=== PATIENT | female | born 1990 | race Caucasian/White ===

== ENCOUNTER 2023-12-03 07:40 | Outpatient (OUT) | payer OTHER, SELFPAY ==
[2023-12-03 08:21] LABS: HCG Quantitative 267 mIU/mL
== END 2023-12-03 07:41 | disposition home or self-care (01) ==
LOC: LAB 07:44
PROVIDERS: PCP Family Medicine; Visit Provider Obstetrics & Gynecology
DX: N92.6 Irregular menstruation, unspecified (principal); N91.2 Amenorrhea, unspecified
CPT/HCPCS: 36415; 84702

== ENCOUNTER 2023-12-16 10:20 | Outpatient (OUT) | payer OTHER, SELFPAY ==
--- OUTSIDE RECORDS SUMMARY | 2023-12-16 10:23 | XMS_ITS | CCD ---
Author Name Unknown Address [address] [facility] [address] [place] [address] Organization [facility] Care Team Providers Care Supervisor Transferring And Boxing Name Role Phone PHYSICIAN, DEFAULT Unavailable Unavailable PHYSICIAN, DEFAULT Unavailable Unavailable DR MARIANA CEVALLOS Primary Care Unavailable YO LANDEROS Admitting Unavailable YO LANDEROS Attending Unavailable YO LANDEROS Consulting Unavailable WHITNEY QUIROZ Admitting Unavailable WHITNEY QUIROZ Attending Unavailable DR MARIANA CEVALLOS Primary Care Unavailable WHITNEY QUIROZ Consulting Unavailable MARIANA CEVALLOS Attending Unavailable Problems Active Problems Problem Classification Problem Date Documented Da te Episodic/Chronic Anxiety disorders (1 source) Anxiety disorder, unspecified; Translations: [ANXIETY DISORDER UNSPECIFIED] Onset: 10-26-2022 Chronic Headache; including migraine (4 sources) Headache; including migraine; Translations: [HEADACHE UNSPECIFIED] Onset: 10-23-2022 Mood disorders (1 source) Mood disorders; Translations: [DEPRESSION UNSPECIFIED] Onset: 10-26-2022 Other aftercare (1 source) Other group home (current) drug therapy; Translations: [OTH 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] Onset: 10-26-2022 Episodic Unclassified (2 sources) CONTACT W/AND (SUSP) EXPOS COVID-19; Translations: [CONTACT W/AND (SUSP) EXPOS COVID-19] Onset: 12-17-2021 Viral infection (1 source) COVID-19; Translations: [COVID-19] Onset: 12-17-2021 Past or Other Problems Problem Classification Problem Date Documented Da te Episodic/Chronic Unclassified (1 source) CONTACT W/AND (SUSP) EXPOS COVID-19; Translations: [CONTACT W/AND (SUSP) EXPOS COVID-19] Onset: 12-16-2021 Results Test Name Value Interpretation Reference Range Facility CBC AUTO DIFFon 10-23-2022 BASO # 0.0 103/ul Normal 0.0-0.1 [facility] Comment on above: Performed By: #### C BC #### [facility] [address] [place] [address] Dr. Mir Araiza Basophils/100 WBC (Bld) 0.7 % Normal 0.2-2.0 [facility] Comment on above: Performed By: #### C BC #### [facility] [address] [place] [address] Dr. Mir Araiza EO # 0.2 103/ul Normal 0.0-0.7 [facility] Comment on above: Performed By: #### C BC #### [facility] [address] [place] [address] Dr. Mir Araiza Eosinophils/100 WBC (Bld) 3.0 % Normal 0.9-7.0 [facility] Comment on above: Performed By: #### C BC #### [facility] [address] [place] [address] Dr. Mir Araiza Erythrocyte distribution width (RBC) [Ratio] 15.6 % Critically high 11.0-15.0 [facility] Comment on above: Performed By: #### C BC #### [facility] [address] [place] [address] Dr. Mir Araiza Hematocrit (Bld) [Volume fraction] 38.5 % Normal 36.0-48.0 [facility] Comment on above: Performed By: #### C BC #### [facility] [address] [place] [address] Dr. Mir Araiza Hemoglobin (Bld) [Mass/Vol] 12.3 g/dL Normal 12.0-16.0 [facility] Comment on above: Performed By: #### C BC #### [facility] [address] [place] [address] Dr. Mir Araiza IG # 0.02 10e3/ul Normal 0.00-0.03 [facility] Comment on above: Performed By: #### C BC #### [facility] [address] [place] [address] Dr. Mir Araiza IG % 0.3 % Normal 0.0-0.5 [facility] Comment on above: Performed By: #### C BC #### [facility] [address] [place] [address] Dr. Mir Araiza LYMPH # 1.5 103/ul Normal 1.2-3.8 [facility] Comment on above: Performed By: #### C BC #### [facility] [address] [place] [address] Dr. Mir Araiza Lymphocytes/100 WBC (Bld) 24.1 % Normal 20.5-60.0 [facility] Comment on above: Performed By: #### C BC #### [facility] [address] [place] [address] Dr. Mir Araiza MANUAL DIFF REQ NO Normal [facility] Comment on above: Performed By: #### C BC #### [facility] [address] [place] [address] Dr. Mir Araiza MCH (RBC) [Entitic mass] 24.8 pg Critically low 26.7-34.0 [facility] Comment on above: Performed By: #### C BC #### [facility] [address] [place] [address] Dr. Mir Araiza MCHC (RBC) [Mass/Vol] 31.9 g/dL Normal 29.9-35.2 [facility] Comment on above: Performed By: #### C BC #### [facility] [address] [place] [address] Dr. Mir Araiza MCV (RBC) [Entitic vol] 77.8 fL Critically low 81.0-99.0 [facility] Comment on above: Performed By: #### C BC #### [facility] [address] [place] [address] Dr. Mir Araiza MONO # 0.4 103/ul Normal 0.3-0.8 [facility] Comment on above: Performed By: #### C BC #### [facility] [address] [place] [address] Dr. Mir Araiza Monocytes/100 WBC (Bld) 6.3 % Normal 1.7-12.0 [facility] Comment on above: Performed By: #### C BC #### [facility] [address] [place] [address] Dr. Mir Araiza NEUT # 4.0 103/ul Normal 1.4-6.5 [facility] Comment on above: Performed By: #### C BC #### [facility] [address] [place] [address] Dr. Mir Araiza Neutrophils/100 WBC (Bld) 65.6 % Normal 43.0-75.0 [facility] Comment on above: Performed By: #### C BC #### [facility] [address] [place] [address] Dr. Mir Araiza Platelet mean volume (Bld) [Entitic vol] 12.3 fL Normal 9.5-13.5 [facility] Comment on above: Performed By: #### C BC #### [facility] [address] [place] [address] Dr. Mir Araiza PLT 173 103/ul Normal 150-450 [facility] Comment on above: Performed By: #### C BC #### [facility] [address] [place] [address] Dr. Mir Araiza RBC 4.95 106/ul Normal 4.20-5.40 [facility] Comment on above: Performed By: #### C BC #### [facility] [address] [place] [address] Dr. Mir Araiza WBC 6.0 103/ul Normal 4.0-11.0 [facility] Comment on above: Performed By: #### C BC #### [facility] [address] [place] [address] Dr. Mir Araiza CRPon 10-23-2022 CRP 0.8 mg/dL Normal <=1.0 [facility] Comment on above: Performed By: #### B MP, CRP #### [facility] [address] [place] [address] Dr. Mir Araiza URon 10-23-2022 , QUAL Negative Normal NEGATIVE [facility] Comment on above: Performed By: #### P REGU #### [facility] [address] [address] [address] Mri Araiza PROF CHEM 8 (BAS METB)on Anion gap [Moles/Vol] 12.1 mmol/L Normal [facility] Comment on above: Performed By: #### B MP, CRP #### [facility] [address] [place] [address] Dr. Mir Araiza Calcium [Mass/Vol] 8.8 mg/dL Normal 8.5-10.1 [facility] Comment on above: Performed By: #### B MP, CRP #### [facility] [address] [place] [address] Dr. Mir Araiza Chloride [Moles/Vol] 104 mmol/L Normal 98-107 [facility] Comment on above: Performed By: #### B MP, CRP #### [facility] [address] [address] [address] Mir Araiza CO2 [Moles/Vol] 27.2 mmol/L Normal 21.0-32.0 [facility] Comment on above: Performed By: #### B MP, CRP #### [facility] [address] [place] [address] Dr. Mir Araiza Creatinine [Mass/Vol] 0.83 mg/dL Normal 0.55-1.02 [facility] Comment on above: Performed By: #### B MP, CRP #### [facility] [address] [address] [address] Mir Araiza EGFR-AF BELARUSIAN >60 Normal >=60 [facility] Comment on above: Performed By: #### B MP, CRP #### [facility] [address] [place] [address] Dr. Mir Araiza EGFR-NON AF BELARUSIAN >60 Normal >=60 [facility] Comment on above: Performed By: #### B MP, CRP #### [facility] [address] [place] [address] Dr. Mir Araiza Glucose [Mass/Vol] 96 mg/dL Normal 74-106 [facility] Comment on above: Performed By: #### B MP, CRP #### [facility] [address] [place] [address] Dr. Mir Araiza Potassium [Moles/Vol] 3.3 mmol/L Critically low 3.5-5.1 [facility] Comment on above: Performed By: #### B MP, CRP #### [facility] [address] [place] [address] Dr. Mir Araiza Sodium [Moles/Vol] 140 mmol/L Normal 136-145 [facility] Comment on above: Performed By: #### B MP, CRP #### [facility] [address] [place] [address] Dr. Mir Araiza Urea nitrogen [Mass/Vol] 10.0 mg/dL Normal 7.0-18.0 [facility] Comment on above: Performed By: #### B MP, CRP #### [facility] [address] [place] [address] Dr. Mir Araiza Urea nitrogen/Creatinine [Mass ratio] 12.0 mg/mg Normal [facility] Comment on above: Performed By: #### B MP, CRP #### [facility] [address] [place] [address] Dr. Mir Araiza SED RATE [facility] 2022 SED RATE 9 mm/hr Normal <=20 [facility] Comment on above: Performed By: #### S EDR #### [facility] [address] [place] [address] Dr. Mir Araiza Covid-19 PCR ([facility])on SARS-CoV-2 (COVID-19) RNA IFRAH+probe Ql (Unsp spec) Detected Critically abnormal NOT DETECTED [facility] Comment on above: Result Comment: This test is not yet approved or cleared by the [place] FDA. When there are no FDA-approved or cleared tests available, and other criteria are met, FDA can make tests available under an emergency access mechanism called an Emergency Use Authorization (EUA). The EUA for this test is supported by the Emissions Engineer of Health and Human Service's (HHS's) declaration that circumstances exist to justify the emergency use of in vitro diagnostics for the detection and/or diagnosis of the virus that causes COVID-19. This EUA will remain in effect (meaning this test can be used) for the duration of the COVID-19 declaration justifying emergency of IVDs, unless it is terminated or revoked by FDA (after which the test may no longer be used). Performed By: #### C VDTB #### [facility] [address] [address] [address] Mir Araiza [facility] Albumin [Mass/Vol] 3.9 g/dL Normal 3.2-5.5 [facility] Comment on above: Performed By: #### E BS CMP, EBS LIPID #### [address] Albumin/Globulin [Mass ratio] 1.2 {ratio} Normal [facility] Comment on above: Performed By: #### E BS CMP, EBS LIPID #### [facility] [address] ALP [Catalytic activity/Vol] 81 U/L Normal 32-92 [facility] Comment on above: Performed By: #### E BS CMP, EBS LIPID #### [facility] [address] [place] [address] [place] ALT [Catalytic activity/Vol] 17 U/L Normal 10-60 [facility] Comment on above: Performed By: #### E BS CMP, EBS LIPID #### [facility] [address] [id number] [place] AST [Catalytic activity/Vol] 18 U/L Normal 10-42 [facility] Comment on above: Performed By: #### E BS CMP, EBS LIPID #### [facility] [address] [id number] [place] Bilirubin [Mass/Vol] 0.3 mg/dL Normal 0.3-1.2 [facility] Comment on above: Performed By: #### E BS CMP, EBS LIPID #### [facility] [address] [place] [address] [place] Calcium [Mass/Vol] 9.5 mg/dL Normal 8.2-10.2 [facility] Comment on above: Performed By: #### E BS CMP, EBS LIPID #### [facility] [address] [place] [address] [place] Chloride [Moles/Vol] 99 mmol/L Normal 95-114 [facility] Comment on above: Performed By: #### E BS CMP, EBS LIPID #### [facility] [address] [place] [address] [place] CO2 [Moles/Vol] 30.3 mmol/L High 22.0-30.0 [facility] Comment on above: Performed By: #### E BS CMP, EBS LIPID #### [address] Creatinine [Mass/Vol] 0.61 mg/dL Normal 0.44-1.03 [facility] Comment on above: Performed By: #### E BS CMP, EBS LIPID #### [address] Estimated GFR ( Lili > 60 Normal [facility] Comment on above: Result Comment: GFR estimated reference range: According to KDOQI guidelines, <60 ml/min/1.73m2 is sufficient to diagnose a patient with chronic kidney disease. Performed By: #### E BS CMP, EBS LIPID #### [address] Estimated GFR (Non- Am > 60 Normal [facility] Comment on above: Performed By: #### E BS CMP, EBS LIPID #### [place] [address] [place] Globulin (S) [Mass/Vol] 3.2 g/dL Normal [facility] Comment on above: Performed By: #### E BS CMP, EBS LIPID #### [place] [address] [place] Glucose [Mass/Vol] 83 mg/dL Normal 70-100 [facility] Comment on above: Performed By: #### E BS CMP, EBS LIPID #### [place] [address] [place] Potassium [Moles/Vol] 4.3 mmol/L Normal 3.5-5.1 [facility] Comment on above: Performed By: #### E BS CMP, EBS LIPID #### [facility] [address] Protein [Mass/Vol] 7.1 g/dL Normal 6.1-7.9 [facility] Comment on above: Performed By: #### E BS CMP, EBS LIPID #### [facility] [address] Sodium [Moles/Vol] 138 mmol/L Normal 136-146 [facility] Comment on above: Performed By: #### E BS CMP, EBS LIPID #### [facility] [address] Urea nitrogen [Mass/Vol] 11 mg/dL Normal 9-23 [facility] Comment on above: Performed By: #### E BS CMP, EBS LIPID #### [facility] [address] Lipid Profileon 08-14-2021 Cholesterol [Mass/Vol] 248 mg/dL High 140-200 [facility] Comment on above: Result Comment: Chol less than 200 mg/dl low risk Chol 201-239 mg/dl borderline risk Chol 240 mg/dl and greater high risk Performed By: #### E BS CMP, EBS LIPID #### [facility] [address] Cholesterol in HDL [Mass/Vol] 54 mg/dL Normal 35-85 [facility] Comment on above: Result Comment: HDL CHOL ATP-III CLASSIFICATION Cardiovascular Risk HDL > or equal to 60 mg/dL LOW HDL < 40 mg/dL HIGH Performed By: #### E BS CMP, EBS LIPID #### [facility] [address] Cholesterol.total/C holesterol in HDL [Mass ratio] 4.6 {ratio} Normal <5.0 [facility] Comment on above: Result Comment: PERF ORMED BY: [place] [address] PATHOLOGIST TELEHEALTH COORDINATOR CAMILA KINNEY M.D. Performed By: #### E BS CMP, EBS LIPID #### [facility] [address] LDL Cholesterol,Calcula satya 170 mg/dL High 0-100 [facility] Comment on above: Result Comment: LDL ATP III CLASSIFICATION LDL less than 100 mg/dL Optimal LDL 100-129 mg/dL Near or above optimal LDL 130-159 mg/dL Borderline high LDL 160-189 mg/dL High LDL greater than 189 mg/dL Very high Performed By: #### E BS CMP, EBS LIPID #### [facility] [address] Triglyceride w/Reflex 121 mg/dL Normal 35-149 [facility] Comment on above: Result Comment: TRIG ATP III CLASSIFICATION TRIG less than 150 mg/dL Normal TRIG 150-199 mg/dL Borderline high TRIG 200-500 mg/dL High TRIG greater than 500 mg/dL Very high Standard traceable to the Center for Disease Conrtrol and Prevention (CDC) test method. Performed By: #### E BS CMP, EBS LIPID #### [facility] [address] VLDL CHOLESTEROL 24 mg/dL Normal [facility] Comment on above: Performed By: #### E BS CMP, EBS LIPID #### [facility] [address] Encounters Encounter Date Encounter Type Care Provider Facility Start: 10-21-2023 End: 10-21-2023 ambulatory MARIANA CEVALLOS Not Available Start: 10-23-2022 End: 10-23-[address] MARIANA CEVALLOS Facility:[facility] Start: 12-16-2021 End: 12-16-2021 ambulatory WHITNEY QUIROZ Facility:[facility] Start: 04-03-2018 End: 04-04-2018 Ambulatory DEFAULT PHYSICIAN Facility:[facility] Payers Date Payer Category Payer Unknown [id number] 1990 Unknown [id number] [id number] [id number] 1990 Unknown [id number] [id number] [id number] 1990 Unknown [id number] [id number] [id number] 1959 Unknown [id number] Unknown Summary Purpose Family History No Family History Records FoundNo Family History Records FoundNo Family History Records FoundNo Family History Records Found Advance Directives No Advanced Directives Records FoundNo Advanced Directives Records FoundNo Advanced Directives Records FoundNo Advanced Directives Records Found Additional Source Comments INFORMATION SOURCE (unrecogn ized section and content) DATE CREATED AUTHOR 04/04/2018 [facility] DATE CREATED AUTHOR AUTHOR'S ORGANIZ ATION 11/03/2021 [facility] DATE CREATED AUTHOR AUTHOR'S ORGANIZ ATION 10/26/2022 [facility] DATE CREATED AUTHOR AUTHOR'S ORGANIZ ATION 10/22/2023 [facility] EPIC FOR RECORDS PERTAINING TO PATIENTS WHO ARE OR HAVE BEEN ENROLLED IN A CHEMICAL DEPENDENCY/SUBSTANCEABUSE PROGRAM, SOME INFORMATION MAY BE OMITTED. This clinical summary was aggregated from multiple sources. Caution should be exercised in using it in the provision of clinical care. This summary normalizes information from multiple sources, and as a consequence, information in this document may materially change the coding, format and clinical context of patient data. In addition, data may be omitted in some cases. CLINICAL DECISIONS SHOULD BE BASED ON THE PRIMARY CLINICAL RECORDS. [facility] [employer] [facility]. provides no warranty or guarantee of the accuracy or completeness of information in this document.
[2023-12-16 13:06] LABS: HCG Quantitative 25856 mIU/mL
== END 2023-12-16 10:21 | disposition home or self-care (01) ==
PROVIDERS: PCP Family Medicine; Visit Provider Obstetrics & Gynecology
DX: N92.6 Irregular menstruation, unspecified (principal)
CPT/HCPCS: 36415; 84702

== ENCOUNTER 2024-01-02 18:55 | Outpatient (OUT) | payer OTHER, SELFPAY ==
--- NOTE | 2024-01-02 | US_ITS ---
[address] [address] Patient Name: PATRICIA GIBSON MRN: [id number] date: 1990 Sex: F Assigned Patient Location: [place] Current Patient Location: Accession/Order Number: [id number] Exam Date: 01/02/2024 19:07 Report Date: 01/03/2024 07:09 At the request of: LAKIA ESCOBEDO Procedure: US OB transvaginal EXAMINATION: US OB transvaginal HISTORY: MISSED MENSES N92.6 COMPARISON: No relevant comparison available. FINDINGS: Transvaginal images Shah intrauterine gestation Gestational sac: 2.9 cm, 7 weeks 5 days CRL: 2.2 cm, 9 weeks 0 days Yolk sac: 0.19 cm Heart rate: 1 64 bpm Identified adjacent to the gestational sac is a crescentic area of hypoechogenicity measuring 1.7 x 1.0 cm Cervix: Closed, 3.4 cm The uterus is normal, anteverted The right ovary is normal measuring 2.9 x 2.4 x 1.9 cm Left ovary is not visualized Clinical age: 10 weeks 2 days Clinical DEAN: 07/28/2024 Ultrasound age: 9 weeks 0 days Ultrasound DEAN: 08/06/2024 US/US OB transvaginal IMPRESSION: Viable shah intrauterine gestation measuring 9 weeks 0 days Small subchorionic hematoma Electronically authenticated by: BETH RINALDI Date: 01/03/2024 07:09
--- OUTSIDE RECORDS SUMMARY | 2024-01-02 18:57 | XMS_ITS | CCD ---
Author Organization [facility] Care Team Providers Care Subsorter Name Role Phone PHYSICIAN, DEFAULT Unavailable Unavailable [...] Onset: 10-26-2022 Other aftercare (1 source) Other jail (current) drug therapy; Translations: [OTH [facility] CURRENT DRUG THERAPY] Onset: 10-26-2022 Episodic Unclassified [...] 10-23-2022 BASO # 0.0 103/ul Normal 0.0-0.1 [facility] Comment on above: Performed By: #### C BC #### [facility] [address] [address] [address] Mir Araiza Basophils/100 WBC (Bld) 0.7 % Normal 0.2-2.0 [facility] Comment on above: Performed By: #### C BC #### [facility] [address] [place] [address] Dr. Mir Araiza EO # 0.2 103/ul Normal 0.0-0.7 [facility] Comment on above: Performed By: #### C BC #### [facility] [address] [place] [address] Dr. Mir Araiza Eosinophils/100 WBC (Bld) 3.0 % Normal 0.9-7.0 [facility] Comment on above: Performed By: #### C BC #### [facility] [address] [place] [address] Dr. Mir Araiza Erythrocyte distribution width (RBC) [Ratio] 15.6 % Critically high 11.0-15.0 [facility] Comment on above: Performed By: #### C BC #### [facility] [address] [place] [address] Dr. Mir Araiza Hematocrit (Bld) [Volume fraction] 38.5 % Normal 36.0-48.0 [facility] Comment on above: Performed By: #### C BC #### [facility] [address] [place] [address] Dr. Mir Araiza Hemoglobin (Bld) [Mass/Vol] 12.3 g/dL Normal 12.0-16.0 [facility] Comment on above: Performed By: #### C BC #### [facility] [address] [place] [address] Dr. Mir Araiza IG # 0.02 10e3/ul Normal 0.00-0.03 [facility] Comment on above: Performed By: #### C BC #### [facility] [address] [place] [address] Dr. Mir Araiza IG % 0.3 % Normal 0.0-0.5 [facility] Comment on above: Performed By: #### C BC #### [facility] [address] [address] [address] Mir Araiza LYMPH # 1.5 103/ul Normal 1.2-3.8 [facility] Comment on above: Performed By: #### C BC #### [facility] [address] [place] [address] Dr. Mir Araiza Lymphocytes/100 WBC (Bld) 24.1 % Normal 20.5-60.0 [facility] Comment on above: Performed By: #### C BC #### [facility] [address] [place] [address] Dr. Mir Araiza MANUAL DIFF REQ NO Normal [facility] Comment on above: Performed By: #### C BC #### [facility] [address] [place] [address] Dr. Mir Araiza MCH (RBC) [Entitic mass] 24.8 pg Critically low 26.7-34.0 [facility] Comment on above: Performed By: #### C BC #### [facility] [address] [place] [address] Dr. Mir Araiza MCHC (RBC) [Mass/Vol] 31.9 g/dL Normal 29.9-35.2 [facility] Comment on above: Performed By: #### C BC #### [facility] [address] [place] [address] Dr. Mir Araiza MCV (RBC) [Entitic vol] 77.8 fL Critically low 81.0-99.0 [facility] Comment on above: Performed By: #### C BC #### [facility] [address] [place] [address] Dr. Mir Araiza MONO # 0.4 103/ul Normal 0.3-0.8 [facility] Comment on above: Performed By: #### C BC #### [facility] [address] [place] [address] Dr. Mir Araiza Monocytes/100 WBC (Bld) 6.3 % Normal 1.7-12.0 [facility] Comment on above: Performed By: #### C BC #### [facility] [address] [place] [address] Dr. Mir Araiza NEUT # 4.0 103/ul Normal 1.4-6.5 [facility] Comment on above: Performed By: #### C BC #### [facility] [address] [place] [address] Dr. Mir Araiza Neutrophils/100 WBC (Bld) 65.6 % Normal 43.0-75.0 [facility] Comment on above: Performed By: #### C BC #### [facility] [address] [place] [address] Dr. Mir Araiza Platelet mean volume (Bld) [Entitic vol] 12.3 fL Normal 9.5-13.5 [facility] Comment on above: Performed By: #### C BC #### [facility] [address] [place] [address] Dr. Mir Araiaz PLT 173 103/ul Normal 150-450 [facility] Comment on above: Performed By: #### C BC #### [facility] [address] [place] [address] Dr. Mir Araiza RBC 4.95 106/ul Normal 4.20-5.40 [facility] Comment on above: Performed By: #### C BC #### [facility] [address] [place] [address] Dr. Mir Araiza WBC 6.0 103/ul Normal 4.0-11.0 [facility] Comment on above: Performed By: #### C BC #### [facility] [address] [place] [address] Dr. Mir Aariza CRPon 10-23-2022 CRP 0.8 mg/dL Normal <=1.0 [facility] Comment on above: Performed By: #### B MP, CRP #### [facility] [address] [place] [address] Dr. Mir Araiza URon 10-23-2022 , QUAL Negative Normal NEGATIVE [facility] Comment on above: Performed By: #### P REGU #### [facility] [address] [address] [address] Mir Araiza PROF CHEM 8 (BAS METB)on Anion gap [Moles/Vol] 12.1 mmol/L Normal [facility] Comment on above: Performed By: #### B MP, CRP #### [facility] [address] [address] [address] Mir Araiza Calcium [Mass/Vol] 8.8 mg/dL Normal 8.5-10.[address] [facility] Comment on above: Performed By: #### B MP, CRP #### [facility] [address] [address] [address] Mir Araiza Chloride [Moles/Vol] 104 mmol/L Normal 98-107 [facility] Comment on above: Performed By: #### B MP, CRP #### [facility] [address] [place] [address] Dr. Mir Araiza CO2 [Moles/Vol] 27.2 mmol/L Normal 21.0-32.0 [facility] Comment on above: Performed By: #### B MP, CRP #### [facility] [address] [address] [address] Mir Araiza Creatinine [Mass/Vol] 0.83 mg/dL Normal 0.55-1.02 [facility] Comment on above: Performed By: #### B MP, CRP #### [facility] [address] [address] [address] Mir Araiza EGFR-AF PAKISTANI >60 Normal >=60 [facility] Comment on above: Performed By: #### B MP, CRP #### [facility] [address] [address] [address] Mir Araiza EGFR-NON AF PAKISTANI >60 Normal >=60 [facility] Comment on above: Performed By: #### B MP, CRP #### [facility] [address] [address] [address] Mir Araiza Glucose [Mass/Vol] 96 mg/dL Normal 74-[address] [facility] Comment on above: Performed By: #### B MP, CRP #### [facility] [address] [address] [address] Mir Araiza Potassium [Moles/Vol] 3.3 mmol/L Critically low 3.5-5.1 [facility] Comment on above: Performed By: #### B MP, CRP #### [facility] [address] [address] [address] Mir Araiza Sodium [Moles/Vol] 140 mmol/L Normal 136-145 [facility] Comment on above: Performed By: #### B MP, CRP #### [facility] [address] [address] [address] Mir Araiza Urea nitrogen [Mass/Vol] 10.0 mg/dL Normal 7.0-18.0 [facility] Comment on above: Performed By: #### B MP, CRP #### [facility] [address] [place] [address] Dr. Mir Araiza Urea nitrogen/Creatinine [Mass ratio] 12.0 mg/mg Normal [facility] Comment on above: Performed By: #### B MP, CRP #### [facility] [address] [place] [address] Dr. Mir Araiza SED RATE [facility] 2022 SED RATE 9 mm/hr Normal <=20 [facility] Comment on above: Performed By: #### S EDR #### [facility] [address] [place] [address] Dr. Mir Araiza Covid-19 PCR (CVDTB)on SARS-CoV-2 (COVID-19) RNA IFRAH+probe Ql (Unsp spec) Detected Critically abnormal NOT DETECTED [facility] Comment on above: Result Comment: This test is not yet approved or cleared by the [place] FDA. When there are no FDA-approved or cleared tests available, and other criteria are met, FDA can make tests available under an emergency access mechanism called an Emergency Use Authorization (EUA). The EUA for this test is supported by the Video Specialist of Health and Human Service's (HHS's) declaration [...] used). Performed By: #### C VDTB #### [facility] [address] [address] [address] Mir Araiza [facility] Metabolic Empo n 08-14-2021 Albumin [Mass/Vol] 3.9 g/dL Normal 3.2-5.5 [facility] Comment on above: Performed By: #### E BS CMP, EBS LIPID #### [facility] [address] [place] [address] [place] Albumin/Globulin [Mass ratio] 1.2 {ratio} Normal [facility] Comment on above: Performed By: #### E BS CMP, EBS LIPID #### [facility] [address] [place] [address] [place] ALP [Catalytic activity/Vol] 81 U/L Normal 32-92 [facility] Comment on above: Performed By: #### E BS CMP, EBS LIPID #### [facility] [address] [place] [address] [place] ALT [Catalytic activity/Vol] 17 U/L Normal 10-60 [facility] Comment on above: Performed By: #### E BS CMP, EBS LIPID #### [facility] [address] [place] [address] [place] AST [Catalytic activity/Vol] 18 U/L Normal 10-42 [facility] Comment on above: Performed By: #### E BS CMP, EBS LIPID #### [facility] [address] [place] [address] [place] Bilirubin [Mass/Vol] 0.3 mg/dL Normal 0.3-1.2 [facility] Comment on above: Performed By: #### E BS CMP, EBS LIPID #### [facility] [address] [place] [address] [place] Calcium [Mass/Vol] 9.5 mg/dL Normal 8.2-10.2 [facility] Comment on above: Performed By: #### E BS CMP, EBS LIPID #### [facility] [address] [id number] [place] Chloride [Moles/Vol] 99 mmol/L Normal 95-114 [facility] Comment on above: Performed By: #### E BS CMP, EBS LIPID #### [facility] [address] CO2 [Moles/Vol] 30.3 mmol/L High 22.0-30.0 [facility] Comment on above: Performed By: #### E BS CMP, EBS LIPID #### [facility] [address] Creatinine [Mass/Vol] 0.61 mg/dL Normal 0.44-1.03 [facility] Comment on above: Performed By: #### E BS CMP, EBS LIPID #### [address] Estimated GFR ( Lili > 60 Normal [facility] Comment on above: Result Comment: GFR estimated reference range: According to KDOQI guidelines, <60 ml/min/1.73m2 is sufficient to diagnose a patient with chronic kidney disease. Performed By: #### E BS CMP, EBS LIPID #### [facility] [address] [place] [address] Estimated GFR (Non- Am > 60 Normal [facility] Comment on above: Performed By: #### E BS CMP, EBS LIPID #### [facility] [address] [place] [address] [place] Globulin (S) [Mass/Vol] 3.2 g/dL Normal [facility] Comment on above: Performed By: #### E BS CMP, EBS LIPID #### [facility] [address] [place] [address] [place] Glucose [Mass/Vol] 83 mg/dL Normal 70-100 [facility] Comment on above: Performed By: #### E BS CMP, EBS LIPID #### [facility] [address] [place] [address] Potassium [Moles/Vol] 4.3 mmol/L Normal 3.5-5.1 [facility] Comment on above: Performed By: #### E BS CMP, EBS LIPID #### [facility] [address] [id number] [place] Protein [Mass/Vol] 7.1 g/dL Normal 6.1-7.9 [facility] Comment on above: Performed By: #### E BS CMP, EBS LIPID #### [facility] [address] [phone] [place] Sodium [Moles/Vol] 138 mmol/L Normal 136-146 [facility] Comment on above: Performed By: #### E BS CMP, EBS LIPID #### [facility] [address] Urea nitrogen [Mass/Vol] 11 mg/dL Normal 9-23 [facility] Comment on above: Performed By: #### E BS CMP, EBS LIPID #### [facility] [address] Lipid Profileon 08-14-2021 Cholesterol [Mass/Vol] 248 mg/dL High 140-200 [facility] Comment on above: Result Comment: Chol less than 200 mg/dl low risk Chol 201-239 mg/dl borderline risk Chol 240 mg/dl and greater high risk Performed By: #### E BS CMP, EBS LIPID #### [facility] [address] Cholesterol in HDL [Mass/Vol] 54 mg/dL Normal 35-85 [facility] Comment on above: Result Comment: HDL CHOL ATP-III CLASSIFICATION Cardiovascular Risk HDL > or equal to 60 mg/dL LOW HDL < 40 mg/dL HIGH Performed By: #### E BS CMP, EBS LIPID #### [facility] [address] [id number] [place] Cholesterol.total/C holesterol in HDL [Mass ratio] 4.6 {ratio} Normal <5.0 [facility] Comment on above: Result Comment: PERF ORMED BY: [place] [address] PATHOLOGIST COMMUNICATION EQUIPMENT REPAIRER CAMILA KINNEY M.D. Performed By: #### E BS CMP, EBS LIPID #### [facility] [address] [id number] [facility] LDL Cholesterol,Calcula satya 170 mg/dL High 0-100 [facility] Comment on above: Result Comment: LDL ATP III CLASSIFICATION LDL less than 100 mg/dL Optimal LDL 100-129 mg/dL Near or above optimal LDL 130-159 mg/dL Borderline high LDL 160-189 mg/dL High LDL greater than 189 mg/dL Very high Performed By: #### E BS CMP, EBS LIPID #### [facility] [address] [id number] [facility] Triglyceride w/Reflex 121 mg/dL Normal 35-149 [facility] Comment on above: Result Comment: TRIG ATP III CLASSIFICATION TRIG less than 150 mg/dL Normal TRIG 150-199 mg/dL Borderline high TRIG 200-500 mg/dL High TRIG greater than 500 mg/dL Very high Standard traceable to the Center for Disease Conrtrol and Prevention (CDC) test method. Performed By: #### E BS CMP, EBS LIPID #### [facility] [address] [id number] [facility] VLDL CHOLESTEROL 24 mg/dL Normal [facility] Comment on above: Performed By: #### E BS CMP, EBS LIPID #### [facility] [address] [id number] [facility] Encounters Encounter Date Encounter Type Care Provider Facility Start: 10-21-2023 End: 10-21-2023 ambulatory MARIANA CEVALLOS Not Available Start: 10-23-2022 End: 10-23-[address] MARIANA CEVALLOS Facility:[facility] Start: 12-16-2021 End: 12-16-2021 ambulatory WHITNEY QUIROZ Facility:[facility] Start: 04-03-2018 End: 04-04-2018 Ambulatory DEFAULT PHYSICIAN Facility:[facility] Payers Date Payer Category Payer Unknown [id number] 1990 Unknown [id number] 1990 Unknown [id number] [id number] 1990 Unknown [id number] 1959 Unknown [id number] Unknown Summary Purpose Family History No Family History Records FoundNo Family History Records FoundNo Family History Records FoundNo Family History Records Found Advance Directives No Advanced Directives Records FoundNo Advanced Directives Records FoundNo Advanced Directives Records FoundNo Advanced Directives Records Found Additional Source Comments INFORMATION SOURCE (unrecogn ized section and content) DATE CREATED AUTHOR 04/04/2018 [facility] DATE CREATED AUTHOR AUTHOR'S ORGANIZ ATION 11/03/2021 [facility] DATE CREATED AUTHOR AUTHOR'S ORGANIZ ATION 10/26/2022 [facility] DATE CREATED AUTHOR AUTHOR'S ORGANIZ ATION 10/22/2023 [facility] [employer] EPIC FOR RECORDS PERTAINING TO PATIENTS [...] BE BASED ON THE PRIMARY CLINICAL RECORDS. [facility] [employer] provides no warranty or guarantee of the accuracy or completeness of information in this document.
== END 2024-01-02 18:56 | disposition home or self-care (01) ==
PROVIDERS: PCP Family Medicine; Visit Provider Obstetrics & Gynecology
DX: N92.6 Irregular menstruation, unspecified (principal); O20.9 Hemorrhage in early pregnancy, unspecified; Z3A.09 9 weeks gestation of pregnancy
CPT/HCPCS: 76817

== ENCOUNTER 2024-01-20 08:56 | Outpatient (OUT) | payer OTHER, SELFPAY ==
--- NOTE | 2024-01-20 08:58 | US_ITS ---
[address] [address] Patient Name: PATRICIA GIBSON MRN: [id number] date: 1990 Sex: F Assigned Patient Location: [facility] Current Patient Location: [facility] Accession/Order Number: [id number] Exam Date: 01/20/2024 08:58 Report Date: 01/20/2024 09:33 At the request of: LAKIA ESCOBEDO Procedure: US OB transvaginal EXAMINATION: US OB transvaginal HISTORY: MISSED MENSES COMPARISON: Ultrasound OB transvaginal 01/02/2024 FINDINGS: GESTATIONAL SAC: Present and normal appearing. YOLK SAC: Present and normal appearing. POLE: Present and normal appearing. CARDIAC: Present. UTERUS: Normal size and appearance. OVARIES: Right: Not seen. Left: Normal. CERVIX: 4.3 cm in length and closed. CUL-DE-SAC: Normal. OTHER: None. AGE BY LMP: 12 weeks 6 days DEAN BY LMP: 07/28/2024 AGE BY US CRL: 11 weeks 4 days DEAN BY US CRL: 08/06/2024 US/US OB transvaginal IMPRESSION: 1. Single live intrauterine . 2. Resolution of previously seen small subchorionic hematomas. Electronically authenticated by: KATHIE RUIZ Date: 01/20/2024 09:33
== END 2024-01-20 08:57 | disposition home or self-care (01) ==
LOC: NOMS 08:56
PROVIDERS: PCP Family Medicine; Visit Provider Obstetrics & Gynecology
DX: Z34.91 Encounter for supervision of normal pregnancy, unspecified, first trimester (principal); Z3A.12 12 weeks gestation of pregnancy
CPT/HCPCS: 76817

== ENCOUNTER 2024-01-20 10:00 | Outpatient (OUT) | payer OTHER, SELFPAY ==
[2024-01-20 10:49] LABS: BOX Test Sent Out DONE
[2024-01-20 11:37] LABS: Basophils Percent Auto 0.1 % (0.2-2.0); Eosinophils Percent Auto 0.1 % (0.9-7.0); Hematocrit 39.4 % (36.0-48.0); Hemoglobin 12.2 g/dL (12.0-16.0); Lymphocytes Percent Auto 9.9 % (20.5-60.0); Mean Corpuscular Volume 77.6 fL (81.0-99.0); Mean Platelet Volume 12.3 fL (9.5-13.5); Monocytes Absolute Auto 0.2 10^3/uL (0.3-0.8); Monocytes Percent Auto 2.2 % (1.7-12.0); Neutrophils Absolute Auto 9.1 10^3/uL (1.4-6.5); Neutrophils Percent Auto 86.7 % (43.0-75.0); Platelet Count 173 10^3/uL (150-450); Red Blood Count 5.08 10^6/uL (4.20-5.40); Red Cell Distribution Width 14.9 % (11.0-15.0); White Blood Count 10.5 10^3/uL (4.0-11.0)
[2024-01-20 11:48] LABS: Estimated Average Glucose 111 mg/dL; Glycohemoglobin A1C 5.5 % (4.5-6.2)
[2024-01-21 06:08] LABS: HBsAg Screen Negative (Negative); HCV Ab Non Reactive (Non Reactive); HIV Ab/p24 Ag Screen Non Reactive (Non Reactive)
[2024-01-21 07:08] LABS: Rapid Plasma Reagin, Quant Non Reactive titer (NonRea<1:1); Rubella Antibodies, IgG 2.29 index (Immune >0.99)
== END 2024-01-20 10:01 | disposition home or self-care (01) ==
LOC: LAB 10:01
PROVIDERS: PCP Family Medicine; Visit Provider Obstetrics & Gynecology
DX: Z34.91 Encounter for supervision of normal pregnancy, unspecified, first trimester (principal); Z36.0 Encounter for antenatal screening for chromosomal anomalies; Z3A.12 12 weeks gestation of pregnancy
CPT/HCPCS: 36415; 76817; 83036; 85025; 86592; 86762; 86803; 86850; 86900; 86901; 87086; 87340; 87389

== ENCOUNTER 2024-04-05 09:18 | Outpatient (OUT) | payer OTHER, SELFPAY ==
--- OUTSIDE RECORDS SUMMARY | 2024-04-05 09:28 | XMS_ITS | CCD ---
Author Organization [facility] Inform ion Partnership [facility] Care Team Providers Care Director Power Name Role Phone PHYSICIAN, DEFAULT Unavailable Unavailable PHYSICIAN, DEFAULT Unavailable Unavailable DR MARIANA CEVALLOS Primary Care Unavailable YO LANDEROS Admitting Unavailable YO LANDEROS Attending Unavailable YO LANDEROS Consulting Unavailable WHITNEY QUIROZ Admitting Unavailable WHITNEY QUIROZ Attending Unavailable DR MARIANA CEVALLOS Primary Care Unavailable WHITNEY QUIROZ Consulting Unavailable MARIANA CEVALLOS Attending Unavailable LAKIA ESCOBEDO Attending Unavailable Problems Active Problems Problem Classification Problem Date Documented Da te Episodic/Chronic Anxiety disorders (1 source) Anxiety disorder, unspecified; Translations: [ANXIETY DISORDER UNSPECIFIED] Onset: 10-26-2022 Chronic Headache; including migraine (4 sources) Headache; including migraine; Translations: [HEADACHE UNSPECIFIED] Onset: 10-23-2022 Mood disorders (1 source) Mood disorders; Translations: [DEPRESSION UNSPECIFIED] Onset: 10-26-2022 Other aftercare (1 source) 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 Mir Araiza Basophils/100 WBC (Bld) 0.7 % Normal 0.2-2.0 [facility] Comment on above: Performed By: #### C BC #### [facility] [address] [place] [address] Dr. Mir Araiza EO # 0.2 103/ul Normal 0.0-0.7 [facility] Comment on above: Performed By: #### C BC #### [facility] [address] [place] [address] Dr. Mir Araiza Eosinophils/100 WBC (Bld) 3.0 % Normal 0.9-7.0 [facility] Comment on above: Performed By: #### C BC #### [facility] [address] [place] [address] Dr. Mir Araiza Erythrocyte distribution width (RBC) [Ratio] 15.6 % Critically high 11.0-15.0 [facility] Comment on above: Performed By: #### C BC #### [facility] [address] [place] [address] Dr. Mir Araiza Hematocrit (Bld) [Volume fraction] 38.5 % Normal 36.0-48.0 [facility] Comment on above: Performed By: #### C BC #### [facility] [address] [place] [address] Dr. Mir Araiza Hemoglobin (Bld) [Mass/Vol] 12.3 g/dL Normal 12.0-16.0 [facility] Comment on above: Performed By: #### C BC #### [facility] [address] [place] [address] Dr. Mir Araiza IG # 0.02 10e3/ul Normal 0.00-0.03 [facility] Comment on above: Performed By: #### C BC #### [facility] [address] [place] [address] Dr. Mir Araiza IG % 0.3 % Normal 0.0-0.5 [facility] Comment on above: Performed By: #### C BC #### [facility] [address] [place] [address] Dr. Mir Araiza LYMPH # 1.5 103/ul Normal 1.2-3.8 [facility] Comment on above: Performed By: #### C BC #### [facility] [address] [place] [address] Dr. Mir Araiza Lymphocytes/100 WBC (Bld) 24.1 % Normal 20.5-60.0 [facility] Comment on above: Performed By: #### C BC #### [facility] [address] [place] [address] Dr. Mir Araiza MANUAL DIFF REQ NO Normal [facility] Comment on above: Performed By: #### C BC #### [facility] [address] [place] [address] Dr. Mir Araiza MCH (RBC) [Entitic mass] 24.8 pg Critically low 26.7-34.0 [facility] Comment on above: Performed By: #### C BC #### [facility] [address] [place] [address] Dr. Mir Araiza MCHC (RBC) [Mass/Vol] 31.9 g/dL Normal 29.9-35.2 [facility] Comment on above: Performed By: #### C BC #### [facility] [address] [place] [address] Dr. Mir Araiza MCV (RBC) [Entitic vol] 77.8 fL Critically low 81.0-99.0 [facility] Comment on above: Performed By: #### C BC #### [facility] [address] [place] [address] Dr. Mir Araiza MONO # 0.4 103/ul Normal 0.3-0.8 [facility] Comment on above: Performed By: #### C BC #### [facility] [address] [place] [address] Dr. Mir Araiza Monocytes/100 WBC (Bld) 6.3 % Normal 1.7-12.0 [facility] Comment on above: Performed By: #### C BC #### [facility] [address] [place] [address] Dr. Mir Araiza NEUT # 4.0 103/ul Normal 1.4-6.5 [facility] Comment on above: Performed By: #### C BC #### [facility] [address] [place] [address] Dr. Mir Araiza Neutrophils/100 WBC (Bld) 65.6 % Normal 43.0-75.0 [facility] Comment on above: Performed By: #### C BC #### [facility] [address] [place] [address] Dr. Mir Araiza Platelet mean volume (Bld) [Entitic vol] 12.3 fL Normal 9.5-13.5 [facility] Comment on above: Performed By: #### C BC #### [facility] [address] [place] [address] Dr. Mir Araiza PLT 173 103/ul Normal 150-450 [facility] Comment on above: Performed By: #### C BC #### [facility] [address] [place] [address] Dr. Mir Araiza RBC 4.95 106/ul Normal 4.20-5.40 [facility] Comment on above: Performed By: #### C BC #### [facility] [address] [place] [address] Dr. Mir Araiza WBC 6.0 103/ul Normal 4.0-11.0 [facility] Comment on above: Performed By: #### C BC #### [facility] [address] [place] [address] Dr. Mir Araiza CRPon 10-23-2022 CRP 0.8 mg/dL Normal <=1.0 [facility] Comment on above: Performed By: #### B MP, CRP #### [facility] [address] [place] [address] Dr. Mir Araiza URon 10-23-2022 , QUAL Negative Normal NEGATIVE [facility] Comment on above: Performed By: #### P REGU #### [facility] [address] [address] [address] Mir Araiza PROF CHEM 8 (BAS METB)on Anion gap [Moles/Vol] 12.1 mmol/L Normal [facility] Comment on above: Performed By: #### B MP, CRP #### [facility] [address] [place] [address] Dr. Mir Araiza Calcium [Mass/Vol] 8.8 mg/dL Normal 8.5-10.1 [facility] Comment on above: Performed By: #### B MP, CRP #### [facility] [address] [place] [address] Dr. Mir Araiza Chloride [Moles/Vol] 104 mmol/L Normal 98-107 [facility] Comment on above: Performed By: #### B MP, CRP #### [facility] [address] [place] [address] Dr. Mir Araiza CO2 [Moles/Vol] 27.2 mmol/L Normal 21.0-32.0 [facility] Comment on above: Performed By: #### B MP, CRP #### [facility] [address] [place] [address] Dr. Mir Araiza Creatinine [Mass/Vol] 0.83 mg/dL Normal 0.55-1.02 [facility] Comment on above: Performed By: #### B MP, CRP #### [facility] [address] [address] [address] Mir Araiza EGFR-AF BELIZEAN >60 Normal >=60 [facility] Comment on above: Performed By: #### B MP, CRP #### [facility] [address] [place] [address] Dr. Mir Araiza EGFR-NON AF BELIZEAN >60 Normal >=60 [facility] Comment on above: Performed By: #### B MP, CRP #### [facility] [address] [place] [address] Dr. Mir Araiza Glucose [Mass/Vol] 96 mg/dL Normal 74-106 [facility] Comment on above: Performed By: #### B MP, CRP #### [facility] [address] [address] [address] Mir Araiza Potassium [Moles/Vol] 3.3 mmol/L Critically low 3.5-5.1 [facility] Comment on above: Performed By: #### B MP, CRP #### [facility] [address] [place] [address] Dr. Mir Araiza Sodium [Moles/Vol] 140 mmol/L Normal 136-145 [facility] Comment on above: Performed By: #### B MP, CRP #### [facility] [address] [place] [address] Dr. Mir Araiza Urea nitrogen [Mass/Vol] 10.0 mg/dL Normal 7.0-18.0 [facility] Comment on above: Performed By: #### B MP, CRP #### [facility] [address] [place] [address] Dr. Mir Araiza Urea nitrogen/Creatinine [Mass ratio] 12.0 mg/mg Normal [facility] Comment on above: Performed By: #### B MP, CRP #### [facility] [address] [place] [address] Dr. Mir Araiza SED RATE [facility] 2022 SED RATE 9 mm/hr Normal <=20 [facility] Comment on above: Performed By: #### S EDR #### [facility] [address] [place] [address] Dr. Mir Araiza Covid-19 PCR (CVDTB)on SARS-CoV-2 (COVID-19) RNA IFRAH+probe Ql (Unsp spec) Detected Critically abnormal NOT DETECTED [facility] Comment on above: Result Comment: This test is not yet approved or cleared by the [place] FDA. When there are no FDA-approved or cleared tests available, and other criteria are met, FDA can make tests available under an emergency access mechanism called an Emergency Use Authorization (EUA). The EUA for this test is supported by the [place] T[place] of Health and Human Service's (HHS's) declaration [...] used). Performed By: #### C VDTB #### [facility] [address] [address] [address] Mir Araiza [facility] Albumin [Mass/Vol] 3.9 g/dL Normal 3.2-5.5 [facility] Comment on above: Performed By: #### E BS CMP, EBS LIPID #### [address] Albumin/Globulin [Mass ratio] 1.2 {ratio} Normal [facility] Comment on above: Performed By: #### E BS CMP, EBS LIPID #### [facility] [address] ALP [Catalytic activity/Vol] 81 U/L Normal 32-92 [facility] Comment on above: Performed By: #### E BS CMP, EBS LIPID #### [facility] [address] [place] [address] [place] ALT [Catalytic activity/Vol] 17 U/L Normal 10-60 [facility] Comment on above: Performed By: #### E BS CMP, EBS LIPID #### [facility] [address] [id number] [place] AST [Catalytic activity/Vol] 18 U/L Normal 10-42 [facility] Comment on above: Performed By: #### E BS CMP, EBS LIPID #### [facility] [address] [id number] [place] Bilirubin [Mass/Vol] 0.3 mg/dL Normal 0.3-1.2 [facility] Comment on above: Performed By: #### E BS CMP, EBS LIPID #### [facility] [address] [place] [address] [place] Calcium [Mass/Vol] 9.5 mg/dL Normal 8.2-10.2 [facility] Comment on above: Performed By: #### E BS CMP, EBS LIPID #### [facility] [address] [place] [address] [place] Chloride [Moles/Vol] 99 mmol/L Normal 95-114 [facility] Comment on above: Performed By: #### E BS CMP, EBS LIPID #### [facility] [address] [place] [address] [place] CO2 [Moles/Vol] 30.3 mmol/L High 22.0-30.0 [facility] Comment on above: Performed By: #### E BS CMP, EBS LIPID #### [address] Creatinine [Mass/Vol] 0.61 mg/dL Normal 0.44-1.03 [facility] Comment on above: Performed By: #### E BS CMP, EBS LIPID #### [address] Estimated GFR ( Lili > 60 Normal [facility] Comment on above: Result Comment: GFR estimated reference range: According to KDOQI guidelines, <60 ml/min/1.73m2 is sufficient to diagnose a patient with chronic kidney disease. Performed By: #### E BS CMP, EBS LIPID #### [address] Estimated GFR (Non- Am > 60 Normal [facility] Comment on above: Performed By: #### E BS CMP, EBS LIPID #### [place] [address] [place] Globulin (S) [Mass/Vol] 3.2 g/dL Normal [facility] Comment on above: Performed By: #### E BS CMP, EBS LIPID #### [place] [address] [place] Glucose [Mass/Vol] 83 mg/dL Normal 70-100 [facility] Comment on above: Performed By: #### E BS CMP, EBS LIPID #### [place] [address] [place] Potassium [Moles/Vol] 4.3 mmol/L Normal 3.5-5.1 [facility] Comment on above: Performed By: #### E BS CMP, EBS LIPID #### [facility] [address] Protein [Mass/Vol] 7.1 g/dL Normal 6.1-7.9 [facility] Comment on above: Performed By: #### E BS CMP, EBS LIPID #### [facility] [address] Sodium [Moles/Vol] 138 mmol/L Normal 136-146 [facility] Comment on above: Performed By: #### E BS CMP, EBS LIPID #### [facility] [address] Urea nitrogen [Mass/Vol] 11 mg/dL Normal 9-23 [facility] Comment on above: Performed By: #### E BS CMP, EBS LIPID #### [facility] [address] Lipid Profileon 08-14-2021 Cholesterol [Mass/Vol] 248 mg/dL High 140-200 [facility] Comment on above: Result Comment: Chol less than 200 mg/dl low risk Chol 201-239 mg/dl borderline risk Chol 240 mg/dl and greater high risk Performed By: #### E BS CMP, EBS LIPID #### [facility] [address] Cholesterol in HDL [Mass/Vol] 54 mg/dL Normal 35-85 [facility] Comment on above: Result Comment: HDL CHOL ATP-III CLASSIFICATION Cardiovascular Risk HDL > or equal to 60 mg/dL LOW HDL < 40 mg/dL HIGH Performed By: #### E BS CMP, EBS LIPID #### [facility] [address] Cholesterol.total/C holesterol in HDL [Mass ratio] 4.6 {ratio} Normal <5.0 [facility] Comment on above: Result Comment: PERF ORMED BY: [place] [address] PATHOLOGIST [facility] LIAISON CAMILA KINNEY M.D. Performed By: #### E BS CMP, EBS LIPID #### [facility] [address] LDL Cholesterol,Calcula satya 170 mg/dL High 0-100 [facility] Comment on above: Result Comment: LDL ATP III CLASSIFICATION LDL less than 100 mg/dL Optimal LDL 100-129 mg/dL Near or above optimal LDL 130-159 mg/dL Borderline high LDL 160-189 mg/dL High LDL greater than 189 mg/dL Very high Performed By: #### E BS CMP, EBS LIPID #### [facility] [address] Triglyceride w/Reflex 121 mg/dL Normal 35-149 [facility] Comment on above: Result Comment: TRIG ATP III CLASSIFICATION TRIG less than 150 mg/dL Normal TRIG 150-199 mg/dL Borderline high TRIG 200-500 mg/dL High TRIG greater than 500 mg/dL Very high Standard traceable to the Center for Disease Conrtrol and Prevention (CDC) test method. Performed By: #### E BS CMP, EBS LIPID #### [facility] [address] VLDL CHOLESTEROL 24 mg/dL Normal [facility] Comment on above: Performed By: #### E BS CMP, EBS LIPID #### [facility] [address] Encounters Encounter Date Encounter Type Care Provider Facility Start: 02-09-2024 End: 02-09-2024 ambulatory LAKIA ESCOBEDO Not Available Start: 01-20-2024 End: 01-20-2024 ambulatory MARIANA CEVALLOS Not Available Start: 10-21-2023 End: 10-21-2023 ambulatory MARIANA CEVALLOS Not Available Start: 10-23-2022 End: 10-23-[address] MARIANA CEVALLOS Facility:[facility] Start: 12-16-2021 End: 12-16-2021 ambulatory WHITNEY QUIROZ Facility:[facility] Start: 04-03-2018 End: 04-04-2018 Ambulatory DEFAULT PHYSICIAN Facility:[facility] Payers Date Payer Category Payer Unknown [id number] 1990 Unknown [id number] 2.16.84 [id number] 1990 Unknown [id number] 2.16.84 [id number] 1990 Unknown [id number] 2.16.84 [id number] 1990 Unknown [id number] 2.16.84 [id number] 1990 Unknown [id number] 2.16.84 [id number] 1959 Unknown [id number] Unknown Summary Purpose Family History No Family History Records FoundNo Family History Records FoundNo Family History Records FoundNo Family History Records Found Advance Directives No Advanced Directives Records FoundNo Advanced Directives Records FoundNo Advanced Directives Records FoundNo Advanced Directives Records Found Additional Source Comments INFORMATION SOURCE (unrecogn ized section and content) DATE CREATED AUTHOR 04/04/2018 [facility] DATE CREATED AUTHOR AUTHOR'S ORGANIZ ATION 11/03/2021 [facility] DATE CREATED AUTHOR AUTHOR'S ORGANIZ ATION 10/26/2022 [facility] DATE CREATED AUTHOR AUTHOR'S ORGANIZ ATION 02/10/2024 [facility] FOR RECORDS PERTAINING TO PATIENTS WHO ARE [...] BE BASED ON THE PRIMARY CLINICAL RECORDS. [employer] provides no warranty or guarantee of the accuracy or completeness of information in this document.
[2024-04-05 11:19] LABS: Glucose 1 Hour 156 mg/dL (<130)
[2024-04-05 15:55] LABS: Basophils Absolute Auto 0.1 10^3/uL (0.0-0.1); Basophils Percent Auto 0.4 % (0.2-2.0); Eosinophils Absolute Auto 0.2 10^3/uL (0.0-0.7); Eosinophils Percent Auto 1.9 % (0.9-7.0); Hematocrit 34.6 % (36.0-48.0); Hemoglobin 10.5 g/dL (12.0-16.0); Immature Granulocytes Abs Auto 0.07 10^3/uL (0.00-0.03); Immature Granulocytes Pct Auto 0.6 % (0.0-0.5); Lymphocytes Absolute Auto 1.9 10^3/uL (1.2-3.8); Lymphocytes Percent Auto 16.5 % (20.5-60.0); Mean Corpuscular HGB Conc 30.3 g/dL (29.9-35.2); Mean Corpuscular Hemoglobin 23.5 pg (26.7-34.0); Mean Corpuscular Volume 77.4 fL (81.0-99.0); Mean Platelet Volume 12.3 fL (9.5-13.5); Monocytes Absolute Auto 0.4 10^3/uL (0.3-0.8); Monocytes Percent Auto 3.2 % (1.7-12.0); Neutrophils Absolute Auto 9.1 10^3/uL (1.4-6.5); Neutrophils Percent Auto 77.4 % (43.0-75.0); Platelet Count 156 10^3/uL (150-450); Red Blood Count 4.47 10^6/uL (4.20-5.40); Red Cell Distribution Width 15.7 % (11.0-15.0); White Blood Count 11.7 10^3/uL (4.0-11.0)
== END 2024-04-05 09:19 | disposition home or self-care (01) ==
LOC: LAB 09:19
PROVIDERS: PCP Family Medicine; Visit Provider Obstetrics & Gynecology
DX: Z34.92 Encounter for supervision of normal pregnancy, unspecified, second trimester (principal); Z86.32 Personal history of gestational diabetes; Z01.419 Encounter for gynecological examination (general) (routine) without abnormal findings
CPT/HCPCS: 36415; 82950; 85025; 87624; 88175

== ENCOUNTER 2024-04-05 19:43 | Outpatient (REF) | payer OTHER, SELFPAY ==
--- OUTSIDE RECORDS SUMMARY | 2024-04-05 19:53 | XMS_ITS | CCD ---
Author Organization [facility] Inform ion Partnership [facility] Care Team Providers Care Carpenter Supervisor Wooden Ship Name Role Phone PHYSICIAN, DEFAULT Unavailable Unavailable [...] Onset: 10-26-2022 Other aftercare (1 source) Other intermediate card tender (current) drug therapy; Translations: [OTH DETENTION CURRENT DRUG THERAPY] Onset: 10-26-2022 Episodic Unclassified [...] 10-23-2022 BASO # 0.0 103/ul Normal 0.0-0.1 [facility] Comment on above: Performed By: #### C BC #### [facility] [address] [place] [address] Dr. Mir Araiza Basophils/100 WBC (Bld) 0.7 % Normal 0.2-2.0 [facility] Comment on above: Performed By: #### C BC #### [facility] [address] [place] [address] Dr. Mir Araiza EO # 0.2 103/ul Normal 0.0-0.7 [facility] Comment on above: Performed By: #### C BC #### [facility] [address] [place] [address] Dr. Mir Araiza Eosinophils/100 WBC (Bld) 3.0 % Normal 0.9-7.0 [facility] Comment on above: Performed By: #### C BC #### [facility] [address] [place] [address] Dr. Mir Araiza Erythrocyte distribution width (RBC) [Ratio] 15.6 % Critically high 11.0-15.0 [facility] Comment on above: Performed By: #### C BC #### [facility] [address] [place] [address] Dr. Mir Araiza Hematocrit (Bld) [Volume fraction] 38.5 % Normal 36.0-48.0 [facility] Comment on above: Performed By: #### C BC #### [facility] [address] [place] [address] Dr. Mir Araiza Hemoglobin (Bld) [Mass/Vol] 12.3 g/dL Normal 12.0-16.0 [facility] Comment on above: Performed By: #### C BC #### [facility] [address] [place] [address] Dr. Mir Araiza IG # 0.02 10e3/ul Normal 0.00-0.03 [facility] Comment on above: Performed By: #### C BC #### [facility] [address] [place] [address] Dr. Mir Araiza IG % 0.3 % Normal 0.0-0.5 [facility] Comment on above: Performed By: #### C BC #### [facility] [address] [place] [address] Dr. Mir Araiza LYMPH # 1.5 103/ul Normal 1.2-3.8 [facility] Comment on above: Performed By: #### C BC #### [facility] [address] [place] [address] Dr. Mir Araiza Lymphocytes/100 WBC (Bld) 24.1 % Normal 20.5-60.0 [facility] Comment on above: Performed By: #### C BC #### [facility] [address] [place] [address] Dr. Mir Araiza MANUAL DIFF REQ NO Normal [facility] Comment on above: Performed By: #### C BC #### [facility] [address] [place] [address] Dr. Mir Araiza MCH (RBC) [Entitic mass] 24.8 pg Critically low 26.7-34.0 [facility] Comment on above: Performed By: #### C BC #### [facility] [address] [place] [address] Dr. Mir Araiza MCHC (RBC) [Mass/Vol] 31.9 g/dL Normal 29.9-35.2 [facility] Comment on above: Performed By: #### C BC #### [facility] [address] [place] [address] Dr. Mir Araiza MCV (RBC) [Entitic vol] 77.8 fL Critically low 81.0-99.0 [facility] Comment on above: Performed By: #### C BC #### [facility] [address] [place] [address] Dr. Mir Araiza MONO # 0.4 103/ul Normal 0.3-0.8 [facility] Comment on above: Performed By: #### C BC #### [facility] [address] [place] [address] Dr. Mir Araiza Monocytes/100 WBC (Bld) 6.3 % Normal 1.7-12.0 [facility] Comment on above: Performed By: #### C BC #### [facility] [address] [place] [address] Dr. Mir Araiza NEUT # 4.0 103/ul Normal 1.4-6.5 [facility] Comment on above: Performed By: #### C BC #### [facility] [address] [place] [address] Dr. Mir Araiza Neutrophils/100 WBC (Bld) 65.6 % Normal 43.0-75.0 [facility] Comment on above: Performed By: #### C BC #### [facility] [address] [place] [address] Dr. Mir Araiza Platelet mean volume (Bld) [Entitic vol] 12.3 fL Normal 9.5-13.5 [facility] Comment on above: Performed By: #### C BC #### [facility] [address] [place] [address] Dr. Mir Araiza PLT 173 103/ul Normal 150-450 [facility] Comment on above: Performed By: #### C BC #### [facility] [address] [place] [address] Dr. Mir Araiza RBC 4.95 106/ul Normal 4.20-5.40 [facility] Comment on above: Performed By: #### C BC #### [facility] [address] [place] [address] Dr. Mir Araiza WBC 6.0 103/ul Normal 4.0-11.0 [facility] Comment on above: Performed By: #### C BC #### [facility] [address] [place] [address] Dr. Mir Araiza CRPon 10-23-2022 CRP 0.8 mg/dL Normal <=1.0 [facility] Comment on above: Performed By: #### B MP, CRP #### [facility] [address] [place] [address] Dr. Mir Araiza URon 10-23-2022 , QUAL Negative Normal NEGATIVE [facility] Comment on above: Performed By: #### P REGU #### [facility] [address] [address] [address] Mir Araiza PROF CHEM 8 (BAS METB)on Anion gap [Moles/Vol] 12.1 mmol/L Normal [facility] Comment on above: Performed By: #### B MP, CRP #### [facility] [address] [place] [address] Dr. Mir Araiza Calcium [Mass/Vol] 8.8 mg/dL Normal 8.5-10.1 [facility] Comment on above: Performed By: #### B MP, CRP #### [facility] [address] [place] [address] Dr. Mir Araiza Chloride [Moles/Vol] 104 mmol/L Normal 98-107 [facility] Comment on above: Performed By: #### B MP, CRP #### [facility] [address] [place] [address] Dr. Mir Araiza CO2 [Moles/Vol] 27.2 mmol/L Normal 21.0-32.0 [facility] Comment on above: Performed By: #### B MP, CRP #### [facility] [address] [place] [address] Dr. Mir Araiza Creatinine [Mass/Vol] 0.83 mg/dL Normal 0.55-1.02 [facility] Comment on above: Performed By: #### B MP, CRP #### [facility] [address] [address] [address] Mir Araiza EGFR-AF TANZANIAN >60 Normal >=60 [facility] Comment on above: Performed By: #### B MP, CRP #### [facility] [address] [place] [address] Dr. Mir Araiza EGFR-NON AF TANZANIAN >60 Normal >=60 [facility] Comment on above: Performed By: #### B MP, CRP #### [facility] [address] [place] [address] Dr. Mir Araiza Glucose [Mass/Vol] 96 mg/dL Normal 74-106 [facility] Comment on above: Performed By: #### B MP, CRP #### [facility] [address] [address] [address] Mir Araiza Potassium [Moles/Vol] 3.3 mmol/L Critically low 3.5-5.1 [facility] Comment on above: Performed By: #### B MP, CRP #### [facility] [address] [place] [address] Dr. Mir Araiza Sodium [Moles/Vol] 140 mmol/L Normal 136-145 [facility] Comment on above: Performed By: #### B MP, CRP #### [facility] [address] [place] [address] Dr. Mir Araiza Urea nitrogen [Mass/Vol] 10.0 mg/dL Normal 7.0-18.0 [facility] Comment on above: Performed By: #### B MP, CRP #### [facility] [address] [place] [address] Dr. Mir Araiza Urea nitrogen/Creatinine [Mass ratio] 12.0 mg/mg Normal [facility] Comment on above: Performed By: #### B MP, CRP #### [facility] [address] [place] [address] Dr. Mir Araiza SED RATE [facility] 2022 SED RATE 9 mm/hr Normal <=20 [facility] Comment on above: Performed By: #### S EDR #### [facility] [address] [place] [address] Dr. Mir Araiza Covid-19 PCR (CVDTB)on SARS-CoV-2 (COVID-19) RNA IFRAH+probe Ql (Unsp spec) Detected Critically abnormal NOT DETECTED [facility] Comment on above: Result Comment: This test is not yet approved or cleared by the [place] FDA. When there are no FDA-approved or cleared tests available, and other criteria are met, FDA can make tests available under an emergency access mechanism called an Emergency Use Authorization (EUA). The EUA for this test is supported by the [place] of Health and Human Service's (HHS's) declaration [...] used). Performed By: #### C VDTB #### [facility] [address] [address] [address] Mir Araiza [facility] Albumin [Mass/Vol] 3.9 g/dL Normal 3.2-5.5 [facility] Comment on above: Performed By: #### E BS CMP, EBS LIPID #### [address] Albumin/Globulin [Mass ratio] 1.2 {ratio} Normal [facility] Comment on above: Performed By: #### E BS CMP, EBS LIPID #### [facility] [address] ALP [Catalytic activity/Vol] 81 U/L Normal 32-92 [facility] Comment on above: Performed By: #### E BS CMP, EBS LIPID #### [facility] [address] [place] [address] [place] ALT [Catalytic activity/Vol] 17 U/L Normal 10-60 [facility] Comment on above: Performed By: #### E BS CMP, EBS LIPID #### [facility] [address] [id number] [place] AST [Catalytic activity/Vol] 18 U/L Normal 10-42 [facility] Comment on above: Performed By: #### E BS CMP, EBS LIPID #### [facility] [address] [id number] [place] Bilirubin [Mass/Vol] 0.3 mg/dL Normal 0.3-1.2 [facility] Comment on above: Performed By: #### E BS CMP, EBS LIPID #### [facility] [address] [place] [address] [place] Calcium [Mass/Vol] 9.5 mg/dL Normal 8.2-10.2 [facility] Comment on above: Performed By: #### E BS CMP, EBS LIPID #### [facility] [address] [place] [address] [place] Chloride [Moles/Vol] 99 mmol/L Normal 95-114 [facility] Comment on above: Performed By: #### E BS CMP, EBS LIPID #### [facility] [address] [place] [address] [place] CO2 [Moles/Vol] 30.3 mmol/L High 22.0-30.0 [facility] Comment on above: Performed By: #### E BS CMP, EBS LIPID #### [address] Creatinine [Mass/Vol] 0.61 mg/dL Normal 0.44-1.03 [facility] Comment on above: Performed By: #### E BS CMP, EBS LIPID #### [address] Estimated GFR ( Lili > 60 Normal [facility] Comment on above: Result Comment: GFR estimated reference range: According to KDOQI guidelines, <60 ml/min/1.73m2 is sufficient to diagnose a patient with chronic kidney disease. Performed By: #### E BS CMP, EBS LIPID #### [address] Estimated GFR (Non- Am > 60 Normal [facility] Comment on above: Performed By: #### E BS CMP, EBS LIPID #### [place] [address] [place] Globulin (S) [Mass/Vol] 3.2 g/dL Normal [facility] Comment on above: Performed By: #### E BS CMP, EBS LIPID #### [place] [address] [place] Glucose [Mass/Vol] 83 mg/dL Normal 70-100 [facility] Comment on above: Performed By: #### E BS CMP, EBS LIPID #### [place] [address] [place] Potassium [Moles/Vol] 4.3 mmol/L Normal 3.5-5.1 [facility] Comment on above: Performed By: #### E BS CMP, EBS LIPID #### [facility] [address] Protein [Mass/Vol] 7.1 g/dL Normal 6.1-7.9 [facility] Comment on above: Performed By: #### E BS CMP, EBS LIPID #### [facility] [address] Sodium [Moles/Vol] 138 mmol/L Normal 136-146 [facility] Comment on above: Performed By: #### E BS CMP, EBS LIPID #### [facility] [address] Urea nitrogen [Mass/Vol] 11 mg/dL Normal 9-23 [facility] Comment on above: Performed By: #### E BS CMP, EBS LIPID #### [facility] [address] Lipid Profileon 08-14-2021 Cholesterol [Mass/Vol] 248 mg/dL High 140-200 [facility] Comment on above: Result Comment: Chol less than 200 mg/dl low risk Chol 201-239 mg/dl borderline risk Chol 240 mg/dl and greater high risk Performed By: #### E BS CMP, EBS LIPID #### [facility] [address] Cholesterol in HDL [Mass/Vol] 54 mg/dL Normal 35-85 [facility] Comment on above: Result Comment: HDL CHOL ATP-III CLASSIFICATION Cardiovascular Risk HDL > or equal to 60 mg/dL LOW HDL < 40 mg/dL HIGH Performed By: #### E BS CMP, EBS LIPID #### [facility] [address] Cholesterol.total/C holesterol in HDL [Mass ratio] 4.6 {ratio} Normal <5.0 [facility] Comment on above: Result Comment: PERF ORMED BY: [place] [address] PATHOLOGIST TRANSCRIPTION CAMILA KINNEY M.D. Performed By: #### E BS CMP, EBS LIPID #### [facility] [address] LDL Cholesterol,Calcula satya 170 mg/dL High 0-100 [facility] Comment on above: Result Comment: LDL ATP III CLASSIFICATION LDL less than 100 mg/dL Optimal LDL 100-129 mg/dL Near or above optimal LDL 130-159 mg/dL Borderline high LDL 160-189 mg/dL High LDL greater than 189 mg/dL Very high Performed By: #### E BS CMP, EBS LIPID #### [facility] [address] Triglyceride w/Reflex 121 mg/dL Normal 35-149 [facility] Comment on above: Result Comment: TRIG ATP III CLASSIFICATION TRIG less than 150 mg/dL Normal TRIG 150-199 mg/dL Borderline high TRIG 200-500 mg/dL High TRIG greater than 500 mg/dL Very high Standard traceable to the Center for Disease Conrtrol and Prevention (CDC) test method. Performed By: #### E BS CMP, EBS LIPID #### [facility] [address] VLDL CHOLESTEROL 24 mg/dL Normal [facility] Comment on above: Performed By: #### E BS CMP, EBS LIPID #### [facility] [address] Encounters Encounter Date Encounter Type Care Provider Facility Start: 02-09-2024 End: 02-09-2024 ambulatory LAKIA ESCOBEDO Not Available Start: 01-20-2024 End: 01-20-2024 ambulatory MARIANA CEVALLOS Not Available Start: 10-21-2023 End: 10-21-2023 ambulatory MARIANA CEVALLOS Not Available Start: 10-23-2022 End: 10-23-[address] MARIANA CEVALLOS Facility:[facility] Start: 12-16-2021 End: 12-16-2021 ambulatory WHITNEY QUIROZ Facility:[facility] Start: 04-03-2018 End: 04-04-2018 Ambulatory DEFAULT PHYSICIAN Facility:[facility] Payers Date Payer Category Payer Unknown [id number] 1990 Unknown [id number] 2.16.84 [id number] 1990 Unknown [id number] 2.16.84 [id number] 1990 Unknown [id number] 2.16.84 [id number] 1990 Unknown [id number] 2.16.84 [id number] 1990 Unknown [id number] 2.16.84 [id number] 1959 Unknown [id number] Unknown Summary Purpose Family History No Family History Records FoundNo Family History Records FoundNo Family History Records FoundNo Family History Records Found Advance Directives No Advanced Directives Records FoundNo Advanced Directives Records FoundNo Advanced Directives Records FoundNo Advanced Directives Records Found Additional Source Comments INFORMATION SOURCE (unrecogn ized section and content) DATE CREATED AUTHOR 04/04/2018 [facility] DATE CREATED AUTHOR AUTHOR'S ORGANIZ ATION 11/03/2021 [facility] DATE CREATED AUTHOR AUTHOR'S ORGANIZ ATION 10/26/2022 [facility] DATE CREATED AUTHOR AUTHOR'S ORGANIZ ATION 02/10/2024 [facility] FOR RECORDS PERTAINING TO PATIENTS WHO [...] BE BASED ON THE PRIMARY CLINICAL RECORDS. [employer] provides no warranty or guarantee of the accuracy or completeness of information in this document.
== END 2024-04-05 19:44 | disposition home or self-care (01) ==
LOC: LAB 19:43
PROVIDERS: PCP Family Medicine; Visit Provider Obstetrics & Gynecology
DX: Z01.419 Encounter for gynecological examination (general) (routine) without abnormal findings (principal)
CPT/HCPCS: 87624; 88175

== ENCOUNTER 2024-04-09 13:05 | Outpatient (OUT) | payer OTHER, SELFPAY ==
--- NOTE | 2024-04-09 | US_ITS ---
[address] [address] Patient Name: PATRICIA GIBSON MRN: [id number] date: 1990 Sex: F Assigned Patient Location: [facility] Current Patient Location: [facility] Accession/Order Number: [id number] Exam Date: 04/09/2024 13:08 Report Date: 04/09/2024 14:40 At the request of: LAKIA ESCOBEDO Procedure: US OB anatomy EXAMINATION: US OB anatomy, US OB transvaginal HISTORY: ANATOMY COMPARISON: No relevant comparison available. TECHNIQUE: Transabdominal sonographic examination was performed for obstetrical and evaluation. FINDINGS: Number: 1 Heart Rate: 152 H.B. /min Amniotic Fluid Volume: Subjectively normal Placental Location: Anterior with lower margin 4.7 cm from os. Cervix Length: 5.8 cm; closed. ANATOMY: Normal Structures -cerebellum, choroid plexus, cisterna magna, lateral cerebral ventricles, orbits, midline falx, hard palate, four-chamber heart, RVOT, LVOT, stomach, kidneys, bladder, umbilical cord insertion into abdomen, three-vessel cord, cervical spine, thoracic spine, lumbar spine, sacral spine, right upper extremity, left upper extremity, right lower extremity, left lower extremity. SUBOPTIMALLY SEEN: None ABNORMALITIES: None BIOMETRY: BPD: 5.3 cm; 22 weeks 0 days; 12% HC: 21.2 cm; 23 weeks 2 days; 46% AC: 18.4 cm; 23 weeks 2 days; 49% FL: 4.03 cm; 23 weeks 0 days; 39% EFW:563 g; 47%; FL/AC: 21.87 FL/BPD: 76.62 HC/AC: 1.15 GESTATIONAL AGE: Age by EDC: 23 weeks 0 days DEAN by EDC: 08/06/2024 Age by current US: 22 weeks 6 days DEAN by current US: 08/07/2024 US/US OB anatomy IMPRESSION: 1. Single live intrauterine with growth detailed above. Electronically authenticated by: KATHIE RUIZ Date: 04/09/2024 14:40
--- NOTE | 2024-04-09 | US_ITS ---
[address] [address] Patient Name: PATRICIA GIBSON MRN: [id number] date: 1990 Sex: F Assigned Patient Location: [facility] Current Patient Location: [facility] Accession/Order Number: [id number] Exam Date: 04/09/2024 13:08 Report Date: 04/09/2024 14:40 At the request of: LAKIA ESCOBEDO Procedure: US OB transvaginal EXAMINATION: US OB anatomy, US OB transvaginal HISTORY: ANATOMY COMPARISON: No relevant comparison available. TECHNIQUE: Transabdominal sonographic examination was performed for obstetrical and evaluation. FINDINGS: Number: 1 Heart Rate: 152 H.B. /min Amniotic Fluid Volume: Subjectively normal Placental Location: Anterior with lower margin 4.7 cm from os. Cervix Length: 5.8 cm; closed. ANATOMY: Normal Structures -cerebellum, choroid plexus, cisterna magna, lateral cerebral ventricles, orbits, midline falx, hard palate, four-chamber heart, RVOT, LVOT, stomach, kidneys, bladder, umbilical cord insertion into abdomen, three-vessel cord, cervical spine, thoracic spine, lumbar spine, sacral spine, right upper extremity, left upper extremity, right lower extremity, left lower extremity. SUBOPTIMALLY SEEN: None ABNORMALITIES: None BIOMETRY: BPD: 5.3 cm; 22 weeks 0 days; 12% HC: 21.2 cm; 23 weeks 2 days; 46% AC: 18.4 cm; 23 weeks 2 days; 49% FL: 4.03 cm; 23 weeks 0 days; 39% EFW:563 g; 47%; FL/AC: 21.87 FL/BPD: 76.62 HC/AC: 1.15 GESTATIONAL AGE: Age by EDC: 23 weeks 0 days DEAN by EDC: 08/06/2024 Age by current US: 22 weeks 6 days DEAN by current US: 08/07/2024 US/US OB transvaginal IMPRESSION: 1. Single live intrauterine with growth detailed above. Electronically authenticated by: KATHIE RUIZ Date: 04/09/2024 14:40
== END 2024-04-09 13:06 | disposition home or self-care (01) ==
LOC: NOMS 13:06
PROVIDERS: PCP Family Medicine; Visit Provider Obstetrics & Gynecology
DX: Z34.92 Encounter for supervision of normal pregnancy, unspecified, second trimester (principal); Z3A.22 22 weeks gestation of pregnancy; Z36.89 Encounter for other specified antenatal screening
CPT/HCPCS: 76805; 76817

== ENCOUNTER 2024-05-07 20:03 | Emergency (ER) | payer OTHER, SELFPAY ==
[2024-05-07] VITALS (8 sets, daily range): BP systolic 111–141; BP diastolic 70–72; PULSE 70–84; TEMP 36.7; O2SAT 100; BMI 42.5
--- OUTSIDE RECORDS SUMMARY | 2024-05-07 20:11 | XMS_ITS | CCD ---
Author Organization [facility] Care Team Providers Care Casing Material Weigher Name Role Phone PHYSICIAN, DEFAULT Unavailable Unavailable PHYSICIAN, DEFAULT Unavailable Unavailable DR MARIANA CEVALLOS Primary Care Unavailable YO LANDEROS Admitting Unavailable YO LANDEROS Attending Unavailable YO LANDEROS Consulting Unavailable WHITNEY QUIROZ Admitting Unavailable WHITNEY QUIROZ Attending Unavailable DR MARIANA CEVALLOS Primary Care Unavailable WHITNEY QUIROZ Consulting Unavailable MARIANA CEVALLOS Attending Unavailable LAKIA ESCOBEDO Attending Unavailable LAKIA ESCOBEDO Attending Unavailable Problems Active Problems Problem Classification Problem Date Documented Da te Episodic/Chronic Anxiety disorders (1 source) Anxiety disorder, unspecified; Translations: [ANXIETY DISORDER UNSPECIFIED] Onset: 10-26-2022 Chronic Headache; including migraine (4 sources) Headache; including migraine; Translations: [HEADACHE UNSPECIFIED] Onset: 10-23-2022 Mood disorders (1 source) Mood disorders; Translations: [DEPRESSION UNSPECIFIED] Onset: 10-26-2022 Other aftercare (1 source) 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 [address] [place] [address] Dr. Mir Araiza Basophils/100 WBC (Bld) 0.7 % Normal 0.2-2.0 [facility] Comment on above: Performed By: #### C BC #### [facility] [address] [place] [address] Dr. Mir Araiza EO # 0.2 103/ul Normal 0.0-0.7 [facility] Comment on above: Performed By: #### C BC #### [facility] [address] [place] [address] Dr. Mir Araiza Eosinophils/100 WBC (Bld) 3.0 % Normal 0.9-7.0 [facility] Comment on above: Performed By: #### C BC #### [facility] [address] [place] [address] Dr. Mir Araiza Erythrocyte distribution width (RBC) [Ratio] 15.6 % Critically high 11.0-15.0 [facility] Comment on above: Performed By: #### C BC #### [facility] [address] [place] [address] Dr. Mir Araiza Hematocrit (Bld) [Volume fraction] 38.5 % Normal 36.0-48.0 [facility] Comment on above: Performed By: #### C BC #### [facility] [address] [place] [address] Dr. Mir Araiza Hemoglobin (Bld) [Mass/Vol] 12.3 g/dL Normal 12.0-16.0 [facility] Comment on above: Performed By: #### C BC #### [facility] [address] [place] [address] Dr. Mir Araiza IG # 0.02 10e3/ul Normal 0.00-0.03 [facility] Comment on above: Performed By: #### C BC #### [facility] [address] [place] [address] Dr. Mir Araiza IG % 0.3 % Normal 0.0-0.5 [facility] Comment on above: Performed By: #### C BC #### [facility] [address] [place] [address] Dr. Mir Araiza LYMPH # 1.5 103/ul Normal 1.2-3.8 [facility] Comment on above: Performed By: #### C BC #### [facility] [address] [place] [address] Dr. Mir Araiza Lymphocytes/100 WBC (Bld) 24.1 % Normal 20.5-60.0 [facility] Comment on above: Performed By: #### C BC #### [facility] [address] [place] [address] Dr. Mir Araiza MANUAL DIFF REQ NO Normal [facility] Comment on above: Performed By: #### C BC #### [facility] [address] [place] [address] Dr. Mir Araiza MCH (RBC) [Entitic mass] 24.8 pg Critically low 26.7-34.0 [facility] Comment on above: Performed By: #### C BC #### [facility] [address] [place] [address] Dr. Mir Araiza MCHC (RBC) [Mass/Vol] 31.9 g/dL Normal 29.9-35.2 [facility] Comment on above: Performed By: #### C BC #### [facility] [address] [place] [address] Dr. Mir Araiza MCV (RBC) [Entitic vol] 77.8 fL Critically low 81.0-99.0 [facility] Comment on above: Performed By: #### C BC #### [facility] [address] [place] [address] Dr. Mir Araiza MONO # 0.4 103/ul Normal 0.3-0.8 [facility] Comment on above: Performed By: #### C BC #### [facility] [address] [place] [address] Dr. Mir Araiza Monocytes/100 WBC (Bld) 6.3 % Normal 1.7-12.0 [facility] Comment on above: Performed By: #### C BC #### [facility] [address] [place] [address] Dr. Mir Araiza NEUT # 4.0 103/ul Normal 1.4-6.5 [facility] Comment on above: Performed By: #### C BC #### [facility] [address] [place] [address] Dr. Mir Araiza Neutrophils/100 WBC (Bld) 65.6 % Normal 43.0-75.0 [facility] Comment on above: Performed By: #### C BC #### [facility] [address] [place] [address] Dr. Mir Araiza Platelet mean volume (Bld) [Entitic vol] 12.3 fL Normal 9.5-13.5 [facility] Comment on above: Performed By: #### C BC #### [facility] [address] [place] [address] Dr. Mir Araiza PLT 173 103/ul Normal 150-450 [facility] Comment on above: Performed By: #### C BC #### [facility] [address] [place] [address] Dr. Mir Araiza RBC 4.95 106/ul Normal 4.20-5.40 [facility] Comment on above: Performed By: #### C BC #### [facility] [address] [place] [address] Dr. Mir Araiza WBC 6.0 103/ul Normal 4.0-11.0 [facility] Comment on above: Performed By: #### C BC #### [facility] [address] [place] [address] Dr. Mir Araiza CRPon 10-23-2022 CRP 0.8 mg/dL Normal <=1.0 [facility] Comment on above: Performed By: #### B MP, CRP #### [facility] [address] [place] [address] Dr. Mir Araiza URon 10-23-2022 , QUAL Negative Normal NEGATIVE [facility] Comment on above: Performed By: #### P REGU #### [facility] [address] [address] [address] Mir Araiza PROF CHEM 8 (BAS METB)on Anion gap [Moles/Vol] 12.1 mmol/L Normal [facility] Comment on above: Performed By: #### B MP, CRP #### [facility] [address] [place] [address] Dr. Mir Araiza Calcium [Mass/Vol] 8.8 mg/dL Normal 8.5-10.1 [facility] Comment on above: Performed By: #### B MP, CRP #### [facility] [address] [place] [address] Dr. Mir Araiza Chloride [Moles/Vol] 104 mmol/L Normal 98-107 [facility] Comment on above: Performed By: #### B MP, CRP #### [facility] [address] [place] [address] Dr. Mir Araiza CO2 [Moles/Vol] 27.2 mmol/L Normal 21.0-32.0 [facility] Comment on above: Performed By: #### B MP, CRP #### [facility] [address] [place] [address] Dr. Mir Araiza Creatinine [Mass/Vol] 0.83 mg/dL Normal 0.55-1.02 [facility] Comment on above: Performed By: #### B MP, CRP #### [facility] [address] [place] [address] Dr. Mir Araiza EGFR-AF TAJIK >60 Normal >=60 [facility] Comment on above: Performed By: #### B MP, CRP #### [facility] [address] [place] [address] Dr. Mir Araiza EGFR-NON AF TAJIK >60 Normal >=60 [facility] Comment on above: Performed By: #### B MP, CRP #### [facility] [address] [place] [address] Dr. Mir Araiza Glucose [Mass/Vol] 96 mg/dL Normal 74-106 [facility] Comment on above: Performed By: #### B MP, CRP #### [facility] [address] [place] [address] Dr. Mir Araiza Potassium [Moles/Vol] 3.3 mmol/L Critically low 3.5-5.1 [facility] Comment on above: Performed By: #### B MP, CRP #### [facility] [address] [place] [address] Dr. Mir Araiza Sodium [Moles/Vol] 140 mmol/L Normal 136-145 [facility] Comment on above: Performed By: #### B MP, CRP #### [facility] [address] [place] [address] Dr. Mir Araiza Urea nitrogen [Mass/Vol] 10.0 mg/dL Normal 7.0-18.0 [facility] Comment on above: Performed By: #### B MP, CRP #### [facility] [address] [place] [address] Dr. Mir Araiza Urea nitrogen/Creatinine [Mass ratio] 12.0 mg/mg Normal [facility] Comment on above: Performed By: #### B MP, CRP #### [facility] [address] [place] [address] Dr. Mir Araiza SED RATE [facility] 2022 SED RATE 9 mm/hr Normal <=20 [facility] Comment on above: Performed By: #### S EDR #### [facility] [address] [place] [address] Dr. Mir Araiza Covid-19 PCR (CVDTB)on SARS-CoV-2 (COVID-19) RNA IFRAH+probe Ql (Unsp spec) Detected Critically abnormal NOT DETECTED [facility] Comment on above: Result Comment: This test is not yet approved or cleared by the [place] FDA. When there are no FDA-approved or cleared tests available, and other criteria are met, FDA can make tests available under an emergency access mechanism called an Emergency Use Authorization (EUA). The EUA for this test is supported by the [employer] of Health and Human Service's (HHS's) declaration [...] used). Performed By: #### C VDTB #### [facility] [address] [address] [address] Mir Araiza [facility] Metabolic Empo n 08-14-2021 Albumin [Mass/Vol] 3.9 g/dL Normal 3.2-5.5 [facility] Comment on above: Performed By: #### E BS CMP, EBS LIPID #### [address] Albumin/Globulin [Mass ratio] 1.2 {ratio} Normal [facility] Comment on above: Performed By: #### E BS CMP, EBS LIPID #### [facility] [address] [id number] [place] ALP [Catalytic activity/Vol] 81 U/L Normal 32-92 [facility] Comment on above: Performed By: #### E BS CMP, EBS LIPID #### [address] [id number] [place] ALT [Catalytic activity/Vol] 17 U/L Normal 10-60 [facility] Comment on above: Performed By: #### E BS CMP, EBS LIPID #### [facility] [address] [id number] [place] AST [Catalytic activity/Vol] 18 U/L Normal 10-42 [facility] Comment on above: Performed By: #### E BS CMP, EBS LIPID #### [address] [place] [id number] [place] Bilirubin [Mass/Vol] 0.3 mg/dL Normal 0.3-1.2 [facility] Comment on above: Performed By: #### E BS CMP, EBS LIPID #### [facility] [address] [id number] [place] Calcium [Mass/Vol] 9.5 mg/dL Normal 8.2-10.2 [facility] Comment on above: Performed By: #### E BS CMP, EBS LIPID #### [facility] [address] [place] [address] Chloride [Moles/Vol] 99 mmol/L Normal 95-114 [facility] Comment on above: Performed By: #### E BS CMP, EBS LIPID #### [facility] [address] [place] [address] CO2 [Moles/Vol] 30.3 mmol/L High 22.0-30.0 [facility] Comment on above: Performed By: #### E BS CMP, EBS LIPID #### [address] Creatinine [Mass/Vol] 0.61 mg/dL Normal 0.44-1.03 [facility] Comment on above: Performed By: #### E BS CMP, EBS LIPID #### [address] Estimated GFR ( Lili > 60 Normal [facility] Comment on above: Result Comment: GFR estimated reference range: According to KDOQI guidelines, <60 ml/min/1.73m2 is sufficient to diagnose a patient with chronic kidney disease. Performed By: #### E BS CMP, EBS LIPID #### [address] Estimated GFR (Non- Am > 60 Normal [facility] Comment on above: Performed By: #### E BS CMP, EBS LIPID #### [place] [address] [place] Globulin (S) [Mass/Vol] 3.2 g/dL Normal [facility] Comment on above: Performed By: #### E BS CMP, EBS LIPID #### [address] Glucose [Mass/Vol] 83 mg/dL Normal 70-100 [facility] Comment on above: Performed By: #### E BS CMP, EBS LIPID #### [place] [address] [place] Potassium [Moles/Vol] 4.3 mmol/L Normal 3.5-5.1 [facility] Comment on above: Performed By: #### E BS CMP, EBS LIPID #### [facility] [address] Protein [Mass/Vol] 7.1 g/dL Normal 6.1-7.9 [facility] Comment on above: Performed By: #### E BS CMP, EBS LIPID #### [facility] [address] Sodium [Moles/Vol] 138 mmol/L Normal 136-146 [facility] Comment on above: Performed By: #### E BS CMP, EBS LIPID #### [facility] [address] Urea nitrogen [Mass/Vol] 11 mg/dL Normal 9-23 [facility] Comment on above: Performed By: #### E BS CMP, EBS LIPID #### [facility] [address] Lipid Profileon 08-14-2021 Cholesterol [Mass/Vol] 248 mg/dL High 140-200 [facility] Comment on above: Result Comment: Chol less than 200 mg/dl low risk Chol 201-239 mg/dl borderline risk Chol 240 mg/dl and greater high risk Performed By: #### E BS CMP, EBS LIPID #### [facility] [address] Cholesterol in HDL [Mass/Vol] 54 mg/dL Normal 35-85 [facility] Comment on above: Result Comment: HDL CHOL ATP-III CLASSIFICATION Cardiovascular Risk HDL > or equal to 60 mg/dL LOW HDL < 40 mg/dL HIGH Performed By: #### E BS CMP, EBS LIPID #### [facility] [address] Cholesterol.total/C holesterol in HDL [Mass ratio] 4.6 {ratio} Normal <5.0 [facility] Comment on above: Result Comment: PERF ORMED BY: [place] [address] PATHOLOGIST [employer] CAMILA KINNEY M.D. Performed By: #### E BS CMP, EBS LIPID #### [facility] [address] LDL Cholesterol,Calcula satya 170 mg/dL High 0-100 [facility] Comment on above: Result Comment: LDL ATP III CLASSIFICATION LDL less than 100 mg/dL Optimal LDL 100-129 mg/dL Near or above optimal LDL 130-159 mg/dL Borderline high LDL 160-189 mg/dL High LDL greater than 189 mg/dL Very high Performed By: #### E BS CMP, EBS LIPID #### [facility] [address] Triglyceride w/Reflex 121 mg/dL Normal 35-149 [facility] Comment on above: Result Comment: TRIG ATP III CLASSIFICATION TRIG less than 150 mg/dL Normal TRIG 150-199 mg/dL Borderline high TRIG 200-500 mg/dL High TRIG greater than 500 mg/dL Very high Standard traceable to the Center for Disease Conrtrol and Prevention (CDC) test method. Performed By: #### E BS CMP, EBS LIPID #### [facility] [address] VLDL CHOLESTEROL 24 mg/dL Normal [facility] Comment on above: Performed By: #### E BS CMP, EBS LIPID #### [facility] [address] Encounters Encounter Date Encounter Type Care Provider Facility Start: 04-05-2024 End: 04-05-2024 ambulatory LAKIA ESCOBEDO Not Available Start: 02-09-2024 End: 02-09-2024 ambulatory LAKIA CALIXTOO Not Available Start: 01-20-2024 End: 01-20-2024 ambulatory MARIANA CEVALLOS Not Available Start: 10-21-2023 End: 10-21-2023 ambulatory MARIANA CEVALLOS Not Available Start: 10-23-2022 End: 10-23-[address] MARIANA CEVALLOS Facility:[facility] Start: 12-16-2021 End: 12-16-2021 ambulatory WHITNEY QUIROZ Facility:[facility] Start: 04-03-2018 End: 04-04-2018 Ambulatory DEFAULT PHYSICIAN Facility:[facility] Payers Date Payer Category Payer Unknown [id number] 1990 Unknown [id number] 2.16.84 [id number] 1990 Unknown [id number] 2.16.84 [id number] 1990 Unknown [id number] 2.16.84 [id number] 1990 Unknown [id number] 2.16.84 [id number] 1990 Unknown [id number] 2.16.84 [id number] 1990 Unknown [id number] 2.16.84 [id number] 1959 Unknown [id number] Unknown Summary Purpose Family History No Family History Records FoundNo Family History Records FoundNo Family History Records FoundNo Family History Records Found Advance Directives No Advanced Directives Records FoundNo Advanced Directives Records FoundNo Advanced Directives Records FoundNo Advanced Directives Records Found Additional Source Comments INFORMATION SOURCE (unrecogn ized section and content) DATE CREATED AUTHOR 04/04/2018 [facility] DATE CREATED AUTHOR AUTHOR'S ORGANIZ ATION 11/03/[address] [facility] DATE CREATED AUTHOR AUTHOR'S ORGANIZ ATION 10/26/2022 [facility] DATE CREATED AUTHOR AUTHOR'S ORGANIZ ATION 04/06/2024 [facility] FOR RECORDS PERTAINING TO PATIENTS WHO [...] BE BASED ON THE PRIMARY CLINICAL RECORDS. [facility] [employer] [facility]. provides no warranty or guarantee of the accuracy or completeness of information in this document.
--- NOTE | 2024-05-07 20:13 | ECG_ITS ---
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
--- NOTE | 2024-05-07 20:49 | ED_ITS ---
HPI HPI - General Adult General Chief complaint: Syncope Stated complaint: Syncope, Pt is 27-wks [facility] called Time Seen by Provider: 05/07/24 20:06 Source: patient Mode of arrival: walk-in History of Present Illness HPI narrative: Patient is a 34-year-old female who presents to the emergency department for near syncope that occurred twice in the last day. Patient is 27 weeks , this is her fifth . Patient states for the last several days she has been feeling weak and lightheaded. She states she had 2 instances where she had to lower herself to a chair because she felt like she might pass out. She did not have a full syncopal episode, fall to the ground or injuries. She states she has been having what she believes are Alvin Navarro contractions for several days. Patient denies urinary symptoms although she believes she very well may be dehydrated. She states she had a similar episode with her last and her blood sugar was low. She states she checked her blood sugar this evening and it was normal. She was referred to the emergency department by her OB office. She does not feel nauseous. She has not had any fevers, upper respiratory symptoms, diarrhea. No chest pain or shortness of breath. No vaginal bleeding or fluid leakage Related Data Allergies Allergy/AdvReac Type Severity Reaction Status Date / Time No Known Drug Allergies Allergy Verified 05/07/24 20:40 Opioid HPI Opioid Management Most Recent Opioid Data: No Data to Display Review of Systems ROS Constitutional Denies: fever or chills Ears, nose, mouth, and throat Denies: throat pain Cardiovascular Denies: chest pain Respiratory Denies: shortness of breath or cough Gastrointestinal Reports: abdominal pain; Denies: nausea or vomiting Musculoskeletal Denies: back pain or neck pain Integumentary/Breast Denies: rash Hematologic/Lymphatic Denies: easy bruising or easy bleeding Exam Narrative Exam Narrative: Gen.: Awake, alert, in no distress Head: Normocephalic, atraumatic ENT: Moist mucous membranes Respiratory: No respiratory distress, lungs clear bilaterally Cardio: Regular rate and rhythm Gastrointestinal: Abdomen is soft, gravid, nontender to palpation. Extremities: Moves extremities equally, pedal edema Psych: Normal mood and affect Neuro: No focal neuro deficit Skin: Warm, dry, intact Constitutional Vital Signs, click to edit/add: Last Vital Signs Temp 98.1 F 05/07/24 20:32 Pulse 84 05/07/24 21:10 Resp 17 05/07/24 21:10 BP 120/72 05/07/24 21:08 Pulse Ox 100 05/07/24 20:32 O2 Del Method Room Air 05/07/24 21:10 Course Vital Signs Vital signs: Vital Signs Temperature 98.1 F 05/07/24 20:32 Pulse Rate 83 05/07/24 20:32 Respiratory Rate 16 05/07/24 20:32 Blood Pressure 141/71 05/07/24 20:32 Pulse Oximetry 100 05/07/24 20:32 Oxygen Delivery Method Room Air 05/07/24 20:32 Temperature 98.1 F 05/07/24 20:32 Pulse Rate 84 05/07/24 21:10 Respiratory Rate 17 05/07/24 21:10 Blood Pressure 120/72 05/07/24 21:08 Pulse Oximetry 100 05/07/24 20:32 Oxygen Delivery Method Room Air 05/07/24 21:10 Medical Decision Making MDM Narrative Medical decision making narrative: heart tones 166 in the ED Laboratory studies reviewed and noted, EKG is unremarkable, patient with mild hyponatremia and greater than 80 ketones in her urine. Suspect her symptoms are caused by dehydration. She was given IV fluids in the ER, she did not have any severe pain in the abdomen while in the emergency department but she has been having intermittent cramps. It was recommended by attending physician on reevaluation that she go to [facility] for evaluation as she is 27 weeks with cramping. She has no vaginal bleeding or fluid leakage in the ER. She has no nausea. Urine specimen with no evidence of UTI. Vital signs are within normal limits on reevaluation by attending physician. SHARED APC VISIT, PHYSICIAN ATTESTATION: [id number] I performed a substantive part of the MDM during the patient?s E/M visit. I personally evaluated and examined the patient. I personally made or approved the documented management plan and acknowledge its risk of complications. Medical Records Medical records reviewed: Yes I reviewed the patient's medical records Lab Data Lab results reviewed: Yes I reviewed the patient's lab results Labs: Lab Results 05/07/24 05/07/24 Range/Units 20:52 20:53 WBC 11.0 (4.0-11.0) 10^3/uL RBC 4.60 (4.20-5.40) 10^6/uL Hgb 11.1 L (12.0-16.0) g/dL Hct 35.5 L (36.0-48.0) % MCV 77.2 L (81.0-99.0) fL MCH 24.1 L (26.7-34.0) pg MCHC 31.3 (29.9-35.2) g/dL RDW 15.2 H (11.0-15.0) % Plt Count 195 (150-450) 10^3/uL MPV 11.8 (9.5-13.5) fL Neut % (Auto) 81.6 H (43.0-75.0) % Lymph % (Auto) 12.7 L (20.5-60.0) % Waller % (Auto) 3.6 (1.7-12.0) % Eos % (Auto) 1.4 (0.9-7.0) % Baso % (Auto) 0.2 (0.2-2.0) % Neut # (Auto) 9.0 H (1.4-6.5) 10^3/uL Lymph # (Auto) 1.4 (1.2-3.8) 10^3/uL Waller # (Auto) 0.4 (0.3-0.8) 10^3/uL Eos # (Auto) 0.2 (0.0-0.7) 10^3/uL Baso # (Auto) 0.0 (0.0-0.1) 10^3/uL Abs Immat Gran (auto) 0.06 H (0.00-0.03) 10^3/uL Imm/Tot Granulo (auto) 0.5 (0.0-0.5) % PT 10.3 (9.0-11.6) sec INR 0.97 Sodium 132 L (136-145) mmol/L Potassium 3.5 (3.5-5.1) mmol/L Chloride 100 (98-107) mmol/L Carbon Dioxide 24.0 (21.0-32.0) mmol/L Anion Gap 11.5 BUN 6.0 L (7.0-18.0) mg/dL Creatinine 0.64 (0.55-1.02) mg/dL Est GFR ( Amer) >60 (>=60) Est GFR (Non-Af Amer) >60 (>=60) BUN/Creatinine Ratio 9.4 Glucose 96 (74-106) mg/dL Lactate 0.6 (0.4-2.0) mmol/L Calcium 8.9 (8.5-10.1) mg/dL Total Bilirubin 0.7 (0.2-1.0) mg/dL AST 15 (15-37) U/L ALT 14 (14-59) U/L Alkaline Phosphatase 95 (46-116) U/L Troponin I High Sens 6.7 (4.0-51.3) pg/mL Total Protein 7.1 (6.4-8.2) g/dL Albumin 2.8 L (3.4-5.0) g/dL Globulin 4.3 g/dL Albumin/Globulin Ratio 0.7 TSH 0.738 (0.358-3.740) uIU/mL Urine Color Yellow (YELLOW) Urine Clarity Clear (CLEAR) Urine pH 6.5 (5.0-9.0) Ur Specific South English 1.020 (1.005-1.025) Urine Protein Negative (NEG/TRACE) mg/dL Urine Glucose (UA) Negative (NEGATIVE) mg/dL Urine Ketones >=80 A (NEGATIVE) mg/dL Urine Occult Blood Negative (NEGATIVE) Urine Nitrite Negative (NEGATIVE) Urine Bilirubin Negative (NEGATIVE) Urine Urobilinogen 0.2 (0.2-1.0) EU/dL Ur Leukocyte Esterase Negative (NEGATIVE) ECG Data Attestation: I personally reviewed and interpreted this ECG as follows: (Normal sinus rhythm at a rate of 84, no acute ST elevation or ectopy. EKG reviewed by attending physician) Discharge Plan Discharge Stand Alone Forms: Portal Instructions Chief Complaint: Syncope Clinical Impression: Dehydration, Near syncope Patient Disposition: Home, Self-Care Time of Disposition Decision: 21:45 Condition: Good Print Language: Argentine Instructions: Dehydration (ED), Near Syncope (ED) Referrals: Behzad Ramos DO [Physician] - 1 week Shailesh Flowers MD [Primary Care Provider] - 1 week
[2024-05-07] MEDS: 0.9 % SODIUM CHLORIDE 1,000 ML 1000 ML IV (21:03)
[2024-05-07 21:11] LABS: Basophils Percent Auto 0.2 % (0.2-2.0); Eosinophils Absolute Auto 0.2 10^3/uL (0.0-0.7); Eosinophils Percent Auto 1.4 % (0.9-7.0); Hematocrit 35.5 % (36.0-48.0); Hemoglobin 11.1 g/dL (12.0-16.0); Immature Granulocytes Abs Auto 0.06 10^3/uL (0.00-0.03); Immature Granulocytes Pct Auto 0.5 % (0.0-0.5); Lymphocytes Absolute Auto 1.4 10^3/uL (1.2-3.8); Lymphocytes Percent Auto 12.7 % (20.5-60.0); Mean Corpuscular HGB Conc 31.3 g/dL (29.9-35.2); Mean Corpuscular Hemoglobin 24.1 pg (26.7-34.0); Mean Corpuscular Volume 77.2 fL (81.0-99.0); Mean Platelet Volume 11.8 fL (9.5-13.5); Monocytes Absolute Auto 0.4 10^3/uL (0.3-0.8); Monocytes Percent Auto 3.6 % (1.7-12.0); Neutrophils Percent Auto 81.6 % (43.0-75.0); Platelet Count 195 10^3/uL (150-450); Red Cell Distribution Width 15.2 % (11.0-15.0)
[2024-05-07 21:12] LABS: Bilirubin Urine NEGATIVE (NEGATIVE); Blood Urine NEGATIVE (NEGATIVE); Clarity Urine CLEAR (CLEAR); Color Urine YELLOW (YELLOW); Glucose Urine UA NEGATIVE (NEGATIVE); Ketones Urine >=80 mg/dL (NEGATIVE); Leukocyte Esterase Urine NEGATIVE (NEGATIVE); Nitrite Urine NEGATIVE (NEGATIVE); Protein Urine NEGATIVE (NEG/TRACE); Urobilinogen Urine 0.2 EU/dL (0.2-1.0); pH Urine 6.5 (5.0-9.0)
[2024-05-07 21:13] LABS: Urine Microscopic Indicated NO
[2024-05-07 21:27] LABS: Alanine Aminotransferase 14 U/L (14-59); Albumin Globulin Ratio 0.7; Albumin Level 2.8 g/dL (3.4-5.0); Alkaline Phosphatase 95 U/L (46-116); Anion Gap 11.5; Aspartate Amino Transferase 15 U/L (15-37); BUN Creatinine Ratio 9.4; Bilirubin Total 0.7 mg/dL (0.2-1.0); Calcium 8.9 mg/dL (8.5-10.1); Chloride 100 mmol/L (98-107); Estimated GFR (African America >60 (>=60); Estimated GFR (Non-African Ame >60 (>=60); Globulin 4.3 g/dL; Glucose 96 mg/dL (74-106); Potassium 3.5 mmol/L (3.5-5.1); Sodium 132 mmol/L (136-145); Total Protein 7.1 g/dL (6.4-8.2)
[2024-05-07 21:30] LABS: Lactate/Lactic Acid 0.6 mmol/L (0.4-2.0)
[2024-05-07 21:33] LABS: INR 0.97; Prothrombin Time 10.3 sec (9.0-11.6)
[2024-05-07 21:36] LABS: Thyroid Stimulating Hormone 0.738 uIU/mL (0.358-3.740); Troponin I High Sensitivity 6.7 pg/mL (4.0-51.3)
== END 2024-05-07 22:05 | disposition home or self-care (01) ==
PROVIDERS: Physician Assistant; Emergency Provider Emergency Medicine; PCP Family Medicine
DX: O99.282 Endocrine, nutritional and metabolic diseases complicating pregnancy, second trimester (principal); E86.0 Dehydration; O26.892 Other specified pregnancy related conditions, second trimester; R55 Syncope and collapse; Z3A.27 27 weeks gestation of pregnancy
CPT/HCPCS: 36415; 80053; 81003; 83605; 84443; 84484; 85025; 85610; 93005; 96360; 99285

== ENCOUNTER 2024-05-07 22:04 | Observation (INO) | payer OTHER, SELFPAY ==
--- OUTSIDE RECORDS SUMMARY | 2024-05-07 22:07 | XMS_ITS | CCD ---
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 Mir Araiza Basophils/100 WBC (Bld) 0.7 % Normal 0.2-2.0 [facility] Comment on above: Performed By: #### C BC #### [facility] [address] [place] [address] Dr. Mir Araiza EO # 0.2 103/ul Normal 0.0-0.7 [facility] Comment on above: Performed By: #### C BC #### [facility] [address] [place] [address] Dr. Mir Araiza Eosinophils/100 WBC (Bld) 3.0 % Normal 0.9-7.0 [facility] Comment on above: Performed By: #### C BC #### [facility] [address] [place] [address] Dr. Mir Araiza Erythrocyte distribution width (RBC) [Ratio] 15.6 % Critically high 11.0-15.0 [facility] Comment on above: Performed By: #### C BC #### [facility] [address] [place] [address] Dr. Mir Araiza Hematocrit (Bld) [Volume fraction] 38.5 % Normal 36.0-48.0 [facility] Comment on above: Performed By: #### C BC #### [facility] [address] [place] [address] Dr. Mir Araiza Hemoglobin (Bld) [Mass/Vol] 12.3 g/dL Normal 12.0-16.0 [facility] Comment on above: Performed By: #### C BC #### [facility] [address] [place] [address] Dr. Mir Araiza IG # 0.02 10e3/ul Normal 0.00-0.03 [facility] Comment on above: Performed By: #### C BC #### [facility] [address] [place] [address] Dr. Mir Araiza IG % 0.3 % Normal 0.0-0.5 [facility] Comment on above: Performed By: #### C BC #### [facility] [address] [place] [address] Dr. Mir Araiza LYMPH # 1.5 103/ul Normal 1.2-3.8 [facility] Comment on above: Performed By: #### C BC #### [facility] [address] [place] [address] Dr. Mir Araiza Lymphocytes/100 WBC (Bld) 24.1 % Normal 20.5-60.0 [facility] Comment on above: Performed By: #### C BC #### [facility] [address] [place] [address] Dr. iMr Araiza MANUAL DIFF REQ NO Normal [facility] Comment on above: Performed By: #### C BC #### [facility] [address] [place] [address] Dr. Mir Araiza MCH (RBC) [Entitic mass] 24.8 pg Critically low 26.7-34.0 [facility] Comment on above: Performed By: #### C BC #### [facility] [address] [place] [address] Dr. Mir Araiza MCHC (RBC) [Mass/Vol] 31.9 g/dL Normal 29.9-35.2 [facility] Comment on above: Performed By: #### C BC #### [facility] [address] [place] [address] Dr. Mir Araiza MCV (RBC) [Entitic vol] 77.8 fL Critically low 81.0-99.0 [facility] Comment on above: Performed By: #### C BC #### [facility] [address] [place] [address] Dr. Mir Araiza MONO # 0.4 103/ul Normal 0.3-0.8 [facility] Comment on above: Performed By: #### C BC #### [facility] [address] [place] [address] Dr. Mir Araiza Monocytes/100 WBC (Bld) 6.3 % Normal 1.7-12.0 [facility] Comment on above: Performed By: #### C BC #### [facility] [address] [place] [address] Dr. Mir Araiza NEUT # 4.0 103/ul Normal 1.4-6.5 [facility] Comment on above: Performed By: #### C BC #### [facility] [address] [place] [address] Dr. Mir Araiza Neutrophils/100 WBC (Bld) 65.6 % Normal 43.0-75.0 [facility] Comment on above: Performed By: #### C BC #### [facility] [address] [place] [address] Dr. Mir Araiza Platelet mean volume (Bld) [Entitic vol] 12.3 fL Normal 9.5-13.5 [facility] Comment on above: Performed By: #### C BC #### [facility] [address] [place] [address] Dr. Mir Araiza PLT 173 103/ul Normal 150-450 [facility] Comment on above: Performed By: #### C BC #### [facility] [address] [place] [address] Dr. Mir Araiza RBC 4.95 106/ul Normal 4.20-5.40 [facility] Comment on above: Performed By: #### C BC #### [facility] [address] [place] [address] Dr. Mir Araiza WBC 6.0 103/ul Normal 4.0-11.0 [facility] Comment on above: Performed By: #### C BC #### [facility] [address] [place] [address] Dr. Mir Araiza CRPon 10-23-2022 CRP 0.8 mg/dL Normal <=1.0 [facility] Comment on above: Performed By: #### B MP, CRP #### [facility] [address] [place] [address] Dr. Mir Araiza URon 10-23-2022 , QUAL Negative Normal NEGATIVE [facility] Comment on above: Performed By: #### P REGU #### [facility] [address] [address] [address] Mir Araiza PROF CHEM 8 (BAS METB)on Anion gap [Moles/Vol] 12.1 mmol/L Normal [facility] Comment on above: Performed By: #### B MP, CRP #### [facility] [address] [place] [address] Dr. Mir Araiza Calcium [Mass/Vol] 8.8 mg/dL Normal 8.5-10.1 [facility] Comment on above: Performed By: #### B MP, CRP #### [facility] [address] [place] [address] Dr. Mir Araiza Chloride [Moles/Vol] 104 mmol/L Normal 98-107 [facility] Comment on above: Performed By: #### B MP, CRP #### [facility] [address] [place] [address] Dr. Mir Araiza CO2 [Moles/Vol] 27.2 mmol/L Normal 21.0-32.0 [facility] Comment on above: Performed By: #### B MP, CRP #### [facility] [address] [place] [address] Dr. Mir Araiza Creatinine [Mass/Vol] 0.83 mg/dL Normal 0.55-1.02 [facility] Comment on above: Performed By: #### B MP, CRP #### [facility] [address] [place] [address] Dr. Mir Araiza EGFR-AF BAHAMIAN >60 Normal >=60 [facility] Comment on above: Performed By: #### B MP, CRP #### [facility] [address] [place] [address] Dr. Mir Araiza EGFR-NON AF BAHAMIAN >60 Normal >=60 [facility] Comment on above: Performed By: #### B MP, CRP #### [facility] [address] [place] [address] Dr. Mir Araiza Glucose [Mass/Vol] 96 mg/dL Normal 74-106 [facility] Comment on above: Performed By: #### B MP, CRP #### [facility] [address] [place] [address] Dr. Mir Araiza Potassium [Moles/Vol] 3.3 mmol/L Critically low 3.5-5.1 [facility] Comment on above: Performed By: #### B MP, CRP #### [facility] [address] [place] [address] Dr. Mir Araiza Sodium [Moles/Vol] 140 mmol/L Normal 136-145 [facility] Comment on above: Performed By: #### B MP, CRP #### [facility] [address] [place] [address] Dr. Mir Araiza Urea nitrogen [Mass/Vol] 10.0 mg/dL Normal 7.0-18.0 [facility] Comment on above: Performed By: #### B MP, CRP #### [facility] [address] [place] [address] Dr. Mir Araiza Urea nitrogen/Creatinine [Mass ratio] 12.0 mg/mg Normal [facility] Comment on above: Performed By: #### B MP, CRP #### [facility] [address] [place] [address] Dr. Mir Araiza SED RATE [facility] 2022 SED RATE 9 mm/hr Normal <=20 [facility] Comment on above: Performed By: #### S EDR #### [facility] [address] [place] [address] Dr. Mir Araiza Covid-19 PCR (CVDTB)on SARS-CoV-2 (COVID-19) RNA IFRAH+probe Ql (Unsp spec) Detected Critically abnormal NOT DETECTED [facility] Comment on above: Result Comment: This test is not yet approved or cleared by the [place] FDA. When there are no FDA-approved or cleared tests available, and other criteria are met, FDA can make tests available under an emergency access mechanism called an Emergency Use Authorization (EUA). The EUA for this test is supported by the Reservations Specialist of Health and Human Service's (HHS's) [...] used). Performed By: #### C VDTB #### [facility] [address] [address] [address] Mir Araiza [facility] Metabolic Empo n 08-14-2021 Albumin [Mass/Vol] 3.9 g/dL Normal 3.2-5.5 [facility] Comment on above: Performed By: #### E BS CMP, EBS LIPID #### [address] Albumin/Globulin [Mass ratio] 1.2 {ratio} Normal [facility] Comment on above: Performed By: #### E BS CMP, EBS LIPID #### [facility] [address] [id number] [place] ALP [Catalytic activity/Vol] 81 U/L Normal 32-92 [facility] Comment on above: Performed By: #### E BS CMP, EBS LIPID #### [address] [id number] [place] ALT [Catalytic activity/Vol] 17 U/L Normal 10-60 [facility] Comment on above: Performed By: #### E BS CMP, EBS LIPID #### [facility] [address] [id number] [place] AST [Catalytic activity/Vol] 18 U/L Normal 10-42 [facility] Comment on above: Performed By: #### E BS CMP, EBS LIPID #### [address] [id number] [place] Bilirubin [Mass/Vol] 0.3 mg/dL Normal 0.3-1.2 [facility] Comment on above: Performed By: #### E BS CMP, EBS LIPID #### [facility] [address] [id number] [place] Calcium [Mass/Vol] 9.5 mg/dL Normal 8.2-10.2 [facility] Comment on above: Performed By: #### E BS CMP, EBS LIPID #### [facility] [address] [place] [address] Chloride [Moles/Vol] 99 mmol/L Normal 95-114 [facility] Comment on above: Performed By: #### E BS CMP, EBS LIPID #### [facility] [address] [place] [address] CO2 [Moles/Vol] 30.3 mmol/L High 22.0-30.0 [facility] Comment on above: Performed By: #### E BS CMP, EBS LIPID #### [address] Creatinine [Mass/Vol] 0.61 mg/dL Normal 0.44-1.03 [facility] Comment on above: Performed By: #### E BS CMP, EBS LIPID #### [address] Estimated GFR ( Lili > 60 Normal [facility] Comment on above: Result Comment: GFR estimated reference range: According to KDOQI guidelines, <60 ml/min/1.73m2 is sufficient to diagnose a patient with chronic kidney disease. Performed By: #### E BS CMP, EBS LIPID #### [address] Estimated GFR (Non- Am > 60 Normal [facility] Comment on above: Performed By: #### E BS CMP, EBS LIPID #### [place] [address] [place] Globulin (S) [Mass/Vol] 3.2 g/dL Normal [facility] Comment on above: Performed By: #### E BS CMP, EBS LIPID #### [address] Glucose [Mass/Vol] 83 mg/dL Normal 70-100 [facility] Comment on above: Performed By: #### E BS CMP, EBS LIPID #### [place] [address] [place] Potassium [Moles/Vol] 4.3 mmol/L Normal 3.5-5.1 [facility] Comment on above: Performed By: #### E BS CMP, EBS LIPID #### [facility] [address] Protein [Mass/Vol] 7.1 g/dL Normal 6.1-7.9 [facility] Comment on above: Performed By: #### E BS CMP, EBS LIPID #### [facility] [address] Sodium [Moles/Vol] 138 mmol/L Normal 136-146 [facility] Comment on above: Performed By: #### E BS CMP, EBS LIPID #### [facility] [address] Urea nitrogen [Mass/Vol] 11 mg/dL Normal 9-23 [facility] Comment on above: Performed By: #### E BS CMP, EBS LIPID #### [facility] [address] Lipid Profileon 08-14-2021 Cholesterol [Mass/Vol] 248 mg/dL High 140-200 [facility] Comment on above: Result Comment: Chol less than 200 mg/dl low risk Chol 201-239 mg/dl borderline risk Chol 240 mg/dl and greater high risk Performed By: #### E BS CMP, EBS LIPID #### [facility] [address] Cholesterol in HDL [Mass/Vol] 54 mg/dL Normal 35-85 [facility] Comment on above: Result Comment: HDL CHOL ATP-III CLASSIFICATION Cardiovascular Risk HDL > or equal to 60 mg/dL LOW HDL < 40 mg/dL HIGH Performed By: #### E BS CMP, EBS LIPID #### [facility] [address] Cholesterol.total/C holesterol in HDL [Mass ratio] 4.6 {ratio} Normal <5.0 [facility] Comment on above: Result Comment: PERF ORMED BY: [place] [address] PATHOLOGIST HOME ECONOMICS EXTENSION WORKER CAMILA KINNEY M.D. Performed By: #### E BS CMP, EBS LIPID #### [facility] [address] LDL Cholesterol,Calcula satya 170 mg/dL High 0-100 [facility] Comment on above: Result Comment: LDL ATP III CLASSIFICATION LDL less than 100 mg/dL Optimal LDL 100-129 mg/dL Near or above optimal LDL 130-159 mg/dL Borderline high LDL 160-189 mg/dL High LDL greater than 189 mg/dL Very high Performed By: #### E BS CMP, EBS LIPID #### [facility] [address] Triglyceride w/Reflex 121 mg/dL Normal 35-149 [facility] Comment on above: Result Comment: TRIG ATP III CLASSIFICATION TRIG less than 150 mg/dL Normal TRIG 150-199 mg/dL Borderline high TRIG 200-500 mg/dL High TRIG greater than 500 mg/dL Very high Standard traceable to the Center for Disease Conrtrol and Prevention (CDC) test method. Performed By: #### E BS CMP, EBS LIPID #### [facility] [address] VLDL CHOLESTEROL 24 mg/dL Normal [facility] Comment on above: Performed By: #### E BS CMP, EBS LIPID #### [facility] [address] Encounters Encounter Date Encounter Type Care [...] Start: 04-03-2018 End: 04-04-2018 Ambulatory DEFAULT PHYSICIAN Facility:[facility] Payers Date Payer Category Payer Unknown [id number] 1990 Unknown [id number] 2.16.84 [id number] 1990 Unknown [id number] 2.16.84 [id number] 1990 Unknown [id number] 2.16.84 [id number] 1990 Unknown [id number] 2.16.84 [id number] 1990 Unknown [id number] 2.16.84 [id number] 1990 Unknown [id number] 2.16.84 [id number] 1959 Unknown [id number] Unknown Summary Purpose Family History No Family History Records FoundNo Family History Records FoundNo Family History Records FoundNo Family History Records Found Advance Directives No Advanced Directives Records FoundNo Advanced Directives Records FoundNo Advanced Directives Records FoundNo Advanced Directives Records Found Additional Source Comments INFORMATION SOURCE (unrecogn ized section and content) DATE CREATED AUTHOR 04/04/2018 [facility] DATE CREATED AUTHOR AUTHOR'S ORGANIZ ATION 11/03/2021 [facility] DATE CREATED AUTHOR AUTHOR'S ORGANIZ ATION 10/26/2022 [facility] DATE CREATED AUTHOR AUTHOR'S ORGANIZ ATION 04/06/2024 [facility] FOR RECORDS PERTAINING TO PATIENTS WHO [...] BE BASED ON THE PRIMARY CLINICAL RECORDS. [facility] [address] [facility]. provides no warranty or guarantee of the accuracy or completeness of information in this document.
[2024-05-07 22:16] VITALS: BP 114/71; PULSE 72; TEMP 36.1
== END 2024-05-08 | disposition home or self-care (01) ==
PROVIDERS: Admitting Provider Obstetrics & Gynecology; PCP Family Medicine; Visit Provider Obstetrics & Gynecology
DX: O99.282 Endocrine, nutritional and metabolic diseases complicating pregnancy, second trimester (principal); E86.0 Dehydration; O26.892 Other specified pregnancy related conditions, second trimester; R55 Syncope and collapse; O47.02 False labor before 37 completed weeks of gestation, second trimester; Z3A.27 27 weeks gestation of pregnancy
CPT/HCPCS: 36415; 59025; 80053; 81003; 83605; 84443; 84484; 85025; 85610; 93005; 96360; 99285; G0378; G0379

== ENCOUNTER 2024-06-28 09:46 | Outpatient (OUT) | payer OTHER, SELFPAY ==
--- NOTE | 2024-06-28 09:49 | US_ITS ---
[address] [address] Patient Name: PATRICIA GIBSON MRN: [id number] date: 1990 Sex: F Assigned Patient Location: [facility] Current Patient Location: [facility] Accession/Order Number: [id number] Exam Date: 06/28/2024 09:49 Report Date: 06/28/2024 10:36 At the request of: LAKIA ESCOBEDO Procedure: US OB growth EXAMINATION: US OB growth HISTORY: GESTATIONAL DIABETES COMPARISON: No relevant comparison available. FINDINGS: Heart Rate: 150 bpm Amniotic Fluid Volume: 19.3 cm, largest fluid pocket 6.7 cm Number: 1 Position: Cephalic presentation, longitudinal lie BIOMETRY: BPD: 8.67 cm; 35 weeks 0 days; 66 % HC: 32.73 cm; 37 weeks 1 day; 81.60 % AC: 33.06 cm; 37 weeks 0 days; >97 % FL: 6.65 cm; 34 weeks 2 days; 35.60 % EFW: 2833.72 g; 88.40 %, 6 lbs. 4 oz. FL/AC: 20.11 FL/BPD: 76.70 HC/AC: 0.99 GESTATIONAL AGE: Age by EDC: 34 weeks 3 days DEAN by EDC: 2024-08-06 Age by US: 35 weeks 6 days DEAN by US: 2024-07-27 US/US OB growth IMPRESSION: Abdominal circumference greater than the 97th percentile, otherwise normal interval growth Electronically authenticated by: BETH RINALDI Date: 06/28/2024 10:36
--- OUTSIDE RECORDS SUMMARY | 2024-06-28 10:00 | XMS_ITS | CCD ---
Author Organization [facility] Team Providers Care Sugar Laboratory Assistant Name Role Phone PHYSICIAN, DEFAULT Unavailable Unavailable PHYSICIAN, DEFAULT Unavailable Unavailable DR MARIANA CEVALLOS Primary Care Unavailable YO LANDEROS Admitting Unavailable YO LANDEROS Attending Unavailable YO LANDEROS Consulting Unavailable WHITNEY QUIROZ Admitting Unavailable WHITNEY QUIROZ Attending Unavailable DR MARIANA CEVALLOS Primary Care Unavailable WHITNEY QUIROZ Consulting Unavailable MARIANA CEVALLOS Attending Unavailable LAKIA ESCOBEDO Attending Unavailable LAKIA ESCOBEDO Attending Unavailable KARAN RIVAS Attending Unavailable LAKIA ESCOBEDO Attending Unavailable Problems Active Problems Problem Classification Problem Date Documented Da te Episodic/Chronic Anxiety disorders (1 source) Anxiety disorder, unspecified; Translations: [ANXIETY DISORDER UNSPECIFIED] Onset: 10-26-2022 Chronic Headache; including migraine (4 sources) Headache; including migraine; Translations: [HEADACHE UNSPECIFIED] Onset: 10-23-2022 Mood disorders (1 source) Mood disorders; Translations: [DEPRESSION UNSPECIFIED] Onset: 10-26-2022 Other aftercare (1 source) 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 [address] [address] [address] Mir Araiza Basophils/100 WBC (Bld) 0.7 % Normal 0.2-2.0 [facility] Comment on above: Performed By: #### C BC #### [facility] [address] [address] [address] Mir Araiza EO # 0.2 103/ul Normal 0.0-0.[address] [facility] Comment on above: Performed By: #### C BC #### [facility] [address] [address] [address] Mir Araiza Eosinophils/100 WBC (Bld) 3.0 % Normal 0.9-7.0 [facility] Comment on above: Performed By: #### C BC #### [facility] [address] [address] [address] Mir Araiza Erythrocyte distribution width (RBC) [Ratio] 15.6 % Critically high 11.0-15.0 [facility] Comment on above: Performed By: #### C BC #### [facility] [address] [place] [address] Dr. Mir Araiza Hematocrit (Bld) [Volume fraction] 38.5 % Normal 36.0-48.0 [facility] Comment on above: Performed By: #### C BC #### [facility] [address] [address] [address] Mir Araiza Hemoglobin (Bld) [Mass/Vol] 12.3 g/dL Normal 12.0-16.[address] [facility] Comment on above: Performed By: #### C BC #### [facility] [address] [place] [address] Dr. Mir Araiza IG # 0.02 10e3/ul Normal 0.00-0.03 [facility] Comment on above: Performed By: #### C BC #### [facility] [address] [place] [address] Dr. Mir Araiza IG % 0.3 % Normal 0.0-0.5 [facility] Comment on above: Performed By: #### C BC #### [facility] [address] [place] [address] Dr. Mir Araiza LYMPH # 1.5 103/ul Normal 1.2-3.[address] [facility] Comment on above: Performed By: #### C BC #### [facility] [address] [place] [address] Dr. Mir Araiza Lymphocytes/100 WBC (Bld) 24.1 % Normal 20.5-60.[address] [facility] Comment on above: Performed By: #### C BC #### [facility] [address] [place] [address] Dr. Mir Araiza MANUAL DIFF REQ NO Normal [facility] Comment on above: Performed By: #### C BC #### [facility] [address] [place] [address] Dr. Mir Araiza MCH (RBC) [Entitic mass] 24.8 pg Critically low 26.7-34.0 [facility] Comment on above: Performed By: #### C BC #### [facility] [address] [place] [address] Dr. Mir Araiza MCHC (RBC) [Mass/Vol] 31.9 g/dL Normal 29.9-35.[address] [facility] Comment on above: Performed By: #### C BC #### [facility] [address] [place] [address] Dr. Mir Araiza MCV (RBC) [Entitic vol] 77.8 fL Critically low 81.0-99.[address] [facility] Comment on above: Performed By: #### C BC #### [facility] [address] [place] [address] Dr. Mir Araiza MONO # 0.4 103/ul Normal 0.3-0.[address] [facility] Comment on above: Performed By: #### C BC #### [facility] [address] [place] [address] Dr. Mir Araiza Monocytes/100 WBC (Bld) 6.3 % Normal 1.7-12.0 [facility] Comment on above: Performed By: #### C BC #### [facility] [address] [place] [address] Dr. Mir Araiza NEUT # 4.0 103/ul Normal 1.4-6.5 [facility] Comment on above: Performed By: #### C BC #### [facility] [address] [place] [address] Dr. Mir Araiza Neutrophils/100 WBC (Bld) 65.6 % Normal 43.0-75.0 [facility] Comment on above: Performed By: #### C BC #### [facility] [address] [place] [address] Dr. Mir Araiza Platelet mean volume (Bld) [Entitic vol] 12.3 fL Normal 9.5-13.5 [facility] Comment on above: Performed By: #### C BC #### [facility] [address] [place] [address] Dr. Mir Araiza PLT 173 103/ul Normal 150-[address] [facility] Comment on above: Performed By: #### C BC #### [facility] [address] [place] [address] Dr. Mir Araiza RBC 4.95 106/ul Normal 4.20-5.[address] [facility] Comment on above: Performed By: #### C BC #### [facility] [address] [place] [address] Dr. Mir Araiza WBC 6.0 103/ul Normal 4.0-11.[address] [facility] Comment on above: Performed By: #### C BC #### [facility] [address] [place] [address] Dr. Mir Araiza CRPon 10-23-2022 CRP 0.8 mg/dL Normal <=1.[address] [facility] Comment on above: Performed By: #### B MP, CRP #### [facility] [address] [place] [address] Dr. Mir Araiza URon 10-23-2022 , QUAL Negative Normal NEGATIVE [facility] Comment on above: Performed By: #### P REGU #### [facility] [address] [place] [address] Dr. Mir Araiza PROF CHEM 8 (BAS METB)on Anion gap [Moles/Vol] 12.1 mmol/L Normal [facility] Comment on above: Performed By: #### B MP, CRP #### [facility] [address] [place] [address] Dr. Mir Araiza Calcium [Mass/Vol] 8.8 mg/dL Normal 8.5-10.1 [facility] Comment on above: Performed By: #### B MP, CRP #### [facility] [address] [place] [address] Dr. Mir Araiza Chloride [Moles/Vol] 104 mmol/L Normal 98-[address] [facility] Comment on above: Performed By: #### B MP, CRP #### [facility] [address] [place] [address] Dr. Mir Araiza CO2 [Moles/Vol] 27.2 mmol/L Normal 21.0-32.0 [facility] Comment on above: Performed By: #### B MP, CRP #### [facility] [address] [place] [address] Dr. Mir Araiza Creatinine [Mass/Vol] 0.83 mg/dL Normal 0.55-1.02 [facility] Comment on above: Performed By: #### B MP, CRP #### [facility] [address] [place] [address] Dr. Mir Araiza EGFR-AF KYRGYZ >60 Normal >=60 [facility] Comment on above: Performed By: #### B MP, CRP #### [facility] [address] [place] [address] Dr. Mir Araiza EGFR-NON AF KYRGYZ >60 Normal >=60 [facility] Comment on above: Performed By: #### B MP, CRP #### [facility] [address] [place] [address] Dr. Mir Araiza Glucose [Mass/Vol] 96 mg/dL Normal 74-106 [facility] Comment on above: Performed By: #### B MP, CRP #### [facility] [address] [place] [address] Dr. Mir Araiza Potassium [Moles/Vol] 3.3 mmol/L Critically low 3.5-5.1 [facility] Comment on above: Performed By: #### B MP, CRP #### [facility] [address] [place] [address] Dr. Mir Araiza Sodium [Moles/Vol] 140 mmol/L Normal 136-145 [facility] Comment on above: Performed By: #### B MP, CRP #### [facility] [address] [place] [address] Dr. Mir Araiza Urea nitrogen [Mass/Vol] 10.0 mg/dL Normal 7.0-18.0 [facility] Comment on above: Performed By: #### B MP, CRP #### [facility] [address] [place] [address] Dr. Mir Araiza Urea nitrogen/Creatinine [Mass ratio] 12.0 mg/mg Normal [facility] Comment on above: Performed By: #### B MP, CRP #### [facility] [address] [place] [address] Dr. Mir Araiza SED RATE [facility] 2022 SED RATE 9 mm/hr Normal <=20 [facility] Comment on above: Performed By: #### S EDR #### [facility] [address] [place] [address] Dr. Mir Arazia Covid-19 PCR (CVDTB)on SARS-CoV-2 (COVID-19) RNA IFRAH+probe Ql (Unsp spec) Detected Critically abnormal NOT DETECTED [facility] Comment on above: Result Comment: This test is not yet approved or cleared by the [place] FDA. When there are no FDA-approved or cleared tests available, and other criteria are met, FDA can make tests available under an emergency access mechanism called an Emergency Use Authorization (EUA). The EUA for this test is supported by the [place] of Health and Human Service's (HHS's) declaration [...] used). Performed By: #### C VDTB #### [facility] [address] [address] [address] Mir Araiza [facility] Metabolic Empo n 08-14-2021 Albumin [Mass/Vol] 3.9 g/dL Normal 3.2-5.5 [facility] Comment on above: Performed By: #### E BS CMP, EBS LIPID #### [address] Albumin/Globulin [Mass ratio] 1.2 {ratio} Normal [facility] Comment on above: Performed By: #### E BS CMP, EBS LIPID #### [address] [id number] [place] ALP [Catalytic activity/Vol] 81 U/L Normal 32-92 [facility] Comment on above: Performed By: #### E BS CMP, EBS LIPID #### [address] [id number] [place] ALT [Catalytic activity/Vol] 17 U/L Normal 10-60 [facility] Comment on above: Performed By: #### E BS CMP, EBS LIPID #### [facility] [address] [id number] [place] AST [Catalytic activity/Vol] 18 U/L Normal 10-42 [facility] Comment on above: Performed By: #### E BS CMP, EBS LIPID #### [facility] [address] [phone] [place] Bilirubin [Mass/Vol] 0.3 mg/dL Normal 0.3-1.2 [facility] Comment on above: Performed By: #### E BS CMP, EBS LIPID #### [facility] [address] [phone] [place] Calcium [Mass/Vol] 9.5 mg/dL Normal 8.2-10.2 [facility] Comment on above: Performed By: #### E BS CMP, EBS LIPID #### [facility] [address] Chloride [Moles/Vol] 99 mmol/L Normal 95-114 [facility] Comment on above: Performed By: #### E BS CMP, EBS LIPID #### [facility] [address] [place] [address] CO2 [Moles/Vol] 30.3 mmol/L High 22.0-30.0 [facility] Comment on above: Performed By: #### E BS CMP, EBS LIPID #### [address] Creatinine [Mass/Vol] 0.61 mg/dL Normal 0.44-1.03 [facility] Comment on above: Performed By: #### E BS CMP, EBS LIPID #### [address] Estimated GFR ( Lili > 60 Normal [facility] Comment on above: Result Comment: GFR estimated reference range: According to KDOQI guidelines, <60 ml/min/1.73m2 is sufficient to diagnose a patient with chronic kidney disease. Performed By: #### E BS CMP, EBS LIPID #### [address] Estimated GFR (Non- Am > 60 Normal [facility] Comment on above: Performed By: #### E BS CMP, EBS LIPID #### [facility] [address] [place] [address] [place] Globulin (S) [Mass/Vol] 3.2 g/dL Normal [facility] Comment on above: Performed By: #### E BS CMP, EBS LIPID #### [place] [address] [place] Glucose [Mass/Vol] 83 mg/dL Normal 70-100 [facility] Comment on above: Performed By: #### E BS CMP, EBS LIPID #### [facility] [address] [place], [place] [id number] [facility] Potassium [Moles/Vol] 4.3 mmol/L Normal 3.5-5.1 [facility] Comment on above: Performed By: #### E BS CMP, EBS LIPID #### [facility] [address] [phone] [facility] Protein [Mass/Vol] 7.1 g/dL Normal 6.1-7.9 [facility] Comment on above: Performed By: #### E BS CMP, EBS LIPID #### [facility] [address] [phone] [facility] Sodium [Moles/Vol] 138 mmol/L Normal 136-146 [facility] Comment on above: Performed By: #### E BS CMP, EBS LIPID #### [facility] [address] Urea nitrogen [Mass/Vol] 11 mg/dL Normal 9-23 [facility] Comment on above: Performed By: #### E BS CMP, EBS LIPID #### [facility] [address] Lipid Profileon 08-14-2021 Cholesterol [Mass/Vol] 248 mg/dL High 140-200 [facility] Comment on above: Result Comment: Chol less than 200 mg/dl low risk Chol 201-239 mg/dl borderline risk Chol 240 mg/dl and greater high risk Performed By: #### E BS CMP, EBS LIPID #### [facility] [address] [id number] [facility] Cholesterol in HDL [Mass/Vol] 54 mg/dL Normal 35-85 [facility] Comment on above: Result Comment: HDL CHOL ATP-III CLASSIFICATION Cardiovascular Risk HDL > or equal to 60 mg/dL LOW HDL < 40 mg/dL HIGH Performed By: #### E BS CMP, EBS LIPID #### [facility] [address] [phone] [facility] Cholesterol.total/C holesterol in HDL [Mass ratio] 4.6 {ratio} Normal <5.0 [facility] Comment on above: Result Comment: PERF ORMED BY: [place] [address] PATHOLOGIST [employer] CAMILA KINNEY M.D. Performed By: #### E BS CMP, EBS LIPID #### [facility] [address] LDL Cholesterol,Calcula satya 170 mg/dL High 0-100 [facility] Comment on above: Result Comment: LDL ATP III CLASSIFICATION LDL less than 100 mg/dL Optimal LDL 100-129 mg/dL Near or above optimal LDL 130-159 mg/dL Borderline high LDL 160-189 mg/dL High LDL greater than 189 mg/dL Very high Performed By: #### E BS CMP, EBS LIPID #### [facility] [address] Triglyceride w/Reflex 121 mg/dL Normal 35-149 [facility] Comment on above: Result Comment: TRIG ATP III CLASSIFICATION TRIG less than 150 mg/dL Normal TRIG 150-199 mg/dL Borderline high TRIG 200-500 mg/dL High TRIG greater than 500 mg/dL Very high Standard traceable to the Center for Disease Conrtrol and Prevention (CDC) test method. Performed By: #### E BS CMP, EBS LIPID #### [facility] [address] VLDL CHOLESTEROL 24 mg/dL Normal [facility] Comment on above: Performed By: #### E BS CMP, EBS LIPID #### [facility] [address] [phone] [facility] Encounters Encounter Date Encounter Type Care Provider Facility Start: 05-17-2024 End: 05-17-2024 ambulatory LAKIA FANNY Not Available Start: 05-03-2024 End: 05-03-2024 ambulatory KARAN RIVAS Not Available Start: 04-05-2024 End: 04-05-2024 ambulatory LAKIA FANNY Not Available Start: 02-09-2024 End: 02-09-2024 ambulatory LAKIA FANNY Not Available Start: 01-20-2024 End: 01-20-2024 ambulatory MARIANA CEVALLOS Not Available Start: 10-21-2023 End: 10-21-2023 ambulatory MARIANA CEVALLOS Not Available Start: 10-23-2022 End: 10-23-[address] MARIANA CEVALLOS Facility:[facility] Start: 12-16-2021 End: 12-16-2021 ambulatory WHITNEY QUIROZ Facility:[facility] Start: 04-03-2018 End: 04-04-2018 Ambulatory DEFAULT PHYSICIAN Facility:[facility] Payers Date Payer Category Payer Unknown [id number] 1990 Unknown [id number] 2.16.84 [id number] 1990 Unknown [id number] 2.16.84 [id number] 1990 Unknown [id number] 2.16.84 [id number] 1990 Unknown [id number] 2.16.84 [id number] 1990 Unknown [id number] 2.16.84 [id number] 1990 Unknown [id number] 2.16.84 [id number] 1990 Unknown [id number] 2.16.84 [id number] 1990 Unknown [id number] 2.16.84 [id number] 1959 Unknown [id number] Unknown Summary Purpose Family History No Family History Records FoundNo Family History Records FoundNo Family History Records FoundNo Family History Records Found Advance Directives No Advanced Directives Records FoundNo Advanced Directives Records FoundNo Advanced Directives Records FoundNo Advanced Directives Records Found Additional Source Comments INFORMATION SOURCE (unrecogn ized section and content) DATE CREATED AUTHOR 04/04/2018 [facility] DATE CREATED AUTHOR AUTHOR'S ORGANIZ ATION 11/03/2021 [facility] DATE CREATED AUTHOR AUTHOR'S ORGANIZ ATION 10/26/2022 [facility] DATE CREATED AUTHOR AUTHOR'S ORGANIZ ATION 05/19/2024 [facility] EPIC FOR RECORDS PERTAINING [...] BE BASED ON THE PRIMARY CLINICAL RECORDS. [facility] [employer] [facility]. provides no warranty or guarantee of the accuracy or completeness of information in this document.
== END 2024-06-28 09:47 | disposition home or self-care (01) ==
LOC: NOMS 09:47
PROVIDERS: PCP Family Medicine; Visit Provider Obstetrics & Gynecology
DX: O24.419 Gestational diabetes mellitus in pregnancy, unspecified control (principal); Z3A.35 35 weeks gestation of pregnancy
CPT/HCPCS: 76816

== ENCOUNTER 2024-07-04 07:08 | Outpatient (OUT) | payer OTHER, SELFPAY ==
--- NOTE | 2024-07-04 | US_ITS ---
[address] [address] Patient Name: PATRICIA GIBSON MRN: [id number] date: 1990 Sex: F Assigned Patient Location: [facility] Current Patient Location: [facility] Accession/Order Number: [id number] Exam Date: 07/04/2024 11:15 Report Date: 07/04/2024 12:24 At the request of: KARAN RIVAS Procedure: US OB BPP w non-stress EXAMINATION: US OB BPP w non-stress HISTORY:Excessive growth O36.63x0 COMPARISON: No relevant comparison available. TECHNIQUE: Ultrasound biophysical profile was performed in the radiology department. BREATHING MOVEMENTS: 0 GROSS BODY MOVEMENTS: 2 TONE: 2 QUALITATIVE AMNIOTIC FLUID VOLUME: 2 PRESENTATION: CEPHALIC HEART RATE: 150.84 bpm AMNIOTIC FLUID VOLUME: 25.74 cm GESTATIONAL AGE: 35 weeks 2 days US/US OB BPP w non-stress IMPRESSION: 1. Total biophysical profile score: 6 2. Polyhydramnios. Electronically authenticated by: KATHIE RUIZ Date: 07/04/2024 12:24
--- OUTSIDE RECORDS SUMMARY | 2024-07-04 07:10 | XMS_ITS | CCD ---
Author Organization [facility] Care Team Providers Care Detention Officer Name Role Phone PHYSICIAN, DEFAULT Unavailable Unavailable PHYSICIAN, DEFAULT Unavailable Unavailable DR MARIANA CEVALLOS Primary Care Unavailable YO LANDEROS Admitting Unavailable YO LANDEROS Attending Unavailable YO LANDEROS Consulting Unavailable WHITNEY QUIROZ Admitting Unavailable WHITNEY QUIROZ Attending Unavailable DR MARIANA CEVALLOS Primary Care Unavailable WHITNEY QUIROZ Consulting Unavailable MARIANA CEVALLOS Attending Unavailable LAKIA ESCOBEDO Attending Unavailable FANNY, LAKIA Attending Unavailable KARAN RIVAS Attending Unavailable FANNY, LAKIA Attending Unavailable ROBKARAN COLE Attending Unavailable Problems Active Problems Problem Classification Problem Date Documented Da te Episodic/Chronic Anxiety disorders (1 source) Anxiety disorder, unspecified; Translations: [ANXIETY DISORDER UNSPECIFIED] Onset: 10-26-2022 Chronic Headache; including migraine (4 sources) Headache; including migraine; Translations: [HEADACHE UNSPECIFIED] Onset: 10-23-2022 Mood disorders (1 source) Mood disorders; Translations: [DEPRESSION UNSPECIFIED] Onset: 10-26-2022 Other aftercare (1 source) 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 Mir Araiza Basophils/100 WBC (Bld) 0.7 % Normal 0.2-2.0 [facility] Comment on above: Performed By: #### C BC #### [facility] [address] [place] [address] Dr. Mir Araiza EO # 0.2 103/ul Normal 0.0-0.7 [facility] Comment on above: Performed By: #### C BC #### [facility] [address] [place] [address] Dr. Mir Araiza Eosinophils/100 WBC (Bld) 3.0 % Normal 0.9-7.0 [facility] Comment on above: Performed By: #### C BC #### [facility] [address] [place] [address] Dr. Mir Araiza Erythrocyte distribution width (RBC) [Ratio] 15.6 % Critically high 11.0-15.0 [facility] Comment on above: Performed By: #### C BC #### [facility] [address] [place] [address] Dr. Mir Araiza Hematocrit (Bld) [Volume fraction] 38.5 % Normal 36.0-48.0 [facility] Comment on above: Performed By: #### C BC #### [facility] [address] [place] [address] Dr. Mir Araiza Hemoglobin (Bld) [Mass/Vol] 12.3 g/dL Normal 12.0-16.0 [facility] Comment on above: Performed By: #### C BC #### [facility] [address] [place] [address] Dr. Mir Araiza IG # 0.02 10e3/ul Normal 0.00-0.03 [facility] Comment on above: Performed By: #### C BC #### [facility] [address] [place] [address] Dr. Mir Araiza IG % 0.3 % Normal 0.0-0.5 [facility] Comment on above: Performed By: #### C BC #### [facility] [address] [place] [address] Dr. Mir Araiza LYMPH # 1.5 103/ul Normal 1.2-3.8 [facility] Comment on above: Performed By: #### C BC #### [facility] [address] [place] [address] Dr. Mir Araiza Lymphocytes/100 WBC (Bld) 24.1 % Normal 20.5-60.0 [facility] Comment on above: Performed By: #### C BC #### [facility] [address] [place] [address] Dr. Mir Araiza MANUAL DIFF REQ NO Normal [facility] Comment on above: Performed By: #### C BC #### [facility] [address] [place] [address] Dr. Mir Araiza MCH (RBC) [Entitic mass] 24.8 pg Critically low 26.7-34.0 [facility] Comment on above: Performed By: #### C BC #### [facility] [address] [place] [address] Dr. Mir Araiza MCHC (RBC) [Mass/Vol] 31.9 g/dL Normal 29.9-35.2 [facility] Comment on above: Performed By: #### C BC #### [facility] [address] [place] [address] Dr. Mir Araiza MCV (RBC) [Entitic vol] 77.8 fL Critically low 81.0-99.0 [facility] Comment on above: Performed By: #### C BC #### [facility] [address] [place] [address] Dr. Mir Araiza MONO # 0.4 103/ul Normal 0.3-0.8 [facility] Comment on above: Performed By: #### C BC #### [facility] [address] [place] [address] Dr. Mir Araiza Monocytes/100 WBC (Bld) 6.3 % Normal 1.7-12.0 [facility] Comment on above: Performed By: #### C BC #### [facility] [address] [place] [address] Dr. Mir Araiza NEUT # 4.0 103/ul Normal 1.4-6.5 [facility] Comment on above: Performed By: #### C BC #### [facility] [address] [place] [address] Dr. Mir Araiza Neutrophils/100 WBC (Bld) 65.6 % Normal 43.0-75.0 [facility] Comment on above: Performed By: #### C BC #### [facility] [address] [place] [address] Dr. Mir Araiza Platelet mean volume (Bld) [Entitic vol] 12.3 fL Normal 9.5-13.5 [facility] Comment on above: Performed By: #### C BC #### [facility] [address] [place] [address] Dr. Mir Araiza PLT 173 103/ul Normal 150-450 [facility] Comment on above: Performed By: #### C BC #### [facility] [address] [place] [address] Dr. Mir Araiza RBC 4.95 106/ul Normal 4.20-5.40 [facility] Comment on above: Performed By: #### C BC #### [facility] [address] [place] [address] Dr. Mir Araiza WBC 6.0 103/ul Normal 4.0-11.0 [facility] Comment on above: Performed By: #### C BC #### [facility] [address] [place] [address] Dr. Mir Araiza CRPon 10-23-2022 CRP 0.8 mg/dL Normal <=1.0 [facility] Comment on above: Performed By: #### B MP, CRP #### [facility] [address] [place] [address] Dr. Mir Araiza URon 10-23-2022 , QUAL Negative Normal NEGATIVE [facility] Comment on above: Performed By: #### P REGU #### [facility] [address] [place] [address] Dr. Mir Araiza PROF CHEM 8 (BAS METB)on Anion gap [Moles/Vol] 12.1 mmol/L Normal [facility] Comment on above: Performed By: #### B MP, CRP #### [facility] [address] [place] [address] Dr. Mir Araiza Calcium [Mass/Vol] 8.8 mg/dL Normal 8.5-10.1 [facility] Comment on above: Performed By: #### B MP, CRP #### [facility] [address] [place] [address] Dr. Mir Araiza Chloride [Moles/Vol] 104 mmol/L Normal 98-107 [facility] Comment on above: Performed By: #### B MP, CRP #### [facility] [address] [place] [address] Dr. Mir Araiza CO2 [Moles/Vol] 27.2 mmol/L Normal 21.0-32.0 [facility] Comment on above: Performed By: #### B MP, CRP #### [facility] [address] [place] [address] Dr. Mir Araiza Creatinine [Mass/Vol] 0.83 mg/dL Normal 0.55-1.02 [facility] Comment on above: Performed By: #### B MP, CRP #### [facility] [address] [place] [address] Dr. Mir Araiza EGFR-AF ITALIAN >60 Normal >=60 [facility] Comment on above: Performed By: #### B MP, CRP #### [facility] [address] [place] [address] Dr. Mir Araiza EGFR-NON AF ITALIAN >60 Normal >=60 [facility] Comment on above: Performed By: #### B MP, CRP #### [facility] [address] [place] [address] Dr. Mir Araiza Glucose [Mass/Vol] 96 mg/dL Normal 74-[address] [facility] Comment on above: Performed By: #### B MP, CRP #### [facility] [address] [place] [address] Dr. Mir Araiza Potassium [Moles/Vol] 3.3 mmol/L Critically low 3.5-5.1 [facility] Comment on above: Performed By: #### B MP, CRP #### [facility] [address] [place] [address] Dr. Mir Araiza Sodium [Moles/Vol] 140 mmol/L Normal 136-145 [facility] Comment on above: Performed By: #### B MP, CRP #### [facility] [address] [place] [address] Dr. Mir Araiza Urea nitrogen [Mass/Vol] 10.0 mg/dL Normal 7.0-18.0 [facility] Comment on above: Performed By: #### B MP, CRP #### [facility] [address] [place] [address] Dr. Mir Araiza Urea nitrogen/Creatinine [Mass ratio] 12.0 mg/mg Normal [facility] Comment on above: Performed By: #### B MP, CRP #### [facility] [address] [place] [address] Dr. Mir Araiza SED RATE [facility] 2022 SED RATE 9 mm/hr Normal <=20 [facility] Comment on above: Performed By: #### S EDR #### [facility] [address] [place] [address] Dr. Mir Araiza Covid-19 PCR (CVDTBH)on SARS-CoV-2 (COVID-19) RNA IFRAH+probe Ql (Unsp spec) Detected Critically abnormal NOT DETECTED [facility] Comment on above: Result Comment: This test is not yet approved or cleared by the [place] FDA. When there are no FDA-approved or cleared tests available, and other criteria are met, FDA can make tests available under an emergency access mechanism called an Emergency Use Authorization (EUA). The EUA for this test is supported by the [place] of Health and Human Service's (HHS's) declaration [...] used). Performed By: #### C VDTB #### [facility] [address] [address] [address] Mir Araiza [facility] Metabolic Empo n 08-14-2021 Albumin [Mass/Vol] 3.9 g/dL Normal 3.2-5.5 [facility] Comment on above: Performed By: #### E BS CMP, EBS LIPID #### [facility] [address] [place] [address] [place] Albumin/Globulin [Mass ratio] 1.2 {ratio} Normal [facility] Comment on above: Performed By: #### E BS CMP, EBS LIPID #### [facility] [address] [place] [address] [place] ALP [Catalytic activity/Vol] 81 U/L Normal 32-92 [facility] Comment on above: Performed By: #### E BS CMP, EBS LIPID #### [facility] [address] [place] [id number] [place] ALT [Catalytic activity/Vol] 17 U/L Normal 10-60 [facility] Comment on above: Performed By: #### E BS CMP, EBS LIPID #### [facility] [address] [place] [address] [place] AST [Catalytic activity/Vol] 18 U/L Normal 10-42 [facility] Comment on above: Performed By: #### E BS CMP, EBS LIPID #### [facility] [address] [id number] [place] Bilirubin [Mass/Vol] 0.3 mg/dL Normal 0.3-1.2 [facility] Comment on above: Performed By: #### E BS CMP, EBS LIPID #### [facility] [address] [address] Calcium [Mass/Vol] 9.5 mg/dL Normal 8.2-10.2 [facility] Comment on above: Performed By: #### E BS CMP, EBS LIPID #### [address] Chloride [Moles/Vol] 99 mmol/L Normal 95-114 [facility] Comment on above: Performed By: #### E BS CMP, EBS LIPID #### [address] CO2 [Moles/Vol] 30.3 mmol/L High 22.0-30.0 [facility] Comment on above: Performed By: #### E BS CMP, EBS LIPID #### [address] Creatinine [Mass/Vol] 0.61 mg/dL Normal 0.44-1.03 [facility] Comment on above: Performed By: #### E BS CMP, EBS LIPID #### [address] Estimated GFR ( Lili > 60 Normal [facility] Comment on above: Result Comment: GFR estimated reference range: According to KDOQI guidelines, <60 ml/min/1.73m2 is sufficient to diagnose a patient with chronic kidney disease. Performed By: #### E BS CMP, EBS LIPID #### [address] Estimated GFR (Non- Am > 60 Normal [facility] Comment on above: Performed By: #### E BS CMP, EBS LIPID #### [place] [address] [place] Globulin (S) [Mass/Vol] 3.2 g/dL Normal [facility] Comment on above: Performed By: #### E BS CMP, EBS LIPID #### [address] Glucose [Mass/Vol] 83 mg/dL Normal 70-100 [facility] Comment on above: Performed By: #### E BS CMP, EBS LIPID #### [address] [place] [address] [facility] Potassium [Moles/Vol] 4.3 mmol/L Normal 3.5-5.1 [facility] Comment on above: Performed By: #### E BS CMP, EBS LIPID #### [facility] [address] [place] [id number] [facility] Protein [Mass/Vol] 7.1 g/dL Normal 6.1-7.9 [facility] Comment on above: Performed By: #### E BS CMP, EBS LIPID #### [facility] [address] [id number] [facility] Sodium [Moles/Vol] 138 mmol/L Normal 136-146 [facility] Comment on above: Performed By: #### E BS CMP, EBS LIPID #### [facility] [address] Urea nitrogen [Mass/Vol] 11 mg/dL Normal 9-23 [facility] Comment on above: Performed By: #### E BS CMP, EBS LIPID #### [facility] [address] [id number] [facility] Lipid Profileon 08-14-2021 Cholesterol [Mass/Vol] 248 mg/dL High 140-200 [facility] Comment on above: Result Comment: Chol less than 200 mg/dl low risk Chol 201-239 mg/dl borderline risk Chol 240 mg/dl and greater high risk Performed By: #### E BS CMP, EBS LIPID #### [facility] [address] [id number] [facility] Cholesterol in HDL [Mass/Vol] 54 mg/dL Normal 35-85 [facility] Comment on above: Result Comment: HDL CHOL ATP-III CLASSIFICATION Cardiovascular Risk HDL > or equal to 60 mg/dL LOW HDL < 40 mg/dL HIGH Performed By: #### E BS CMP, EBS LIPID #### [facility] [address] [id number] [facility] Cholesterol.total/C holesterol in HDL [Mass ratio] 4.6 {ratio} Normal <5.0 [facility] Comment on above: Result Comment: PERF ORMED BY: [facility] [address] [place] [address] PATHOLOGIST [employer] CAMILA KINNEY M.D. Performed By: #### E BS CMP, EBS LIPID #### [facility] [address] LDL Cholesterol,Calcula satya 170 mg/dL High 0-100 [facility] Comment on above: Result Comment: LDL ATP III CLASSIFICATION LDL less than 100 mg/dL Optimal LDL 100-129 mg/dL Near or above optimal LDL 130-159 mg/dL Borderline high LDL 160-189 mg/dL High LDL greater than 189 mg/dL Very high Performed By: #### E BS CMP, EBS LIPID #### [facility] [address] Triglyceride w/Reflex 121 mg/dL Normal 35-149 [facility] Comment on above: Result Comment: TRIG ATP III CLASSIFICATION TRIG less than 150 mg/dL Normal TRIG 150-199 mg/dL Borderline high TRIG 200-500 mg/dL High TRIG greater than 500 mg/dL Very high Standard traceable to the Center for Disease Conrtrol and Prevention (CDC) test method. Performed By: #### E BS CMP, EBS LIPID #### [facility] [address] VLDL CHOLESTEROL 24 mg/dL Normal [facility] Comment on above: Performed By: #### E BS CMP, EBS LIPID #### [facility] [address] Encounters Encounter Date Encounter Type Care Provider Facility Start: 06-28-2024 End: 06-28-2024 ambulatory KARAN ROB Not Available Start: 05-17-2024 End: 05-17-2024 ambulatory LAKIA FANNY Not Available Start: 05-03-2024 End: 05-03-2024 ambulatory KARAN ROB Not Available Start: 04-05-2024 End: 04-05-2024 ambulatory LAKIA FANNY Not Available Start: 02-09-2024 End: 02-09-2024 ambulatory LAKIA FANNY Not Available Start: 01-20-2024 End: 01-20-2024 ambulatory MARIANA HARRISR Not Available Start: 10-21-2023 End: 10-21-2023 ambulatory MARIANA CEVALLOS Not Available Start: 10-23-2022 End: 10-23-[address] MARIANA CEVALLOS Facility:[facility] Start: 12-16-2021 End: 12-16-2021 ambulatory WHITNEY QUIROZ Facility:[facility] Start: 04-03-2018 End: 04-04-2018 Ambulatory DEFAULT PHYSICIAN Facility:[facility] Payers Date Payer Category Payer Unknown [id number] 1990 Unknown [id number] 2.16.84 [id number] 1990 Unknown [id number] 2.16.84 [id number] 1990 Unknown [id number] 2.16.84 [id number] 1990 Unknown [id number] 2.16.84 [id number] 1990 Unknown [id number] 2.16.84 [id number] 1990 Unknown [id number] 2.16.84 [id number] 1990 Unknown [id number] 2.16.84 [id number] 1990 Unknown [id number] 2.16.84 [id number] 1990 Unknown [id number] 2.16.84 [id number] 1959 Unknown [id number] Unknown Summary Purpose Family History No Family History Records FoundNo Family History Records FoundNo Family History Records FoundNo Family History Records Found Advance Directives No Advanced Directives Records FoundNo Advanced Directives Records FoundNo Advanced Directives Records FoundNo Advanced Directives Records Found Additional Source Comments INFORMATION SOURCE (unrecogn ized section and content) DATE CREATED AUTHOR 04/04/2018 [facility] DATE CREATED AUTHOR AUTHOR'S ORGANIZ ATION 11/03/2021 [facility] DATE CREATED AUTHOR AUTHOR'S ORGANIZ ATION 10/26/2022 [facility] DATE CREATED AUTHOR AUTHOR'S ORGANRAFA ATION 06/30/2024 [facility] RECORDS PERTAINING TO PATIENTS WHO ARE [...] BE BASED ON THE PRIMARY CLINICAL RECORDS. [facility] [employer] [facility]. provides no warranty or guarantee of the accuracy or completeness of information in this document.
== END 2024-07-04 12:45 | disposition home or self-care (01) ==
LOC: US 07:08 → FBC 11:01 → US 11:02 → FBC 11:04
PROVIDERS: PCP Family Medicine; Visit Provider Physician Assistant
DX: O24.419 Gestational diabetes mellitus in pregnancy, unspecified control (principal); O36.63X0 Maternal care for excessive fetal growth, third trimester, not applicable or unspecified; Z3A.35 35 weeks gestation of pregnancy; O40.3XX0 Polyhydramnios, third trimester, not applicable or unspecified
CPT/HCPCS: 76818

== ENCOUNTER 2024-07-05 09:25 | Outpatient (OUT) | payer OTHER, SELFPAY ==
--- NOTE | 2024-07-05 09:29 | US_ITS ---
[address] [address] Patient Name: PATRICIA GIBSON MRN: [id number] date: 1990 Sex: F Assigned Patient Location: [facility] Current Patient Location: [facility] Accession/Order Number: [id number] Exam Date: 07/05/2024 09:35 Report Date: 07/05/2024 11:14 At the request of: KARAN RIVAS Procedure: US OB BPP w non-stress EXAMINATION: US OB BPP w non-stress HISTORY:repeat for 03/17 yesterday COMPARISON: Ultrasound OB biophysical 07/04/2024 TECHNIQUE: Ultrasound biophysical profile was performed in the radiology department. BREATHING MOVEMENTS: 0 GROSS BODY MOVEMENTS: 2 TONE: 2 QUALITATIVE AMNIOTIC FLUID VOLUME: 2 PRESENTATION: CEPHALIC HEART RATE: 149.17 bpm AMNIOTIC FLUID VOLUME: 26.26 cm GESTATIONAL AGE: 35 weeks 3 days US/US OB BPP w non-stress IMPRESSION: Total biophysical profile score: 6 Electronically authenticated by: KATHIE RUIZ Date: 07/05/2024 11:14
--- OUTSIDE RECORDS SUMMARY | 2024-07-05 09:46 | XMS_ITS | CCD ---
Author Organization 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 Mir Araiza Basophils/100 WBC (Bld) 0.7 % Normal 0.2-2.0 [facility] Comment on above: Performed By: #### C BC #### [facility] [address] [place] [address] Dr. Mir Araiza EO # 0.2 103/ul Normal 0.0-0.7 [facility] Comment on above: Performed By: #### C BC #### [facility] [address] [place] [address] Dr. Mir Araiza Eosinophils/100 WBC (Bld) 3.0 % Normal 0.9-7.0 [facility] Comment on above: Performed By: #### C BC #### [facility] [address] [place] [address] Dr. Mir Araiza Erythrocyte distribution width (RBC) [Ratio] 15.6 % Critically high 11.0-15.0 [facility] Comment on above: Performed By: #### C BC #### [facility] [address] [place] [address] Dr. Mir Araiza Hematocrit (Bld) [Volume fraction] 38.5 % Normal 36.0-48.0 [facility] Comment on above: Performed By: #### C BC #### [facility] [address] [place] [address] Dr. Mir Araiza Hemoglobin (Bld) [Mass/Vol] 12.3 g/dL Normal 12.0-16.0 [facility] Comment on above: Performed By: #### C BC #### [facility] [address] [place] [address] Dr. Mir Araiza IG # 0.02 10e3/ul Normal 0.00-0.03 [facility] Comment on above: Performed By: #### C BC #### [facility] [address] [place] [address] Dr. Mir Araiza IG % 0.3 % Normal 0.0-0.5 [facility] Comment on above: Performed By: #### C BC #### [facility] [address] [place] [address] Dr. Mir Araiza LYMPH # 1.5 103/ul Normal 1.2-3.8 [facility] Comment on above: Performed By: #### C BC #### [facility] [address] [place] [address] Dr. Mir Araiza Lymphocytes/100 WBC (Bld) 24.1 % Normal 20.5-60.0 [facility] Comment on above: Performed By: #### C BC #### [facility] [address] [place] [address] Dr. Mir Araiza MANUAL DIFF REQ NO Normal [facility] Comment on above: Performed By: #### C BC #### [facility] [address] [place] [address] Dr. Mir Araiza MCH (RBC) [Entitic mass] 24.8 pg Critically low 26.7-34.0 [facility] Comment on above: Performed By: #### C BC #### [facility] [address] [place] [address] Dr. Mir Araiza MCHC (RBC) [Mass/Vol] 31.9 g/dL Normal 29.9-35.2 [facility] Comment on above: Performed By: #### C BC #### [facility] [address] [place] [address] Dr. Mir Araiza MCV (RBC) [Entitic vol] 77.8 fL Critically low 81.0-99.0 [facility] Comment on above: Performed By: #### C BC #### [facility] [address] [place] [address] Dr. Mir Araiza MONO # 0.4 103/ul Normal 0.3-0.8 [facility] Comment on above: Performed By: #### C BC #### [facility] [address] [place] [address] Dr. Mir Araiza Monocytes/100 WBC (Bld) 6.3 % Normal 1.7-12.0 [facility] Comment on above: Performed By: #### C BC #### [facility] [address] [place] [address] Dr. Mir Araiza NEUT # 4.0 103/ul Normal 1.4-6.5 [facility] Comment on above: Performed By: #### C BC #### [facility] [address] [place] [address] Dr. Mir Araiza Neutrophils/100 WBC (Bld) 65.6 % Normal 43.0-75.0 [facility] Comment on above: Performed By: #### C BC #### [facility] [address] [place] [address] Dr. Mir Araiza Platelet mean volume (Bld) [Entitic vol] 12.3 fL Normal 9.5-13.5 [facility] Comment on above: Performed By: #### C BC #### [facility] [address] [place] [address] Dr. Mir Araiza PLT 173 103/ul Normal 150-450 [facility] Comment on above: Performed By: #### C BC #### [facility] [address] [place] [address] Dr. Mir Araiza RBC 4.95 106/ul Normal 4.20-5.40 [facility] Comment on above: Performed By: #### C BC #### [facility] [address] [place] [address] Dr. Mir Araiza WBC 6.0 103/ul Normal 4.0-11.0 [facility] Comment on above: Performed By: #### C BC #### [facility] [address] [place] [address] Dr. Mir Araiza CRPon 10-23-2022 CRP 0.8 mg/dL Normal <=1.0 [facility] Comment on above: Performed By: #### B MP, CRP #### [facility] [address] [place] [address] Dr. Mir Araiza URon 10-23-2022 , QUAL Negative Normal NEGATIVE [facility] Comment on above: Performed By: #### P REGU #### [facility] [address] [place] [address] Dr. Mir Araiza PROF CHEM 8 (BAS METB)on Anion gap [Moles/Vol] 12.1 mmol/L Normal [facility] Comment on above: Performed By: #### B MP, CRP #### [facility] [address] [place] [address] Dr. Mir Araiza Calcium [Mass/Vol] 8.8 mg/dL Normal 8.5-10.1 [facility] Comment on above: Performed By: #### B MP, CRP #### [facility] [address] [place] [address] Dr. Mir Araiza Chloride [Moles/Vol] 104 mmol/L Normal 98-107 [facility] Comment on above: Performed By: #### B MP, CRP #### [facility] [address] [place] [address] Dr. Mir Araiza CO2 [Moles/Vol] 27.2 mmol/L Normal 21.0-32.0 [facility] Comment on above: Performed By: #### B MP, CRP #### [facility] [address] [place] [address] Dr. Mir Araiza Creatinine [Mass/Vol] 0.83 mg/dL Normal 0.55-1.02 [facility] Comment on above: Performed By: #### B MP, CRP #### [facility] [address] [place] [address] Dr. Mir Araiza EGFR-AF GAMBIAN >60 Normal >=60 [facility] Comment on above: Performed By: #### B MP, CRP #### [facility] [address] [place] [address] Dr. Mir Araiza EGFR-NON AF GAMBIAN >60 Normal >=60 [facility] Comment on above: Performed By: #### B MP, CRP #### [facility] [address] [place] [address] Dr. Mir Araiza Glucose [Mass/Vol] 96 mg/dL Normal 74-[address] [facility] Comment on above: Performed By: #### B MP, CRP #### [facility] [address] [place] [address] Dr. Mir Araiza Potassium [Moles/Vol] 3.3 mmol/L Critically low 3.5-5.1 [facility] Comment on above: Performed By: #### B MP, CRP #### [facility] [address] [place] [address] Dr. Mir Araiza Sodium [Moles/Vol] 140 mmol/L Normal 136-145 [facility] Comment on above: Performed By: #### B MP, CRP #### [facility] [address] [place] [address] Dr. Mir Araiza Urea nitrogen [Mass/Vol] 10.0 mg/dL Normal 7.0-18.0 [facility] Comment on above: Performed By: #### B MP, CRP #### [facility] [address] [place] [address] Dr. Mir Araiza Urea nitrogen/Creatinine [Mass ratio] 12.0 mg/mg Normal [facility] Comment on above: Performed By: #### B MP, CRP #### [facility] [address] [place] [address] Dr. Mir Araiza SED RATE [facility] 2022 SED RATE 9 mm/hr Normal <=20 [facility] Comment on above: Performed By: #### S EDR #### [facility] [address] [place] [address] Dr. Mir Araiza Covid-19 PCR (CVDTBH)on SARS-CoV-2 (COVID-19) RNA IFRAH+probe Ql (Unsp spec) Detected Critically abnormal NOT DETECTED [facility] Comment on above: Result Comment: This test is not yet approved or cleared by the [place] FDA. When there are no FDA-approved or cleared tests available, and other criteria are met, FDA can make tests available under an emergency access mechanism called an Emergency Use Authorization (EUA). The EUA for this test is supported by the Estate Planning Director of Health and Human Service's (HHS's) declaration [...] used). Performed By: #### C VDTB #### [facility] [address] [address] [address] Mir Araiza [facility] Metabolic Empo n 08-14-2021 Albumin [Mass/Vol] 3.9 g/dL Normal 3.2-5.5 [facility] Comment on above: Performed By: #### E BS CMP, EBS LIPID #### [facility] [address] [place] [address] [place] Albumin/Globulin [Mass ratio] 1.2 {ratio} Normal [facility] Comment on above: Performed By: #### E BS CMP, EBS LIPID #### [facility] [address] [place] [address] [place] ALP [Catalytic activity/Vol] 81 U/L Normal 32-92 [facility] Comment on above: Performed By: #### E BS CMP, EBS LIPID #### [facility] [address] [place] [id number] [place] ALT [Catalytic activity/Vol] 17 U/L Normal 10-60 [facility] Comment on above: Performed By: #### E BS CMP, EBS LIPID #### [facility] [address] [place] [address] [place] AST [Catalytic activity/Vol] 18 U/L Normal 10-42 [facility] Comment on above: Performed By: #### E BS CMP, EBS LIPID #### [facility] [address] [place] [id number] [place] Bilirubin [Mass/Vol] 0.3 mg/dL Normal 0.3-1.2 [facility] Comment on above: Performed By: #### E BS CMP, EBS LIPID #### [facility] [address] [place] [address] Calcium [Mass/Vol] 9.5 mg/dL Normal 8.2-10.2 [facility] Comment on above: Performed By: #### E BS CMP, EBS LIPID #### [address] Chloride [Moles/Vol] 99 mmol/L Normal 95-114 [facility] Comment on above: Performed By: #### E BS CMP, EBS LIPID #### [address] CO2 [Moles/Vol] 30.3 mmol/L High 22.0-30.0 [facility] Comment on above: Performed By: #### E BS CMP, EBS LIPID #### [address] Creatinine [Mass/Vol] 0.61 mg/dL Normal 0.44-1.03 [facility] Comment on above: Performed By: #### E BS CMP, EBS LIPID #### [address] Estimated GFR ( Lili > 60 Normal [facility] Comment on above: Result Comment: GFR estimated reference range: According to KDOQI guidelines, <60 ml/min/1.73m2 is sufficient to diagnose a patient with chronic kidney disease. Performed By: #### E BS CMP, EBS LIPID #### [address] Estimated GFR (Non- Am > 60 Normal [facility] Comment on above: Performed By: #### E BS CMP, EBS LIPID #### [place] [address] [place] Globulin (S) [Mass/Vol] 3.2 g/dL Normal [facility] Comment on above: Performed By: #### E BS CMP, EBS LIPID #### [address] Glucose [Mass/Vol] 83 mg/dL Normal 70-100 [facility] Comment on above: Performed By: #### E BS CMP, EBS LIPID #### [address] [place] [address] [facility] Potassium [Moles/Vol] 4.3 mmol/L Normal 3.5-5.1 [facility] Comment on above: Performed By: #### E BS CMP, EBS LIPID #### [facility] [address] [place] [id number] [facility] Protein [Mass/Vol] 7.1 g/dL Normal 6.1-7.9 [facility] Comment on above: Performed By: #### E BS CMP, EBS LIPID #### [facility] [address] [place] [id number] [facility] Sodium [Moles/Vol] 138 mmol/L Normal 136-146 [facility] Comment on above: Performed By: #### E BS CMP, EBS LIPID #### [facility] [address] Urea nitrogen [Mass/Vol] 11 mg/dL Normal 9-23 [facility] Comment on above: Performed By: #### E BS CMP, EBS LIPID #### [facility] [address] [place] [id number] [facility] Lipid Profileon 08-14-2021 Cholesterol [Mass/Vol] 248 mg/dL High 140-200 [facility] Comment on above: Result Comment: Chol less than 200 mg/dl low risk Chol 201-239 mg/dl borderline risk Chol 240 mg/dl and greater high risk Performed By: #### E BS CMP, EBS LIPID #### [facility] [address] [place] [id number] [facility] Cholesterol in HDL [Mass/Vol] 54 mg/dL Normal 35-85 [facility] Comment on above: Result Comment: HDL CHOL ATP-III CLASSIFICATION Cardiovascular Risk HDL > or equal to 60 mg/dL LOW HDL < 40 mg/dL HIGH Performed By: #### E BS CMP, EBS LIPID #### [facility] [address] [place] [id number] [facility] Cholesterol.total/C holesterol in HDL [Mass ratio] 4.6 {ratio} Normal <5.0 [facility] Comment on above: Result Comment: PERF ORMED BY: [facility] [address] [place] [address] PATHOLOGIST AUTOMATIC NAILING MACHINE OPERATOR CAMILA KINNEY M.D. Performed By: #### E BS CMP, EBS LIPID #### [facility] [address] LDL Cholesterol,Calcula satya 170 mg/dL High 0-100 [facility] Comment on above: Result Comment: LDL ATP III CLASSIFICATION LDL less than 100 mg/dL Optimal LDL 100-129 mg/dL Near or above optimal LDL 130-159 mg/dL Borderline high LDL 160-189 mg/dL High LDL greater than 189 mg/dL Very high Performed By: #### E BS CMP, EBS LIPID #### [facility] [address] Triglyceride w/Reflex 121 mg/dL Normal [...] #### E BS CMP, EBS LIPID #### [facility] [address] VLDL CHOLESTEROL 24 mg/dL Normal [facility] Comment on above: Performed By: #### E BS CMP, EBS LIPID #### [facility] [address] Encounters Encounter Date Encounter Type [...] Start: 04-03-2018 End: 04-04-2018 Ambulatory DEFAULT PHYSICIAN Facility:[facility] Payers Date Payer Category Payer Unknown [id number] 1990 Unknown [id number] 2.16.84 [id number] 1990 Unknown [id number] 2.16.84 [id number] 1990 Unknown [id number] 2.16.84 [id number] 1990 Unknown [id number] 2.16.84 [id number] 1990 Unknown [id number] 2.16.84 [id number] 1990 Unknown [id number] 2.16.84 [id number] 1990 Unknown [id number] 2.16.84 [id number] 1990 Unknown [id number] 2.16.84 [id number] 1990 Unknown [id number] 2.16.84 [id number] 1959 Unknown [id number] Unknown Summary Purpose Family History No Family History Records FoundNo Family History Records FoundNo Family History Records FoundNo Family History Records Found Advance Directives No Advanced Directives Records FoundNo Advanced Directives Records FoundNo Advanced Directives Records FoundNo Advanced Directives Records Found Additional Source Comments INFORMATION SOURCE (unrecogn ized section and content) DATE CREATED AUTHOR 04/04/2018 [facility] DATE CREATED AUTHOR AUTHOR'S ORGANIZ ATION 11/03/2021 [facility] DATE CREATED AUTHOR AUTHOR'S ORGANIZ ATION 10/26/[address] [facility] DATE CREATED AUTHOR AUTHOR'S ORGANRAFA ATION 06/30/2024 [facility] FOR RECORDS PERTAINING TO PATIENTS WHO ARE [...] BE BASED ON THE PRIMARY CLINICAL RECORDS. [facility] [employer] [facility]. provides no warranty or guarantee of the accuracy or completeness of information in this document.
[2024-07-05 10:15] VITALS: BP 120/79; PULSE 85
--- NOTE | 2024-07-05 10:35 | US_ITS ---
[address] [address] Patient Name: PATRICIA GIBSON MRN: [id number] date: 1990 Sex: F Assigned Patient Location: [facility] Current Patient Location: [facility] Accession/Order Number: [id number] Exam Date: 07/05/2024 10:36 Report Date: 07/05/2024 11:13 At the request of: LAKIA ESCOBEDO Procedure: US OB umbilical artery EXAMINATION: US OB umbilical artery HISTORY: 03/17 bpp ; failed biophysical profile COMPARISON: No relevant comparison available. TECHNIQUE: Duplex Doppler evaluation of the umbilical arteries. FINDINGS: HEART RATE: 136 UMBILICAL ARTERIES: 2 GESTATIONAL AGE: 35 weeks 3 days WAVEFORM: Normal upstroke. No notching. Forward flow in diastole. PEAK SYSTOLIC VELOCITY: 92 END DIASTOLIC VELOCITY: 35 SYST/DIAST RATIO (S:D): 2.6 RESISTIVE INDEX: 0.62 US/US OB umbilical artery IMPRESSION: 1. Class 0 = Normal umbilical artery blood velocity. 2. 30 seconds of breathing was observed during this umbilical artery scan. Electronically authenticated by: KATHIE RUIZ Date: 07/05/2024 11:13
== END 2024-07-05 11:28 | disposition home or self-care (01) ==
LOC: FBCO 09:26 → FBC 09:29
PROVIDERS: PCP Family Medicine; Visit Provider Physician Assistant
DX: O36.63X0 Maternal care for excessive fetal growth, third trimester, not applicable or unspecified (principal); Z3A.35 35 weeks gestation of pregnancy
CPT/HCPCS: 76818; 76820

== ENCOUNTER 2024-07-07 07:03 | Outpatient (OUT) | payer OTHER, SELFPAY ==
--- OUTSIDE RECORDS SUMMARY | 2024-07-07 07:05 | XMS_ITS | CCD ---
Author Organization [facility] Care Team Providers Care Turner In Name Role Phone PHYSICIAN, DEFAULT Unavailable Unavailable PHYSICIAN, DEFAULT Unavailable Unavailable DR MARIANA CEVALLOS Primary Care Unavailable YO LANDEROS Admitting Unavailable YO LANDEROS Attending Unavailable YO LANDEROS Consulting Unavailable WHITNEY QUIROZ Admitting Unavailable WHITNEY QUIROZ Attending Unavailable DR MARIANA CEVALLOS Primary Care Unavailable WHITNEY QUIROZ Consulting Unavailable NADMARIANA NELSON Attending Unavailable LAKIA ESCOBEDO Attending Unavailable FANNY, [...] Onset: 10-26-2022 Other aftercare (1 source) 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 [address] [place] [address] Dr. Mir Araiza Basophils/100 WBC (Bld) 0.7 % Normal 0.2-2.0 [facility] Comment on above: Performed By: #### C BC #### [facility] [address] [place] [address] Dr. Mir Araiza EO # 0.2 103/ul Normal 0.0-0.7 [facility] Comment on above: Performed By: #### C BC #### [facility] [address] [place] [address] Dr. Mir Araiza Eosinophils/100 WBC (Bld) 3.0 % Normal 0.9-7.0 [facility] Comment on above: Performed By: #### C BC #### [facility] [address] [place] [address] Dr. Mir Araiza Erythrocyte distribution width (RBC) [Ratio] 15.6 % Critically high 11.0-15.0 [facility] Comment on above: Performed By: #### C BC #### [facility] [address] [place] [address] Dr. Mir Araiza Hematocrit (Bld) [Volume fraction] 38.5 % Normal 36.0-48.0 [facility] Comment on above: Performed By: #### C BC #### [facility] [address] [place] [address] Dr. Mir Araiza Hemoglobin (Bld) [Mass/Vol] 12.3 g/dL Normal 12.0-16.0 [facility] Comment on above: Performed By: #### C BC #### [facility] [address] [place] [address] Dr. Mir Araiza IG # 0.02 10e3/ul Normal 0.00-0.03 [facility] Comment on above: Performed By: #### C BC #### [facility] [address] [place] [address] Dr. Mir Araiza IG % 0.3 % Normal 0.0-0.5 [facility] Comment on above: Performed By: #### C BC #### [facility] [address] [place] [address] Dr. Mir Araiza LYMPH # 1.5 103/ul Normal 1.2-3.[address] [facility] Comment on above: Performed By: #### C BC #### [facility] [address] [place] [address] Dr. Mir Araiza Lymphocytes/100 WBC (Bld) 24.1 % Normal 20.5-60.0 [facility] Comment on above: Performed By: #### C BC #### [facility] [address] [place] [address] Dr. Mir Araiza MANUAL DIFF REQ NO Normal [facility] Comment on above: Performed By: #### C BC #### [facility] [address] [place] [address] Dr. Mir Araiza MCH (RBC) [Entitic mass] 24.8 pg Critically low 26.7-34.0 [facility] Comment on above: Performed By: #### C BC #### [facility] [address] [place] [address] Dr. Mir Araiza MCHC (RBC) [Mass/Vol] 31.9 g/dL Normal 29.9-35.[address] [facility] Comment on above: Performed By: #### C BC #### [facility] [address] [place] [address] Dr. Mir Araiza MCV (RBC) [Entitic vol] 77.8 fL Critically low 81.0-99.0 [facility] Comment on above: Performed By: #### C BC #### [facility] [address] [place] [address] Dr. Mir Araiza MONO # 0.4 103/ul Normal 0.3-0.8 [facility] Comment on above: Performed By: #### C BC #### [facility] [address] [place] [address] Dr. Mir Araiza Monocytes/100 WBC (Bld) 6.3 % Normal 1.7-12.[address] [facility] Comment on above: Performed By: #### C BC #### [facility] [address] [place] [address] Dr. Mir Araiza NEUT # 4.0 103/ul Normal 1.4-6.5 [facility] Comment on above: Performed By: #### C BC #### [facility] [address] [place] [address] Dr. Mir Araiza Neutrophils/100 WBC (Bld) 65.6 % Normal 43.0-75.[address] [facility] Comment on above: Performed By: #### C BC #### [facility] [address] [place] [address] Dr. Mir Araiza Platelet mean volume (Bld) [Entitic vol] 12.3 fL Normal 9.5-13.[address] [facility] Comment on above: Performed By: #### C BC #### [facility] [address] [place] [address] Dr. Mir Araiza PLT 173 103/ul Normal 150-[address] [facility] Comment on above: Performed By: #### C BC #### [facility] [address] [place] [address] Dr. Mir Araiza RBC 4.95 106/ul Normal 4.20-5.[address] [facility] Comment on above: Performed By: #### C BC #### [facility] [address] [place] [address] Dr. Mir Araiza WBC 6.0 103/ul Normal 4.0-11.[address] [facility] Comment on above: Performed By: #### C BC #### [facility] [address] [place] [address] Dr. Mir Araiza CRPon 10-23-2022 CRP 0.8 mg/dL Normal <=1.[address] [facility] Comment on above: Performed By: #### B MP, CRP #### [facility] [address] [place] [address] Dr. Mir Araiza URon 10-23-2022 , QUAL Negative Normal NEGATIVE [facility] Comment on above: Performed By: #### P REGU #### [facility] [address] [place] [address] Dr. Mir Araiza PROF CHEM 8 (BAS METB)on Anion gap [Moles/Vol] 12.1 mmol/L Normal [facility] Comment on above: Performed By: #### B MP, CRP #### [facility] [address] [place] [address] Dr. Mir Araiza Calcium [Mass/Vol] 8.8 mg/dL Normal 8.5-10.1 [facility] Comment on above: Performed By: #### B MP, CRP #### [facility] [address] [place] [address] Dr. Mir Araiza Chloride [Moles/Vol] 104 mmol/L Normal 98-[address] [facility] Comment on above: Performed By: #### B MP, CRP #### [facility] [address] [place] [address] Dr. Mir Araiza CO2 [Moles/Vol] 27.2 mmol/L Normal 21.0-32.0 [facility] Comment on above: Performed By: #### B MP, CRP #### [facility] [address] [place] [address] Dr. Mir Araiza Creatinine [Mass/Vol] 0.83 mg/dL Normal 0.55-1.[address] [facility] Comment on above: Performed By: #### B MP, CRP #### [facility] [address] [place] [address] Dr. Mir Araiza EGFR-AF ZIMBABWEAN >60 Normal >=60 [facility] Comment on above: Performed By: #### B MP, CRP #### [facility] [address] [place] [address] Dr. Mir Araiza EGFR-NON AF ZIMBABWEAN >60 Normal >=60 [facility] Comment on above: Performed By: #### B MP, CRP #### [facility] [address] [place] [address] Dr. Mir Araiza Glucose [Mass/Vol] 96 mg/dL Normal 74-106 [facility] Comment on above: Performed By: #### B MP, CRP #### [facility] [address] [place] [address] Dr. Mir Araiza Potassium [Moles/Vol] 3.3 mmol/L Critically low 3.5-5.1 [facility] Comment on above: Performed By: #### B MP, CRP #### [facility] [address] [place] [address] Dr. Mir Araiza Sodium [Moles/Vol] 140 mmol/L Normal 136-145 [facility] Comment on above: Performed By: #### B MP, CRP #### [facility] [address] [place] [address] Dr. Mir Araiza Urea nitrogen [Mass/Vol] 10.0 mg/dL Normal 7.0-18.0 [facility] Comment on above: Performed By: #### B MP, CRP #### [facility] [address] [place] [address] Dr. Mir Araiza Urea nitrogen/Creatinine [Mass ratio] 12.0 mg/mg Normal [facility] Comment on above: Performed By: #### B MP, CRP #### [facility] [address] [place] [address] Dr. Mir Araiza SED RATE [facility] 2022 SED RATE 9 mm/hr Normal <=[address] [facility] Comment on above: Performed By: #### S EDR #### [facility] [address] [place] [address] Dr. Mir Araiza Covid-19 PCR (CVDTBH)on SARS-CoV-2 (COVID-19) RNA IFRAH+probe Ql (Unsp spec) Detected Critically abnormal NOT DETECTED [facility] Comment on above: Result Comment: This test is not yet approved or cleared by the [place] FDA. When there are no FDA-approved or cleared tests available, and other criteria are met, FDA can make tests available under an emergency access mechanism called an Emergency Use Authorization (EUA). The EUA for this test is supported by the Onboarding Specialist of Health and Human Service's (HHS's) [...] used). Performed By: #### C VDTB #### [facility] [address] [address] [address] Mir Araiza [facility] Metabolic Empo n 08-14-2021 Albumin [Mass/Vol] 3.9 g/dL Normal 3.2-5.5 [facility] Comment on above: Performed By: #### E BS CMP, EBS LIPID #### [facility] [address] [place] [address] [place] Albumin/Globulin [Mass ratio] 1.2 {ratio} Normal [facility] Comment on above: Performed By: #### E BS CMP, EBS LIPID #### [facility] [address] [place] [address] [place] ALP [Catalytic activity/Vol] 81 U/L Normal 32-92 [facility] Comment on above: Performed By: #### E BS CMP, EBS LIPID #### [facility] [address] [place] [id number] [place] ALT [Catalytic activity/Vol] 17 U/L Normal 10-60 [facility] Comment on above: Performed By: #### E BS CMP, EBS LIPID #### [facility] [address] [place] [address] [place] AST [Catalytic activity/Vol] 18 U/L Normal 10-42 [facility] Comment on above: Performed By: #### E BS CMP, EBS LIPID #### [facility] [address] [id number] [place] Bilirubin [Mass/Vol] 0.3 mg/dL Normal 0.3-1.2 [facility] Comment on above: Performed By: #### E BS CMP, EBS LIPID #### [facility] [address] [place] [address] Calcium [Mass/Vol] 9.5 mg/dL Normal 8.2-10.2 [facility] Comment on above: Performed By: #### E BS CMP, EBS LIPID #### [address] Chloride [Moles/Vol] 99 mmol/L Normal 95-114 [facility] Comment on above: Performed By: #### E BS CMP, EBS LIPID #### [address] CO2 [Moles/Vol] 30.3 mmol/L High 22.0-30.0 [facility] Comment on above: Performed By: #### E BS CMP, EBS LIPID #### [address] Creatinine [Mass/Vol] 0.61 mg/dL Normal 0.44-1.03 [facility] Comment on above: Performed By: #### E BS CMP, EBS LIPID #### [address] Estimated GFR ( Lili > 60 Normal [facility] Comment on above: Result Comment: GFR estimated reference range: According to KDOQI guidelines, <60 ml/min/1.73m2 is sufficient to diagnose a patient with chronic kidney disease. Performed By: #### E BS CMP, EBS LIPID #### [address] Estimated GFR (Non- Am > 60 Normal [facility] Comment on above: Performed By: #### E BS CMP, EBS LIPID #### [place] [address] [place] Globulin (S) [Mass/Vol] 3.2 g/dL Normal [facility] Comment on above: Performed By: #### E BS CMP, EBS LIPID #### [address] Glucose [Mass/Vol] 83 mg/dL Normal 70-100 [facility] Comment on above: Performed By: #### E BS CMP, EBS LIPID #### [address] [place] [address] [facility] Potassium [Moles/Vol] 4.3 mmol/L Normal 3.5-5.1 [facility] Comment on above: Performed By: #### E BS CMP, EBS LIPID #### [facility] [address] [id number] [facility] Protein [Mass/Vol] 7.1 g/dL Normal 6.1-7.9 [facility] Comment on above: Performed By: #### E BS CMP, EBS LIPID #### [facility] [address] [id number] [facility] Sodium [Moles/Vol] 138 mmol/L Normal 136-146 [facility] Comment on above: Performed By: #### E BS CMP, EBS LIPID #### [facility] [address] Urea nitrogen [Mass/Vol] 11 mg/dL Normal 9-23 [facility] Comment on above: Performed By: #### E BS CMP, EBS LIPID #### [facility] [address] [id number] [facility] Lipid Profileon 08-14-2021 Cholesterol [Mass/Vol] 248 mg/dL High 140-200 [facility] Comment on above: Result Comment: Chol less than 200 mg/dl low risk Chol 201-239 mg/dl borderline risk Chol 240 mg/dl and greater high risk Performed By: #### E BS CMP, EBS LIPID #### [facility] [address] [id number] [facility] Cholesterol in HDL [Mass/Vol] 54 mg/dL Normal 35-85 [facility] Comment on above: Result Comment: HDL CHOL ATP-III CLASSIFICATION Cardiovascular Risk HDL > or equal to 60 mg/dL LOW HDL < 40 mg/dL HIGH Performed By: #### E BS CMP, EBS LIPID #### [facility] [address] [id number] [facility] Cholesterol.total/C holesterol in HDL [Mass ratio] 4.6 {ratio} Normal <5.0 [facility] Comment on above: Result Comment: PERF ORMED BY: [facility] [address] [place] [address] PATHOLOGIST HAND [employer]ATER CAMILA KINNEY M.D. Performed By: #### E BS CMP, EBS LIPID #### [facility] [address] LDL Cholesterol,Calcula satya 170 mg/dL High 0-100 [facility] Comment on above: Result Comment: LDL ATP III CLASSIFICATION LDL less than 100 mg/dL Optimal LDL 100-129 mg/dL Near or above optimal LDL 130-159 mg/dL Borderline high LDL 160-189 mg/dL High LDL greater than 189 mg/dL Very high Performed By: #### E BS CMP, EBS LIPID #### [facility] [address] Triglyceride w/Reflex 121 mg/dL Normal 35-149 [facility] Comment on above: Result Comment: TRIG ATP III CLASSIFICATION TRIG less than 150 mg/dL Normal TRIG 150-199 mg/dL Borderline high TRIG 200-500 mg/dL High TRIG greater than 500 mg/dL Very high Standard traceable to the Center for Disease Conrtrol and Prevention (CDC) test method. Performed By: #### E BS CMP, EBS LIPID #### [facility] [address] VLDL CHOLESTEROL 24 mg/dL Normal [facility] Comment on above: Performed By: #### E BS CMP, EBS LIPID #### [facility] [address] Encounters Encounter Date Encounter Type Care [...] HOSPITAL Payers Date Payer Category Payer Unknown [id number] 1990 Unknown [id number] 2.16.84 [id number] 1990 Unknown [id number] 2.16.84 [id number] 1990 Unknown [id number] 2.16.84 [id number] 1990 Unknown [id number] 2.16.84 [id number] 1990 Unknown [id number] 2.16.84 [id number] 1990 Unknown [id number] 2.16.84 [id number] 1990 Unknown [id number] 2.16.84 [id number] 1990 Unknown [id number] 2.16.84 [id number] 1990 Unknown [id number] 2.16.84 [id number] 1959 Unknown [id number] Unknown Summary Purpose Family History No Family History Records FoundNo Family History Records FoundNo Family History Records FoundNo Family History Records Found Advance Directives No Advanced Directives Records FoundNo Advanced Directives Records FoundNo Advanced Directives Records FoundNo Advanced Directives Records Found Additional Source Comments INFORMATION SOURCE (unrecogn ized section and content) DATE CREATED AUTHOR 04/04/2018 [facility] DATE CREATED AUTHOR AUTHOR'S ORGANIZ ATION 11/03/2021 [facility] DATE CREATED AUTHOR AUTHOR'S ORGANIZ ATION 10/26/2022 [facility] DATE CREATED AUTHOR AUTHOR'S ORGANRAFA ATION 06/30/2024 [facility] dical Specialists [facility] FOR RECORDS PERTAINING TO PATIENTS [...] BE BASED ON THE PRIMARY CLINICAL RECORDS. [facility] [employer] [facility]. provides no warranty or guarantee of the accuracy or completeness of information in this document.
--- NOTE | 2024-07-07 13:55 | US_ITS ---
[address] [address] Patient Name: PATRICIA GIBSON MRN: [id number] date: 1990 Sex: F Assigned Patient Location: [facility] Current Patient Location: Accession/Order Number: [id number] Exam Date: 07/07/2024 14:00 Report Date: 07/08/2024 06:53 At the request of: LAKIA ESCOBEDO Procedure: US OB BPP w non-stress EXAMINATION: US OB BPP w non-stress HISTORY:bpp /8 07/05/24, GDM COMPARISON: Ultrasound OB biophysical 07/05/2024 TECHNIQUE: Ultrasound biophysical profile was performed in the radiology department. BREATHING MOVEMENTS: 2 GROSS BODY MOVEMENTS: 2 TONE: 2 QUALITATIVE AMNIOTIC FLUID VOLUME: 2 PRESENTATION: CEPHALIC HEART RATE: 145.16 bpm AMNIOTIC FLUID VOLUME: 24.76 cm GESTATIONAL AGE: 35 weeks 5 days US/US OB BPP w non-stress IMPRESSION: 1. Total biophysical profile score: 8 2. Amniotic fluid volume is at 95th percentile. Electronically authenticated by: KATHIE RUIZ Date: 07/08/2024 06:53
[2024-07-07 14:11] VITALS: TEMP 36.3
[2024-07-07 14:12] VITALS: BP 125/85; PULSE 92
== END 2024-07-07 14:47 | disposition home or self-care (01) ==
LOC: US 07:03 → FBCO 13:51 → FBC 13:53
PROVIDERS: PCP Family Medicine; Visit Provider Physician Assistant
DX: O24.419 Gestational diabetes mellitus in pregnancy, unspecified control (principal); Z3A.35 35 weeks gestation of pregnancy
CPT/HCPCS: 76818

== ENCOUNTER 2024-07-11 10:59 | Outpatient (OUT) | payer OTHER, SELFPAY ==
--- NOTE | 2024-07-11 11:06 | US_ITS ---
[address] [address] Patient Name: PATRICIA GIBSON MRN: [id number] date: 1990 Sex: F Assigned Patient Location: [facility] Current Patient Location: [facility] Accession/Order Number: [id number] Exam Date: 07/11/2024 11:10 Report Date: 07/11/2024 11:48 At the request of: KARAN RIVAS Procedure: US OB BPP w non-stress EXAMINATION: US OB BPP w non-stress HISTORY: Excessive Growth, Gestational Diabetes COMPARISON: No relevant comparison available. TECHNIQUE: Ultrasound biophysical profile was performed in the radiology department. non-reactive stress testing was performed by nursing staff in the birthing center. FINDINGS: BREATHING MOVEMENTS: 2 GROSS BODY MOVEMENTS: 2 TONE: 2 QUALITATIVE AMNIOTIC FLUID VOLUME: 2 PRESENTATION: CEPHALIC HEART RATE: 149.17 bpm AMNIOTIC FLUID VOLUME: 25.2 cm GESTATIONAL AGE: 36 weeks 2 days US/US OB BPP w non-stress IMPRESSION: Total biophysical profile score: 8 Electronically authenticated by: BETH RINALDI Date: 07/11/2024 11:48
--- OUTSIDE RECORDS SUMMARY | 2024-07-11 11:16 | XMS_ITS | CCD ---
Author Organization 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 Name Role Phone PHYSICIAN, DEFAULT Unavailable Unavailable PHYSICIAN, DEFAULT Unavailable Unavailable DR MARIANA CEVALLOS Primary Care Unavailable YO LANDEROS Admitting Unavailable YO LANEDROS Attending Unavailable YO LANDEROS Consulting Unavailable WHITNEY [...] Onset: 10-26-2022 Other aftercare (1 source) Other nursing home (current) drug therapy; Translations: [OTH LONGTERM CURRENT DRUG THERAPY] Onset: 10-26-2022 Episodic Unclassified [...] 10-23-2022 BASO # 0.0 103/ul Normal 0.0-0.1 [facility] Comment on above: Performed By: #### C BC #### [facility] [address] [place] [address] Dr. Mir Araiza Basophils/100 WBC (Bld) 0.7 % Normal 0.2-2.0 [facility] Comment on above: Performed By: #### C BC #### [facility] [address] [place] [address] Dr. Mir Araiza EO # 0.2 103/ul Normal 0.0-0.7 [facility] Comment on above: Performed By: #### C BC #### [facility] [address] [place] [address] Dr. Mir Araiza Eosinophils/100 WBC (Bld) 3.0 % Normal 0.9-7.0 [facility] Comment on above: Performed By: #### C BC #### [facility] [address] [place] [address] Dr. Mir Araiza Erythrocyte distribution width (RBC) [Ratio] 15.6 % Critically high 11.0-15.0 [facility] Comment on above: Performed By: #### C BC #### [facility] [address] [place] [address] Dr. Mir Araiza Hematocrit (Bld) [Volume fraction] 38.5 % Normal 36.0-48.0 [facility] Comment on above: Performed By: #### C BC #### [facility] [address] [place] [address] Dr. Mir Araiza Hemoglobin (Bld) [Mass/Vol] 12.3 g/dL Normal 12.0-16.0 [facility] Comment on above: Performed By: #### C BC #### [facility] [address] [place] [address] Dr. Mir Araiza IG # 0.02 10e3/ul Normal 0.00-0.03 [facility] Comment on above: Performed By: #### C BC #### [facility] [address] [place] [address] Dr. Mir Araiza IG % 0.3 % Normal 0.0-0.5 [facility] Comment on above: Performed By: #### C BC #### [facility] [address] [place] [address] Dr. Mir Araiza LYMPH # 1.5 103/ul Normal 1.2-3.8 [facility] Comment on above: Performed By: #### C BC #### [facility] [address] [place] [address] Dr. Mir Araiza Lymphocytes/100 WBC (Bld) 24.1 % Normal 20.5-60.0 [facility] Comment on above: Performed By: #### C BC #### [facility] [address] [place] [address] Dr. Mir Araiza MANUAL DIFF REQ NO Normal [facility] Comment on above: Performed By: #### C BC #### [facility] [address] [place] [address] Dr. Mir Araiza MCH (RBC) [Entitic mass] 24.8 pg Critically low 26.7-34.0 [facility] Comment on above: Performed By: #### C BC #### [facility] [address] [place] [address] Dr. Mir Araiza MCHC (RBC) [Mass/Vol] 31.9 g/dL Normal 29.9-35.2 [facility] Comment on above: Performed By: #### C BC #### [facility] [address] [place] [address] Dr. Mir Araiza MCV (RBC) [Entitic vol] 77.8 fL Critically low 81.0-99.0 [facility] Comment on above: Performed By: #### C BC #### [facility] [address] [place] [address] Dr. Mir Araiza MONO # 0.4 103/ul Normal 0.3-0.8 [facility] Comment on above: Performed By: #### C BC #### [facility] [address] [place] [address] Dr. Mir Araiza Monocytes/100 WBC (Bld) 6.3 % Normal 1.7-12.0 [facility] Comment on above: Performed By: #### C BC #### [facility] [address] [place] [address] Dr. Mir Araiza NEUT # 4.0 103/ul Normal 1.4-6.5 [facility] Comment on above: Performed By: #### C BC #### [facility] [address] [place] [address] Dr. Mir Arazia Neutrophils/100 WBC (Bld) 65.6 % Normal 43.0-75.0 [facility] Comment on above: Performed By: #### C BC #### [facility] [address] [place] [address] Dr. Mir Araiza Platelet mean volume (Bld) [Entitic vol] 12.3 fL Normal 9.5-13.5 [facility] Comment on above: Performed By: #### C BC #### [facility] [address] [place] [address] Dr. Mir Araiza PLT 173 103/ul Normal 150-450 [facility] Comment on above: Performed By: #### C BC #### [facility] [address] [place] [address] Dr. Mir Araiza RBC 4.95 106/ul Normal 4.20-5.40 [facility] Comment on above: Performed By: #### C BC #### [facility] [address] [place] [address] Dr. Mir Araiza WBC 6.0 103/ul Normal 4.0-11.0 [facility] Comment on above: Performed By: #### C BC #### [facility] [address] [place] [address] Dr. Mir Araiza CRPon 10-23-2022 CRP 0.8 mg/dL Normal <=1.0 [facility] Comment on above: Performed By: #### B MP, CRP #### [facility] [address] [place] [address] Dr. Mir Araiza URon 10-23-2022 , QUAL Negative Normal NEGATIVE [facility] Comment on above: Performed By: #### P REGU #### [facility] [address] [place] [address] Dr. Mir Araiza PROF CHEM 8 (BAS METB)on Anion gap [Moles/Vol] 12.1 mmol/L Normal [facility] Comment on above: Performed By: #### B MP, CRP #### [facility] [address] [place] [address] Dr. Mir Araiza Calcium [Mass/Vol] 8.8 mg/dL Normal 8.5-10.1 [facility] Comment on above: Performed By: #### B MP, CRP #### [facility] [address] [place] [address] Dr. Mir Araiza Chloride [Moles/Vol] 104 mmol/L Normal 98-107 [facility] Comment on above: Performed By: #### B MP, CRP #### [facility] [address] [place] [address] Dr. Mir Araiza CO2 [Moles/Vol] 27.2 mmol/L Normal 21.0-32.0 [facility] Comment on above: Performed By: #### B MP, CRP #### [facility] [address] [place] [address] Dr. Mir Araiza Creatinine [Mass/Vol] 0.83 mg/dL Normal 0.55-1.02 [facility] Comment on above: Performed By: #### B MP, CRP #### [facility] [address] [place] [address] Dr. Mir Araiza EGFR-AF PAKISTANI >60 Normal >=60 [facility] Comment on above: Performed By: #### B MP, CRP #### [facility] [address] [place] [address] Dr. Mir Araiza EGFR-NON AF PAKISTANI >60 Normal >=60 [facility] Comment on above: Performed By: #### B MP, CRP #### [facility] [address] [place] [address] Dr. Mir Araiza Glucose [Mass/Vol] 96 mg/dL Normal 74-106 [facility] Comment on above: Performed By: #### B MP, CRP #### [facility] [address] [place] [address] Dr. Mir Araiza Potassium [Moles/Vol] 3.3 mmol/L Critically low 3.5-5.1 [facility] Comment on above: Performed By: #### B MP, CRP #### [facility] [address] [place] [address] Dr. Mir Araiza Sodium [Moles/Vol] 140 mmol/L Normal 136-145 [facility] Comment on above: Performed By: #### B MP, CRP #### [facility] [address] [place] [address] Dr. Mir Araiza Urea nitrogen [Mass/Vol] 10.0 mg/dL Normal 7.0-18.0 [facility] Comment on above: Performed By: #### B MP, CRP #### [facility] [address] [place] [address] Dr. Mir Araiza Urea nitrogen/Creatinine [Mass ratio] 12.0 mg/mg Normal [facility] Comment on above: Performed By: #### B MP, CRP #### [facility] [address] [place] [address] Dr. Mir Araiza SED RATE [facility] 2022 SED RATE 9 mm/hr Normal <=20 [facility] Comment on above: Performed By: #### S EDR #### [facility] [address] [place] [address] Dr. Mir Araiza Covid-19 PCR (CVDTBH)on SARS-CoV-2 (COVID-19) RNA IFRAH+probe Ql (Unsp spec) Detected Critically abnormal NOT DETECTED [facility] Comment on above: Result Comment: This test is not yet approved or cleared by the [place] FDA. When there are no FDA-approved or cleared tests available, and other criteria are met, FDA can make tests available under an emergency access mechanism called an Emergency Use Authorization (EUA). The EUA for this test is supported by the [employer] of Health and Human Service's (HHS's) declaration [...] used). Performed By: #### C VDTB #### [facility] [address] [address] [address] Mir Araiza [facility] Metabolic Empo n 08-14-2021 Albumin [Mass/Vol] 3.9 g/dL Normal 3.2-5.5 [facility] Comment on above: Performed By: #### E BS CMP, EBS LIPID #### [facility] [address] [place] [address] [place] Albumin/Globulin [Mass ratio] 1.2 {ratio} Normal [facility] Comment on above: Performed By: #### E BS CMP, EBS LIPID #### [facility] [address] [place] [address] [place] ALP [Catalytic activity/Vol] 81 U/L Normal 32-92 [facility] Comment on above: Performed By: #### E BS CMP, EBS LIPID #### [facility] [address] [place] [id number] [place] ALT [Catalytic activity/Vol] 17 U/L Normal 10-60 [facility] Comment on above: Performed By: #### E BS CMP, EBS LIPID #### [facility] [address] [place] [address] [place] AST [Catalytic activity/Vol] 18 U/L Normal 10-42 [facility] Comment on above: Performed By: #### E BS CMP, EBS LIPID #### [facility] [address] [place] [id number] [place] Bilirubin [Mass/Vol] 0.3 mg/dL Normal 0.3-1.2 [facility] Comment on above: Performed By: #### E BS CMP, EBS LIPID #### [facility] [address] [place] [address] Calcium [Mass/Vol] 9.5 mg/dL Normal 8.2-10.2 [facility] Comment on above: Performed By: #### E BS CMP, EBS LIPID #### [address] Chloride [Moles/Vol] 99 mmol/L Normal 95-114 [facility] Comment on above: Performed By: #### E BS CMP, EBS LIPID #### [address] CO2 [Moles/Vol] 30.3 mmol/L High 22.0-30.0 [facility] Comment on above: Performed By: #### E BS CMP, EBS LIPID #### [address] Creatinine [Mass/Vol] 0.61 mg/dL Normal 0.44-1.03 [facility] Comment on above: Performed By: #### E BS CMP, EBS LIPID #### [address] Estimated GFR ( Lili > 60 Normal [facility] Comment on above: Result Comment: GFR estimated reference range: According to KDOQI guidelines, <60 ml/min/1.73m2 is sufficient to diagnose a patient with chronic kidney disease. Performed By: #### E BS CMP, EBS LIPID #### [address] Estimated GFR (Non- Am > 60 Normal [facility] Comment on above: Performed By: #### E BS CMP, EBS LIPID #### [place] [address] [place] Globulin (S) [Mass/Vol] 3.2 g/dL Normal [facility] Comment on above: Performed By: #### E BS CMP, EBS LIPID #### [address] Glucose [Mass/Vol] 83 mg/dL Normal 70-100 [facility] Comment on above: Performed By: #### E BS CMP, EBS LIPID #### [address] [place] [address] [facility] Potassium [Moles/Vol] 4.3 mmol/L Normal 3.5-5.1 [facility] Comment on above: Performed By: #### E BS CMP, EBS LIPID #### [facility] [address] [place] [id number] [facility] Protein [Mass/Vol] 7.1 g/dL Normal 6.1-7.9 [facility] Comment on above: Performed By: #### E BS CMP, EBS LIPID #### [facility] [address] [id number] [facility] Sodium [Moles/Vol] 138 mmol/L Normal 136-146 [facility] Comment on above: Performed By: #### E BS CMP, EBS LIPID #### [facility] [address] Urea nitrogen [Mass/Vol] 11 mg/dL Normal 9-23 [facility] Comment on above: Performed By: #### E BS CMP, EBS LIPID #### [facility] [address] [place] [id number] [facility] Lipid Profileon 08-14-2021 Cholesterol [Mass/Vol] 248 mg/dL High 140-200 [facility] Comment on above: Result Comment: Chol less than 200 mg/dl low risk Chol 201-239 mg/dl borderline risk Chol 240 mg/dl and greater high risk Performed By: #### E BS CMP, EBS LIPID #### [facility] [address] [id number] [facility] Cholesterol in HDL [Mass/Vol] 54 mg/dL Normal 35-85 [facility] Comment on above: Result Comment: HDL CHOL ATP-III CLASSIFICATION Cardiovascular Risk HDL > or equal to 60 mg/dL LOW HDL < 40 mg/dL HIGH Performed By: #### E BS CMP, EBS LIPID #### [facility] [address] [id number] [facility] Cholesterol.total/C holesterol in HDL [Mass ratio] 4.6 {ratio} Normal <5.0 [facility] Comment on above: Result Comment: PERF ORMED BY: [facility] [address] [place] [address] PATHOLOGIST [employer]OW [employer]OSER CAMILA KINNEY M.D. Performed By: #### E BS CMP, EBS LIPID #### [facility] [address] LDL Cholesterol,Calcula satya 170 mg/dL High 0-100 [facility] Comment on above: Result Comment: LDL ATP III CLASSIFICATION LDL less than 100 mg/dL Optimal LDL 100-129 mg/dL Near or above optimal LDL 130-159 mg/dL Borderline high LDL 160-189 mg/dL High LDL greater than 189 mg/dL Very high Performed By: #### E BS CMP, EBS LIPID #### [facility] [address] Triglyceride w/Reflex 121 mg/dL Normal 35-149 [facility] Comment on above: Result Comment: TRIG ATP III CLASSIFICATION TRIG less than 150 mg/dL Normal TRIG 150-199 mg/dL Borderline high TRIG 200-500 mg/dL High TRIG greater than 500 mg/dL Very high Standard traceable to the Center for Disease Conrtrol and Prevention (CDC) test method. Performed By: #### E BS CMP, EBS LIPID #### [facility] [address] VLDL CHOLESTEROL 24 mg/dL Normal [facility] Comment on above: Performed By: #### E BS CMP, EBS LIPID #### [facility] [address] Encounters Encounter Date Encounter Type Care [...] Start: 04-03-2018 End: 04-04-2018 Ambulatory DEFAULT PHYSICIAN Facility:[facility] Payers Date Payer Category Payer Unknown [id number] 1990 Unknown [id number] 2.16.84 [id number] 1990 Unknown [id number] 2.16.84 [id number] 1990 Unknown [id number] 2.16.84 [id number] 1990 Unknown [id number] 2.16.84 [id number] 1990 Unknown [id number] 2.16.84 [id number] 1990 Unknown [id number] 2.16.84 [id number] 1990 Unknown [id number] 2.16.84 [id number] 1990 Unknown [id number] 2.16.84 [id number] 1990 Unknown [id number] 2.16.84 [id number] 1959 Unknown [id number] Unknown Summary Purpose Family History No Family History Records FoundNo Family History Records FoundNo Family History Records FoundNo Family History Records Found Advance Directives No Advanced Directives Records FoundNo Advanced Directives Records FoundNo Advanced Directives Records FoundNo Advanced Directives Records Found Additional Source Comments INFORMATION SOURCE (unrecogn ized section and content) DATE CREATED AUTHOR 04/04/2018 [facility] DATE CREATED AUTHOR AUTHOR'S ORGANIZ ATION 11/03/2021 [facility] DATE CREATED AUTHOR AUTHOR'S ORGANIZ ATION 10/26/2022 [facility] DATE CREATED AUTHOR AUTHOR'S ORGANRAFA ATION 06/30/2024 [facility] FOR RECORDS PERTAINING TO PATIENTS [...] THE PRIMARY CLINICAL RECORDS. [facility] [employer]. provides no warranty or guarantee of the accuracy or completeness of information in this document.
[2024-07-11 11:48] VITALS: BP 117/61; PULSE 88
== END 2024-07-11 12:23 | disposition home or self-care (01) ==
LOC: RAD 11:01 → FBC 11:39
PROVIDERS: PCP Family Medicine; Visit Provider Physician Assistant
DX: O36.63X0 Maternal care for excessive fetal growth, third trimester, not applicable or unspecified (principal); O24.419 Gestational diabetes mellitus in pregnancy, unspecified control; Z3A.36 36 weeks gestation of pregnancy
CPT/HCPCS: 76818; 87081; 87150

== ENCOUNTER 2024-07-11 19:43 | Outpatient (REF) | payer OTHER, SELFPAY ==
--- OUTSIDE RECORDS SUMMARY | 2024-07-11 19:47 | XMS_ITS | CCD ---
Author Organization [facility] Team Providers Care Night Manager Name Role Phone PHYSICIAN, DEFAULT Unavailable Unavailable PHYSICIAN, DEFAULT Unavailable Unavailable DR MARIANA CEVALLOS Primary Care Unavailable YO LANDEROS Admitting Unavailable YO LANDEROS Attending Unavailable YO LANDEROS Consulting Unavailable WHITNEY QUIROZ Admitting Unavailable WHITNEY QUIROZ Attending Unavailable DR MARIANA CEVALLOS Primary Care Unavailable WHITNEY QUIROZ Consulting Unavailable NADMARIANA NELSON Attending Unavailable LAKIA ESCOBDEO Attending Unavailable FANNY, LAKIA Attending Unavailable KARAN [...] Onset: 10-26-2022 Other aftercare (1 source) Other residential (current) drug therapy; Translations: [OTH LONG-TERM CURRENT DRUG THERAPY] Onset: 10-26-2022 Episodic Unclassified [...] 10-23-2022 BASO # 0.0 103/ul Normal 0.0-0.1 [facility] Comment on above: Performed By: #### C BC #### [facility] [address] [place] [address] Dr. Mir Araiza Basophils/100 WBC (Bld) 0.7 % Normal 0.2-2.0 [facility] Comment on above: Performed By: #### C BC #### [facility] [address] [place] [address] Dr. Mir Araiza EO # 0.2 103/ul Normal 0.0-0.7 [facility] Comment on above: Performed By: #### C BC #### [facility] [address] [place] [address] Dr. Mir Araiza Eosinophils/100 WBC (Bld) 3.0 % Normal 0.9-7.0 [facility] Comment on above: Performed By: #### C BC #### [facility] [address] [place] [address] Dr. Mir Araiza Erythrocyte distribution width (RBC) [Ratio] 15.6 % Critically high 11.0-15.0 [facility] Comment on above: Performed By: #### C BC #### [facility] [address] [place] [address] Dr. Mir Araiza Hematocrit (Bld) [Volume fraction] 38.5 % Normal 36.0-48.0 [facility] Comment on above: Performed By: #### C BC #### [facility] [address] [place] [address] Dr. Mir Araiza Hemoglobin (Bld) [Mass/Vol] 12.3 g/dL Normal 12.0-16.0 [facility] Comment on above: Performed By: #### C BC #### [facility] [address] [place] [address] Dr. Mir Araiza IG # 0.02 10e3/ul Normal 0.00-0.03 [facility] Comment on above: Performed By: #### C BC #### [facility] [address] [place] [address] Dr. Mir Araiza IG % 0.3 % Normal 0.0-0.5 [facility] Comment on above: Performed By: #### C BC #### [facility] [address] [place] [address] Dr. Mir Araiza LYMPH # 1.5 103/ul Normal 1.2-3.8 [facility] Comment on above: Performed By: #### C BC #### [facility] [address] [place] [address] Dr. Mir Araiza Lymphocytes/100 WBC (Bld) 24.1 % Normal 20.5-60.0 [facility] Comment on above: Performed By: #### C BC #### [facility] [address] [place] [address] Dr. Mir Araiza MANUAL DIFF REQ NO Normal [facility] Comment on above: Performed By: #### C BC #### [facility] [address] [place] [address] Dr. Mir Araiza MCH (RBC) [Entitic mass] 24.8 pg Critically low 26.7-34.0 [facility] Comment on above: Performed By: #### C BC #### [facility] [address] [place] [address] Dr. Mir Araiza MCHC (RBC) [Mass/Vol] 31.9 g/dL Normal 29.9-35.2 [facility] Comment on above: Performed By: #### C BC #### [facility] [address] [place] [address] Dr. Mir Araiza MCV (RBC) [Entitic vol] 77.8 fL Critically low 81.0-99.0 [facility] Comment on above: Performed By: #### C BC #### [facility] [address] [place] [address] Dr. Mir Araiza MONO # 0.4 103/ul Normal 0.3-0.8 [facility] Comment on above: Performed By: #### C BC #### [facility] [address] [place] [address] Dr. Mir Araiza Monocytes/100 WBC (Bld) 6.3 % Normal 1.7-12.0 [facility] Comment on above: Performed By: #### C BC #### [facility] [address] [place] [address] Dr. Mir Araiza NEUT # 4.0 103/ul Normal 1.4-6.5 [facility] Comment on above: Performed By: #### C BC #### [facility] [address] [place] [address] Dr. Mir Araiza Neutrophils/100 WBC (Bld) 65.6 % Normal 43.0-75.0 [facility] Comment on above: Performed By: #### C BC #### [facility] [address] [place] [address] Dr. Mir Araiza Platelet mean volume (Bld) [Entitic vol] 12.3 fL Normal 9.5-13.5 [facility] Comment on above: Performed By: #### C BC #### [facility] [address] [place] [address] Dr. Mir Araiza PLT 173 103/ul Normal 150-450 [facility] Comment on above: Performed By: #### C BC #### [facility] [address] [place] [address] Dr. Mir Araiza RBC 4.95 106/ul Normal 4.20-5.40 [facility] Comment on above: Performed By: #### C BC #### [facility] [address] [place] [address] Dr. Mir Araiza WBC 6.0 103/ul Normal 4.0-11.0 [facility] Comment on above: Performed By: #### C BC #### [facility] [address] [place] [address] Dr. Mir Araiza CRPon 10-23-2022 CRP 0.8 mg/dL Normal <=1.0 [facility] Comment on above: Performed By: #### B MP, CRP #### [facility] [address] [place] [address] Dr. Mir Araiza URon 10-23-2022 , QUAL Negative Normal NEGATIVE [facility] Comment on above: Performed By: #### P REGU #### [facility] [address] [place] [address] Dr. Mir Araiza PROF CHEM 8 (BAS METB)on Anion gap [Moles/Vol] 12.1 mmol/L Normal [facility] Comment on above: Performed By: #### B MP, CRP #### [facility] [address] [place] [address] Dr. Mir Araiza Calcium [Mass/Vol] 8.8 mg/dL Normal 8.5-10.1 [facility] Comment on above: Performed By: #### B MP, CRP #### [facility] [address] [place] [address] Dr. Mir Araiza Chloride [Moles/Vol] 104 mmol/L Normal 98-107 [facility] Comment on above: Performed By: #### B MP, CRP #### [facility] [address] [place] [address] Dr. Mir Araiza CO2 [Moles/Vol] 27.2 mmol/L Normal 21.0-32.0 [facility] Comment on above: Performed By: #### B MP, CRP #### [facility] [address] [place] [address] Dr. Mir Araiza Creatinine [Mass/Vol] 0.83 mg/dL Normal 0.55-1.02 [facility] Comment on above: Performed By: #### B MP, CRP #### [facility] [address] [place] [address] Dr. Mir Araiza EGFR-AF [place]IZ[place] >60 Normal >=60 [facility] Comment on above: Performed By: #### B MP, CRP #### [facility] [address] [place] [address] Dr. Mir Araiza EGFR-NON AF CITIZEN [place] >60 Normal >=60 [facility] Comment on above: Performed By: #### B MP, CRP #### [facility] [address] [place] [address] Dr. Mir Araiza Glucose [Mass/Vol] 96 mg/dL Normal 74-[address] [facility] Comment on above: Performed By: #### B MP, CRP #### [facility] [address] [place] [address] Dr. Mir Araiza Potassium [Moles/Vol] 3.3 mmol/L Critically low 3.5-5.1 [facility] Comment on above: Performed By: #### B MP, CRP #### [facility] [address] [place] [address] Dr. Mir Araiza Sodium [Moles/Vol] 140 mmol/L Normal 136-145 [facility] Comment on above: Performed By: #### B MP, CRP #### [facility] [address] [place] [address] Dr. iMr Araiza Urea nitrogen [Mass/Vol] 10.0 mg/dL Normal 7.0-18.0 [facility] Comment on above: Performed By: #### B MP, CRP #### [facility] [address] [place] [address] Dr. Mir Araiza Urea nitrogen/Creatinine [Mass ratio] 12.0 mg/mg Normal [facility] Comment on above: Performed By: #### B MP, CRP #### [facility] [address] [place] [address] Dr. Mir Araiza SED RATE [facility] 2022 SED RATE 9 mm/hr Normal <=20 [facility] Comment on above: Performed By: #### S EDR #### [facility] [address] [place] [address] Dr. Mir Araiza Covid-19 PCR (CVDTBH)on SARS-CoV-2 (COVID-19) RNA IFRAH+probe Ql (Unsp spec) Detected Critically abnormal NOT DETECTED [facility] Comment on above: Result Comment: This test is not yet approved or cleared by the [place] FDA. When there are no FDA-approved or cleared tests available, and other criteria are met, FDA can make tests available under an emergency access mechanism called an Emergency Use Authorization (EUA). The EUA for this test is supported by the [place] of Health and Human Service's (HHS's) declaration [...] used). Performed By: #### C VDTB #### [facility] [address] [address] [address] Mir Araiza [facility] Metabolic Empo n 08-14-2021 Albumin [Mass/Vol] 3.9 g/dL Normal 3.2-5.5 [facility] Comment on above: Performed By: #### E BS CMP, EBS LIPID #### [facility] [address] [place] [address] [place] Albumin/Globulin [Mass ratio] 1.2 {ratio} Normal [facility] Comment on above: Performed By: #### E BS CMP, EBS LIPID #### [facility] [address] [place] [address] [place] ALP [Catalytic activity/Vol] 81 U/L Normal 32-92 [facility] Comment on above: Performed By: #### E BS CMP, EBS LIPID #### [facility] [address] [place] [id number] [place] ALT [Catalytic activity/Vol] 17 U/L Normal 10-60 [facility] Comment on above: Performed By: #### E BS CMP, EBS LIPID #### [facility] [address] [place] [address] [place] AST [Catalytic activity/Vol] 18 U/L Normal 10-42 [facility] Comment on above: Performed By: #### E BS CMP, EBS LIPID #### [facility] [address] [place] [id number] [place] Bilirubin [Mass/Vol] 0.3 mg/dL Normal 0.3-1.2 [facility] Comment on above: Performed By: #### E BS CMP, EBS LIPID #### [facility] [address] [place] [address] Calcium [Mass/Vol] 9.5 mg/dL Normal 8.2-10.2 [facility] Comment on above: Performed By: #### E BS CMP, EBS LIPID #### [address] Chloride [Moles/Vol] 99 mmol/L Normal 95-114 [facility] Comment on above: Performed By: #### E BS CMP, EBS LIPID #### [address] CO2 [Moles/Vol] 30.3 mmol/L High 22.0-30.0 [facility] Comment on above: Performed By: #### E BS CMP, EBS LIPID #### [address] Creatinine [Mass/Vol] 0.61 mg/dL Normal 0.44-1.03 [facility] Comment on above: Performed By: #### E BS CMP, EBS LIPID #### [address] Estimated GFR ( Lili > 60 Normal [facility] Comment on above: Result Comment: GFR estimated reference range: According to KDOQI guidelines, <60 ml/min/1.73m2 is sufficient to diagnose a patient with chronic kidney disease. Performed By: #### E BS CMP, EBS LIPID #### [address] Estimated GFR (Non- Am > 60 Normal [facility] Comment on above: Performed By: #### E BS CMP, EBS LIPID #### [place] [address] [place] Globulin (S) [Mass/Vol] 3.2 g/dL Normal [facility] Comment on above: Performed By: #### E BS CMP, EBS LIPID #### [address] Glucose [Mass/Vol] 83 mg/dL Normal 70-100 [facility] Comment on above: Performed By: #### E BS CMP, EBS LIPID #### [address] [place] [address] [facility] Potassium [Moles/Vol] 4.3 mmol/L Normal 3.5-5.1 [facility] Comment on above: Performed By: #### E BS CMP, EBS LIPID #### [facility] [address] [place] [id number] [facility] Protein [Mass/Vol] 7.1 g/dL Normal 6.1-7.9 [facility] Comment on above: Performed By: #### E BS CMP, EBS LIPID #### [facility] [address] [place] [id number] [facility] Sodium [Moles/Vol] 138 mmol/L Normal 136-146 [facility] Comment on above: Performed By: #### E BS CMP, EBS LIPID #### [facility] [address] Urea nitrogen [Mass/Vol] 11 mg/dL Normal 9-23 [facility] Comment on above: Performed By: #### E BS CMP, EBS LIPID #### [facility] [address] [place] [id number] [facility] Lipid Profileon 08-14-2021 Cholesterol [Mass/Vol] 248 mg/dL High 140-200 [facility] Comment on above: Result Comment: Chol less than 200 mg/dl low risk Chol 201-239 mg/dl borderline risk Chol 240 mg/dl and greater high risk Performed By: #### E BS CMP, EBS LIPID #### [facility] [address] [place] [phone] [facility] Cholesterol in HDL [Mass/Vol] 54 mg/dL Normal 35-85 [facility] Comment on above: Result Comment: HDL CHOL ATP-III CLASSIFICATION Cardiovascular Risk HDL > or equal to 60 mg/dL LOW HDL < 40 mg/dL HIGH Performed By: #### E BS CMP, EBS LIPID #### [facility] [address] [place] [phone] [facility] Cholesterol.total/C holesterol in HDL [Mass ratio] 4.6 {ratio} Normal <5.0 [facility] Comment on above: Result Comment: PERF ORMED BY: [facility] [address] [place] [address] PATHOLOGIST [employer] CAMILA KINNEY M.D. Performed By: #### E BS CMP, EBS LIPID #### [facility] [address] LDL Cholesterol,Calcula satya 170 mg/dL High 0-100 [facility] Comment on above: Result Comment: LDL ATP III CLASSIFICATION LDL less than 100 mg/dL Optimal LDL 100-129 mg/dL Near or above optimal LDL 130-159 mg/dL Borderline high LDL 160-189 mg/dL High LDL greater than 189 mg/dL Very high Performed By: #### E BS CMP, EBS LIPID #### [facility] [address] Triglyceride w/Reflex 121 mg/dL Normal 35-149 [facility] Comment on above: Result Comment: TRIG ATP III CLASSIFICATION TRIG less than 150 mg/dL Normal TRIG 150-199 mg/dL Borderline high TRIG 200-500 mg/dL High TRIG greater than 500 mg/dL Very high Standard traceable to the Center for Disease Conrtrol and Prevention (CDC) test method. Performed By: #### E BS CMP, EBS LIPID #### [facility] [address] VLDL CHOLESTEROL 24 mg/dL Normal [facility] Comment on above: Performed By: #### E BS CMP, EBS LIPID #### [facility] [address] Encounters Encounter Date Encounter Type Care [...] Start: 04-03-2018 End: 04-04-2018 Ambulatory DEFAULT PHYSICIAN Facility:[facility] Payers Date Payer Category Payer Unknown [id number] 1990 Unknown [id number] 2.16.84 [id number] 1990 Unknown [id number] 2.16.84 [id number] 1990 Unknown [id number] 2.16.84 [id number] 1990 Unknown [id number] 2.16.84 [id number] 1990 Unknown [id number] 2.16.84 [id number] 1990 Unknown [id number] 2.16.84 [id number] 1990 Unknown [id number] 2.16.84 [id number] 1990 Unknown [id number] 2.16.84 [id number] 1990 Unknown [id number] 2.16.84 [id number] 1959 Unknown [id number] Unknown Summary Purpose Family History No Family History Records FoundNo Family History Records FoundNo Family History Records FoundNo Family History Records Found Advance Directives No Advanced Directives Records FoundNo Advanced Directives Records FoundNo Advanced Directives Records FoundNo Advanced Directives Records Found Additional Source Comments INFORMATION SOURCE (unrecogn ized section and content) DATE CREATED AUTHOR 04/04/2018 [facility] DATE CREATED AUTHOR AUTHOR'S ORGANIZ ATION 11/03/2021 [facility] DATE CREATED AUTHOR AUTHOR'S ORGANIZ ATION 10/26/2022 [facility] DATE CREATED AUTHOR AUTHOR'S ORGANRAFA ATION 06/30/2024 [facility] Special[facility] FOR RECORDS PERTAINING TO PATIENTS [...] BE BASED ON THE PRIMARY CLINICAL RECORDS. [facility] [employer] [facility]. provides no warranty or guarantee of the accuracy or completeness of information in this document.
== END 2024-07-11 19:44 | disposition home or self-care (01) ==
LOC: LAB 19:43
PROVIDERS: PCP Family Medicine; Visit Provider Obstetrics & Gynecology
DX: Z34.93 Encounter for supervision of normal pregnancy, unspecified, third trimester (principal)

== ENCOUNTER 2024-07-14 06:29 | Outpatient (OUT) | payer OTHER, SELFPAY ==
--- OUTSIDE RECORDS SUMMARY | 2024-07-14 06:31 | XMS_ITS | CCD ---
Author Organization [facility] Care Team Providers Care Silver Designer Name Role Phone PHYSICIAN, DEFAULT Unavailable Unavailable PHYSICIAN, DEFAULT Unavailable Unavailable DR MARIANA CEVALLOS Primary Care Unavailable YO LANDEROS Admitting Unavailable YO LANDEROS Attending Unavailable YO LANDEROS Consulting Unavailable WHITNEY QUIROZ Admitting Unavailable GABRIELLAWHITNEY LORENZ Attending Unavailable DR MARIANA CEVALLOS Primary Care Unavailable GABRIELLAWHITNEY LORENZ Consulting Unavailable NADMARIANA NELSON Attending Unavailable FANNY, LAKIA Attending Unavailable FANNY, LAKIA Attending Unavailable ROBKARAN COLE Attending Unavailable FANNY, LAKIA Attending Unavailable ROB, KARAN Attending Unavailable FANNY, LAKIA Attending Unavailable Problems Active Problems Problem Classification Problem Date Documented Da te Episodic/Chronic Anxiety disorders (1 source) Anxiety disorder, unspecified; Translations: [ANXIETY DISORDER UNSPECIFIED] Onset: 10-26-2022 Chronic Headache; including migraine (4 sources) Headache; including migraine; Translations: [HEADACHE UNSPECIFIED] Onset: 10-23-2022 Mood disorders (1 source) Mood disorders; Translations: [DEPRESSION UNSPECIFIED] Onset: 10-26-2022 Other aftercare (1 source) Other group home (current) drug therapy; Translations: [OTH 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 Mir Araiza Basophils/100 WBC (Bld) 0.7 % Normal 0.2-2.0 [facility] Comment on above: Performed By: #### C BC #### [facility] [address] [place] [address] Dr. Mir Araiza EO # 0.2 103/ul Normal 0.0-0.7 [facility] Comment on above: Performed By: #### C BC #### [facility] [address] [place] [address] Dr. Mir Araiza Eosinophils/100 WBC (Bld) 3.0 % Normal 0.9-7.0 [facility] Comment on above: Performed By: #### C BC #### [facility] [address] [place] [address] Dr. Mir Araiza Erythrocyte distribution width (RBC) [Ratio] 15.6 % Critically high 11.0-15.0 [facility] Comment on above: Performed By: #### C BC #### [facility] [address] [place] [address] Dr. Mir Araiza Hematocrit (Bld) [Volume fraction] 38.5 % Normal 36.0-48.0 [facility] Comment on above: Performed By: #### C BC #### [facility] [address] [place] [address] Dr. Mir Araiza Hemoglobin (Bld) [Mass/Vol] 12.3 g/dL Normal 12.0-16.0 [facility] Comment on above: Performed By: #### C BC #### [facility] [address] [place] [address] Dr. Mir Araiza IG # 0.02 10e3/ul Normal 0.00-0.03 [facility] Comment on above: Performed By: #### C BC #### [facility] [address] [place] [address] Dr. Mir Araiza IG % 0.3 % Normal 0.0-0.5 [facility] Comment on above: Performed By: #### C BC #### [facility] [address] [place] [address] Dr. Mir Araiza LYMPH # 1.5 103/ul Normal 1.2-3.8 [facility] Comment on above: Performed By: #### C BC #### [facility] [address] [place] [address] Dr. Mir Araiza Lymphocytes/100 WBC (Bld) 24.1 % Normal 20.5-60.0 [facility] Comment on above: Performed By: #### C BC #### [facility] [address] [place] [address] Dr. Mir Araiza MANUAL DIFF REQ NO Normal [facility] Comment on above: Performed By: #### C BC #### [facility] [address] [place] [address] Dr. Mir Araiza MCH (RBC) [Entitic mass] 24.8 pg Critically low 26.7-34.0 [facility] Comment on above: Performed By: #### C BC #### [facility] [address] [place] [address] Dr. Mir Araiza MCHC (RBC) [Mass/Vol] 31.9 g/dL Normal 29.9-35.2 [facility] Comment on above: Performed By: #### C BC #### [facility] [address] [place] [address] Dr. Mir Araiza MCV (RBC) [Entitic vol] 77.8 fL Critically low 81.0-99.0 [facility] Comment on above: Performed By: #### C BC #### [facility] [address] [place] [address] Dr. Mir Araiza MONO # 0.4 103/ul Normal 0.3-0.8 [facility] Comment on above: Performed By: #### C BC #### [facility] [address] [place] [address] Dr. Mir Araiza Monocytes/100 WBC (Bld) 6.3 % Normal 1.7-12.0 [facility] Comment on above: Performed By: #### C BC #### [facility] [address] [place] [address] Dr. Mir Araiza NEUT # 4.0 103/ul Normal 1.4-6.5 [facility] Comment on above: Performed By: #### C BC #### [facility] [address] [place] [address] Dr. Mir Araiza Neutrophils/100 WBC (Bld) 65.6 % Normal 43.0-75.0 [facility] Comment on above: Performed By: #### C BC #### [facility] [address] [place] [address] Dr. Mir Araiza Platelet mean volume (Bld) [Entitic vol] 12.3 fL Normal 9.5-13.5 [facility] Comment on above: Performed By: #### C BC #### [facility] [address] [place] [address] Dr. Mir Araiza PLT 173 103/ul Normal 150-450 [facility] Comment on above: Performed By: #### C BC #### [facility] [address] [place] [address] Dr. Mir Araiza RBC 4.95 106/ul Normal 4.20-5.40 [facility] Comment on above: Performed By: #### C BC #### [facility] [address] [place] [address] Dr. Mir Araiza WBC 6.0 103/ul Normal 4.0-11.0 [facility] Comment on above: Performed By: #### C BC #### [facility] [address] [place] [address] Dr. Mir Araiza CRPon 10-23-2022 CRP 0.8 mg/dL Normal <=1.0 [facility] Comment on above: Performed By: #### B MP, CRP #### [facility] [address] [place] [address] Dr. Mir Araiza URon 10-23-2022 , QUAL Negative Normal NEGATIVE [facility] Comment on above: Performed By: #### P REGU #### [facility] [address] [address] [address] Mir Araiza PROF CHEM 8 (BAS METB)on Anion gap [Moles/Vol] 12.1 mmol/L Normal [facility] Comment on above: Performed By: #### B MP, CRP #### [facility] [address] [place] [address] Dr. Mir Araiza Calcium [Mass/Vol] 8.8 mg/dL Normal 8.5-10.1 [facility] Comment on above: Performed By: #### B MP, CRP #### [facility] [address] [place] [address] Dr. Mir Araiza Chloride [Moles/Vol] 104 mmol/L Normal 98-107 [facility] Comment on above: Performed By: #### B MP, CRP #### [facility] [address] [place] [address] Dr. Mir Araiza CO2 [Moles/Vol] 27.2 mmol/L Normal 21.0-32.0 [facility] Comment on above: Performed By: #### B MP, CRP #### [facility] [address] [place] [address] Dr. Mir Araiza Creatinine [Mass/Vol] 0.83 mg/dL Normal 0.55-1.02 [facility] Comment on above: Performed By: #### B MP, CRP #### [facility] [address] [place] [address] Dr. Mir Araiza EGFR-AF BENINESE >60 Normal >=60 [facility] Comment on above: Performed By: #### B MP, CRP #### [facility] [address] [place] [address] Dr. Mir Araiza EGFR-NON AF BENINESE >60 Normal >=60 [facility] Comment on above: Performed By: #### B MP, CRP #### [facility] [address] [place] [address] Dr. Mir Araiza Glucose [Mass/Vol] 96 mg/dL Normal 74-106 [facility] Comment on above: Performed By: #### B MP, CRP #### [facility] [address] [address] [address] Mir Araiza Potassium [Moles/Vol] 3.3 mmol/L Critically low 3.5-5.1 [facility] Comment on above: Performed By: #### B MP, CRP #### [facility] [address] [address] [address] Mir Araiza Sodium [Moles/Vol] 140 mmol/L Normal 136-145 [facility] Comment on above: Performed By: #### B MP, CRP #### [facility] [address] [place] [address] Dr. Mir Araiza Urea nitrogen [Mass/Vol] 10.0 mg/dL Normal 7.0-18.0 [facility] Comment on above: Performed By: #### B MP, CRP #### [facility] [address] [address] [address] Mir Araiza Urea nitrogen/Creatinine [Mass ratio] 12.0 mg/mg Normal [facility] Comment on above: Performed By: #### B MP, CRP #### [facility] [address] [place] [address] Dr. Mir Araiza SED RATE [facility] 2022 SED RATE 9 mm/hr Normal <=20 [facility] Comment on above: Performed By: #### S EDR #### [facility] [address] [place] [address] Dr. Mir Araiza [facility]on SARS-CoV-2 (COVID-19) RNA IFRAH+probe Ql (Unsp spec) Detected Critically abnormal NOT DETECTED [facility] Comment on above: Result Comment: This test is not yet approved or cleared by the [place] FDA. When there are no FDA-approved or cleared tests available, and other criteria are met, FDA can make tests available under an emergency access mechanism called an Emergency Use Authorization (EUA). The EUA for this test is supported by the Insecticide Expert of Health and Human Service's (HHS's) declaration [...] used). Performed By: #### C VDTB #### [facility] [address] [address] [address] Mir Araiza [facility] Metabolic Empo n 08-14-2021 Albumin [Mass/Vol] 3.9 g/dL Normal 3.2-5.5 [facility] Comment on above: Performed By: #### E BS CMP, EBS LIPID #### [facility] [address] [place] [address] [place] Albumin/Globulin [Mass ratio] 1.2 {ratio} Normal [facility] Comment on above: Performed By: #### E BS CMP, EBS LIPID #### [facility] [address] [id number] [place] ALP [Catalytic activity/Vol] 81 U/L Normal 32-92 [facility] Comment on above: Performed By: #### E BS CMP, EBS LIPID #### [facility] [address] [id number] [place] ALT [Catalytic activity/Vol] 17 U/L Normal 10-60 [facility] Comment on above: Performed By: #### E BS CMP, EBS LIPID #### [facility] [address] [place] [address] [place] AST [Catalytic activity/Vol] 18 U/L Normal 10-42 [facility] Comment on above: Performed By: #### E BS CMP, EBS LIPID #### [facility] [address] [id number] [place] Bilirubin [Mass/Vol] 0.3 mg/dL Normal 0.3-1.2 [facility] Comment on above: Performed By: #### E BS CMP, EBS LIPID #### [facility] [address] Calcium [Mass/Vol] 9.5 mg/dL Normal 8.2-10.2 [facility] Comment on above: Performed By: #### E BS CMP, EBS LIPID #### [address] Chloride [Moles/Vol] 99 mmol/L Normal 95-114 [facility] Comment on above: Performed By: #### E BS CMP, EBS LIPID #### [address] CO2 [Moles/Vol] 30.3 mmol/L High 22.0-30.0 [facility] Comment on above: Performed By: #### E BS CMP, EBS LIPID #### [address] Creatinine [Mass/Vol] 0.61 mg/dL Normal 0.44-1.03 [facility] Comment on above: Performed By: #### E BS CMP, EBS LIPID #### [address] Estimated GFR ( Lili > 60 Normal [facility] Comment on above: Result Comment: GFR estimated reference range: According to KDOQI guidelines, <60 ml/min/1.73m2 is sufficient to diagnose a patient with chronic kidney disease. Performed By: #### E BS CMP, EBS LIPID #### [address] Estimated GFR (Non- Am > 60 Normal [facility] Comment on above: Performed By: #### E BS CMP, EBS LIPID #### [place] [address] [place] Globulin (S) [Mass/Vol] 3.2 g/dL Normal [facility] Comment on above: Performed By: #### E BS CMP, EBS LIPID #### [place] [address] [place] Glucose [Mass/Vol] 83 mg/dL Normal 70-100 [facility] Comment on above: Performed By: #### E BS CMP, EBS LIPID #### [facility] [address] Potassium [Moles/Vol] 4.3 mmol/L Normal 3.5-5.1 [facility] Comment on above: Performed By: #### E BS CMP, EBS LIPID #### [facility] [address] [id number] [facility] Protein [Mass/Vol] 7.1 g/dL Normal 6.1-7.9 [facility] Comment on above: Performed By: #### E BS CMP, EBS LIPID #### [facility] [address] Sodium [Moles/Vol] 138 mmol/L Normal 136-146 [facility] Comment on above: Performed By: #### E BS CMP, EBS LIPID #### [facility] [address] Urea nitrogen [Mass/Vol] 11 mg/dL Normal 9-23 [facility] Comment on above: Performed By: #### E BS CMP, EBS LIPID #### [facility] [address] Lipid Profileon 08-14-2021 Cholesterol [Mass/Vol] 248 mg/dL High 140-200 [facility] Comment on above: Result Comment: Chol less than 200 mg/dl low risk Chol 201-239 mg/dl borderline risk Chol 240 mg/dl and greater high risk Performed By: #### E BS CMP, EBS LIPID #### [facility] [address] [id number] [facility] Cholesterol in HDL [Mass/Vol] 54 mg/dL Normal 35-85 [facility] Comment on above: Result Comment: HDL CHOL ATP-III CLASSIFICATION Cardiovascular Risk HDL > or equal to 60 mg/dL LOW HDL < 40 mg/dL HIGH Performed By: #### E BS CMP, EBS LIPID #### [facility] [address] [id number] [facility] Cholesterol.total/C holesterol in HDL [Mass ratio] 4.6 {ratio} Normal <5.0 [facility] Comment on above: Result Comment: PERF ORMED BY: [place] [address] PATHOLOGIST HAND PATTERN MARKER CAMILA KINNEY M.D. Performed By: #### E BS CMP, EBS LIPID #### [facility] [address] LDL Cholesterol,Calcula satya 170 mg/dL High 0-100 [facility] Comment on above: Result Comment: LDL ATP III CLASSIFICATION LDL less than 100 mg/dL Optimal LDL 100-129 mg/dL Near or above optimal LDL 130-159 mg/dL Borderline high LDL 160-189 mg/dL High LDL greater than 189 mg/dL Very high Performed By: #### E BS CMP, EBS LIPID #### [facility] [address] Triglyceride w/Reflex 121 mg/dL Normal 35-149 [facility] Comment on above: Result Comment: TRIG ATP III CLASSIFICATION TRIG less than 150 mg/dL Normal TRIG 150-199 mg/dL Borderline high TRIG 200-500 mg/dL High TRIG greater than 500 mg/dL Very high Standard traceable to the Center for Disease Conrtrol and Prevention (CDC) test method. Performed By: #### E BS CMP, EBS LIPID #### [facility] [address] VLDL CHOLESTEROL 24 mg/dL Normal [facility] Comment on above: Performed By: #### E BS CMP, EBS LIPID #### [facility] [address] Encounters Encounter Date Encounter Type Care Provider Facility Start: 07-11-2024 End: 07-11-2024 ambulatory LAKIA FANNY Not Available Start: 06-28-2024 End: 06-28-2024 ambulatory KARAN ROB [...] Start: 04-03-2018 End: 04-04-2018 Ambulatory DEFAULT PHYSICIAN Facility:[facility] Payers Date Payer Category Payer Unknown [id number] 1990 Unknown [id number] 2.16.84 [id number] 1990 Unknown [id number] 2.16.84 [id number] 1990 Unknown [id number] 2.16.84 [id number] 1990 Unknown [id number] 2.16.84 [id number] 1990 Unknown [id number] 2.16.84 [id number] 1990 Unknown [id number] 2.16.84 [id number] 1990 Unknown [id number] 2.16.84 [id number] 1990 Unknown [id number] 2.16.84 [id number] 1990 Unknown [id number] 2.16.84 [id number] 1990 Unknown [id number] 2.16.84 [id number] 1959 Unknown [id number] Unknown Summary Purpose Family History No Family History Records FoundNo Family History Records FoundNo Family History Records FoundNo Family History Records Found Advance Directives No Advanced Directives Records FoundNo Advanced Directives Records FoundNo Advanced Directives Records FoundNo Advanced Directives Records Found Additional Source Comments INFORMATION SOURCE (unrecogn ized section and content) DATE CREATED AUTHOR 04/04/2018 [facility] DATE CREATED AUTHOR AUTHOR'S ORGANIZ ATION 11/03/2021 [facility] DATE CREATED AUTHOR AUTHOR'S ORGANIZ ATION 10/26/2022 [facility] DATE CREATED AUTHOR AUTHOR'S ORGANIZ ATION 07/13/2024 [facility] FOR RECORDS PERTAINING TO PATIENTS WHO [...] BE BASED ON THE PRIMARY CLINICAL RECORDS. [facility] [facility]. provides no warranty or guarantee of the accuracy or completeness of information in this document.
[2024-07-14 15:45] VITALS: BP 136/64; PULSE 95
== END 2024-07-14 16:15 | disposition home or self-care (01) ==
LOC: FBCO 06:29 → FBC 15:41
PROVIDERS: PCP Family Medicine; Visit Provider Obstetrics & Gynecology
DX: O24.419 Gestational diabetes mellitus in pregnancy, unspecified control (principal)
CPT/HCPCS: 59025

== ENCOUNTER 2024-07-18 07:02 | Outpatient (OUT) | payer OTHER, SELFPAY ==
--- NOTE | 2024-07-18 | US_ITS ---
[address] [address] Patient Name: PATRICIA GIBSON MRN: [id number] date: 1990 Sex: F Assigned Patient Location: [facility] Current Patient Location: [facility] Accession/Order Number: [id number] Exam Date: 07/18/2024 10:10 Report Date: 07/18/2024 10:43 At the request of: KARAN RIVAS Procedure: US OB BPP w non-stress EXAMINATION: US OB BPP w non-stress HISTORY:Excessive growth O36.63X0 COMPARISON: Ultrasound OB biophysical 08-02 TECHNIQUE: Ultrasound biophysical profile was performed in the radiology department. BREATHING MOVEMENTS: 2 GROSS BODY MOVEMENTS: 2 TONE: 2 QUALITATIVE AMNIOTIC FLUID VOLUME: 2 PRESENTATION: CEPHALIC HEART RATE: 132.35 bpm AMNIOTIC FLUID VOLUME: 27.48 cm GESTATIONAL AGE: 37 weeks 2 days US/US OB BPP w non-stress IMPRESSION: 1. Total biophysical profile score: 8 2. Continued polyhydramnios; increased since prior study. Electronically authenticated by: KATHIE RUIZ Date: 07/18/2024 10:43
--- OUTSIDE RECORDS SUMMARY | 2024-07-18 07:05 | XMS_ITS | CCD ---
Author Organization [facility] Team Providers Care [employer] Name Role Phone PHYSICIAN, DEFAULT Unavailable Unavailable [...] COLE Attending Unavailable FANNY, LAKIA Attending Unavailable ROB AKRAN Attending Unavailable FANNY, LAKIA Attending Unavailable Problems Active Problems Problem Classification Problem Date Documented Da te Episodic/Chronic Anxiety disorders (1 source) Anxiety disorder, unspecified; Translations: [ANXIETY DISORDER UNSPECIFIED] Onset: 10-26-2022 Chronic Headache; including migraine (4 sources) Headache; including migraine; Translations: [HEADACHE UNSPECIFIED] Onset: 10-23-2022 Mood disorders (1 source) Mood disorders; Translations: [DEPRESSION UNSPECIFIED] Onset: 10-26-2022 Other aftercare (1 source) Other correction (current) drug therapy; Translations: [OTH EXHAUST AND MUFFLER FITTER CURRENT DRUG THERAPY] Onset: 10-26-2022 Episodic Unclassified [...] 10-23-2022 BASO # 0.0 103/ul Normal 0.0-0.1 [facility] Comment on above: Performed By: #### C BC #### [facility] [address] [place] [address] Dr. Mir Araiza Basophils/100 WBC (Bld) 0.7 % Normal 0.2-2.0 [facility] Comment on above: Performed By: #### C BC #### [facility] [address] [place] [address] Dr. Mir Araiza EO # 0.2 103/ul Normal 0.0-0.7 [facility] Comment on above: Performed By: #### C BC #### [facility] [address] [place] [address] Dr. Mir Araiza Eosinophils/100 WBC (Bld) 3.0 % Normal 0.9-7.0 [facility] Comment on above: Performed By: #### C BC #### [facility] [address] [place] [address] Dr. Mir Araiza Erythrocyte distribution width (RBC) [Ratio] 15.6 % Critically high 11.0-15.0 [facility] Comment on above: Performed By: #### C BC #### [facility] [address] [place] [address] Dr. Mir Araiza Hematocrit (Bld) [Volume fraction] 38.5 % Normal 36.0-48.0 [facility] Comment on above: Performed By: #### C BC #### [facility] [address] [place] [address] Dr. Mir Araiza Hemoglobin (Bld) [Mass/Vol] 12.3 g/dL Normal 12.0-16.0 [facility] Comment on above: Performed By: #### C BC #### [facility] [address] [place] [address] Dr. Mir Araiza IG # 0.02 10e3/ul Normal 0.00-0.03 [facility] Comment on above: Performed By: #### C BC #### [facility] [address] [place] [address] Dr. Mir Araiza IG % 0.3 % Normal 0.0-0.5 [facility] Comment on above: Performed By: #### C BC #### [facility] [address] [place] [address] Dr. Mir Araiza LYMPH # 1.5 103/ul Normal 1.2-3.8 [facility] Comment on above: Performed By: #### C BC #### [facility] [address] [place] [address] Dr. Mir Araiza Lymphocytes/100 WBC (Bld) 24.1 % Normal 20.5-60.0 [facility] Comment on above: Performed By: #### C BC #### [facility] [address] [place] [address] Dr. Mir Araiza MANUAL DIFF REQ NO Normal [facility] Comment on above: Performed By: #### C BC #### [facility] [address] [place] [address] Dr. Mir Araiza MCH (RBC) [Entitic mass] 24.8 pg Critically low 26.7-34.0 [facility] Comment on above: Performed By: #### C BC #### [facility] [address] [place] [address] Dr. Mir Araiza MCHC (RBC) [Mass/Vol] 31.9 g/dL Normal 29.9-35.2 [facility] Comment on above: Performed By: #### C BC #### [facility] [address] [place] [address] Dr. Mir Araiza MCV (RBC) [Entitic vol] 77.8 fL Critically low 81.0-99.0 [facility] Comment on above: Performed By: #### C BC #### [facility] [address] [place] [address] Dr. Mir Araiza MONO # 0.4 103/ul Normal 0.3-0.8 [facility] Comment on above: Performed By: #### C BC #### [facility] [address] [place] [address] Dr. Mir Araiza Monocytes/100 WBC (Bld) 6.3 % Normal 1.7-12.0 [facility] Comment on above: Performed By: #### C BC #### [facility] [address] [place] [address] Dr. Mir Araiza NEUT # 4.0 103/ul Normal 1.4-6.5 [facility] Comment on above: Performed By: #### C BC #### [facility] [address] [place] [address] Dr. Mir Araiza Neutrophils/100 WBC (Bld) 65.6 % Normal 43.0-75.0 [facility] Comment on above: Performed By: #### C BC #### [facility] [address] [place] [address] Dr. Mir Araiza Platelet mean volume (Bld) [Entitic vol] 12.3 fL Normal 9.5-13.5 [facility] Comment on above: Performed By: #### C BC #### [facility] [address] [place] [address] Dr. Mir Araiza PLT 173 103/ul Normal 150-450 [facility] Comment on above: Performed By: #### C BC #### [facility] [address] [place] [address] Dr. Mir Araiza RBC 4.95 106/ul Normal 4.20-5.40 [facility] Comment on above: Performed By: #### C BC #### [facility] [address] [place] [address] Dr. Mir Araiza WBC 6.0 103/ul Normal 4.0-11.0 [facility] Comment on above: Performed By: #### C BC #### [facility] [address] [place] [address] Dr. Mir Araiza CRPon 10-23-2022 CRP 0.8 mg/dL Normal <=1.0 [facility] Comment on above: Performed By: #### B MP, CRP #### [facility] [address] [place] [address] Dr. Mir Araiza URon 10-23-2022 , QUAL Negative Normal NEGATIVE [facility] Comment on above: Performed By: #### P REGU #### [facility] [address] [address] [address] Mir Araiza PROF CHEM 8 (BAS METB)on Anion gap [Moles/Vol] 12.1 mmol/L Normal [facility] Comment on above: Performed By: #### B MP, CRP #### [facility] [address] [place] [address] Dr. Mir Araiza Calcium [Mass/Vol] 8.8 mg/dL Normal 8.5-10.1 [facility] Comment on above: Performed By: #### B MP, CRP #### [facility] [address] [place] [address] Dr. Mir Araiza Chloride [Moles/Vol] 104 mmol/L Normal 98-107 [facility] Comment on above: Performed By: #### B MP, CRP #### [facility] [address] [place] [address] Dr. Mir Araiza CO2 [Moles/Vol] 27.2 mmol/L Normal 21.0-32.0 [facility] Comment on above: Performed By: #### B MP, CRP #### [facility] [address] [place] [address] Dr. Mir Araiza Creatinine [Mass/Vol] 0.83 mg/dL Normal 0.55-1.02 [facility] Comment on above: Performed By: #### B MP, CRP #### [facility] [address] [place] [address] Dr. Mir Araiza EGFR-AF AUSTRIAN >60 Normal >=60 [facility] Comment on above: Performed By: #### B MP, CRP #### [facility] [address] [place] [address] Dr. Mir Araiza EGFR-NON AF AUSTRIAN >60 Normal >=60 [facility] Comment on above: Performed By: #### B MP, CRP #### [facility] [address] [place] [address] Dr. Mir Araiza Glucose [Mass/Vol] 96 mg/dL Normal 74-106 [facility] Comment on above: Performed By: #### B MP, CRP #### [facility] [address] [address] [address] Mir Araiza Potassium [Moles/Vol] 3.3 mmol/L Critically low 3.5-5.1 [facility] Comment on above: Performed By: #### B MP, CRP #### [facility] [address] [address] [address] Mir Araiza Sodium [Moles/Vol] 140 mmol/L Normal 136-145 [facility] Comment on above: Performed By: #### B MP, CRP #### [facility] [address] [place] [address] Dr. Mir Araiza Urea nitrogen [Mass/Vol] 10.0 mg/dL Normal 7.0-18.0 [facility] Comment on above: Performed By: #### B MP, CRP #### [facility] [address] [address] [address] Mir Araiza Urea nitrogen/Creatinine [Mass ratio] 12.0 mg/mg Normal [facility] Comment on above: Performed By: #### B MP, CRP #### [facility] [address] [place] [address] Dr. Mir Araiza SED RATE [facility] 2022 SED RATE 9 mm/hr Normal <=20 [facility] Comment on above: Performed By: #### S EDR #### [facility] [address] [place] [address] Dr. Mir Araiza [facility]on SARS-CoV-2 (COVID-19) RNA IFRAH+probe Ql (Unsp spec) Detected Critically abnormal NOT DETECTED [facility] Comment on above: Result Comment: This test is not yet approved or cleared by the [place] FDA. When there are no FDA-approved or cleared tests available, and other criteria are met, FDA can make tests available under an emergency access mechanism called an Emergency Use Authorization (EUA). The EUA for this test is supported by the [employer] of Health and Human Service's (HHS's) declaration [...] used). Performed By: #### C VDTB #### [facility] [address] [address] [address] Mir Araiza [facility] Metabolic Empo n 08-14-2021 Albumin [Mass/Vol] 3.9 g/dL Normal 3.2-5.5 [facility] Comment on above: Performed By: #### E BS CMP, EBS LIPID #### [facility] [address] [place] [address] [place] Albumin/Globulin [Mass ratio] 1.2 {ratio} Normal [facility] Comment on above: Performed By: #### E BS CMP, EBS LIPID #### [facility] [address] [id number] [place] ALP [Catalytic activity/Vol] 81 U/L Normal 32-92 [facility] Comment on above: Performed By: #### E BS CMP, EBS LIPID #### [facility] [address] [id number] [place] ALT [Catalytic activity/Vol] 17 U/L Normal 10-60 [facility] Comment on above: Performed By: #### E BS CMP, EBS LIPID #### [facility] [address] [place] [address] [place] AST [Catalytic activity/Vol] 18 U/L Normal 10-42 [facility] Comment on above: Performed By: #### E BS CMP, EBS LIPID #### [facility] [address] [id number] [place] Bilirubin [Mass/Vol] 0.3 mg/dL Normal 0.3-1.2 [facility] Comment on above: Performed By: #### E BS CMP, EBS LIPID #### [facility] [address] Calcium [Mass/Vol] 9.5 mg/dL Normal 8.2-10.2 [facility] Comment on above: Performed By: #### E BS CMP, EBS LIPID #### [address] Chloride [Moles/Vol] 99 mmol/L Normal 95-114 [facility] Comment on above: Performed By: #### E BS CMP, EBS LIPID #### [address] CO2 [Moles/Vol] 30.3 mmol/L High 22.0-30.0 [facility] Comment on above: Performed By: #### E BS CMP, EBS LIPID #### [address] Creatinine [Mass/Vol] 0.61 mg/dL Normal 0.44-1.03 [facility] Comment on above: Performed By: #### E BS CMP, EBS LIPID #### [address] Estimated GFR ( Lili > 60 Normal [facility] Comment on above: Result Comment: GFR estimated reference range: According to KDOQI guidelines, <60 ml/min/1.73m2 is sufficient to diagnose a patient with chronic kidney disease. Performed By: #### E BS CMP, EBS LIPID #### [address] Estimated GFR (Non- Am > 60 Normal [facility] Comment on above: Performed By: #### E BS CMP, EBS LIPID #### [place] [address] [place] Globulin (S) [Mass/Vol] 3.2 g/dL Normal [facility] Comment on above: Performed By: #### E BS CMP, EBS LIPID #### [place] [address] [place] Glucose [Mass/Vol] 83 mg/dL Normal 70-100 [facility] Comment on above: Performed By: #### E BS CMP, EBS LIPID #### [facility] [address] Potassium [Moles/Vol] 4.3 mmol/L Normal 3.5-5.1 [facility] Comment on above: Performed By: #### E BS CMP, EBS LIPID #### [facility] [address] [id number] [facility] Protein [Mass/Vol] 7.1 g/dL Normal 6.1-7.9 [facility] Comment on above: Performed By: #### E BS CMP, EBS LIPID #### [facility] [address] Sodium [Moles/Vol] 138 mmol/L Normal 136-146 [facility] Comment on above: Performed By: #### E BS CMP, EBS LIPID #### [facility] [address] Urea nitrogen [Mass/Vol] 11 mg/dL Normal 9-23 [facility] Comment on above: Performed By: #### E BS CMP, EBS LIPID #### [facility] [address] Lipid Profileon 08-14-2021 Cholesterol [Mass/Vol] 248 mg/dL High 140-200 [facility] Comment on above: Result Comment: Chol less than 200 mg/dl low risk Chol 201-239 mg/dl borderline risk Chol 240 mg/dl and greater high risk Performed By: #### E BS CMP, EBS LIPID #### [facility] [address] [id number] [facility] Cholesterol in HDL [Mass/Vol] 54 mg/dL Normal 35-85 [facility] Comment on above: Result Comment: HDL CHOL ATP-III CLASSIFICATION Cardiovascular Risk HDL > or equal to 60 mg/dL LOW HDL < 40 mg/dL HIGH Performed By: #### E BS CMP, EBS LIPID #### [facility] [address] [id number] [facility] Cholesterol.total/C holesterol in HDL [Mass ratio] 4.6 {ratio} Normal <5.0 [facility] Comment on above: Result Comment: PERF ORMED BY: [place] [address] PATHOLOGIST [employer] CAMILA KINNEY M.D. Performed By: #### E BS CMP, EBS LIPID #### [facility] [address] LDL Cholesterol,Calcula satya 170 mg/dL High 0-100 [facility] Comment on above: Result Comment: LDL ATP III CLASSIFICATION LDL less than 100 mg/dL Optimal LDL 100-129 mg/dL Near or above optimal LDL 130-159 mg/dL Borderline high LDL 160-189 mg/dL High LDL greater than 189 mg/dL Very high Performed By: #### E BS CMP, EBS LIPID #### [facility] [address] Triglyceride w/Reflex 121 mg/dL Normal 35-149 [facility] Comment on above: Result Comment: TRIG ATP III CLASSIFICATION TRIG less than 150 mg/dL Normal TRIG 150-199 mg/dL Borderline high TRIG 200-500 mg/dL High TRIG greater than 500 mg/dL Very high Standard traceable to the Center for Disease Conrtrol and Prevention (CDC) test method. Performed By: #### E BS CMP, EBS LIPID #### [facility] [address] VLDL CHOLESTEROL 24 mg/dL Normal [facility] Comment on above: Performed By: #### E BS CMP, EBS LIPID #### [facility] [address] Encounters Encounter Date Encounter Type Care [...] Start: 04-03-2018 End: 04-04-2018 Ambulatory DEFAULT PHYSICIAN Facility:[facility] Payers Date Payer Category Payer Unknown [id number] 1990 Unknown [id number] 2.16.84 [id number] 1990 Unknown [id number] 2.16.84 [id number] 1990 Unknown [id number] 2.16.84 [id number] 1990 Unknown [id number] 2.16.84 [id number] 1990 Unknown [id number] 2.16.84 [id number] 1990 Unknown [id number] 2.16.84 [id number] 1990 Unknown [id number] 2.16.84 [id number] 1990 Unknown [id number] 2.16.84 [id number] 1990 Unknown [id number] 2.16.84 [id number] 1990 Unknown [id number] 2.16.84 [id number] 1959 Unknown [id number] Unknown Summary Purpose Family History No Family History Records FoundNo Family History Records FoundNo Family History Records FoundNo Family History Records Found Advance Directives No Advanced Directives Records FoundNo Advanced Directives Records FoundNo Advanced Directives Records FoundNo Advanced Directives Records Found Additional Source Comments INFORMATION SOURCE (unrecogn ized section and content) DATE CREATED AUTHOR 04/04/[address] [facility] DATE CREATED AUTHOR AUTHOR'S ORGANIZ ATION 11/03/2021 [facility] DATE CREATED AUTHOR AUTHOR'S ORGANIZ ATION 10/26/2022 [facility] DATE CREATED AUTHOR AUTHOR'S ORGANIZ ATION 07/13/2024 [facility] FOR RECORDS PERTAINING TO PATIENTS [...] BE BASED ON THE PRIMARY CLINICAL RECORDS. [facility] [employer] [facility]. provides no warranty or guarantee of the accuracy or completeness of information in this document.
[2024-07-18 10:34] VITALS: BP 127/79; PULSE 85
== END 2024-07-18 11:04 | disposition home or self-care (01) ==
LOC: US 07:02 → FBC 10:03
PROVIDERS: PCP Family Medicine; Visit Provider Physician Assistant
DX: O36.63X0 Maternal care for excessive fetal growth, third trimester, not applicable or unspecified (principal); O40.3XX0 Polyhydramnios, third trimester, not applicable or unspecified; Z3A.37 37 weeks gestation of pregnancy
CPT/HCPCS: 76818

== ENCOUNTER 2024-07-21 06:36 | Outpatient (OUT) | payer OTHER, SELFPAY ==
--- OUTSIDE RECORDS SUMMARY | 2024-07-21 06:39 | XMS_ITS | CCD ---
Author Organization [facility] Team Providers Care Heat Treater Head Name Role Phone PHYSICIAN, DEFAULT Unavailable Unavailable PHYSICIAN, DEFAULT Unavailable Unavailable BAN, DR MARIANA Rodriguez Primary Care Unavailable LETI, YO Admitting Unavailable LETI, YO Attending Unavailable YO LANDEROS Consulting Unavailable WHITNEY QUIROZ Admitting Unavailable GABRIELLA, WHITNEY Attending Unavailable NADDR MARIANA NELSON Primary Care Unavailable GABRIELLA, WHITNEY Consulting Unavailable ROB, KARAN Attending Unavailable FANNY, LAKIA Attending Unavailable ROB, KARAN Attending Unavailable FANNY, LAKIA Attending Unavailable ROB, KARAN Attending Unavailable FANNY, LAKIA Attending Unavailable FANNY, LAKIA Attending Unavailable NADERER, MARIANA Attending Unavailable Problems Active Problems Problem Classification Problem Date Documented Da te Episodic/Chronic Anxiety disorders (1 source) Anxiety disorder, unspecified; Translations: [ANXIETY DISORDER UNSPECIFIED] Onset: 10-26-2022 Chronic Headache; including migraine (4 sources) Headache; including migraine; Translations: [HEADACHE UNSPECIFIED] Onset: 10-23-2022 Mood disorders (1 source) Mood disorders; Translations: [DEPRESSION UNSPECIFIED] Onset: 10-26-2022 Other aftercare (1 source) 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 Mir Araiza Basophils/100 WBC (Bld) 0.7 % Normal 0.2-2.0 [facility] Comment on above: Performed By: #### C BC #### [facility] [address] [address] [address] Mir Araiza EO # 0.2 103/ul Normal 0.0-0.7 [facility] Comment on above: Performed By: #### C BC #### [facility] [address] [address] [address] Mir Araiza Eosinophils/100 WBC (Bld) 3.0 % Normal 0.9-7.0 [facility] Comment on above: Performed By: #### C BC #### [facility] [address] [address] [address] Mir Araiza Erythrocyte distribution width (RBC) [Ratio] 15.6 % Critically high 11.0-15.0 [facility] Comment on above: Performed By: #### C BC #### [facility] [address] [address] [address] Mir Araiza Hematocrit (Bld) [Volume fraction] 38.5 % Normal 36.0-48.0 [facility] Comment on above: Performed By: #### C BC #### [facility] [address] [address] [address] Mir Araiza Hemoglobin (Bld) [Mass/Vol] 12.3 g/dL Normal 12.0-16.0 [facility] Comment on above: Performed By: #### C BC #### [facility] [address] [address] [address] Mir Araiza IG # 0.02 10e3/ul Normal 0.00-0.03 [facility] Comment on above: Performed By: #### C BC #### [facility] [address] [place] [address] Dr. Mir Araiza IG % 0.3 % Normal 0.0-0.5 [facility] Comment on above: Performed By: #### C BC #### [facility] [address] [place] [address] Dr. Mir Araiza LYMPH # 1.5 103/ul Normal 1.2-3.8 [facility] Comment on above: Performed By: #### C BC #### [facility] [address] [place] [address] Dr. Mir Araiza Lymphocytes/100 WBC (Bld) 24.1 % Normal 20.5-60.0 [facility] Comment on above: Performed By: #### C BC #### [facility] [address] [place] [address] Dr. Mir Araiza MANUAL DIFF REQ NO Normal [facility] Comment on above: Performed By: #### C BC #### [facility] [address] [place] [address] Dr. Mir Araiza MCH (RBC) [Entitic mass] 24.8 pg Critically low 26.7-34.0 [facility] Comment on above: Performed By: #### C BC #### [facility] [address] [place] [address] Dr. Mir Araiza MCHC (RBC) [Mass/Vol] 31.9 g/dL Normal 29.9-35.2 [facility] Comment on above: Performed By: #### C BC #### [facility] [address] [place] [address] Dr. Mir Araiza MCV (RBC) [Entitic vol] 77.8 fL Critically low 81.0-99.0 [facility] Comment on above: Performed By: #### C BC #### [facility] [address] [place] [address] Dr. Mir Araiza MONO # 0.4 103/ul Normal 0.3-0.8 [facility] Comment on above: Performed By: #### C BC #### [facility] [address] [place] [address] Dr. Mir Araiza Monocytes/100 WBC (Bld) 6.3 % Normal 1.7-12.0 [facility] Comment on above: Performed By: #### C BC #### [facility] [address] [place] [address] Dr. Mir Araiza NEUT # 4.0 103/ul Normal 1.4-6.5 [facility] Comment on above: Performed By: #### C BC #### [facility] [address] [place] [address] Dr. Mir Araiza Neutrophils/100 WBC (Bld) 65.6 % Normal 43.0-75.0 [facility] Comment on above: Performed By: #### C BC #### [facility] [address] [place] [address] Dr. Mir Araiza Platelet mean volume (Bld) [Entitic vol] 12.3 fL Normal 9.5-13.5 [facility] Comment on above: Performed By: #### C BC #### [facility] [address] [place] [address] Dr. Mir Araiza PLT 173 103/ul Normal 150-450 [facility] Comment on above: Performed By: #### C BC #### [facility] [address] [place] [address] Dr. Mir Araiza RBC 4.95 106/ul Normal 4.20-5.40 [facility] Comment on above: Performed By: #### C BC #### [facility] [address] [place] [address] Dr. Mir Araiza WBC 6.0 103/ul Normal 4.0-11.0 [facility] Comment on above: Performed By: #### C BC #### [facility] [address] [place] [address] Dr. Mri Araiza CRPon 10-23-2022 CRP 0.8 mg/dL Normal <=1.0 [facility] Comment on above: Performed By: #### B MP, CRP #### [facility] [address] [address] [address] Mir Araiza URon 10-23-2022 , QUAL Negative Normal NEGATIVE [facility] Comment on above: Performed By: #### P REGU #### [facility] [address] [place] [address] Dr. Mir Araiza PROF CHEM 8 (BAS METB)on Anion gap [Moles/Vol] 12.1 mmol/L Normal [facility] Comment on above: Performed By: #### B MP, CRP #### [facility] [address] [place] [address] Dr. Mir Araiza Calcium [Mass/Vol] 8.8 mg/dL Normal 8.5-10.1 [facility] [place] Comment on above: Performed By: #### B MP, CRP #### [facility] [address] [place] [address] Dr. Mir Araiza Chloride [Moles/Vol] 104 mmol/L Normal 98-107 [facility] Comment on above: Performed By: #### B MP, CRP #### [facility] [address] [place] [address] Dr. Mir Araiza CO2 [Moles/Vol] 27.2 mmol/L Normal 21.0-32.0 [facility] Comment on above: Performed By: #### B MP, CRP #### [facility] [address] [place] [address] Dr. Mir Araiza Creatinine [Mass/Vol] 0.83 mg/dL Normal 0.55-1.02 [facility] Comment on above: Performed By: #### B MP, CRP #### [facility] [address] [place] [address] Dr. Mir Araiza EGFR-AF AUSTRALIAN >60 Normal >=60 [facility] Comment on above: Performed By: #### B MP, CRP #### [facility] [address] [place] [address] Dr. Mir Araiza EGFR-NON AF AUSTRALIAN >60 Normal >=60 [facility] Comment on above: Performed By: #### B MP, CRP #### [facility] [address] [address] [address] Mir Araiza Glucose [Mass/Vol] 96 mg/dL Normal 74-106 [facility] [place] Comment on above: Performed By: #### B MP, CRP #### [facility] [address] [address] [address] Mir Araiza Potassium [Moles/Vol] 3.3 mmol/L Critically low 3.5-5.1 [facility] Comment on above: Performed By: #### B MP, CRP #### [facility] [address] [address] [address] Mir Araiza Sodium [Moles/Vol] 140 mmol/L Normal 136-145 [facility] [place] Comment on above: Performed By: #### B MP, CRP #### [facility] [address] [place] [address] Dr. Mir Araiza Urea nitrogen [Mass/Vol] 10.0 mg/dL Normal 7.0-18.0 [facility] Comment on above: Performed By: #### B MP, CRP #### [facility] [address] [address] [address] Mir Araiza Urea nitrogen/Creatinine [Mass ratio] 12.0 mg/mg Normal [facility] Comment on above: Performed By: #### B MP, CRP #### [facility] [address] [place] [address] Dr. Mir Araiza SED [facility] SED RATE 9 mm/hr Normal <=20 [facility] Comment on above: Performed By: #### S EDR #### [facility] [address] [place] [address] Dr. Mir Araiza [facility]on SARS-CoV-2 (COVID-19) RNA IFRAH+probe Ql (Unsp spec) Detected Critically abnormal NOT DETECTED [facility] Comment on above: Result Comment: This test is not yet approved or cleared by the [place] FDA. When there are no FDA-approved or cleared tests available, and other criteria are met, FDA can make tests available under an emergency access mechanism called an Emergency Use Authorization (EUA). The EUA for this test is supported by the [place] of Health and Human Service's (HHS's) declaration [...] used). Performed By: #### C VDTB #### [facility] [address] [address] [address] Mir Araiza [facility] Metabolic Empo n 08-14-2021 Albumin [Mass/Vol] 3.9 g/dL Normal 3.2-5.5 [facility] Comment on above: Performed By: #### E BS CMP, EBS LIPID #### [facility] [address] [place] [address] [place] Albumin/Globulin [Mass ratio] 1.2 {ratio} Normal [facility] Comment on above: Performed By: #### E BS CMP, EBS LIPID #### [facility] [address] [place] [address] [place] ALP [Catalytic activity/Vol] 81 U/L Normal 32-92 [facility] Comment on above: Performed By: #### E BS CMP, EBS LIPID #### [facility] [address] [place] [address] [place] ALT [Catalytic activity/Vol] 17 U/L Normal 10-60 [facility] Comment on above: Performed By: #### E BS CMP, EBS LIPID #### [facility] [address] [place] [address] [place] AST [Catalytic activity/Vol] 18 U/L Normal 10-42 [facility] Comment on above: Performed By: #### E BS CMP, EBS LIPID #### [facility] [address] [place] [address] [place] Bilirubin [Mass/Vol] 0.3 mg/dL Normal 0.3-1.2 [facility] Comment on above: Performed By: #### E BS CMP, EBS LIPID #### [facility] [address] Calcium [Mass/Vol] 9.5 mg/dL Normal 8.2-10.2 [facility] Comment on above: Performed By: #### E BS CMP, EBS LIPID #### [facility] [address] Chloride [Moles/Vol] 99 mmol/L Normal 95-114 [facility] Comment on above: Performed By: #### E BS CMP, EBS LIPID #### [facility] [address] CO2 [Moles/Vol] 30.3 mmol/L High 22.0-30.0 [facility] Comment on above: Performed By: #### E BS CMP, EBS LIPID #### [address] Creatinine [Mass/Vol] 0.61 mg/dL Normal 0.44-1.03 [facility] Comment on above: Performed By: #### E BS CMP, EBS LIPID #### [address] Estimated GFR ( Lili > 60 Normal [facility] Comment on above: Result Comment: GFR estimated reference range: According to KDOQI guidelines, <60 ml/min/1.73m2 is sufficient to diagnose a patient with chronic kidney disease. Performed By: #### E BS CMP, EBS LIPID #### [facility] [address] [place] [address] [place] Estimated GFR (Non- Am > 60 Normal [facility] Comment on above: Performed By: #### E BS CMP, EBS LIPID #### [facility] [address] [place] [address] [place] Globulin (S) [Mass/Vol] 3.2 g/dL Normal [facility] Comment on above: Performed By: #### E BS CMP, EBS LIPID #### [facility] [address] [place] [address] [place] Glucose [Mass/Vol] 83 mg/dL Normal 70-100 [facility] Comment on above: Performed By: #### E BS CMP, EBS LIPID #### [facility] [address] [id number] [place] Potassium [Moles/Vol] 4.3 mmol/L Normal 3.5-5.1 [facility] Comment on above: Performed By: #### E BS CMP, EBS LIPID #### [facility] [address] [place] [address] [facility] Protein [Mass/Vol] 7.1 g/dL Normal 6.1-7.9 [facility] Comment on above: Performed By: #### E BS CMP, EBS LIPID #### [facility] [address] [id number] [facility] Sodium [Moles/Vol] 138 mmol/L Normal 136-146 [facility] Comment on above: Performed By: #### E BS CMP, EBS LIPID #### [facility] [address] [id number] [facility] Urea nitrogen [Mass/Vol] 11 mg/dL Normal 9-23 [facility] Comment on above: Performed By: #### E BS CMP, EBS LIPID #### [facility] [address] [phone] [facility] Lipid Profileon 08-14-2021 Cholesterol [Mass/Vol] 248 mg/dL High 140-200 [facility] Comment on above: Result Comment: Chol less than 200 mg/dl low risk Chol 201-239 mg/dl borderline risk Chol 240 mg/dl and greater high risk Performed By: #### E BS CMP, EBS LIPID #### [facility] [address] [phone] [place] Cholesterol in HDL [Mass/Vol] 54 mg/dL Normal 35-85 [facility] Comment on above: Result Comment: HDL CHOL ATP-III CLASSIFICATION Cardiovascular Risk HDL > or equal to 60 mg/dL LOW HDL < 40 mg/dL HIGH Performed By: #### E BS CMP, EBS LIPID #### [facility] [address] [phone] [place] Cholesterol.total/C holesterol in HDL [Mass ratio] 4.6 {ratio} Normal <5.0 [facility] Comment on above: Result Comment: PERF ORMED BY: [place] [address] PATHOLOGIST FRAUD INVESTIGATOR CAMILA KINNEY M.D. Performed By: #### E BS CMP, EBS LIPID #### [facility] [address] LDL Cholesterol,Calcula satya 170 mg/dL High 0-100 [facility] Comment on above: Result Comment: LDL ATP III CLASSIFICATION LDL less than 100 mg/dL Optimal LDL 100-129 mg/dL Near or above optimal LDL 130-159 mg/dL Borderline high LDL 160-189 mg/dL High LDL greater than 189 mg/dL Very high Performed By: #### E BS CMP, EBS LIPID #### [facility] [address] [place] [address] Triglyceride w/Reflex 121 mg/dL Normal 35-149 [facility] Comment on above: Result Comment: TRIG ATP III CLASSIFICATION TRIG less than 150 mg/dL Normal TRIG 150-199 mg/dL Borderline high TRIG 200-500 mg/dL High TRIG greater than 500 mg/dL Very high Standard traceable to the Center for Disease Conrtrol and Prevention (CDC) test method. Performed By: #### E BS CMP, EBS LIPID #### [facility] [address] VLDL CHOLESTEROL 24 mg/dL Normal [facility] Comment on above: Performed By: #### E BS CMP, EBS LIPID #### [facility] [address] [place] [address] Encounters Encounter Date Encounter Type Care Provider Facility Start: 07-18-2024 End: 07-18-2024 ambulatory KARAN ROB Not Available Start: 07-11-2024 End: 07-11-2024 ambulatory LAKIA FANNY Not Available Start: 06-28-2024 End: 06-28-2024 ambulatory KARAN ROB Not Available Start: 05-17-2024 End: 05-17-2024 ambulatory LAKIA FANNY Not Available Start: 05-03-2024 End: 05-03-2024 ambulatory KARAN ROB Not Available Start: 04-05-2024 End: 04-05-2024 ambulatory LAKIA FANNY Not Available Start: 02-09-2024 End: 02-09-2024 ambulatory LAKIA ESCOBEDO Not Available Start: 01-20-2024 End: 01-20-2024 ambulatory KARAN RIVAS Not Available Start: 10-21-2023 End: 10-21-2023 ambulatory MARIANA CEVALLOS Not Available Start: 10-23-2022 End: 10-23-[address] MARIANA CEVALLOS Facility:[facility] Start: 12-16-2021 End: 12-16-2021 ambulatory WHITNEY QUIROZ Facility:[facility] Start: 04-03-2018 End: 04-04-2018 Ambulatory DEFAULT PHYSICIAN Facility:[facility] Payers Date Payer Category Payer Unknown [id number] 1990 Unknown [id number] 2.16.84 [id number] 1990 Unknown [id number] 2.16.84 [id number] 1990 Unknown [id number] 2.16.84 [id number] 1990 Unknown [id number] 2.16.84 [id number] 1990 Unknown [id number] 2.16.84 [id number] 1990 Unknown [id number] 2.16.84 [id number] 1990 Unknown [id number] 2.16.84 [id number] 1990 Unknown [id number] 2.16.84 [id number] 1990 Unknown [id number] 2.16.84 [id number] 1990 Unknown [id number] 2.16.84 [id number] 1990 Unknown [id number] 2.16.84 [id number] 1959 Unknown [id number] Unknown Summary Purpose Family History No Family History Records FoundNo Family History Records FoundNo Family History Records FoundNo Family History Records Found Advance Directives No Advanced Directives Records FoundNo Advanced Directives Records FoundNo Advanced Directives Records FoundNo Advanced Directives Records Found Additional Source Comments INFORMATION SOURCE (unrecogn ized section and content) DATE CREATED AUTHOR 04/04/2018 [facility] DATE CREATED AUTHOR AUTHOR'S ORGANIZ ATION 11/03/2021 [facility] DATE CREATED AUTHOR AUTHOR'S ORGANIZ ATION 10/26/2022 [facility] DATE CREATED AUTHOR AUTHOR'S ORGANIZ ATION 07/20/2024 [facility] EPIC FOR RECORDS PERTAINING TO [...] BE BASED ON THE PRIMARY CLINICAL RECORDS. [employer] provides no warranty or guarantee of the accuracy or completeness of information in this document.
[2024-07-21 16:07] VITALS: BP 144/86; PULSE 89
[2024-07-21 16:08] VITALS: BP 141/81; PULSE 85
[2024-07-21 16:31] VITALS: BP 130/73; PULSE 87
[2024-07-21 17:10] LABS: Amnisure NEGATIVE (NEGATIVE); Internal Control Within Normal Limits
[2024-07-21 17:22] VITALS: BP 126/69; PULSE 81
[2024-07-21 17:52] VITALS: BP 131/77; PULSE 78
--- NOTE | 2024-07-21 18:56 | PC.NURSE ---
1605-Pt arrives to [facility] for scheduled NST. Pt complaing of leaking of fluid following a large gush of fluid that occured last night 07/20/24. Pt states the fluid was clear and had no urine odor. Pt denies UTI or yeast infection s/s. Pt states she has been leaking fluid here and there since. Pt also begins to tell RN she has been having floaters in her vision and an increase in her swelling since last night as well. Pt denies headache or epigastric pain. Pt states she has been very tired recently. Pt states she has been cxting for awhile but states they go away. RN performs pt assessment and obtains VS. 1630-Cervical exam performed. Strong urine odor noted with exam. White,curdy discharge noted. No fluid noted on pt underwear with exam. 1635-Amnisure collected at this time. 1718- notified at this time. RN reports pt recent complaint, assessment, history, amnisure results, VS, and FHR/UC evaluation. Orders recieved to obtain BPs x2 q30min for the next hour, if BP <140/90 pt can be d/c home. 1720-Pt updated on care plan. No fluid noted on pt pad. 180- Pt given d/c instructions. No fluid noted. 181-Pt d/c home.
== END 2024-07-21 18:10 | disposition home or self-care (01) ==
LOC: FBCO 06:37 → FBC 15:57
PROVIDERS: PCP Family Medicine; Visit Provider Obstetrics & Gynecology
DX: O36.63X0 Maternal care for excessive fetal growth, third trimester, not applicable or unspecified (principal); Z3A.37 37 weeks gestation of pregnancy; O24.419 Gestational diabetes mellitus in pregnancy, unspecified control
CPT/HCPCS: 59025; 84112

== ENCOUNTER 2024-07-25 07:04 | Outpatient (OUT) | payer OTHER, SELFPAY ==
--- NOTE | 2024-07-25 | US_ITS ---
[address] [address] Patient Name: PATRICIA GIBSON MRN: [id number] date: 1990 Sex: F Assigned Patient Location: US Current Patient Location: Accession/Order Number: [id number] Exam Date: 07/25/2024 11:40 Report Date: 07/25/2024 12:24 At the request of: KARAN RIVAS Procedure: US OB BPP w non-stress EXAMINATION: US OB BPP w non-stress HISTORY: Excessive growth O36.63x0 COMPARISON: No relevant comparison available. TECHNIQUE: Ultrasound biophysical profile was performed in the radiology department. non-reactive stress testing was performed by nursing staff in the birthing center. FINDINGS: BREATHING MOVEMENTS: 2 GROSS BODY MOVEMENTS: 2 TONE: 2 QUALITATIVE AMNIOTIC FLUID VOLUME: 2 PRESENTATION: CEPHALIC HEART RATE: 144.39 bpm AMNIOTIC FLUID VOLUME: 25.9 cm GESTATIONAL AGE: 38 weeks 2 days US/US OB BPP w non-stress IMPRESSION: Total biophysical profile score: 8 Electronically authenticated by: BETH RINALDI Date: 07/25/2024 12:24
--- OUTSIDE RECORDS SUMMARY | 2024-07-25 07:06 | XMS_ITS | CCD ---
Author Organization [facility] CliniSymt Care Team Providers Care Buildings And Grounds Supervisor Name Role Phone PHYSICIAN, DEFAULT Unavailable Unavailable PHYSICIAN, DEFAULT Unavailable Unavailable BAN, DR SHAILESH Rodriguez Primary Care Unavailable YO LANDEROS Admitting Unavailable OY LANDEROS Attending Unavailable YO LANDEROS Consulting Unavailable WHITNEY QUIROZ Admitting Unavailable WHITNEY QUIROZ Attending Unavailable DR SHAILESH CEVALLOS Primary Care Unavailable GABRIELLA, WHITNEY Consulting Unavailable JOSY RIVAS Attending Unavailable RICHARD, LAKIA Attending Unavailable ROB, JOSY Attending Unavailable RICHARD, LAKIA Attending Unavailable JOSY RIVAS Attending Unavailable RICHARD, LAKIA Attending Unavailable RICHARD, LAKIA Attending Unavailable SHAILESH CEVALLOS Attending Unavailable Shailesh Cevallos MD Primary Care Provider [phone] Shailesh Cevallos MD Unavailable Medications Current Medications Medication Drug Class(es) Dates Sig (Normalized) Sig (Original) isopropyl alcohol 0.7 ml/ml medicated pad (6 sources) Start: 04-05-2024 Alcohol Swabs (Alcohol Prep Pad) 70 % pads Indications: Gestational diabetes mellitus (GDM), antepartum, gestational diabetes method of control unspecified , Elevated glucose tolerance test Apply 1 Pad topically Daily Use four times daily to check FSBS. 150 each 3 04/05/2024 Active polysaccharide iron complex 391 mg oral capsule (6 sources) Start: 04-06-2024 End: 11-02-2024 take 1 capsule by mouth once daily iron polysaccharides (ProFe) 391.3 (180 Fe) MG capsule Indications: Low hemoglobin Take 1 capsule (391.3 mg) by mouth Daily 30 capsule 6 04/06/2024 11/02/2024 Active sertraline 100 mg oral tablet (6 sources) Serotonin Reuptake Inhibitor Start: 05-21-2024 take 1 tablet by mouth once daily sertraline (Zoloft) 100 MG tablet Indications: MDD (major depressive disorder), recurrent episode, mild (HCC) (CMS/HCC) Take 1 tablet (100 mg) by mouth Daily 90 tablet 3 05/21/2024 Active Problems Active Problems Problem Classification Problem Date Documented Da te Episodic/Chronic Anxiety disorders (7 sources) Anxiety disorder, unspecified; Translations: [Generalized anxiety disorder] Onset: 10-26-2022 09-22-2023 Chronic Headache; including migraine (6 sources) Migraine without aura, not refractory ; Translations: [Migraine without aura, not intractable, without status migrainosus] Onset: 09-22-2023 09-22-2023 Chronic Headache; including migraine (4 sources) Headache; including migraine; Translations: [HEADACHE UNSPECIFIED] Onset: 10-23-2022 Menstrual disorders (6 sources) Missed period; Translations: [Irregular menstruation, unspecified] Onset: 12-30-2023 12-30-2023 Chronic Mood disorders (6 sources) Recurrent major depressive episodes, mild ; Translations: [Major depressive disorder, recurrent, mild] Onset: 09-22-2023 09-22-2023 Chronic Mood disorders (1 source) Mood disorders; Translations: [DEPRESSION UNSPECIFIED] Onset: 10-26-2022 Other aftercare (1 source) 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; Translations: [[facility] CURRENT DRUG THERAPY] Onset: 10-26-2022 Episodic Other gastrointestinal disorders (6 sources) Irritable bowel syndrome with diarrhea; Translations: [Irritable bowel syndrome with diarrhea] Onset: 10-21-2023 10-21-2023 Chronic Other nutritional; endocrine; and metabolic disorders (6 sources) Body mass index 30+ - obesity; Translations: [Obesity, unspecified] Onset: 10-26-2023 10-26-2023 Chronic Other and delivery including normal (4 sources) Third trimester ; Translations: [Encounter for supervision of normal , unspecified, third trimester] 07-11-2024 Episodic Residual codes; unclassified (2 sources) Gestation period, 36 weeks; Translations: [36 weeks gestation of ] 07-11-2024 Episodic Residual codes; unclassified (2 sources) Gestation period, 37 weeks; Translations: [37 weeks gestation of ] 07-18-2024 Episodic Unclassified (2 sources) CONTACT W/AND (SUSP) EXPOS COVID-19; Translations: [CONTACT W/AND (SUSP) EXPOS COVID-19] Onset: 12-17-2021 Viral infection (1 source) COVID-19; Translations: [COVID-19] Onset: 12-17-2021 Past or Other Problems Problem Classification Problem Date Documented Da te Episodic/Chronic Hemorrhage during ; abruptio placenta; placenta previa (6 sources) Antepartum hemorrhage; Translations: [Hemorrhage in early , unspecified] Onset: 12-30-2023 12-30-2023 Episodic Other infections; including parasitic (6 sources) History of sexually transmitted disease; Translations: [Personal history of other infectious and parasitic diseases] Onset: 09-22-2023 09-22-2023 Episodic Residual codes; unclassified (6 sources) Persistent insomnia; Translations: [Insomnia, unspecified] Onset: 10-21-2023 10-21-2023 Episodic Spondylosis; intervertebral disc disorders; other back problems (6 sources) Chronic neck pain; Translations: [Cervicalgia] Onset: 10-21-2023 10-21-2023 Episodic Unclassified (1 source) CONTACT W/AND (SUSP) EXPOS COVID-19; Translations: [CONTACT W/AND (SUSP) EXPOS COVID-19] Onset: 12-16-2021 Results Test Name Value Interpretation Reference Range Facility AMNISUREon 07-21-2024 [facility] AMNISURE Negative NEGATIVE [facility] Urinalysis macro (dipstick) panel (U)on 07-18-2024 Bilirubin, UA Positive Negative - 4(70) +++ mg/dL [facility] Comment on above: small Blood, UA Negative Negative - 50 Zachery/mcL [facility] Clarity, UA Clear [facility] Color, UA Yellow [facility] Glucose, UA Negative Negative - 1999(110) ++++ mg/dL [facility] Interpretation and review of laboratory results Abnormal [facility] Ketones, UA Negative Negative - 160(16) ++++ mg/dL [facility] Leukocytes, UA Trace Negative - 500+++ Giovana/mcL [facility] Nitrite, UA Negative Negative - Positive [facility] pH, UA 6.0 5 - 9 [facility] Protein, UA Negative Negative - 1999(20) ++++ mg/dL [facility] Spec Grav, UA 1.030 1 - 1.03 [facility] Urobilinogen, UA 1.0 0.2 - 12 mg/dL [facility] Urinalysis macro (dipstick) panel (U)on 07-11-2024 Bilirubin, UA Negative Negative - 4(70) +++ mg/dL [facility] Blood, UA Negative Negative - 50 Zachery/mcL [facility] Clarity, UA Clear [facility] Color, UA Yellow [facility] Glucose, UA Negative Negative - 2000(110) ++++ mg/dL [facility] Interpretation and review of laboratory results Abnormal [facility] Ketones, UA Negative Negative - 160(16) ++++ mg/dL [facility] Leukocytes, UA Positive Negative - 500+++ Giovana/mcL [facility] Comment on above: small Nitrite, UA Negative Negative - Positive [facility] pH, UA 6.0 5 - 9 [facility] Protein, UA Trace Negative - 1999(20) ++++ mg/dL [facility] Spec Grav, UA 1.020 1 - 1.03 [facility] Urobilinogen, UA 1.0 0.2 - 12 mg/dL [facility] CBC AUTO DIFFon 10-23-2022 BASO # 0.0 103/ul Normal 0.0-0.1 [facility] Comment on above: Performed By: #### C BC #### [facility] [address] [place] [address] Dr. Mir Araiza Basophils/100 WBC (Bld) 0.7 % Normal 0.2-2.0 [facility] Comment on above: Performed By: #### C BC #### [facility] [address] [place] [address] Dr. Mir Araiza EO # 0.2 103/ul Normal 0.0-0.7 [facility] Comment on above: Performed By: #### C BC #### [facility] [address] [place] [address] Dr. Mir Araiza Eosinophils/100 WBC (Bld) 3.0 % Normal 0.9-7.0 [facility] Comment on above: Performed By: #### C BC #### [facility] [address] [place] [address] Dr. Mir Araiza Erythrocyte distribution width (RBC) [Ratio] 15.6 % Critically high 11.0-15.0 [facility] Comment on above: Performed By: #### C BC #### [facility] [address] [place] [address] Dr. Mir Araiza Hematocrit (Bld) [Volume fraction] 38.5 % Normal 36.0-48.0 [facility] Comment on above: Performed By: #### C BC #### [facility] [address] [place] [address] Dr. Mir Araiza Hemoglobin (Bld) [Mass/Vol] 12.3 g/dL Normal 12.0-16.0 [facility] Comment on above: Performed By: #### C BC #### [facility] [address] [place] [address] Dr. Mir Araiza IG # 0.02 10e3/ul Normal 0.00-0.03 [facility] Comment on above: Performed By: #### C BC #### [facility] [address] [place] [address] Dr. Mir Araiza IG % 0.3 % Normal 0.0-0.5 [facility] Comment on above: Performed By: #### C BC #### [facility] [address] [place] [address] Dr. Mir Araiza LYMPH # 1.5 103/ul Normal 1.2-3.8 [facility] Comment on above: Performed By: #### C BC #### [facility] [address] [place] [address] Dr. Mir Araiza Lymphocytes/100 WBC (Bld) 24.1 % Normal 20.5-60.0 [facility] Comment on above: Performed By: #### C BC #### [facility] [address] [place] [address] Dr. Mir Araiza MANUAL DIFF REQ NO Normal [facility] Comment on above: Performed By: #### C BC #### [facility] [address] [place] [address] Dr. Mir Araiza MCH (RBC) [Entitic mass] 24.8 pg Critically low 26.7-34.0 [facility] Comment on above: Performed By: #### C BC #### [facility] [address] [place] [address] Dr. Mir Araiza MCHC (RBC) [Mass/Vol] 31.9 g/dL Normal 29.9-35.2 [facility] Comment on above: Performed By: #### C BC #### [facility] [address] [place] [address] Dr. Mir Araiza MCV (RBC) [Entitic vol] 77.8 fL Critically low 81.0-99.0 [facility] Comment on above: Performed By: #### C BC #### [facility] [address] [place] [address] Dr. Mir Araiza MONO # 0.4 103/ul Normal 0.3-0.8 [facility] Comment on above: Performed By: #### C BC #### [facility] [address] [place] [address] Dr. Mir Araiza Monocytes/100 WBC (Bld) 6.3 % Normal 1.7-12.0 [facility] Comment on above: Performed By: #### C BC #### [facility] [address] [place] [address] Dr. Mir Araiza NEUT # 4.0 103/ul Normal 1.4-6.5 [facility] Comment on above: Performed By: #### C BC #### [facility] [address] [place] [address] Dr. Mir Araiza Neutrophils/100 WBC (Bld) 65.6 % Normal 43.0-75.0 [facility] Comment on above: Performed By: #### C BC #### [facility] [address] [place] [address] Dr. Mir Araiza Platelet mean volume (Bld) [Entitic vol] 12.3 fL Normal 9.5-13.5 [facility] Comment on above: Performed By: #### C BC #### [facility] [address] [place] [address] Dr. Mir Araiza PLT 173 103/ul Normal 150-450 [facility] Comment on above: Performed By: #### C BC #### [facility] [address] [place] [address] Dr. Mir Araiza RBC 4.95 106/ul Normal 4.20-5.40 [facility] Comment on above: Performed By: #### C BC #### [facility] [address] [address] [address] Mir Araiza WBC 6.0 103/ul Normal 4.0-11.0 [facility] Comment on above: Performed By: #### C BC #### [facility] [address] [place] [address] Dr. Mir Araiza CRPon 10-23-2022 CRP 0.8 mg/dL Normal <=1.0 [facility] Comment on above: Performed By: #### B MP, CRP #### [facility] [address] [place] [address] Dr. Mir Araiza URon 10-23-2022 , QUAL Negative Normal NEGATIVE [facility] Comment on above: Performed By: #### P REGU #### [facility] [address] [place] [address] Dr. Mir Araiza PROF CHEM 8 (BAS METB)on Anion gap [Moles/Vol] 12.1 mmol/L Normal [facility] Comment on above: Performed By: #### B MP, CRP #### [facility] [address] [place] [address] Dr. Mir Araiza Calcium [Mass/Vol] 8.8 mg/dL Normal 8.5-10.1 [facility] Comment on above: Performed By: #### B MP, CRP #### [facility] [address] [place] [address] Dr. Mir Araiza Chloride [Moles/Vol] 104 mmol/L Normal 98-107 [facility] Comment on above: Performed By: #### B MP, CRP #### [facility] [address] [place] [address] Dr. Mir Araiza CO2 [Moles/Vol] 27.2 mmol/L Normal 21.0-32.0 [facility] Comment on above: Performed By: #### B MP, CRP #### [facility] [address] [place] [address] Dr. Mir Araiza Creatinine [Mass/Vol] 0.83 mg/dL Normal 0.55-1.02 [facility] Comment on above: Performed By: #### B MP, CRP #### [facility] [address] [place] [address] Dr. Mir Araiza EGFR-AF SERBIAN >60 Normal >=60 [facility] Comment on above: Performed By: #### B MP, CRP #### [facility] [address] [place] [address] Dr. Mir Araiza EGFR-NON AF SERBIAN >60 Normal >=60 [facility] Comment on above: Performed By: #### B MP, CRP #### [facility] [address] [place] [address] Dr. Mir Araiza Glucose [Mass/Vol] 96 mg/dL Normal 74-106 [facility] Comment on above: Performed By: #### B MP, CRP #### [facility] [address] [place] [address] Dr. Mir Araiza Potassium [Moles/Vol] 3.3 mmol/L Critically low 3.5-5.1 [facility] Comment on above: Performed By: #### B MP, CRP #### [facility] [address] [address] [address] Mir Araiza Sodium [Moles/Vol] 140 mmol/L Normal 136-145 [facility] Comment on above: Performed By: #### B MP, CRP #### [facility] [address] [place] [address] Dr. Mir Araiza Urea nitrogen [Mass/Vol] 10.0 mg/dL Normal 7.0-18.0 [facility] Comment on above: Performed By: #### B MP, CRP #### [facility] [address] [place] [address] Dr. Mir Araiza Urea nitrogen/Creatinine [Mass ratio] 12.0 mg/mg Normal [facility] Comment on above: Performed By: #### B MP, CRP #### [facility] [address] [place], [place] [address] Dr. Mir Araiza SED RATE WESTERGRENon 2022 SED RATE 9 mm/hr Normal <=20 [facility] Comment on above: Performed By: #### S EDR #### [facility] [address] [address] [address] Mir Araiza Covid-19 PCR (CVDTB)on SARS-CoV-2 (COVID-19) RNA IFRAH+probe Ql (Unsp spec) Detected Critically abnormal NOT DETECTED [facility] Comment on above: Result Comment: This test is not yet approved or cleared by the [place] FDA. When there are no FDA-approved or cleared tests available, and other criteria are met, FDA can make tests available under an emergency access mechanism called an Emergency Use Authorization (EUA). The EUA for this test is supported by the [place] of Health and Human Service's (HHS's) declaration [...] longer be used). Performed By: #### C VDTBH #### [facility] [address] [address] [address] Mir Araiza Comprehensive Metabolic Empo n 08-14-2021 Albumin [Mass/Vol] 3.9 g/dL Normal 3.2-5.5 [facility] Comment on above: Performed By: #### E BS CMP, EBS LIPID #### [facility] [address] Albumin/Globulin [Mass ratio] 1.2 {ratio} Normal [facility] Comment on above: Performed By: #### E BS CMP, EBS LIPID #### [facility] [address] ALP [Catalytic activity/Vol] 81 U/L Normal 32-92 [facility] Comment on above: Performed By: #### E BS CMP, EBS LIPID #### [facility] [address] ALT [Catalytic activity/Vol] 17 U/L Normal 10-60 [facility] Comment on above: Performed By: #### E BS CMP, EBS LIPID #### [facility] [address] AST [Catalytic activity/Vol] 18 U/L Normal 10-42 [facility] Comment on above: Performed By: #### E BS CMP, EBS LIPID #### [address] Bilirubin [Mass/Vol] 0.3 mg/dL Normal 0.3-1.2 [facility] Comment on above: Performed By: #### E BS CMP, EBS LIPID #### [address] Calcium [Mass/Vol] 9.5 mg/dL Normal 8.2-10.2 [facility] Comment on above: Performed By: #### E BS CMP, EBS LIPID #### [address] Chloride [Moles/Vol] 99 mmol/L Normal 95-114 [facility] Comment on above: Performed By: #### E BS CMP, EBS LIPID #### [address] CO2 [Moles/Vol] 30.3 mmol/L High 22.0-30.0 [facility] Comment on above: Performed By: #### E BS CMP, EBS LIPID #### [facility] [address] [place] [address] Creatinine [Mass/Vol] 0.61 mg/dL Normal 0.44-1.03 [facility] Comment on above: Performed By: #### E BS CMP, EBS LIPID #### [facility] [address] [place] [address] [place] Estimated GFR ( Lili > 60 Normal [facility] Comment on above: Result Comment: GFR estimated reference range: According to KDOQI guidelines, <60 ml/min/1.73m2 is sufficient to diagnose a patient with chronic kidney disease. Performed By: #### E BS CMP, EBS LIPID #### [facility] [address] Estimated GFR (Non- Am > 60 Normal [facility] Comment on above: Performed By: #### E BS CMP, EBS LIPID #### [facility] [address] Globulin (S) [Mass/Vol] 3.2 g/dL Normal [facility] Comment on above: Performed By: #### E BS CMP, EBS LIPID #### [address] Glucose [Mass/Vol] 83 mg/dL Normal 70-100 [facility] Comment on above: Performed By: #### E BS CMP, EBS LIPID #### [address] Potassium [Moles/Vol] 4.3 mmol/L Normal 3.5-5.1 [facility] Comment on above: Performed By: #### E BS CMP, EBS LIPID #### [address] Protein [Mass/Vol] 7.1 g/dL Normal 6.1-7.9 [facility] Comment on above: Performed By: #### E BS CMP, EBS LIPID #### [address] Sodium [Moles/Vol] 138 mmol/L Normal 136-146 [facility] Comment on above: Performed By: #### E BS CMP, EBS LIPID #### [address] Urea nitrogen [Mass/Vol] 11 mg/dL Normal 9-23 [facility] Comment on above: Performed By: #### E BS CMP, EBS LIPID #### [facility] [address] [place] [address] Lipid Profileon 08-14-2021 Cholesterol [Mass/Vol] 248 mg/dL High 140-200 [facility] Comment on above: Result Comment: Chol less than 200 mg/dl low risk Chol 201-239 mg/dl borderline risk Chol 240 mg/dl and greater high risk Performed By: #### E BS CMP, EBS LIPID #### [facility] [address] Cholesterol in HDL [Mass/Vol] 54 mg/dL Normal 35-85 [facility] Comment on above: Result Comment: HDL CHOL ATP-III CLASSIFICATION Cardiovascular Risk HDL > or equal to 60 mg/dL LOW HDL < 40 mg/dL HIGH Performed By: #### E BS CMP, EBS LIPID #### [facility] [address] Cholesterol.total/C holesterol in HDL [Mass ratio] 4.6 {ratio} Normal <5.0 [facility] Comment on above: Result Comment: PERF ORMED BY: [place] [address] PATHOLOGIST WINCHER CAMILA KINNEY M.D. Performed By: #### E BS CMP, EBS LIPID #### [facility] [address] [place] [address] LDL Cholesterol,Calcula satya 170 mg/dL High 0-100 [facility] Comment on above: Result Comment: LDL ATP III CLASSIFICATION LDL less than 100 mg/dL Optimal LDL 100-129 mg/dL Near or above optimal LDL 130-159 mg/dL Borderline high LDL 160-189 mg/dL High LDL greater than 189 mg/dL Very high Performed By: #### E BS CMP, EBS LIPID #### [facility] [address] [place] [address] [place] Triglyceride w/Reflex 121 mg/dL Normal 35-149 [facility] Comment on above: Result Comment: TRIG ATP III CLASSIFICATION TRIG less than 150 mg/dL Normal TRIG 150-199 mg/dL Borderline high TRIG 200-500 mg/dL High TRIG greater than 500 mg/dL Very high Standard traceable to the Center for Disease Conrtrol and Prevention (CDC) test method. Performed By: #### E BS CMP, EBS LIPID #### [facility] [address] [id number] [place] VLDL CHOLESTEROL 24 mg/dL Normal [facility] Comment on above: Performed By: #### E WILLI DE LEON, TRU LIPID #### [facility] [address] [id number] [facility] Vital Signs Date Time Vital Sign Value Performing Clinician Jose ralph 07-18-2024 09:22-0400 Body mass index (BMI) [Ratio] 44.02 kg/m2 Josy ROB Work Phone: [facility] 07-18-2024 09:22-0400 Body weight 105.69 kg Josy ROB Work Phone: [facility] 07-18-2024 09:22-0400 Diastolic blood pressure 78 mm[Hg] Josy ROB Work Phone: [facility] 07-18-2024 09:22-0400 Systolic blood pressure 124 mm[Hg] Josy ROB Work Phone: [facility] 07-11-2024 15:27-0400 Body mass index (BMI) [Ratio] 43.84 kg/m2 Lakia Richard DO Work Phone: [facility] 07-11-2024 15:27-0400 Body weight 105.23 kg Lakia Richard DO Work Phone: [facility] 07-11-2024 15:27-0400 Diastolic blood pressure 80 mm[Hg] Lakia Richard DO Work Phone: [facility] 07-11-2024 15:27-0400 Systolic blood pressure 124 mm[Hg] Lakia Richard DO Work Phone: [facility] Healthcare Encounters Encounter Date Encounter Type Care Provider Facility Start: 07-21-2024 End: 07-21-2024 Clinisync Result Encounter Generic External Data Provider [facility] External Department Unsolicited Start: 07-21-2024 End: 07-21-2024 Clinisync Result Encounter Generic External Data Provider [facility] External Department Unsolicited Start: 07-18-2024 End: 07-18-2024 Bamboo flowsheet Josy ROB Work Phone: [facility] Start: 07-18-2024 End: 07-18-2024 Bamboo flowsheet Josy ROB Work Phone: [facility] Start: 07-18-2024 End: 07-18-2024 flow sheet Josy ROB Work Phone: [facility] Comment on above: Third trimester preg carlos; 37 weeks gestation of Start: 07-18-2024 End: 07-18-2024 ambulatory JOSY ROB Not Available Start: 07-11-2024 End: 07-11-2024 flow sheet Lakia Richard DO Work Phone: [facility] Comment on above: Third trimester preg carlos; 36 weeks gestation of Start: 07-11-2024 End: 07-11-2024 ambulatory LAKIA RICHARD Not Available Start: 06-28-2024 End: 06-28-2024 ambulatory JOSY ROB Not Available Start: 05-17-2024 End: 05-17-2024 ambulatory LAKIA RICHARD Not Available Start: 05-03-2024 End: 05-03-2024 ambulatory JOSY ROB Not Available Start: 04-05-2024 End: 04-05-2024 ambulatory LAKIA RICHARD Not Available Start: 02-09-2024 End: 02-09-2024 ambulatory LAKIA RICHARD Not Available Start: 01-20-2024 End: 01-20-2024 ambulatory JOSY ROB Not Available Start: 10-21-2023 End: 10-21-2023 ambulatory SHAILESH CEVALLOS Not Available Start: 10-23-2022 End: 10-23-[address] SHAILESH CEVALLOS Facility:[facility] Start: 12-16-2021 End: 12-16-2021 ambulatory WHITNEY QUIROZ Facility:[facility] Start: 04-03-2018 End: 04-04-2018 Ambulatory DEFAULT PHYSICIAN Facility:[facility] Procedures Date Procedure Procedure Detail Performing Clinician Start: 07-21-2024 AMNISURE Lakia Fazi o DO Work Phone: Start: 07-18-2024 Urnls dip stick/tabl et rgnt non-auto w/o micrscp Josy Rivas PA Work Phone: Start: 07-11-2024 Urnls dip stick/tabl et rgnt non-auto w/o micrscp Lakia Sainizio DO Work Phone: Start: 04-05-2024 Microscopic observat ion [Identifier] in Cervix by Cyto stain Lakia Ramos DO Work Phone: Plan of Treatment Date Care Activity Detail Author Start: 04-05-2029 Screening for malign ant neoplasm of cervix [facility] Start: 07-25-2024 End: 07-25-2024 Patient encounter procedure 07/25/2024 1:30 PM EDT Routine [facility] [address] [place] [id number] Lakia Ramos, DO [address] [place] [address] [facility] Start: 07-18-2024 End: 07-18-2024 Patient encounter procedure [facility] Comment on above: Arrived Start: 07-11-2024 End: 07-11-2025 Strep B DNA probe, amplification Strep B DNA probe, amplification Lab Routine Third trimester Expected: 07/11/2024 (Approximate), Expires: 07/11/2025 [facility] Work Phone: Comment on above: Expected: 07/11/2024 (Approximate), Expires: 07/11/2025 Start: 06-10-2024 Influenza vaccination Influenza Vacc ine (#1) [facility] Healthcare Payers Date Payer Category Payer Private Health Insurance [employer] [id number] 2023 Unknown 2023 Unknown [id number] 1990 Unknown [id number]. 593 1990 Unknown [id number] 2.16.840.1.373708.3.579.2. 593 1990 Unknown [id number] 2.16.840.1.378152.3.579.2. 9 1990 Unknown [id number] 2.16.840.1.298097.3.579.2. 1258 1990 Unknown [id number] 2.16.840.1.946909.3.579.2. 9 1990 Unknown [id number] 2.16.840.1.484335.3.579.2. 1258 1990 Unknown [id number] 2.16.840.1.088813.3.579.2. 9 1990 Unknown [id number] 2.16.840.1.379793.3.579.2. 1258 1990 Unknown [id number] 2.16.840.1.356394.3.579.2. 9 1990 Unknown [id number] 2.16.840.1.746266.3.579.2. 1258 1990 Unknown [id number] 2.16.840.1.657792.3.579.2. 1259 1959 Unknown [id number] Social History Date Type Detail Facility Start: 10-21-2023 Tobacco smoking status LAIS Never sm oked tobacco [facility] Start: 10-21-2023 Tobacco use and exposure Smoke less tobacco non-user [facility] Start: 10-21-2023 End: 04-23-2024 History of Social function [facility] Start: 10-21-2023 End: 04-23-2024 Social connection and isolation panel [facility] Do you belong to any clubs or organizations such as zoroastrianism groups, unions, fraternal or athletic groups, or school groups? No [facility] Are you now , , , , never or living with a partner? [facility] How often to you hav e a drink containing alcohol? Never [facility] How many standard dr inks containing alcohol do you have on a typical day? Patient does not drink [facility] How hard is it for y ou to pay for the very basics like food, housing, medical care, and heating Not very hard [facility] Do you feel stress - tense, restless, nervous, or anxious, or unable to sleep at night because your mind is troubled all the time - these days [OSQ] Rather much [facility] (I/We) worried wheth er (my/our) food would run out before (I/we) got money to buy more. Never true [facility] Start: 11-14-2023 [facility] Start: 1990 Sex assigned at Not on file [facility] Medical Equipment Procedure Code Equipment Code Equipment Origin al Text Equipment Identifier Dates Use as instructe d 4 times daily to check blood glucose. [id number] Start: 04-05-2024 End: 04-05-2025 History of Present illness Narrative 07-18-2024 LIANE Navarro - 07/18/2024 9:20 AM EDT Note Date & Type Note Facility 07-18-2024 History of Presen t illness Narrative Reason for Appointment: Patient ID: Alexus Dominguez is a 34 y.o. female who presents for Routine Visit Patient presents today for Return OB appointment. MEDICATIONS Current Outpatient Medications Medication Instructions Alcohol Swabs (Alcohol Prep Pad) 70 % pads 1 Pad, Topical, Daily, Use four times daily to check FSBS. glucose blood (FREESTYLE TEST STRIPS) test strip Use as instructed 4 times daily to check blood glucose. iron polysaccharides (PROFE) 391.3 mg, Oral, Daily sertraline (ZOLOFT) 100 mg, Oral, Daily ALLERGIES No Known Allergies PROBLEMS Active Ambulatory Problems Diagnosis Date Noted Migraine without aura and without status migrainosus, not intractable ([facility]) 09/22/2023 CYNDY (generalized anxiety disorder) (CMS/HCC) 09/22/2023 MDD (major depressive disorder), recurrent episode, mild (HCC) (CMS/HCC) 09/22/2023 History of herpes genitalis 09/22/2023 Irritable bowel syndrome with diarrhea 10/21/2023 Persistent disorder of initiating or maintaining sleep 10/21/2023 Chronic neck pain 10/21/2023 Obesity (BMI 30-39.9) 10/26/2023 Bleeding in early 12/30/2023 Missed menses 12/30/2023 Resolved Ambulatory Problems Diagnosis Date Noted No Resolved Ambulatory Problems Past Medical History: Diagnosis Date Chronic migraine without aura without status migrainosus, not intractable (CMS/HCC) H/O herpes genitalis Hx of hernia repair Insomnia, persistent Metabolic syndrome Seborrheic dermatitis Ventral hernia without obstruction or gangrene HISTORY PAST MEDICAL HISTORY SOCIAL HISTORY Past Medical History: Diagnosis Date Chronic migraine without aura without status migrainosus, not intractable (CMS/HCC) CYNDY (generalized anxiety disorder) ([facility]) H/O herpes genitalis Hx of hernia repair Insomnia, persistent Irritable bowel syndrome with diarrhea MDD (major depressive disorder), recurrent episode, mild (HCC) (CMS/HCC) Metabolic syndrome Seborrheic dermatitis Ventral hernia without obstruction or gangrene Social History Tobacco Use Smoking status: Never Smokeless tobacco: Never Substance Use Topics Alcohol use: Not on file Drug use: Not on file FAMILY HISTORY Family History Problem Relation Name Age of Onset Mental illness Mother Asthma Mother Hyperlipidemia Father Hypertension Father Coronary artery disease Father No Known Problems Maternal Grandmother No Known Problems Maternal Grandfather No Known Problems Paternal Grandmother No Known Problems Paternal Grandfather SURGICAL HISTORY Past Surgical History: Procedure Laterality Date HERNIA REPAIR REVIEW OF SYSTEMS Review of Systems: Review of Systems Constitutional: Negative. HENT: Negative. Eyes: Negative. Respiratory: Negative. Cardiovascular: Negative. Gastrointestinal: Negative. Genitourinary: Negative. Musculoskeletal: Negative. Skin: Negative. Neurological: Negative. All other systems reviewed and are negative. Hematological: Negative. Endocrine: Negative. Allergic/Immunologic: Negative. OBJECTIVE Objective: Physical Exam Constitutional: Appearance: Normal appearance. She is normal weight. HENT: Head: Normocephalic. Cardiovascular: Rate and Rhythm: Normal rate. Pulses: Normal pulses. Pulmonary: Effort: Pulmonary effort is normal. Breath sounds: Normal breath sounds. Abdominal: Palpations: Abdomen is soft. Musculoskeletal: General: Normal range of motion. Neurological: General: No focal deficit present. Mental Status: She is alert and oriented to person, place, and time. Psychiatric: Mood and Affect: Mood normal. Behavior: Behavior normal. Thought Content: Thought content normal. Judgment: Judgment normal. Vitals and nursing note reviewed. Vitals: Estimated body mass index is 44.02 kg/m as calculated from the following: Height as of 10/21/23: 5' 1 . Weight as of this encounter: 233 lb. BP: 124/78 Patient's last menstrual period was 10/22/2023. ASSESSMENT & PLAN ICD-10-CM 1. Third trimester Z34.93 POCT urinalysis dipstick manually resulted 2. 37 weeks gestation of Z3A.37 POCT urinalysis dipstick manually resulted Return OB: Patient presents today for a routine obstetrics appointment. Patient is currently 37w2d . Patient states she is doing well but has complaints of being tired due to current . Patient has verbalizes frequent movement. labor precautions was discussed/given and patient was instructed to perform kick counts three times a day. Orders Placed This Encounter Procedures POCT urinalysis dipstick manually resulted Follow Up: Patient is to return to office in 1 week for routine OB appointment. Documented by LIANE Navarro on behalf of: LIANE Navarro documented in this encounter [facility] History of Present illness Narrative 07-11-2024 Julia Reeves LPN - 07/11/2024 3:00 PM EDT Note Date & Type Note Facility 07-11-2024 History of Presen t illness Narrative Reason for Appointment: Patient ID: Alexus Dominguez is a 34 y.o. female who presents for Routine Visit Patient presents today for Return OB appointment. MEDICATIONS Current Outpatient Medications Medication Instructions Alcohol Swabs (Alcohol Prep Pad) 70 % pads 1 Pad, Topical, Daily, Use four times daily to check FSBS. glucose blood (FREESTYLE TEST STRIPS) test strip Use as instructed 4 times daily to check blood glucose. iron polysaccharides (PROFE) 391.3 mg, Oral, Daily sertraline (ZOLOFT) 100 mg, Oral, Daily ALLERGIES No Known Allergies PROBLEMS Active Ambulatory Problems Diagnosis Date Noted Migraine without aura and without status migrainosus, not intractable ([facility]/HCC) 09/22/2023 CYNDY (generalized anxiety disorder) ([facility]) 09/22/2023 MDD (major depressive disorder), recurrent episode, mild (HCC) ([facility]) 09/22/2023 History of herpes genitalis 09/22/2023 Irritable bowel syndrome with diarrhea 10/21/2023 Persistent disorder of initiating or maintaining sleep 10/21/2023 Chronic neck pain 10/21/2023 Obesity (BMI 30-39.9) 10/26/2023 Bleeding in early 12/30/2023 Missed menses 12/30/2023 Resolved Ambulatory Problems Diagnosis Date Noted No Resolved Ambulatory Problems Past Medical History: Diagnosis Date Chronic migraine without aura without status migrainosus, not intractable (CMS/HCC) H/O herpes genitalis Hx of hernia repair Insomnia, persistent Metabolic syndrome Seborrheic dermatitis Ventral hernia without obstruction or gangrene HISTORY PAST MEDICAL HISTORY SOCIAL HISTORY Past Medical History: Diagnosis Date Chronic migraine without aura without status migrainosus, not intractable (CMS/HCC) CYNDY (generalized anxiety disorder) ([facility]) H/O herpes genitalis Hx of hernia repair Insomnia, persistent Irritable bowel syndrome with diarrhea MDD (major depressive disorder), recurrent episode, mild (HCC) ([facility]) Metabolic syndrome Seborrheic dermatitis Ventral hernia without obstruction or gangrene Social History Tobacco Use Smoking status: Never Smokeless tobacco: Never Substance Use Topics Alcohol use: Not on file Drug use: Not on file FAMILY HISTORY Family History Problem Relation Name Age of Onset Mental illness Mother Asthma Mother Hyperlipidemia Father Hypertension Father Coronary artery disease Father No Known Problems Maternal Grandmother No Known Problems Maternal Grandfather No Known Problems Paternal Grandmother No Known Problems Paternal Grandfather SURGICAL HISTORY Past Surgical History: Procedure Laterality Date HERNIA REPAIR REVIEW OF SYSTEMS Review of Systems: Review of Systems Constitutional: Negative. HENT: Negative. Eyes: Negative. Respiratory: Negative. Cardiovascular: Negative. Gastrointestinal: Negative. Genitourinary: Negative. Musculoskeletal: Negative. Skin: Negative. Neurological: Negative. All other systems reviewed and are negative. Hematological: Negative. Endocrine: Negative. Allergic/Immunologic: Negative. OBJECTIVE Objective: Physical Exam Constitutional: Appearance: Normal appearance. She is well-developed. Genitourinary: Vulva normal. Cardiovascular: Rate and Rhythm: Normal rate and regular rhythm. Pulmonary: Effort: Pulmonary effort is normal. Breath sounds: Normal breath sounds. Abdominal: General: Bowel sounds are normal. There is no distension. Palpations: Abdomen is soft. Tenderness: There is no abdominal tenderness. There is no guarding or rebound. Musculoskeletal: General: No swelling. Normal range of motion. Right lower leg: No edema. Left lower leg: No edema. Neurological: Mental Status: She is alert and oriented to person, place, and time. Skin: General: Skin is warm and dry. Psychiatric: Mood and Affect: Mood normal. Behavior: Behavior normal. Vitals and nursing note reviewed. Exam conducted with a real estate coordinator present. Vitals: Estimated body mass index is 43.84 kg/m as calculated from the following: Height as of 10/21/23: 5' 1 . Weight as of this encounter: 232 lb. BP: 124/80 Patient's last menstrual period was 10/22/2023. ASSESSMENT & PLAN ICD-10-CM 1. Third trimester Z34.93 Strep B DNA probe, amplification POCT urinalysis dipstick manually resulted 2. 36 weeks gestation of Z3A.36 Patient is doing well but has complaints of being tired and having maternal discomfort due to . Patient verbalized frequent movement and was instructed to perform kick counts three times per day. labor precautions were given, LARC consent was signed/declined, and GBS was obtained. Cervical check was performed and patient is 1cm dilated. Pt to stay off work, pt extremely uncomfortable. Orders Placed This Encounter Procedures Strep B DNA probe, amplification POCT urinalysis dipstick manually resulted Follow Up: Patient is to return to office in 1 week for routine OB appointment Documented by Julia Reeves LPN on behalf of: Lakia Ramos DO documented in this encounter [facility] Evaluation note Note Date & Type Note Facility Evaluation note Diagnosis Third trimester state, incidental 36 weeks gestation of documented in this encounter [facility] Evaluation note Note Date & Type Note Facility Evaluation note Diagnosis Third trimester state, incidental 37 weeks gestation of documented in this encounter [facility] Summary Purpose Family History No Family History Records FoundNo Family History Records FoundNo Family History Records FoundNo Family History Records Found Advance Directives No Advanced Directives Records FoundNo Advanced Directives Records FoundNo Advanced Directives Records FoundNo Advanced Directives Records Found Additional Source Comments INFORMATION SOURCE (unrecogn ized section and content) DATE CREATED AUTHOR 04/04/2018 [facility] DATE CREATED AUTHOR AUTHOR'S ORGANIZ ATION 11/03/2021 [facility] DATE CREATED AUTHOR AUTHOR'S ORGANIZ ATION 10/26/2022 [facility] DATE CREATED AUTHOR AUTHOR'S ORGANIZ ATION 07/20/[address] 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 Relationship Specialty Start Date End Date Shailesh Cevallos MD [address] [place] [id number] PCP - General Family Medicine 01/20/24 Shailesh Cevallos MD [address] [place] [id number] PCP - [facility] [employer] 08/10/23 10/09/99 [employer] Supervisor Relationship Specialty Start Date End Date Shailesh Cevallos MD [address] [place] [id number] PCP - General Family Medicine 01/20/24 Shailesh Cevallos MD [address] [place] [phone] PCP - [facility] [employer] 08/10/23 10/09/99 [employer] Supervisor Relationship Specialty Start Date End Date Shailesh Cevallos MD [address] [place] [phone] PCP - General Family [facility] 01/20/24 Shailesh Cevallos MD [address] [place] [phone] [facility] - [facility] [place] [facility] 08/10/23 10/09/99 [employer] Supervisor Relationship Specialty Start Date End Date Shailesh Cevallos MD [address] [place] [address] PCP - [facility] 01/20/24 Shailesh Cevallos MD [address] [place] [address] PCP - [facility] 08/10/23 10/09/99 FOR RECORDS PERTAINING TO PATIENTS WHO ARE [...] PRIMARY CLINICAL RECORDS. [facility] [employer] [facility]. provides no warranty or guarantee of the accuracy or completeness of information in this document.
[2024-07-25 11:10] VITALS: BP 119/77; PULSE 90
== END 2024-07-25 12:09 | disposition home or self-care (01) ==
LOC: US 07:04 → FBC 10:58
PROVIDERS: PCP Family Medicine; Visit Provider Physician Assistant
DX: O36.63X0 Maternal care for excessive fetal growth, third trimester, not applicable or unspecified (principal); Z3A.38 38 weeks gestation of pregnancy
CPT/HCPCS: 76818

== ENCOUNTER 2024-07-28 07:30 | Outpatient (OUT) | payer OTHER, SELFPAY ==
--- OUTSIDE RECORDS SUMMARY | 2024-07-28 07:32 | XMS_ITS | CCD ---
Author Organization [facility] Care Team Providers Care Pst Manager Name Role Phone PHYSICIAN, DEFAULT Unavailable Unavailable PHYSICIAN, DEFAULT Unavailable Unavailable DR SHAILESH CEVALLOS Primary Care Unavailable YO LANDEROS Admitting Unavailable YO LANDEROS Attending Unavailable YO LANDEROS Consulting Unavailable WHITNEY QUIROZ Admitting Unavailable GABRIELLA, WHITNEY Attending Unavailable DR SHAILESH CEVALLOS Primary Care Unavailable GABRIELLA, WHITNEY Consulting Unavailable Shailesh Cevallos MD Primary Care Provider Shailesh Cevallos MD Unavailable SHAILESH CEVALLOS Attending Unavailable RICHARD, LAKIA Attending Unavailable RICHARD, LAKIA Attending Unavailable ROB, JOSY Attending Unavailable RICHARD, LAKIA Attending Unavailable RBO, JOSY Attending Unavailable RICHARD, LAKIA Attending Unavailable ROB, JOSY Attending Unavailable RICHARD, LAKIA Attending Unavailable Medications Current Medications Medication Drug Class(es) Dates Sig (Normalized) Sig (Original) isopropyl alcohol 0.7 ml/ml medicated pad (8 sources) Start: 04-05-2024 Alcohol Swabs (Alcohol Prep Pad) 70 % pads Indications: Gestational diabetes mellitus (GDM), antepartum, gestational diabetes method of control unspecified , Elevated glucose tolerance test Apply 1 Pad topically Daily Use four times daily to check FSBS. 150 each 3 04/05/2024 Active polysaccharide iron complex 391 mg oral capsule (8 sources) Start: 04-06-2024 End: 11-02-2024 take 1 capsule by mouth once daily iron polysaccharides (ProFe) 391.3 (180 Fe) MG capsule Indications: Low hemoglobin Take 1 capsule (391.3 mg) by mouth Daily 30 capsule 6 04/06/2024 11/02/2024 Active sertraline 100 mg oral tablet (8 sources) Serotonin Reuptake Inhibitor Start: 05-21-2024 take 1 tablet by mouth once daily sertraline (Zoloft) 100 MG tablet Indications: MDD (major depressive disorder), recurrent episode, mild (HCC) (CMS/HCC) Take 1 tablet (100 mg) by mouth Daily 90 tablet 3 05/21/2024 Active Problems Active Problems Problem Classification Problem Date Documented Da te Episodic/Chronic Anxiety disorders (9 sources) Anxiety disorder, unspecified; Translations: [Generalized anxiety disorder] Onset: 10-26-2022 09-22-2023 Chronic Headache; including migraine (8 sources) Migraine without aura, not refractory ; Translations: [Migraine without aura, not intractable, without status migrainosus] Onset: 09-22-2023 09-22-2023 Chronic Headache; including migraine (4 sources) Headache; including migraine; Translations: [HEADACHE UNSPECIFIED] Onset: 10-23-2022 Menstrual disorders (8 sources) Missed period; Translations: [Irregular menstruation, unspecified] Onset: 12-30-2023 12-30-2023 Chronic Mood disorders (8 sources) Recurrent major depressive episodes, mild ; Translations: [Major depressive disorder, recurrent, mild] Onset: 09-22-2023 09-22-2023 Chronic Mood disorders (1 source) Mood disorders; Translations: [DEPRESSION UNSPECIFIED] Onset: 10-26-2022 Other aftercare (1 source) Other chcf (current) drug therapy; Translations: [OTH PENITENTIARY CURRENT DRUG THERAPY] Onset: 10-26-2022 Episodic Other gastrointestinal disorders (8 sources) Irritable bowel syndrome with diarrhea; Translations: [Irritable bowel syndrome with diarrhea] Onset: 10-21-2023 10-21-2023 Chronic Other nutritional; endocrine; and metabolic disorders (8 sources) Body mass index 30+ - obesity; Translations: [Obesity, unspecified] Onset: 10-26-2023 10-26-2023 Chronic Other and delivery including normal (6 sources) Third trimester ; Translations: [Encounter for [...] Hemorrhage during ; abruptio placenta; placenta previa (8 sources) Antepartum hemorrhage; Translations: [Hemorrhage in early , unspecified] Onset: 12-30-2023 12-30-2023 Episodic Other infections; including parasitic (8 sources) History of sexually transmitted disease; Translations: [Personal history of other infectious and parasitic diseases] Onset: 09-22-2023 09-22-2023 Episodic Residual codes; unclassified (8 sources) Persistent insomnia; Translations: [Insomnia, unspecified] Onset: 10-21-2023 10-21-2023 Episodic Spondylosis; intervertebral disc disorders; other back problems (8 sources) Chronic neck pain; Translations: [Cervicalgia] Onset: 10-21-2023 10-21-2023 Episodic Unclassified (1 source) CONTACT W/AND (SUSP) EXPOS COVID-19; Translations: [CONTACT W/AND (SUSP) EXPOS COVID-19] Onset: 12-16-2021 Results Test Name Value Interpretation Reference Range Facility Urinalysis macro (dipstick) panel (U)on 07-25-2024 Bilirubin, UA Negative Negative - 4(70) +++ mg/dL [facility] Blood, UA Negative Negative - 50 Zachery/mcL [facility] Clarity, UA Clear [facility] Color, UA Yellow [facility] Glucose, UA Negative Negative - 1999(110) ++++ mg/dL [facility] Interpretation and review of laboratory results Abnormal [facility] Ketones, UA Negative Negative - 160(16) ++++ mg/dL [facility] Leukocytes, UA Positive Negative - 500+++ Giovana/mcL [facility] Nitrite, UA Negative Negative - Positive [facility] pH, UA 6 5 - 9 [facility] Protein, UA Positive Negative - 1999(20) ++++ mg/dL [facility] Spec Grav, UA 1.02 1 - 1.03 [facility] Urobilinogen, UA 1.0 0.2 - 12 mg/dL [facility] AMNISUREon 07-21-2024 TBH AMNISURE Negative NEGATIVE [facility] Urinalysis macro (dipstick) panel (U)on 07-18-2024 Bilirubin, UA Positive Negative - 4(70) +++ mg/dL [facility] Comment on above: small Blood, UA Negative Negative - 50 Zachery/mcL [facility] Clarity, UA Clear [facility] Color, UA Yellow [facility] Glucose, UA Negative Negative - 1999(110) ++++ mg/dL [facility] Interpretation and review of laboratory results Abnormal [facility] Ketones, UA Negative Negative - 160(16) ++++ mg/dL [facility] Leukocytes, UA Trace Negative - 500+++ Giovana/mcL [facility] Nitrite, UA Negative Negative - Positive [facility] pH, UA 6.0 5 - 9 [facility] Protein, UA Negative Negative - 1999(20) ++++ mg/dL [facility] Spec Grav, UA 1.030 1 - 1.03 [facility] Urobilinogen, UA 1.0 0.2 - 12 mg/dL [facility] Urinalysis macro (dipstick) panel (U)on 07-11-2024 Bilirubin, UA Negative Negative - 4(70) +++ mg/dL [facility] Blood, UA Negative Negative - 50 Zachery/mcL [facility] Clarity, UA Clear [facility] Color, UA Yellow [facility] Glucose, UA Negative Negative - 1999(110) ++++ mg/dL [facility] Interpretation and review of laboratory results Abnormal [facility] Ketones, UA Negative Negative - 160(16) ++++ mg/dL [facility] Leukocytes, UA Positive Negative - 500+++ Giovana/mcL [facility] Comment on above: small Nitrite, UA Negative Negative - Positive [facility] pH, UA 6.0 5 - 9 [facility] Protein, UA Trace Negative - 1999(20) ++++ mg/dL [facility] Spec Grav, UA 1.020 1 - 1.03 [facility] Urobilinogen, UA 1.0 0.2 - 12 mg/dL [facility] CBC AUTO DIFFon 10-23-2022 BASO # 0.0 103/ul Normal 0.0-0.1 [facility] Comment on above: Performed By: #### C BC #### [facility] [address] [place] [address] Dr. Mir Araiza Basophils/100 WBC (Bld) 0.7 % Normal 0.2-2.0 [facility] Comment on above: Performed By: #### C BC #### [facility] [address] [place] [address] Dr. Mir Araiza EO # 0.2 103/ul Normal 0.0-0.7 [facility] Comment on above: Performed By: #### C BC #### [facility] [address] [place] [address] Dr. Mir Araiza Eosinophils/100 WBC (Bld) 3.0 % Normal 0.9-7.0 [facility] Comment on above: Performed By: #### C BC #### [facility] [address] [place] [address] Dr. Mir Araiza Erythrocyte distribution width (RBC) [Ratio] 15.6 % Critically high 11.0-15.0 [facility] Comment on above: Performed By: #### C BC #### [facility] [address] [place] [address] Dr. Mir Araiza Hematocrit (Bld) [Volume fraction] 38.5 % Normal 36.0-48.0 [facility] Comment on above: Performed By: #### C BC #### [facility] [address] [place] [address] Dr. Mir Araiza Hemoglobin (Bld) [Mass/Vol] 12.3 g/dL Normal 12.0-16.0 [facility] Comment on above: Performed By: #### C BC #### [facility] [address] [place] [address] Dr. Mir Araiza IG # 0.02 10e3/ul Normal 0.00-0.03 [facility] Comment on above: Performed By: #### C BC #### [facility] [address] [place] [address] Dr. Mir Araiza IG % 0.3 % Normal 0.0-0.5 [facility] Comment on above: Performed By: #### C BC #### [facility] [address] [place] [address] Dr. Mir Araiza LYMPH # 1.5 103/ul Normal 1.2-3.8 [facility] Comment on above: Performed By: #### C BC #### [facility] [address] [place] [address] Dr. Mir Araiza Lymphocytes/100 WBC (Bld) 24.1 % Normal 20.5-60.0 [facility] Comment on above: Performed By: #### C BC #### [facility] [address] [place] [address] Dr. Mir Araiza MANUAL DIFF REQ NO Normal [facility] Comment on above: Performed By: #### C BC #### [facility] [address] [place] [address] Dr. Mir Araiza MCH (RBC) [Entitic mass] 24.8 pg Critically low 26.7-34.0 [facility] Comment on above: Performed By: #### C BC #### [facility] [address] [place] [address] Dr. Mir Araiza MCHC (RBC) [Mass/Vol] 31.9 g/dL Normal 29.9-35.2 [facility] Comment on above: Performed By: #### C BC #### [facility] [address] [place] [address] Dr. Mir Araiza MCV (RBC) [Entitic vol] 77.8 fL Critically low 81.0-99.0 [facility] Comment on above: Performed By: #### C BC #### [facility] [address] [place] [address] Dr. Mir Araiza MONO # 0.4 103/ul Normal 0.3-0.8 [facility] Comment on above: Performed By: #### C BC #### [facility] [address] [place] [address] Dr. Mir Araiza Monocytes/100 WBC (Bld) 6.3 % Normal 1.7-12.0 [facility] Comment on above: Performed By: #### C BC #### [facility] [address] [place] [address] Dr. Mir Araiza NEUT # 4.0 103/ul Normal 1.4-6.5 [facility] Comment on above: Performed By: #### C BC #### [facility] [address] [place] [address] Dr. Mir Araiza Neutrophils/100 WBC (Bld) 65.6 % Normal 43.0-75.0 [facility] Comment on above: Performed By: #### C BC #### [facility] [address] [place] [address] Dr. Mir Araiza Platelet mean volume (Bld) [Entitic vol] 12.3 fL Normal 9.5-13.5 [facility] Comment on above: Performed By: #### C BC #### [facility] [address] [place] [address] Dr. Mir Araiza PLT 173 103/ul Normal 150-450 [facility] Comment on above: Performed By: #### C BC #### [facility] [address] [place] [address] Dr. Mir Araiza RBC 4.95 106/ul Normal 4.20-5.40 [facility] Comment on above: Performed By: #### C BC #### [facility] [address] [place] [address] Dr. Mir Araiza WBC 6.0 103/ul Normal 4.0-11.0 [facility] Comment on above: Performed By: #### C BC #### [facility] [address] [place] [address] Dr. Mir Araiza CRPon 10-23-2022 CRP 0.8 mg/dL Normal <=1.0 [facility] Comment on above: Performed By: #### B MP, CRP #### [facility] [address] [place] [address] Dr. Mir Araiza URon 10-23-2022 , QUAL Negative Normal NEGATIVE [facility] Comment on above: Performed By: #### P REGU #### [facility] [address] [address] [address] Mir Araiza PROF CHEM 8 (BAS METB)on Anion gap [Moles/Vol] 12.1 mmol/L Normal [facility] Comment on above: Performed By: #### B MP, CRP #### [facility] [address] [place] [address] Dr. Mir Araiza Calcium [Mass/Vol] 8.8 mg/dL Normal 8.5-10.1 [facility] Comment on above: Performed By: #### B MP, CRP #### [facility] [address] [place] [address] Dr. Mir Araiza Chloride [Moles/Vol] 104 mmol/L Normal 98-107 [facility] Comment on above: Performed By: #### B MP, CRP #### [facility] [address] [place] [address] Dr. Mir Araiza CO2 [Moles/Vol] 27.2 mmol/L Normal 21.0-32.0 [facility] Comment on above: Performed By: #### B MP, CRP #### [facility] [address] [place] [address] Dr. Mir Araiza Creatinine [Mass/Vol] 0.83 mg/dL Normal 0.55-1.02 [facility] Comment on above: Performed By: #### B MP, CRP #### [facility] [address] [place] [address] Dr. Mir Araiza EGFR-AF ANGUILLAN >60 Normal >=60 [facility] Comment on above: Performed By: #### B MP, CRP #### [facility] [address] [place] [address] Dr. iMr Araiza EGFR-NON AF ANGUILLAN >60 Normal >=60 [facility] Comment on above: Performed By: #### B MP, CRP #### [facility] [address] [place] [address] Dr. Mir Araiza Glucose [Mass/Vol] 96 mg/dL Normal 74-106 [facility] Comment on above: Performed By: #### B MP, CRP #### [facility] [address] [address] [address] Mir Araiza Potassium [Moles/Vol] 3.3 mmol/L Critically low 3.5-5.1 [facility] Comment on above: Performed By: #### B MP, CRP #### [facility] [address] [address] [address] Mir Araiza Sodium [Moles/Vol] 140 mmol/L Normal 136-145 [facility] Comment on above: Performed By: #### B MP, CRP #### [facility] [address] [address] [address] Mir Araiza Urea nitrogen [Mass/Vol] 10.0 mg/dL Normal 7.0-18.0 [facility] Comment on above: Performed By: #### B MP, CRP #### [facility] [address] [place] [address] Dr. Mir Araiza Urea nitrogen/Creatinine [Mass ratio] 12.0 mg/mg Normal [facility] Comment on above: Performed By: #### B MP, CRP #### [facility] [address] [place] [address] Dr. Mir Araiza SED RATE [facility] 2022 SED RATE 9 mm/hr Normal <=20 [facility] Comment on above: Performed By: #### S EDR #### [facility] [address] [place] [address] Dr. Mir Araiza [facility]on SARS-CoV-2 (COVID-19) RNA IFRAH+probe Ql (Unsp spec) Detected Critically abnormal NOT DETECTED [facility] Comment on above: Result Comment: This test is not yet approved or cleared by the [place] FDA. When there are no FDA-approved or cleared tests available, and other criteria are met, FDA can make tests available under an emergency access mechanism called an Emergency Use Authorization (EUA). The EUA for this test is supported by the [place] of Health and Human Service's (HHS's) declaration [...] used). Performed By: #### C VDTBH #### [facility] [address] [address] [address] Mir Araiza [facility] Metabolic Empo n 08-14-2021 Albumin [Mass/Vol] 3.9 g/dL Normal 3.2-5.5 [facility] Comment on above: Performed By: #### E BS CMP, EBS LIPID #### [facility] [address] [id number] [place] Albumin/Globulin [Mass ratio] 1.2 {ratio} Normal [facility] Comment on above: Performed By: #### E BS CMP, EBS LIPID #### [facility] [address] [place] [address] [place] ALP [Catalytic activity/Vol] 81 U/L Normal 32-92 [facility] Comment on above: Performed By: #### E BS CMP, EBS LIPID #### [facility] [address] [place] [address] [place] ALT [Catalytic activity/Vol] 17 U/L Normal 10-60 [facility] Comment on above: Performed By: #### E BS CMP, EBS LIPID #### [facility] [address] [place] [address] [place] AST [Catalytic activity/Vol] 18 U/L Normal 10-42 [facility] Comment on above: Performed By: #### E BS CMP, EBS LIPID #### [facility] [address] [place] [address] [place] Bilirubin [Mass/Vol] 0.3 mg/dL Normal 0.3-1.2 [facility] Comment on above: Performed By: #### E BS CMP, EBS LIPID #### [facility] [address] [place] [address] [place] Calcium [Mass/Vol] 9.5 mg/dL Normal 8.2-10.2 [facility] Comment on above: Performed By: #### E BS CMP, EBS LIPID #### [facility] [address] [place] [address] [place] Chloride [Moles/Vol] 99 mmol/L Normal 95-114 [facility] Comment on above: Performed By: #### E BS CMP, EBS LIPID #### [facility] [address] [place] [address] [place] CO2 [Moles/Vol] 30.3 mmol/L High 22.0-30.0 [facility] Comment on above: Performed By: #### E BS CMP, EBS LIPID #### [facility] [address] Creatinine [Mass/Vol] 0.61 mg/dL Normal 0.44-1.03 [facility] Comment on above: Performed By: #### E BS CMP, EBS LIPID #### [address] Estimated GFR ( Lili > 60 Normal [facility] Comment on above: Result Comment: GFR estimated reference range: According to KDOQI guidelines, <60 ml/min/1.73m2 is sufficient to diagnose a patient with chronic kidney disease. Performed By: #### E BS CMP, EBS LIPID #### [facility] [address] [place] [address] Estimated GFR (Non- Am > 60 Normal [facility] Comment on above: Performed By: #### E BS CMP, EBS LIPID #### [facility] [address] [place] [address] [place] Globulin (S) [Mass/Vol] 3.2 g/dL Normal [facility] Comment on above: Performed By: #### E BS CMP, EBS LIPID #### [facility] [address] [place] [address] [place] Glucose [Mass/Vol] 83 mg/dL Normal 70-100 [facility] Comment on above: Performed By: #### E BS CMP, EBS LIPID #### [facility] [address] [place] [address] [place] Potassium [Moles/Vol] 4.3 mmol/L Normal 3.5-5.1 [facility] Comment on above: Performed By: #### E BS CMP, EBS LIPID #### [facility] [address] Protein [Mass/Vol] 7.1 g/dL Normal 6.1-7.9 [facility] Comment on above: Performed By: #### E BS CMP, EBS LIPID #### [facility] [address] [phone] [place] Sodium [Moles/Vol] 138 mmol/L Normal 136-146 [facility] Comment on above: Performed By: #### E BS CMP, EBS LIPID #### [facility] [address] Urea nitrogen [Mass/Vol] 11 mg/dL Normal 9-23 [facility] Comment on above: Performed By: #### E BS CMP, EBS LIPID #### [facility] [address] Lipid Profileon 08-14-2021 Cholesterol [Mass/Vol] 248 mg/dL High 140-200 [facility] Comment on above: Result Comment: Chol less than 200 mg/dl low risk Chol 201-239 mg/dl borderline risk Chol 240 mg/dl and greater high risk Performed By: #### E BS CMP, EBS LIPID #### [facility] [address] Cholesterol in HDL [Mass/Vol] 54 mg/dL Normal 35-85 [facility] Comment on above: Result Comment: HDL CHOL ATP-III CLASSIFICATION Cardiovascular Risk HDL > or equal to 60 mg/dL LOW HDL < 40 mg/dL HIGH Performed By: #### E BS CMP, EBS LIPID #### [facility] [address] [phone] [place] Cholesterol.total/C holesterol in HDL [Mass ratio] 4.6 {ratio} Normal <5.0 [facility] Comment on above: Result Comment: PERF ORMED BY: [place] [address] PATHOLOGIST [employer] CAMILA KINNEY M.D. Performed By: #### E BS CMP, EBS LIPID #### [facility] [address] LDL Cholesterol,Calcula satya 170 mg/dL High 0-100 [facility] Comment on above: Result Comment: LDL ATP III CLASSIFICATION LDL less than 100 mg/dL Optimal LDL 100-129 mg/dL Near or above optimal LDL 130-159 mg/dL Borderline high LDL 160-189 mg/dL High LDL greater than 189 mg/dL Very high Performed By: #### E BS CMP, EBS LIPID #### [facility] [address] Triglyceride w/Reflex 121 mg/dL Normal 35-149 [facility] Comment on above: Result Comment: TRIG ATP III CLASSIFICATION TRIG less than 150 mg/dL Normal TRIG 150-199 mg/dL Borderline high TRIG 200-500 mg/dL High TRIG greater than 500 mg/dL Very high Standard traceable to the Center for Disease Conrtrol and Prevention (CDC) test method. Performed By: #### E BS CMP, EBS LIPID #### [facility] [address] VLDL CHOLESTEROL 24 mg/dL Normal [facility] Comment on above: Performed By: #### E BS CMP, EBS LIPID #### [facility] [address] Vital Signs Date Time Vital Sign Value Performing Clinician Jose ralph 07-25-2024 13:29-0400 Diastolic blood pressure 70 mm[Hg] Lakia Richard DO Work Phone: [facility] 07-25-2024 13:29-0400 Systolic blood pressure 122 mm[Hg] Lakia Richard DO Work Phone: [facility] 07-18-2024 09:22-0400 Body mass index (BMI) [Ratio] 44.02 kg/m2 Josy ROB Work Phone: [facility] 07-18-2024 09:22-0400 Body weight 105.69 kg Josy ROB Work Phone: [facility] 07-18-2024 09:22-0400 Diastolic blood pressure 78 mm[Hg] Josy ROB Work Phone: [facility] 07-18-2024 09:22-0400 Systolic blood pressure 124 mm[Hg] Josy ROB Work Phone: [facility] 07-11-2024 15:27-0400 Body mass index (BMI) [Ratio] 43.84 kg/m2 Lakia Richard DO Work Phone: [facility] 07-11-2024 15:27-0400 Body weight 105.23 kg Lakia Richard DO Work Phone: [facility] 07-11-2024 15:27-0400 Diastolic blood pressure 80 mm[Hg] Lakia Richard DO Work Phone: [facility] 07-11-2024 15:27-0400 Systolic blood pressure 124 mm[Hg] Lakia Richard DO Work Phone: [facility] Healthcare Encounters Encounter Date Encounter Type Care Provider Facility Start: 07-25-2024 End: 07-25-2024 flow sheet Lakia Richard DO Work Phone: [facility] Comment on above: Third trimester preg carlos Start: 07-25-2024 End: 07-25-2024 ambulatory LAKIA RICHARD Not Available Start: 07-21-2024 End: 07-21-2024 Clinis[facility] Result Encounter [...] of Start: 07-18-2024 End: 07-18-2024 ambulatory JOSY RIVAS Not Available Start: 07-11-2024 End: 07-11-2024 flow sheet Lakia Richard DO Work Phone: [facility] Comment on above: Third trimester preg carlos; 36 weeks gestation of Start: 07-11-2024 End: 07-11-2024 ambulatory LAKIA RICHARD Not Available Start: 06-28-2024 End: 06-28-2024 ambulatory JOSY RIVAS Not Available Start: 05-17-2024 End: 05-17-2024 ambulatory LAKAI RICHARD Not Available Start: 05-03-2024 End: 05-03-2024 ambulatory JOSY ROB Not Available Start: 04-05-2024 End: 04-05-2024 ambulatory LAKIA RICHARD Not Available Start: 02-09-2024 End: 02-09-2024 ambulatory LAKIA RICHARD Not Available Start: 01-20-2024 End: 01-20-2024 ambulatory SHAILESH CEVALLOS Not Available Start: 10-21-2023 End: 10-21-2023 ambulatory SHAILESH CEVALLOS Not Available Start: 10-23-2022 End: 10-23-[address] SHAILESH CEVALLOS Facility:[facility] Start: 12-16-2021 End: 12-16-2021 ambulatory WHITNEY QUIROZ Facility:[facility] Start: 04-03-2018 End: 04-04-2018 Ambulatory DEFAULT PHYSICIAN Facility:[facility] Procedures Date Procedure Procedure Detail Performing Clinician Start: 07-25-2024 Urnls dip stick/tabl et rgnt non-auto w/o micrscp Lakia Richard DO Work Phone: Start: 07-21-2024 AMNISURE Lakia Fazi o DO Work Phone: Start: 07-18-2024 Urnls dip stick/tabl et rgnt non-auto w/o micrscp Josy Rivas PA Work Phone: Start: 07-11-2024 Urnls dip stick/tabl et rgnt non-auto w/o micrscp Lakia Richard DO Work Phone: Start: 04-05-2024 Microscopic observat ion [Identifier] in Cervix by Cyto stain Lakia Ramos DO Work Phone: Plan of Treatment Date Care Activity Detail Author Start: 04-05-2029 Screening for malign ant neoplasm of cervix [facility] Start: 07-25-2024 End: 07-25-2024 Patient encounter procedure 07/25/2024 1:30 PM EDT Routine [facility] [address] [id number] Lakia Ramos, DO [address] [place] [address] [facility] Start: 07-18-2024 End: 07-18-2024 Patient encounter procedure [facility] Comment on above: Arrived Start: 07-11-2024 End: 07-11-2025 Strep B DNA probe, amplification Strep B DNA probe, amplification Lab Routine Third trimester Expected: 07/11/2024 (Approximate), Expires: 07/11/2025 [facility] Work Phone: Comment on above: Expected: 07/11/2024 (Approximate), Expires: 07/11/2025 Start: 06-10-2024 Influenza vaccination Influenza Vacc ine (#1) [facility] Payers Date Payer Category Payer Private Health Insurance [employer] [id number] 2023 Unknown 2023 Unknown [id number] 1990 Unknown [id number] [id number]. 593 1990 Unknown [id number] 2.16.840.1.606721.3.579.2. 593 1990 Unknown [id number] 2.16.840.1.554296.3.579.2. 9 1990 Unknown [id number] 2.16.840.1.157705.3.579.2. 1258 1990 Unknown [id number] 2.16.840.1.394582.3.579.2. 1258 1990 Unknown [id number] 2.16.840.1.635983.3.579.2. 1258 1990 Unknown [id number] 2.16.840.1.854111.3.579.2. 1258 1990 Unknown [id number] 2.16.840.1.679582.3.579.2. 1258 1990 Unknown [id number] 2.16.840.1.859378.3.579.2. 1258 1990 Unknown [id number] 2.16.840.1.111341.3.579.2. 1258 1990 Unknown [id number] 2.16.840.1.075288.3.579.2. 9 1990 Unknown [id number] 2.16.840.1.685928.3.579.2. 9 1959 Unknown [id number] Social History Date Type Detail Facility Start: 10-21-2023 Tobacco smoking status MDIS Never sm oked tobacco [facility] Start: 10-21-2023 Tobacco use and exposure Smoke less tobacco non-user [facility] Start: 10-21-2023 End: 04-23-2024 [facility] Start: 10-21-2023 End: 04-23-2024 Social connection and isolation panel [facility] Do you belong to any clubs or organizations such as yarsani groups, unions, fraternal or athletic groups, or [...] Sex assigned at Not on file [facility] Medical Equipment Procedure Code Equipment Code Equipment Origin al Text Equipment Identifier Dates Use as instructe d 4 times daily to check blood glucose. [id number] Start: 04-05-2024 End: 04-05-2025 History of Present illness Narrative 07-25-2024 Julia Reeves LPN - 07/25/2024 1:30 PM EDT Note Date & Type Note Facility 07-25-2024 History of Presen t illness Narrative Reason [...] aura and without status migrainosus, not intractable ([facility]) 09/22/2023 CYNDY (generalized anxiety disorder) ([facility]) 09/22/2023 MDD (major depressive disorder), recurrent episode, mild (HCC) ([facility]) 09/22/2023 History of herpes genitalis 09/22/2023 Irritable [...] not intractable (CMS/HCC) CYNDY (generalized anxiety disorder) (CMS/HCC) H/O herpes genitalis Hx of hernia [...] nursing note reviewed. Exam conducted with a machine fitter present. Vitals: Estimated body mass index is 44.02 kg/m as calculated from the following: Height as of 10/21/23: 5' 1 . Weight as of 07/18/24: 233 lb. BP: 122/70 Patient's last menstrual period was 10/22/2023. ASSESSMENT & PLAN ICD-10-CM 1. Third trimester Z34.93 Urine dip Return OB: Patient presents today for a routine obstetrics appointment. Patient is currently 38w2d . Patient states she is doing well but has complaints of being tired due to current . Patient has verbalizes frequent movement. labor precautions was discussed/given and patient was instructed to perform kick counts three times a day. sIGNED INDUCTION CONSENTS. Orders Placed This Encounter Procedures Urine dip Follow Up: Patient is to return to office FOR VISIT Documented by Julia Reeves LPN on behalf of: Lakia Ramos DO documented in this encounter [facility] History of Present illness Narrative 07-18-2024 LIANE [...] aura and without status migrainosus, not intractable ([facility]) 09/22/2023 CYNDY (generalized anxiety disorder) (CMS/HCC) 09/22/2023 [...] not intractable (CMS/HCC) CYNDY (generalized anxiety disorder) ([facility]/HCC) H/O herpes genitalis Hx of hernia repair [...] aura and without status migrainosus, not intractable ([facility]) 09/22/2023 CYNDY (generalized anxiety disorder) ([facility]) 09/22/2023 MDD (major depressive disorder), recurrent episode, mild (HCC) ([facility]) 09/22/2023 History of herpes genitalis 09/22/2023 Irritable bowel syndrome with diarrhea 10/21/2023 Persistent disorder of initiating or maintaining sleep 10/21/2023 Chronic neck pain 10/21/2023 Obesity (BMI 30-39.9) 10/26/2023 Bleeding in early 12/30/2023 Missed menses 12/30/2023 Resolved Ambulatory Problems Diagnosis Date Noted No Resolved Ambulatory Problems Past Medical History: Diagnosis Date Chronic migraine without aura without status migrainosus, not intractable ([facility]) H/O herpes genitalis Hx of hernia repair Insomnia, persistent Metabolic syndrome Seborrheic dermatitis Ventral hernia without obstruction or gangrene HISTORY PAST MEDICAL HISTORY SOCIAL HISTORY Past Medical History: Diagnosis Date Chronic migraine without aura without status migrainosus, not intractable ([facility]) CYNDY (generalized anxiety disorder) ([facility]) H/O herpes genitalis Hx of hernia repair Insomnia, persistent Irritable bowel syndrome with diarrhea MDD (major depressive disorder), recurrent episode, mild (HCC) ([facility]) Metabolic syndrome Seborrheic dermatitis Ventral hernia without [...] nursing note reviewed. Exam conducted with a machine fitter present. Vitals: Estimated body mass index is 43.84 kg/m as calculated from the following: Height as of 24: 5' 1 . Weight as of this [...] Lakia Ramos DO documented in this encounter [facility] Evaluation note Note Date & Type Note Facility Evaluation note Diagnosis Third trimester state, incidental 36 weeks gestation of documented in this encounter [facility] Evaluation note Note Date & Type Note Facility Evaluation note Diagnosis Third trimester state, incidental 37 weeks gestation of documented in this encounter [facility] Evaluation note Note Date & Type Note Facility Evaluation note Diagnosis Migraine without aura and without status migrainosus, not intractable ([facility]/HCC)- Primary CYNDY (generalized anxiety disorder) ([facility]) Generalized anxiety disorder Chronic neck pain Cervicalgia Third trimester state, incidental documented in this encounter [facility] Summary Purpose Family History No Family History Records FoundNo Family History Records FoundNo Family History Records FoundNo Family History Records Found Advance Directives No Advanced Directives Records FoundNo Advanced Directives Records FoundNo Advanced Directives Records FoundNo Advanced Directives Records Found Additional Source Comments INFORMATION SOURCE (unrecogn ized section and content) DATE CREATED AUTHOR 04/04/2018 [facility] DATE CREATED AUTHOR AUTHOR'S ORGANIZ ATION 11/03/2021 [facility] DATE CREATED AUTHOR AUTHOR'S ORGANIZ ATION 10/26/2022 [facility] DATE CREATED AUTHOR AUTHOR'S ORGANIZ ATION 07/27/2024 [facility] EPIC Reason for Visit (unrecogniz ed section and content) Reason Comments Routine Visit Care Teams (unrecognized sec tion and content) Pst Manager Relationship Specialty Start Date End Date Shailesh Cevallos MD [address] [place] [phone] PCP - General Family Medicine 01/20/24 Shailesh Cevallos MD [address] [place] [phone] PCP - [facility] [employer] 08/10/23 10/09/99 Pst Manager Relationship Specialty Start Date End Date Shailesh Cevallos MD [address] [place] [phone] PCP - General Family Medicine 01/20/24 Shailesh Cevallos MD [address] [place] [phone] PCP - [facility] [employer] 08/10/23 10/09/99 Pst Manager Relationship Specialty Start Date End Date Shailesh Cevallos MD [address] [place] [phone] PCP - [facility] 01/20/24 Shailesh Cevallos MD [address] [place] [phone] [facility] [employer] 08/10/23 10/09/99 Pst Manager Relationship Specialty Start Date End Date Shailesh Cevallos MD [address] [place] [phone] PCP - [facility] 01/20/24 Shailesh Cevallos MD [address] [place] [address] [facility] [employer] 08/10/23 10/09/99 Pst Manager Relationship Specialty Start Date End Date Shailesh Cevallos MD [address] [place] [address] PCP - [facility] 01/20/24 Shailesh Cevallos MD [address] [place] [address] [facility] [employer] 08/10/23 10/09/99 FOR RECORDS PERTAINING TO PATIENTS [...] BE BASED ON THE PRIMARY CLINICAL RECORDS. [facility] [employer] [facility]. provides no warranty or guarantee of the accuracy or completeness of information in this document.
[2024-07-28 11:27] VITALS: BP 142/74; PULSE 96
== END 2024-07-28 12:24 | disposition home or self-care (01) ==
LOC: FBCO 07:30 → FBC 11:20
PROVIDERS: PCP Family Medicine; Visit Provider Obstetrics & Gynecology
DX: O99.283 Endocrine, nutritional and metabolic diseases complicating pregnancy, third trimester (principal); Z3A.39 39 weeks gestation of pregnancy
CPT/HCPCS: 59025

== ENCOUNTER 2024-07-30 04:54 | Inpatient (IN) | payer OTHER, SELFPAY ==
[2024-07-30] VITALS (42 sets, daily range): BP systolic 106–183; BP diastolic 53–86; PULSE 65–102; TEMP 36.4–37
--- OUTSIDE RECORDS SUMMARY | 2024-07-30 04:58 | XMS_ITS | CCD ---
Author Organization [facility] Care Team Providers Care Capacitor Assembler Name Role Phone PHYSICIAN, DEFAULT Unavailable Unavailable [...] Drug Class(es) Dates Sig (Normalized) Sig (Original) cefdinir 300 mg oral capsule (1 source) Cephalosporin Antibacterial Start: 07-27-2024 End: 08-06-2024 take 1 capsule by mouth in the morning cefdinir (Omnicef) 300 MG capsule Indications: Upper respiratory tract infection, unspecified type Take 1 capsule (300 mg) by mouth in the morning and 1 capsule (300 mg) before bedtime. Do all this for 10 days. 20 capsule 07/27/2024 08/06/2024 Active isopropyl alcohol 0.7 ml/ml medicated pad (9 sources) Start: 04-05-2024 Alcohol Swabs (Alcohol Prep Pad) 70 % pads Indications: Gestational diabetes mellitus (GDM), antepartum, gestational diabetes method of control unspecified , Elevated glucose tolerance test Apply 1 Pad topically Daily Use four times daily to check FSBS. 150 each 3 04/05/2024 Active polysaccharide iron complex 391 mg oral capsule (9 sources) Start: 04-06-2024 End: 11-02-2024 take 1 capsule by mouth once daily iron polysaccharides (ProFe) 391.3 (180 Fe) MG capsule Indications: Low hemoglobin Take 1 capsule (391.3 mg) by mouth Daily 30 capsule 6 04/06/2024 11/02/2024 Active sertraline 100 mg oral tablet (9 sources) Serotonin Reuptake Inhibitor Start: 05-21-2024 take 1 tablet by mouth once daily sertraline (Zoloft) 100 MG tablet Indications: MDD (major depressive disorder), recurrent episode, mild (HCC) (CMS/HCC) Take 1 tablet (100 mg) by mouth Daily 90 tablet 3 05/21/2024 Active Problems Active Problems Problem Classification Problem Date Documented Da te Episodic/Chronic Anxiety disorders (10 sources) Anxiety disorder, unspecified; Translations: [Generalized anxiety disorder] Onset: 10-26-2022 09-22-2023 Chronic Headache; including migraine (9 sources) Migraine without aura, not refractory ; Translations: [Migraine without aura, not intractable, without status migrainosus] Onset: 09-22-2023 09-22-2023 Chronic Headache; including migraine (4 sources) Headache; including migraine; Translations: [HEADACHE UNSPECIFIED] Onset: 10-23-2022 Menstrual disorders (9 sources) Missed period; Translations: [Irregular menstruation, unspecified] Onset: 12-30-2023 12-30-2023 Chronic Mood disorders (9 sources) Recurrent major depressive episodes, mild ; Translations: [Major depressive disorder, recurrent, mild] Onset: 09-22-2023 09-22-2023 Chronic Mood disorders (1 source) Mood disorders; Translations: [DEPRESSION UNSPECIFIED] Onset: 10-26-2022 Other aftercare (1 source) Other fdc (current) drug therapy; Translations: [OTH 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 CURRENT DRUG THERAPY] Onset: 10-26-2022 Episodic Other gastrointestinal disorders (9 sources) Irritable bowel syndrome with diarrhea; Translations: [Irritable bowel syndrome with diarrhea] Onset: 10-21-2023 10-21-2023 Chronic Other nutritional; endocrine; and metabolic disorders (9 sources) Body mass index 30+ - obesity; Translations: [Obesity, unspecified] Onset: 10-26-2023 10-26-2023 Chronic Other and delivery including normal (6 sources) Third trimester ; Translations: [Encounter for supervision of normal , unspecified, third trimester] 07-11-2024 Episodic Other upper respiratory infections (1 source) Upper respiratory infection; Translations: [Acute upper respiratory infection, unspecified] 07-27-2024 Episodic Residual codes; unclassified (2 sources) Gestation [...] Hemorrhage during ; abruptio placenta; placenta previa (9 sources) Antepartum hemorrhage; Translations: [Hemorrhage in early , unspecified] Onset: 12-30-2023 12-30-2023 Episodic Other infections; including parasitic (9 sources) History of sexually transmitted disease; Translations: [Personal history of other infectious and parasitic diseases] Onset: 09-22-2023 09-22-2023 Episodic Residual codes; unclassified (9 sources) Persistent insomnia; Translations: [Insomnia, unspecified] Onset: 10-21-2023 10-21-2023 Episodic Spondylosis; intervertebral disc disorders; other back problems (9 sources) Chronic neck pain; Translations: [Cervicalgia] Onset: 10-21-2023 10-21-2023 Episodic Unclassified (1 source) CONTACT W/AND (SUSP) EXPOS COVID-19; Translations: [CONTACT W/AND (SUSP) EXPOS COVID-19] Onset: 12-16-2021 Results Test Name Value Interpretation Reference Range Facility Urinalysis macro (dipstick) panel (U)on 07-25-2024 Bilirubin, UA Negative Negative - 4(70) +++ mg/dL [facility] Blood, UA Negative Negative - 50 Zachery/mcL [facility] Clarity, UA Clear [facility] Color, UA Yellow [facility] Glucose, UA Negative Negative - 1999(110) ++++ mg/dL [facility] Interpretation and review of laboratory results Abnormal [facility] Ketones, UA Negative Negative - 160(16) ++++ mg/dL [facility] Leukocytes, UA Positive Negative - 500+++ Giovana/mcL [facility] Nitrite, UA Negative Negative - Positive [facility] pH, UA 6 5 - 9 [facility] Protein, UA Positive Negative - 1999(20) ++++ mg/dL [facility] Spec Grav, UA 1.02 1 - 1.03 [facility] Urobilinogen, UA 1.0 0.2 - 12 mg/dL [facility] AMNISUREon 07-21-2024 TBH AMNISURE Negative NEGATIVE [facility] Urinalysis macro (dipstick) panel (U)on 07-18-2024 Bilirubin, UA Positive Negative - 4(70) +++ mg/dL [facility] Comment on above: small Blood, UA Negative Negative - 50 Zachery/mcL [facility] Clarity, UA Clear [facility] Color, UA Yellow [facility] Glucose, UA Negative Negative - 1999(110) ++++ mg/dL [facility] Interpretation and review of laboratory results Abnormal [facility] Ketones, UA Negative Negative - 160(16) ++++ mg/dL [facility] Leukocytes, UA Trace Negative - 500+++ Giovana/mcL [facility] Nitrite, UA Negative Negative - Positive [facility] pH, UA 6.0 5 - 9 [facility] Protein, UA Negative Negative - 1999(20) ++++ mg/dL [facility] Spec Grav, UA 1.030 1 - 1.03 [facility] Urobilinogen, UA 1.0 0.2 - 12 mg/dL [facility] Urinalysis macro (dipstick) panel (U)on 07-11-2024 Bilirubin, UA Negative Negative - 4(70) +++ mg/dL [facility] Blood, UA Negative Negative - 50 Zachery/mcL [facility] Clarity, UA Clear [facility] Color, UA Yellow [facility] Glucose, UA Negative Negative - 1999(110) ++++ mg/dL [facility] Interpretation and review of laboratory results Abnormal [facility] Ketones, UA Negative Negative - 160(16) ++++ mg/dL [facility] Leukocytes, UA Positive Negative - 500+++ Giovana/mcL [facility] Comment on above: small Nitrite, UA Negative Negative - Positive [facility] pH, UA 6.0 5 - 9 [facility] Protein, UA Trace Negative - 2000(20) ++++ mg/dL [facility] Spec Grav, UA 1.020 1 - 1.03 [facility] Urobilinogen, UA 1.0 0.2 - 12 mg/dL [facility] CBC AUTO DIFFon 10-23-2022 BASO # 0.0 103/ul Normal 0.0-0.1 [facility] Comment on above: Performed By: #### C BC #### [facility] [address] [place] [address] Dr. Mir Araiza Basophils/100 WBC (Bld) 0.7 % Normal 0.2-2.0 [facility] Comment on above: Performed By: #### C BC #### [facility] [address] [place] [address] Dr. Mir Araiza EO # 0.2 103/ul Normal 0.0-0.7 [facility] Comment on above: Performed By: #### C BC #### [facility] [address] [place] [address] Dr. Mir Araiza Eosinophils/100 WBC (Bld) 3.0 % Normal 0.9-7.0 [facility] Comment on above: Performed By: #### C BC #### [facility] [address] [place] [address] Dr. Mir Araiza Erythrocyte distribution width (RBC) [Ratio] 15.6 % Critically high 11.0-15.0 [facility] Comment on above: Performed By: #### C BC #### [facility] [address] [place] [address] Dr. Mir Araiza Hematocrit (Bld) [Volume fraction] 38.5 % Normal 36.0-48.0 [facility] Comment on above: Performed By: #### C BC #### [facility] [address] [place] [address] Dr. Mir Araiza Hemoglobin (Bld) [Mass/Vol] 12.3 g/dL Normal 12.0-16.0 [facility] Comment on above: Performed By: #### C BC #### [facility] [address] [place] [address] Dr. Mir Araiza IG # 0.02 10e3/ul Normal 0.00-0.03 [facility] Comment on above: Performed By: #### C BC #### [facility] [address] [place] [address] Dr. Mir Araiza IG % 0.3 % Normal 0.0-0.5 [facility] Comment on above: Performed By: #### C BC #### [facility] [address] [place] [address] Dr. Mir Araiza LYMPH # 1.5 103/ul Normal 1.2-3.8 [facility] Comment on above: Performed By: #### C BC #### [facility] [address] [place] [address] Dr. Mir Araiza Lymphocytes/100 WBC (Bld) 24.1 % Normal 20.5-60.0 [facility] Comment on above: Performed By: #### C BC #### [facility] [address] [place] [address] Dr. Mir Araiza MANUAL DIFF REQ NO Normal [facility] Comment on above: Performed By: #### C BC #### [facility] [address] [place] [address] Dr. Mir Araiza MCH (RBC) [Entitic mass] 24.8 pg Critically low 26.7-34.0 [facility] Comment on above: Performed By: #### C BC #### [facility] [address] [place] [address] Dr. Mir Araiza MCHC (RBC) [Mass/Vol] 31.9 g/dL Normal 29.9-35.2 [facility] Comment on above: Performed By: #### C BC #### [facility] [address] [place] [address] Dr. Mir Araiza MCV (RBC) [Entitic vol] 77.8 fL Critically low 81.0-99.0 [facility] Comment on above: Performed By: #### C BC #### [facility] [address] [place] [address] Dr. Mir Araiza MONO # 0.4 103/ul Normal 0.3-0.8 [facility] Comment on above: Performed By: #### C BC #### [facility] [address] [place] [address] Dr. Mir Araiza Monocytes/100 WBC (Bld) 6.3 % Normal 1.7-12.0 [facility] Comment on above: Performed By: #### C BC #### [facility] [address] [place] [address] Dr. Mir Araiza NEUT # 4.0 103/ul Normal 1.4-6.5 [facility] Comment on above: Performed By: #### C BC #### [facility] [address] [place] [address] Dr. Mir Araiza Neutrophils/100 WBC (Bld) 65.6 % Normal 43.0-75.0 [facility] Comment on above: Performed By: #### C BC #### [facility] [address] [place] [address] Dr. Mir Araiza Platelet mean volume (Bld) [Entitic vol] 12.3 fL Normal 9.5-13.5 [facility] Comment on above: Performed By: #### C BC #### [facility] [address] [place] [address] Dr. Mir Araiza PLT 173 103/ul Normal 150-450 [facility] Comment on above: Performed By: #### C BC #### [facility] [address] [place] [address] Dr. Mir Araiza RBC 4.95 106/ul Normal 4.20-5.40 [facility] Comment on above: Performed By: #### C BC #### [facility] [address] [place] [address] Dr. Mir Araiza WBC 6.0 103/ul Normal 4.0-11.0 [facility] Comment on above: Performed By: #### C BC #### [facility] [address] [address] [address] Mir Araiza CRPon 10-23-2022 CRP 0.8 mg/dL Normal <=1.0 [facility] Comment on above: Performed By: #### B MP, CRP #### [facility] [address] [place] [address] Dr. Mir Araiza URon 10-23-2022 , QUAL Negative Normal NEGATIVE [facility] Comment on above: Performed By: #### P REGU #### [facility] [address] [place] [address] Dr. Mir Araiza PROF CHEM 8 (BAS METB)on Anion gap [Moles/Vol] 12.1 mmol/L Normal [facility] Comment on above: Performed By: #### B MP, CRP #### [facility] [address] [place] [address] Dr. Mir Araiza Calcium [Mass/Vol] 8.8 mg/dL Normal 8.5-10.1 [facility] Comment on above: Performed By: #### B MP, CRP #### [facility] [address] [place] [address] Dr. Mir Araiza Chloride [Moles/Vol] 104 mmol/L Normal 98-107 [facility] Comment on above: Performed By: #### B MP, CRP #### [facility] [address] [address] [address] Mir Araiza CO2 [Moles/Vol] 27.2 mmol/L Normal 21.0-32.[address] [facility] Comment on above: Performed By: #### B MP, CRP #### [facility] [address] [place] [address] Dr. Mir Araiza Creatinine [Mass/Vol] 0.83 mg/dL Normal 0.55-1.02 [facility] Comment on above: Performed By: #### B MP, CRP #### [facility] [address] [place] [address] Dr. Mir Araiza EGFR-AF MARTINIQUAIS >60 Normal >=[address] [facility] Comment on above: Performed By: #### B MP, CRP #### [facility] [address] [address] [address] Mir Araiza EGFR-NON AF MARTINIQUAIS >60 Normal >=60 [facility] Comment on above: Performed By: #### B MP, CRP #### [facility] [address] [address] [address] Mir Araiza Glucose [Mass/Vol] 96 mg/dL Normal 74-106 [facility] Comment on above: Performed By: #### B MP, CRP #### [facility] [address] [address] [address] Mir Ariaza Potassium [Moles/Vol] 3.3 mmol/L Critically low 3.5-5.1 [facility] Comment on above: Performed By: #### B MP, CRP #### [facility] [address] [address] [address] Mir Araiza Sodium [Moles/Vol] 140 mmol/L Normal 136-145 [facility] Comment on above: Performed By: #### B MP, CRP #### [facility] [address] [address] [address] Mir Araiza Urea nitrogen [Mass/Vol] 10.0 mg/dL Normal 7.0-18.0 [facility] Comment on above: Performed By: #### B MP, CRP #### [facility] [address] [address] [address] Mir Araiza Urea nitrogen/Creatinine [Mass ratio] 12.0 mg/mg Normal [facility] Comment on above: Performed By: #### B MP, CRP #### [facility] [address] [address] [address] Mir Araiza SED RATE [facility] 2022 SED RATE 9 mm/hr Normal <=20 [facility] Comment on above: Performed By: #### S EDR #### [facility] [address] [address] [address] Mir Araiza Covid-19 PCR ([facility])on SARS-CoV-2 (COVID-19) RNA IFRAH+probe Ql (Unsp spec) Detected Critically abnormal NOT DETECTED [facility] Comment on above: Result Comment: This test is not yet approved or cleared by the [place] FDA. When there are no FDA-approved or cleared tests available, and other criteria are met, FDA can make tests available under an emergency access mechanism called an Emergency Use Authorization (EUA). The EUA for this test is supported by the [place] of Health and Human Service's (HHS's) declaration [...] used). Performed By: #### C VDTB #### [facility] [address] [address] [address] Mir Araiza [facility] Metabolic Empo n 08-14-2021 Albumin [Mass/Vol] 3.9 g/dL Normal 3.2-5.5 [facility] Comment on above: Performed By: #### E BS CMP, EBS LIPID #### [address] Albumin/Globulin [Mass ratio] 1.2 {ratio} Normal [facility] Comment on above: Performed By: #### E BS CMP, EBS LIPID #### [facility] [address] [place] [address] [place] ALP [Catalytic activity/Vol] 81 U/L Normal 32-92 [facility] Comment on above: Performed By: #### E BS CMP, EBS LIPID #### [facility] [address] [place] [address] [place] ALT [Catalytic activity/Vol] 17 U/L Normal 10-60 [facility] Comment on above: Performed By: #### E BS CMP, EBS LIPID #### [facility] [address] [place] [address] [place] AST [Catalytic activity/Vol] 18 U/L Normal 10-42 [facility] Comment on above: Performed By: #### E BS CMP, EBS LIPID #### [facility] [address] [place] [address] [place] Bilirubin [Mass/Vol] 0.3 mg/dL Normal 0.3-1.2 [facility] Comment on above: Performed By: #### E BS CMP, EBS LIPID #### [facility] [address] [place] [address] [place] Calcium [Mass/Vol] 9.5 mg/dL Normal 8.2-10.2 [facility] Comment on above: Performed By: #### E BS CMP, EBS LIPID #### [address] Chloride [Moles/Vol] 99 mmol/L Normal 95-114 [facility] Comment on above: Performed By: #### E BS CMP, EBS LIPID #### [facility] [address] [place] [address] CO2 [Moles/Vol] 30.3 mmol/L High 22.0-30.0 [facility] Comment on above: Performed By: #### E BS CMP, EBS LIPID #### [address] Creatinine [Mass/Vol] 0.61 mg/dL Normal 0.44-1.03 [facility] Comment on above: Performed By: #### E BS CMP, EBS LIPID #### [address] Estimated GFR ( Lili > 60 Normal [facility] Comment on above: Result Comment: GFR estimated reference range: According to KDOQI guidelines, <60 ml/min/1.73m2 is sufficient to diagnose a patient with chronic kidney disease. Performed By: #### E BS CMP, EBS LIPID #### [facility] [address] [place] [address] Estimated GFR (Non- Am > 60 Normal [facility] Comment on above: Performed By: #### E BS CMP, EBS LIPID #### [facility] [address] [place] [address] [place] Globulin (S) [Mass/Vol] 3.2 g/dL Normal [facility] Comment on above: Performed By: #### E BS CMP, EBS LIPID #### [facility] [address] Glucose [Mass/Vol] 83 mg/dL Normal 70-100 [facility] Comment on above: Performed By: #### E BS CMP, EBS LIPID #### [facility] [address] Potassium [Moles/Vol] 4.3 mmol/L Normal 3.5-5.1 [facility] Comment on above: Performed By: #### E BS CMP, EBS LIPID #### [facility] [address] Protein [Mass/Vol] 7.1 g/dL Normal 6.1-7.9 [facility] Comment on above: Performed By: #### E BS CMP, EBS LIPID #### [facility] [address] Sodium [Moles/Vol] 138 mmol/L Normal 136-146 [facility] Comment on above: Performed By: #### E BS CMP, EBS LIPID #### [facility] [address] [place] [address] [place] Urea nitrogen [Mass/Vol] 11 mg/dL Normal 9-23 [facility] Comment on above: Performed By: #### E BS CMP, EBS LIPID #### [facility] [address] Lipid Profileon 08-14-2021 Cholesterol [Mass/Vol] 248 mg/dL High 140-200 [facility] Comment on above: Result Comment: Chol less than 200 mg/dl low risk Chol 201-239 mg/dl borderline risk Chol 240 mg/dl and greater high risk Performed By: #### E BS CMP, EBS LIPID #### [facility] [address] Cholesterol in HDL [Mass/Vol] 54 mg/dL Normal 35-85 [facility] Comment on above: Result Comment: HDL CHOL ATP-III CLASSIFICATION Cardiovascular Risk HDL > or equal to 60 mg/dL LOW HDL < 40 mg/dL HIGH Performed By: #### E BS CMP, EBS LIPID #### [facility] [address] Cholesterol.total/C holesterol in HDL [Mass ratio] 4.6 {ratio} Normal <5.0 [facility] Comment on above: Result Comment: PERF ORMED BY: [place] [address] PATHOLOGIST [employer] INSTRUCTOR CAMILA KINNEY M.D. Performed By: #### E BS CMP, EBS LIPID #### [facility] [address] LDL Cholesterol,Calcula satya 170 mg/dL High 0-100 [facility] Comment on above: Result Comment: LDL ATP III CLASSIFICATION LDL less than 100 mg/dL Optimal LDL 100-129 mg/dL Near or above optimal LDL 130-159 mg/dL Borderline high LDL 160-189 mg/dL High LDL greater than 189 mg/dL Very high Performed By: #### E BS CMP, EBS LIPID #### [facility] [address] [place] [address] Triglyceride w/Reflex 121 mg/dL Normal 35-149 [facility] [...] #### E BS CMP, EBS LIPID #### [facility] [address] VLDL CHOLESTEROL 24 mg/dL Normal [facility] Comment on above: Performed By: #### E BS CMP, EBS LIPID #### [facility] [address] [place] [address] Vital Signs Date Time Vital Sign Value Performing Clinician Jose ralph 07-25-2024 13:29-0400 Diastolic blood pressure 70 mm[Hg] Lakia Ramos DO Work Phone: [facility] 07-25-2024 13:29-0400 Systolic blood pressure 122 mm[Hg] Lakia Richard DO Work Phone: [facility] 07-18-2024 09:22-0400 Body mass index (BMI) [Ratio] 44.02 kg/m2 Josy ROB Work Phone: [facility] 07-18-2024 09:22-0400 Body weight 105.69 kg Josy ROB Work Phone: [facility] 07-18-2024 09:22-0400 Diastolic blood pressure 78 mm[Hg] Josy ROB Work Phone: [facility] 07-18-2024 09:22-0400 Systolic blood pressure 124 mm[Hg] Josy ROB Work Phone: [facility] 07-11-2024 15:27-0400 Body mass index (BMI) [Ratio] 43.84 kg/m2 Lakia Richard DO Work Phone: [facility] 07-11-2024 15:27-0400 Body weight 105.23 kg Lakia Richard DO Work Phone: [facility] 07-11-2024 15:27-0400 Diastolic blood pressure 80 mm[Hg] Lakia Richard DO Work Phone: [facility] 07-11-2024 15:27-0400 Systolic blood pressure 124 mm[Hg] Lakia Richard DO Work Phone: [facility] Encounters Encounter Date Encounter Type Care Provider Facility Start: 07-27-2024 End: 07-27-2024 Orders Only Shailesh Cevallos MD Work Phone: [facility] Comment on above: Upper respiratory tr act infection, unspecified type (Primary Dx) Start: 07-25-2024 End: 07-25-2024 flow sheet Lakia [...] Start: 07-18-2024 End: 07-18-2024 flow sheet Josy Patel PA Work Phone: [facility] Comment on [...] Start: 04-03-2018 End: 04-04-2018 Ambulatory DEFAULT PHYSICIAN Facility:[facility] Procedures Date Procedure Procedure Detail Performing Clinician Start: 07-25-2024 Urnls dip stick/tabl et rgnt non-auto w/o micrscp Lakia Richard DO Work Phone: Start: 07-21-2024 AMNISURE Lakia Fazi o DO Work Phone: Start: 07-18-2024 Urnls dip stick/tabl et rgnt non-auto w/o micrscp Josy Patel PA Work Phone: Start: 07-11-2024 Urnls dip stick/tabl et rgnt non-auto w/o micrscp Lakia Richard DO Work Phone: Start: 04-05-2024 Microscopic observat ion [Identifier] in Cervix by Cyto stain Lakia Richard DO Work Phone: Plan of Treatment Date Care Activity Detail Author Start: 04-05-2029 Screening for malign ant neoplasm of cervix [facility] Start: 07-25-2024 End: 07-25-2024 Patient encounter procedure 07/25/2024 1:30 PM EDT Routine [facility] [address] [address] Lakia Ramos, DO [address] [place] [address] [facility] Start: 07-18-2024 End: 07-18-2024 Patient encounter procedure [facility] Comment on above: Arrived Start: 07-11-2024 End: 07-11-2025 Strep B DNA probe, amplification Strep B DNA probe, amplification Lab Routine Third trimester Expected: 07/11/2024 (Approximate), Expires: 07/11/2025 [facility] Work Phone: Comment on above: Expected: 07/11/2024 (Approximate), Expires: 07/11/2025 Start: 06-10-2024 Influenza vaccination Influenza Vacc ine (#1) [facility] Healthcare Payers Date Payer Category Payer Private Health Insurance [employer] [id number] 2023 Unknown 2023 Unknown [id number] 1990 Unknown [id number] 2.16.840.1.953102.3.579.2. 593 1990 Unknown [id number] 2.16.840.1.352256.3.579.2. 593 1990 Unknown [id number] 2.16.840.1.481292.3.579.2. 1258 1990 Unknown [id number] 2.16.840.1.063525.3.579.2. 1258 1990 Unknown [id number] 2.16.840.1.449655.3.579.2. 9 1990 Unknown [id number] 2.16.840.1.231712.3.579.2. 9 1990 Unknown [id number] 2.16.840.1.414027.3.579.2. 9 1990 Unknown [id number] 2.16.840.1.712271.3.579.2. 9 1990 Unknown [id number] 2.16.840.1.808029.3.579.2. 1258 1990 Unknown [id number] 2.16.840.1.554562.3.579.2. 1258 1990 Unknown [id number] 2.16.840.1.430151.3.579.2. 9 1990 Unknown [id number] 2.16.840.1.138918.3.579.2. 1259 1959 Unknown [id number] Social History Date Type Detail Facility Start: 10-21-2023 Tobacco smoking status NHIS Never sm oked tobacco [facility] Start: 10-21-2023 Tobacco use and exposure Smoke less tobacco non-user [facility] Start: 10-21-2023 End: 04-23-2024 [facility] of [facility] Start: 10-21-2023 End: 04-23-2024 Social connection and isolation panel [facility] Do you belong to any clubs or organizations such as jain groups, unions, fraternal or athletic groups, or [...] 4 times daily to check blood glucose. [id number] Start: 04-05-2024 End: 04-05-2025 History of Present illness Narrative 07-25-2024 Julia Reeves LPN - 07/25/2024 1:30 PM EDT Note Date & Type Note Facility 07-25-2024 History of Presen t illness Narrative Reason for Appointment: Patient ID: Aleuxs Dominguez is a 34 y.o. female who [...] aura and without status migrainosus, not intractable (CMS/HCC) 09/22/2023 CYNDY (generalized anxiety disorder) (CMS/HCC) 09/22/2023 [...] nursing note reviewed. Exam conducted with a family practice physician assistant present. Vitals: Estimated body mass index is [...] aura and without status migrainosus, not intractable (CMS/HCC) 09/22/2023 CYNDY (generalized anxiety disorder) (CMS/HCC) 09/22/2023 [...] History of Present illness Narrative 07-11-2024 Julia Reeves, CHUCHO - 07/11/2024 3:00 PM EDT Note Date [...] aura and without status migrainosus, not intractable (CMS/HCC) 09/22/2023 CYNDY (generalized anxiety disorder) (CMS/HCC) 09/22/2023 [...] nursing note reviewed. Exam conducted with a family practice physician assistant present. Vitals: Estimated body mass index is [...] Lakia Ramos DO documented in this encounter [facility] Evaluation note Note Date & [...] aura and without status migrainosus, not intractable ([facility])- Primary CYNDY (generalized anxiety disorder) ([facility]) Generalized anxiety disorder Chronic neck pain Cervicalgia Third trimester state, incidental documented in this encounter [facility] Evaluation note Note Date & Type Note Facility Evaluation note Diagnosis Migraine without aura and without status migrainosus, not intractable ([facility]/H[facility])- Primary CYNDY (generalized anxiety disorder) ([facility]) Generalized anxiety disorder Chronic neck pain Cervicalgia Upper respiratory tract infection, unspecified type- Primary documented in this encounter [facility] Summary Purpose Family History No Family History Records FoundNo Family History Records FoundNo Family History Records FoundNo Family History Records Found Advance Directives No Advanced Directives Records FoundNo Advanced Directives Records FoundNo Advanced Directives Records FoundNo Advanced Directives Records Found Additional Source Comments INFORMATION SOURCE (unrecogn ized section and content) DATE CREATED AUTHOR 04/04/2018 [facility] DATE CREATED AUTHOR AUTHOR'S ORGANIZ ATION 11/03/2021 [facility] DATE CREATED AUTHOR AUTHOR'S ORGANIZ ATION 10/26/[address] [facility] DATE CREATED AUTHOR AUTHOR'S ORGANIZ ATION 07/27/2024 [facility] dical Specialists EPIC Reason for Visit (unrecogniz ed section and content) Reason Comments Routine Visit Care Teams (unrecognized sec tion and content) [employer] Relationship Specialty Start Date End Date Shailesh Cevallos MD [address] [place] [address] PCP - General Family Medicine 01/20/24 Shailesh Cevallos MD [address] [place] [address] PCP - Medical [employer] 08/10/23 10/09/99 [employer] Relationship Specialty Start Date End Date Shailesh Cevallos MD [address] [place] [address] PCP - General Family Medicine 01/20/24 Shailesh Cevallos MD [address] [place] [address] PCP - Medical [employer] 08/10/23 10/09/99 [employer] Relationship Specialty Start Date End Date Shailesh Cevallos MD [address] [place] [address] PCP - General Family Medicine 01/20/24 Shailesh Cevallos MD [address] [place] [address] PCP - [facility] [employer] 08/10/23 10/09/99 [employer] Relationship Specialty Start Date End Date Shailesh Cevallos MD [address] [place] [address] PCP - General Family Medicine 01/20/24 Shailesh Cevallos MD [address] [place] [phone] PCP - [facility] 08/10/23 10/09/99 [employer] As[employer]er Relationship Specialty Start Date End Date Shailesh Cevallos MD [address] [place] [phone] PCP - General [facility] 01/20/24 Shailesh Cevallos MD [address] [place] [phone] PCP - [facility] 08/10/23 10/09/99 [employer]itor As[employer]er Relationship Specialty Start Date End Date Shailesh Cevallos MD [address] [place] [phone] PCP - [facility] 01/20/24 Shailesh Cevallos MD [address] [place] [phone] [facility] - [facility] 08/10/23 10/09/99 FOR RECORDS PERTAINING TO PATIENTS [...] BE BASED ON THE PRIMARY CLINICAL RECORDS. [facility]. provides no warranty or guarantee of the accuracy or completeness of information in this document.
[2024-07-30] MEDS: OXYTOCIN/0.9 % SODIUM CHLORIDE 10 UNITS/500 ML PLAST..BAG 6 UNIT IV (06:00)
[2024-07-30] MEDS: 0.9 % SODIUM CHLORIDE 1,000 ML 125 ML IV ×2 (06:01→11:54)
[2024-07-30 06:26] LABS: Hematocrit 32.6 % (36.0-48.0); Hemoglobin 9.7 g/dL (12.0-16.0); Mean Corpuscular HGB Conc 29.8 g/dL (29.9-35.2); Mean Corpuscular Hemoglobin 21.2 pg (26.7-34.0); Mean Corpuscular Volume 71.2 fL (81.0-99.0); Platelet Count 221 10^3/uL (150-450); Red Blood Count 4.58 10^6/uL (4.20-5.40); Red Cell Distribution Width 15.9 % (11.0-15.0)
[2024-07-30 06:36] LABS: Amphetamine Screen Urine NEGATIVE (NEGATIVE); Barbiturates Screen Urine NEGATIVE (NEGATIVE); Benzodiazepines Screen Urine NEGATIVE (NEGATIVE); Buprenorphine Screen Urine NEGATIVE (NEGATIVE); Cannabinoid Screen Urine NEGATIVE (NEGATIVE); Cocaine Screen Urine NEGATIVE (NEGATIVE); Methadone Screen Urine NEGATIVE (NEGATIVE); Methamphetamines Screen Urine NEGATIVE (NEGATIVE); Opiate Screen Urine NEGATIVE (NEGATIVE); Oxycodone Screen Urine NEGATIVE (NEGATIVE); Phencyclidine Screen Urine NEGATIVE (NEGATIVE); Tricyclic Antidepressant Urine NEGATIVE (NEGATIVE)
[2024-07-30] MEDS: NALBUPHINE HCL 10 MG/ML AMPULE IV (08:38)
[2024-07-30] MEDS: 0.9 % SODIUM CHLORIDE 1,000 ML 1000 ML IV (09:07)
[2024-07-30] MEDS: ROPIVACAINE HCL/PF 400 MG/200 ML PREMIX 6 MG EPIDURAL (09:12)
[2024-07-30] MEDS: OXYTOCIN/0.9 % SODIUM CHLORIDE 20 UNITS/1,000 ML PLAST..BAG 125 UNIT IV (13:25)
--- NOTE | 2024-07-30 13:34 | PM.OBPRCVD ---
Procedure Intrapartal events: None Induction method: per pitocin protocol Delivery augmentation: rupture of membranes and pitocin Delivery monitor: external FHT and external uterine Route of delivery: Episiotomy Description: midline L&D Laceration Description: perineal - 2nd degree Delivery repair: Vicryl Estimated blood loss (mL): 300 Anesthesia type: Epidural Disposition: floor Infant Delivery date: 07/30/24 Gender: male presentation: vertex Placental delivery description: Spontaneous cord description: 3 Vessels and Nuchal Cord
[2024-07-30] MEDS: BENZOCAINE/MENTHOL 85 GRAM SPRAY BOTTLE 1 APPLIC TOPICAL (14:14)
[2024-07-30] MEDS: GLYCERIN/WITCH HAZEL PADS 1 PAD TOPICAL (14:15)
[2024-07-30] MEDS: IBUPROFEN 600 MG TABLET PO (16:20)
[2024-07-30] MEDS: SERTRALINE HCL 100 MG TABLET PO (20:18)
[2024-07-31] MEDS: IBUPROFEN 600 MG TABLET PO ×2 (00:18→08:53)
[2024-07-31 06:25] LABS: Basophils Absolute Auto 0.1 10^3/uL (0.0-0.1); Basophils Percent Auto 0.5 % (0.2-2.0); Eosinophils Absolute Auto 0.2 10^3/uL (0.0-0.7); Eosinophils Percent Auto 1.2 % (0.9-7.0); Hematocrit 28.9 % (36.0-48.0); Hemoglobin 8.6 g/dL (12.0-16.0); Immature Granulocytes Abs Auto 0.09 10^3/uL (0.00-0.03); Immature Granulocytes Pct Auto 0.7 % (0.0-0.5); Lymphocytes Absolute Auto 2.3 10^3/uL (1.2-3.8); Lymphocytes Percent Auto 18.2 % (20.5-60.0); Mean Corpuscular HGB Conc 29.8 g/dL (29.9-35.2); Mean Corpuscular Hemoglobin 21.3 pg (26.7-34.0); Mean Corpuscular Volume 71.7 fL (81.0-99.0); Monocytes Absolute Auto 0.6 10^3/uL (0.3-0.8); Monocytes Percent Auto 4.6 % (1.7-12.0); Neutrophils Absolute Auto 9.3 10^3/uL (1.4-6.5); Neutrophils Percent Auto 74.8 % (43.0-75.0); Platelet Count 182 10^3/uL (150-450); Red Blood Count 4.03 10^6/uL (4.20-5.40); Red Cell Distribution Width 15.9 % (11.0-15.0); White Blood Count 12.5 10^3/uL (4.0-11.0)
--- NOTE | 2024-07-31 08:24 | PM.OBPN ---
OB - PN: Subj Subjective Patient comments: no complaints [place] status: doing well and well feeding status: exclusively Exam Constitutional Vital Signs, click to edit/add: Last Vital Signs Temp 98.2 F 07/30/24 23:57 Pulse 77 07/30/24 23:57 Resp 14 07/30/24 06:22 BP 106/53 07/30/24 23:57 O2 Del Method Room Air 07/31/24 00:00 Documenting provider has reviewed patient's vital signs: yes Common normals: no apparent distress, average body habitus, oriented x3, no limitations, healthy appearing, alert and well nourished General appearance: cooperative Orientation/consciousness: Yes awake, Yes oriented to person, Yes oriented to place and Yes oriented to time HENMT Common normals: normocephalic Face and sinus: normal facial exam Eye Common normals: EOMs intact bilaterally General eye: normal appearance of both eyes Neck & C-Spine Common normals: full ROM Lymph Lymphatic: no lymphadenopathy noted Chest Common normals: inspection of chest normal Respiratory Common normals: normal respiratory effort, no retractions, no use of accessory muscles, clear to auscultation bilaterally and percussion normal Cardio Common normals: no JVD, regular rate and regular rhythm Rate: regular rate Rhythm: regular rhythm GI Common normals: Normal to inspection, nondistended, normoactive bowel sounds present Inspection: normal to inspection Common normals: no CVA tenderness Back & Pelvis Common normals: no CVA tenderness Thoracic spine/upper back: normal to inspection Extremity Common normals: normal to inspection and full ROM General: normal exam except as noted Neuro Common normals: oriented x3 Sensorium/orientation: awake, alert, oriented to person, oriented to place and oriented to time Psych Psychiatry clinicians, please identify where your Mental Status Exam is documented: Mental Status Exam documented in the separate MSE Common normals: mental status grossly normal Appearance: grossly normal Attitude: calm Activity/motor behavior: appropriate eye contact Speech: normal speech Thought process: normal thought process Thought content: normal thought content Attention/concentration: attention grossly intact Results Labs Labs: Short CBC 07/31/24 Range/Units 06:08 WBC 12.5 H (4.0-11.0) 10^3/uL Hgb 8.6 L (12.0-16.0) g/dL Hct 28.9 L (36.0-48.0) % Plt Count 182 (150-450) 10^3/uL OB - PN: A/P Plan - Vaginal Delivery day: 1 Plan: routine care Time Spent with Patient Time: Total time spent is greater than 50% in coordination of care (as documented) at patient's floor/unit and/or counseling patient: Total time spent with greater than 50% in coordination of care (as documented) at patient's floor/unit and/or counseling patient: less than 15 minutes
[2024-07-31] MEDS: DOCUSATE SODIUM 100 MG CAPSULE PO (08:53)
[2024-07-31 08:56] VITALS: BP 130/60; PULSE 100
[2024-07-31 08:57] VITALS: TEMP 36.2
[2024-07-31 16:27] VITALS: BP 124/65; PULSE 113
== END 2024-07-31 16:45 | disposition home or self-care (01) | DRG 807 ==
PROVIDERS: Admitting Provider Obstetrics & Gynecology; PCP Family Medicine; Visit Provider Obstetrics & Gynecology
DX: O24.429 Gestational diabetes mellitus in childbirth, unspecified control (principal); Z37.0 Single live birth; O69.81X0 Labor and delivery complicated by cord around neck, without compression, not applicable or unspecified; Z3A.39 39 weeks gestation of pregnancy; O70.1 Second degree perineal laceration during delivery
CPT/HCPCS: 36415; 59050; 59410; 80307; 85025; 85027; 86850; 86900; 86901; J2300; J2795

== ENCOUNTER 2024-11-08 08:56 | Outpatient (OUT) | payer OTHER, SELFPAY ==
--- OUTSIDE RECORDS SUMMARY | 2024-11-08 09:11 | XMS_ITS | CCD ---
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 Role Phone PHYSICIAN, DEFAULT Unavailable Unavailable PHYSICIAN, DEFAULT Unavailable Unavailable BAN, DR SHAILESH Rodriguez Primary Care Unavailable YO LANDEROS Admitting Unavailable LETI, YO Attending Unavailable YO LANDEROS Consulting Unavailable GABRIELLA, WHITNEY Admitting Unavailable GABRIELLA, WHITNEY Attending Unavailable DR SHAILESH CEVALLOS Primary Care Unavailable GABRIELLA, WHITNEY Consulting Unavailable Shailesh Cevallos MD Primary Care Provider [phone] Shailesh Cevallos MD Unavailable SHAILESH CEVALLOS Attending Unavailable RICHARD, LAKIA Attending Unavailable RICHARD, LAKIA Attending Unavailable ROB, JOSY Attending Unavailable RICHARD, LAKIA Attending Unavailable ROB, JOSY Attending Unavailable RICHARD, LAKIA Attending Unavailable ROB, JOSY Attending Unavailable RICHARD, LAKIA Attending Unavailable Medications Current Medications Medication Drug Class(es) Dates Sig (Normalized) Sig (Original) cefdinir 300 mg oral capsule (4 sources) Cephalosporin Antibacterial Start: 10-11-2024 End: 10-21-2024 take 1 capsule by mouth in the morning cefdinir (Omnicef) 300 MG capsule Indications: Upper respiratory tract infection, unspecified type Take 1 capsule (300 mg) by mouth in the morning and 1 capsule (300 mg) before bedtime. Do all this for 10 days. 20 capsule 10/11/2024 10/21/2024 Active Start: 07-27-2024 End: 08-06-2024 take 1 capsule by mouth in the morning cefdinir (Omnicef) 300 MG capsule Indications: Upper respiratory tract infection, unspecified type Take 1 capsule (300 mg) by mouth in the morning and 1 capsule (300 mg) before bedtime. Do all this for 10 days. 20 capsule 07/27/2024 08/06/2024 Active cyclobenzaprine hydrochloride 10 mg oral tablet (2 sources) Muscle Relaxant Start: 11-07-2024 End: 11-17-2024 take 1 tablet by mouth in the morning, then take 1 tablet by mouth in the evening, then take 1 tablet by mouth at bedtime cyclobenzaprine (Flexeril) 10 MG tablet Indications: Annual physical exam , Class 3 severe obesity due to excess calories without serious comorbidity with body mass index (BMI) of 40.0 to 44.9 in adult ([facility]) , Strain of right calf muscle Take 1 tablet (10 mg) by mouth in the morning and 1 tablet (10 mg) in the evening and 1 tablet (10 mg) before bedtime. Do all this for 10 days. 30 tablet 11/07/2024 11/17/2024 Active isopropyl alcohol 0.7 ml/ml medicated pad (18 sources) Start: 04-05-2024 Alcohol Swabs (Alcohol Prep Pad) 70 % pads Indications: Gestational diabetes mellitus (GDM), antepartum, gestational diabetes method of control unspecified , Elevated glucose tolerance test Apply 1 Pad topically Daily Use four times daily to check FSBS. 150 each 3 04/05/2024 Active phentermine hydrochloride 37.5 mg oral tablet (2 sources) Sympathomimetic Amine Anorectic Start: 11-07-2024 End: 12-07-2024 take 40-44.9 tablets by mouth before mealtime phentermine (Adipex-P) 37.5 MG tablet Indications: Class 3 severe obesity due to excess calories without serious comorbidity with body mass index (BMI) of 40.0 to 44.9 in adult ([facility]) Take 1 tablet (37.5 mg) by mouth in the morning. Take before meals. 30 tablet 11/07/2024 12/07/2024 Active polysaccharide iron complex 391 mg oral capsule (17 sources) Start: 04-06-2024 End: 11-07-2024 take 1 capsule by mouth once daily iron polysaccharides (ProFe) 391.3 (180 Fe) MG capsule Indications: Low hemoglobin Take 1 capsule (391.3 mg) by mouth Daily 30 capsule 6 04/06/2024 11/07/2024 Discontinued predniSONE 50 mg oral tablet (2 sources) Start: 11-07-2024 End: 02-04-2025 take 1 tablet by mouth once daily predniSONE (Deltasone) 50 MG tablet Indications: Strain of right calf muscle Take 1 tablet (50 mg) by mouth Daily for 6 days 6 tablet 11/07/2024 11/13/2024 Active sertraline 100 mg oral tablet (18 sources) Serotonin Reuptake Inhibitor Start: 05-21-2024 take 1 tablet by mouth once daily sertraline (Zoloft) 100 MG tablet Indications: MDD (major depressive disorder), recurrent episode, mild (HCC) (CMS/HCC) Take 1 tablet (100 mg) by mouth Daily 90 tablet 3 05/21/2024 Active Problems Active Problems Problem Classification Problem Date Documented Da te Episodic/Chronic Anxiety disorders (19 sources) Anxiety disorder, unspecified; Translations: [Generalized anxiety disorder] Onset: 10-26-2022 09-22-2023 Chronic Headache; including migraine (18 sources) Migraine without aura, not refractory ; Translations: [Migraine without aura, not intractable, without status migrainosus] Onset: 09-22-2023 09-22-2023 Chronic Headache; including migraine (4 sources) Headache; including migraine; Translations: [HEADACHE UNSPECIFIED] Onset: 10-23-2022 Menstrual disorders (18 sources) Missed period; Translations: [Irregular menstruation, unspecified] Onset: 12-30-2023 Resolved: 11-07-2024 12-30-2023 Chronic Mood disorders (18 sources) Recurrent major depressive episodes, mild ; Translations: [Major depressive disorder, recurrent, mild] Onset: 09-22-2023 09-22-2023 Chronic Mood disorders (1 source) Mood disorders; Translations: [DEPRESSION UNSPECIFIED] Onset: 10-26-2022 Other aftercare (1 source) Other group home (current) drug therapy; Translations: [OTH DETENTION CURRENT DRUG THERAPY] Onset: 10-26-2022 Episodic Other gastrointestinal disorders (18 sources) Irritable bowel syndrome with diarrhea; Translations: [Irritable bowel syndrome with diarrhea] Onset: 10-21-2023 10-21-2023 Chronic Other nutritional; endocrine; and metabolic disorders (16 sources) Body mass index 30+ - obesity; Translations: [Obesity, unspecified] Onset: 10-26-2023 10-26-2023 Chronic Other nutritional; endocrine; and metabolic disorders (6 sources) Severe obesity; Translations: [Class 3 severe obesity due to excess calories without serious comorbidity with body mass index (BMI) of 40.0 to 44.9 in adult ([facility])] Onset: 10-26-2023 11-07-2024 Chronic Other and delivery including normal (6 sources) Third trimester ; Translations: [Encounter for supervision of normal , unspecified, third trimester] 07-11-2024 Episodic Other upper respiratory infections (2 sources) Upper respiratory infection; Translations: [Acute upper respiratory infection, unspecified] 07-27-2024 Episodic Residual codes; unclassified (2 sources) Gestation period, 36 weeks; Translations: [36 weeks gestation of ] 07-11-2024 Episodic Residual codes; unclassified (2 sources) Gestation period, 37 weeks; Translations: [37 weeks gestation of ] 07-18-2024 Episodic Sprains and strains (4 sources) Strain of calf muscle; Translations: [Strain of other muscle(s) and tendon(s) at lower leg level, right leg, initial encounter] Onset: 11-07-2024 11-07-2024 Episodic Unclassified (2 sources) CONTACT W/AND (SUSP) EXPOS COVID-19; Translations: [CONTACT W/AND (SUSP) EXPOS COVID-19] Onset: 12-17-2021 Viral infection (1 source) COVID-19; Translations: [COVID-19] Onset: 12-17-2021 Past or Other Problems Problem Classification Problem Date Documented Da te Episodic/Chronic Diabetes or abnormal glucose tolerance complicating ; childbirth; or the puerperium (2 sources) Gestational diabetes mellitus; Translations: [Gestational diabetes mellitus in , unspecified control] 06-28-2024 Episodic Hemorrhage during ; abruptio placenta; placenta previa (18 sources) Antepartum hemorrhage; Translations: [Hemorrhage in early , unspecified] Onset: 12-30-2023 Resolved: 11-07-2024 12-30-2023 Episodic Other complications of (2 sources) Excessive growth affecting management of mother; Translations: [Maternal care for excessive growth, third trimester, not applicable or unspecified] 06-28-2024 Episodic Other infections; including parasitic (18 sources) History of sexually transmitted disease; Translations: [Personal history of other infectious and parasitic diseases] Onset: 09-22-2023 09-22-2023 Episodic Residual codes; unclassified (18 sources) Persistent insomnia; Translations: [Insomnia, unspecified] Onset: 10-21-2023 10-21-2023 Episodic Residual codes; unclassified (2 sources) Gestation period, 34 weeks; Translations: [34 weeks gestation of ] 06-28-2024 Episodic Spondylosis; intervertebral disc disorders; other back problems (18 sources) Chronic neck pain; Translations: [Cervicalgia] Onset: 10-21-2023 10-21-2023 Episodic Unclassified (1 source) CONTACT W/AND (SUSP) EXPOS COVID-19; Translations: [CONTACT W/AND (SUSP) EXPOS COVID-19] Onset: 12-16-2021 Results Test Name Value Interpretation Reference Range Facility ALL CBC WITH AUTO DIFFon BASOPHILS ABSOLUTE AUTO 0.1 [facility] Basophils/100 WBC (Bld) 0.5 % 0.2 - 2.0 % [facility] Eosinophils/100 WBC (Bld) 1.2 % 0.9 - 7.0 % [facility] Erythrocyte distribution width (RBC) [Ratio] 15.9 % High 11.0 - 15.0 % [facility] Hematocrit (Bld) [Volume fraction] 28.9 % Low 36.0 - 48.0 % [facility] Hemoglobin (Bld) [Mass/Vol] 8.6 g/dL Low 12.0 - 16.0 g/dL [facility] IMMATURE GRANULOCYTES ABS AUTO 0.09 High [facility] Immature granulocytes/100 WBC (Bld) 0.7 % High 0.0 - 0.5 % [facility] Interpretation and review of laboratory results Abnormal [facility] LYMPHOCYTES ABSOLUTE AUTO 2.3 [facility] Lymphocytes/100 WBC (Bld) 18.2 % Low 20.5 - 60.0 % [facility] MCH (RBC) [Entitic mass] 21.3 pg Low 26.7 - 34.0 pg [facility] MCHC (RBC) [Mass/Vol] 29.8 g/dL Low 29.9 - 35.2 g/dL [facility] MCV (RBC) [Entitic vol] 71.7 fL Low 81.0 - 99.0 fL [facility] MONOCYTES ABSOLUTE AUTO 0.6 [facility] Monocytes/100 WBC (Bld) 4.6 % 1.7 - 12.0 % [facility] NEUTROPHILS ABSOLUTE AUTO 9.3 High [facility] Neutrophils/100 WBC (Bld) 74.8 % 43.0 - 75.0 % [facility] Platelet mean volume (Bld) [Entitic vol] 13 fL 9.5 - 13.5 fL [facility] EO # 0.2 [facility] PLT 182 [facility] RBC 4.03 Low [facility] WBC 12.5 High [facility] WITH PLATELET NO DI FFERENTIALon 07-30-2024 Erythrocyte distribution width (RBC) [Ratio] 15.9 % High 11.0 - 15.0 % [facility] Hematocrit (Bld) [Volume fraction] 32.6 % Low 36.0 - 48.0 % [facility] Hemoglobin (Bld) [Mass/Vol] 9.7 g/dL Low 12.0 - 16.0 g/dL [facility] Interpretation and review of laboratory results Abnormal [facility] MCH (RBC) [Entitic mass] 21.2 pg Low 26.7 - 34.0 pg [facility] MCHC (RBC) [Mass/Vol] 29.8 g/dL Low 29.9 - 35.2 g/dL [facility] MCV (RBC) [Entitic vol] 71.2 fL Low 81.0 - 99.0 fL [facility] PLT 221 [facility] RBC 4.58 [facility] WBC 10 [facility] Urinalysis macro (dipstick) panel (U)on 07-25-2024 Bilirubin, UA Negative Negative - 4(70) +++ mg/dL [facility] Blood, UA Negative Negative - 50 Zachery/mcL [facility] Clarity, UA Clear [facility] Color, UA Yellow [facility] Glucose, UA Negative Negative - 1999(110) ++++ mg/dL [facility] Interpretation and review of laboratory results Abnormal [facility] Ketones, UA Negative Negative - 160(16) ++++ mg/dL [facility] Leukocytes, UA Positive Negative - 500+++ Giovana/mcL [facility] Nitrite, UA Negative Negative - Positive [facility] pH, UA 6 5 - 9 [facility] Protein, UA Positive Negative - 1999(20) ++++ mg/dL [facility] Spec Grav, UA 1.02 1 - 1.03 [facility] Urobilinogen, UA 1.0 0.2 - 12 mg/dL [facility] AMNISUREon 07-21-2024 [facility] AMNISURE Negative NEGATIVE [facility] Urinalysis macro (dipstick) panel (U)on 07-18-2024 Bilirubin, UA Positive Negative - 4(70) +++ mg/dL [facility] Comment on above: small Blood, UA Negative Negative - 50 Zachery/mcL [facility] Clarity, UA Clear [facility] Color, UA Yellow [facility] Glucose, UA Negative Negative - 1999(110) ++++ mg/dL [facility] Interpretation and review of laboratory results Abnormal [facility] Ketones, UA Negative Negative - 160(16) ++++ mg/dL [facility] Leukocytes, UA Trace Negative - 500+++ Giovana/mcL [facility] Nitrite, UA Negative Negative - Positive [facility] pH, UA 6.0 5 - 9 [facility] Protein, UA Negative Negative - 1999(20) ++++ mg/dL [facility] Spec Grav, UA 1.030 1 - 1.03 [facility] Urobilinogen, UA 1.0 0.2 - 12 mg/dL [facility] Urinalysis macro (dipstick) panel (U)on 07-11-2024 Bilirubin, UA Negative Negative - 4(70) +++ mg/dL [facility] Blood, UA Negative Negative - 50 Zachery/mcL [facility] Clarity, UA Clear [facility] Color, UA Yellow [facility] Glucose, UA Negative Negative - 1999(110) ++++ mg/dL [facility] Interpretation and review of laboratory results Abnormal [facility] Ketones, UA Negative Negative - 160(16) ++++ mg/dL [facility] Leukocytes, UA Positive Negative - 500+++ Giovana/mcL [facility] Comment on above: small Nitrite, UA Negative Negative - Positive [facility] pH, UA 6.0 5 - 9 [facility] Protein, UA Trace Negative - 1999(20) ++++ mg/dL [facility] Spec Grav, UA 1.020 1 - 1.03 [facility] Urobilinogen, UA 1.0 0.2 - 12 mg/dL [facility] Urinalysis macro (dipstick) panel (U)on 06-28-2024 Bilirubin, UA Negative Negative - 4(70) +++ mg/dL [facility] Blood, UA Negative Negative - 50 Zachery/mcL [facility] Clarity, UA Clear [facility] Color, UA Yellow [facility] Glucose, UA Negative Negative - 2000(110) ++++ mg/dL [facility] Interpretation and review of laboratory results Abnormal [facility] Ketones, UA Positive Negative - 160(16) ++++ mg/dL [facility] Comment on above: trace Leukocytes, UA Positive Negative - 500+++ Giovana/mcL [facility] Comment on above: small Nitrite, UA Negative Negative - Positive [facility] pH, UA 6.0 5 - 9 [facility] Protein, UA Trace Negative - 2000(20) ++++ mg/dL [facility] Spec Grav, UA 1.030 1 - 1.03 [facility] Urobilinogen, UA 1.0 0.2 - 12 mg/dL [facility] CBC AUTO DIFFon 10-23-2022 BASO # 0.0 103/ul Normal 0.0-0.1 [facility] Comment on above: Performed By: #### C BC #### [facility] [address] [place] [address] Dr. Mir Araiza Basophils/100 WBC (Bld) 0.7 % Normal 0.2-2.0 [facility] Comment on above: Performed By: #### C BC #### [facility] [address] [address] [address] Mir Araiza EO # 0.2 103/ul Normal 0.0-0.7 [facility] Comment on above: Performed By: #### C BC #### [facility] [address] [address] [address] Mir Araiza Eosinophils/100 WBC (Bld) 3.0 % Normal 0.9-7.0 [facility] Comment on above: Performed By: #### C BC #### [facility] [address] [place] [address] Dr. Mir Araiza Erythrocyte distribution width (RBC) [Ratio] 15.6 % Critically high 11.0-15.0 [facility] Comment on above: Performed By: #### C BC #### [facility] [address] [place] [address] Dr. Mir Araiza Hematocrit (Bld) [Volume fraction] 38.5 % Normal 36.0-48.0 [facility] Comment on above: Performed By: #### C BC #### [facility] [address] [place] [address] Dr. Mir Araiza Hemoglobin (Bld) [Mass/Vol] 12.3 g/dL Normal 12.0-16.0 [facility] Comment on above: Performed By: #### C BC #### [facility] [address] [place] [address] Dr. Mir Araiza IG # 0.02 10e3/ul Normal 0.00-0.03 [facility] Comment on above: Performed By: #### C BC #### [facility] [address] [place] [address] Dr. Mir Araiza IG % 0.3 % Normal 0.0-0.5 [facility] Comment on above: Performed By: #### C BC #### [facility] [address] [place] [address] Dr. Mir Araiza LYMPH # 1.5 103/ul Normal 1.2-3.8 [facility] Comment on above: Performed By: #### C BC #### [facility] [address] [place] [address] Dr. Mir Araiza Lymphocytes/100 WBC (Bld) 24.1 % Normal 20.5-60.0 [facility] Comment on above: Performed By: #### C BC #### [facility] [address] [place] [address] Dr. Mir Araiza MANUAL DIFF REQ NO Normal [facility] Comment on above: Performed By: #### C BC #### [facility] [address] [place] [address] Dr. Mir Araiza MCH (RBC) [Entitic mass] 24.8 pg Critically low 26.7-34.0 [facility] Comment on above: Performed By: #### C BC #### [facility] [address] [address] [address] Mir Araiza MCHC (RBC) [Mass/Vol] 31.9 g/dL Normal 29.9-35.2 [facility] Comment on above: Performed By: #### C BC #### [facility] [address] [place] [address] Dr. Mir Araiza MCV (RBC) [Entitic vol] 77.8 fL Critically low 81.0-99.0 [facility] Comment on above: Performed By: #### C BC #### [facility] [address] [place] [address] Dr. Mir Araiza MONO # 0.4 103/ul Normal 0.3-0.8 [facility] Comment on above: Performed By: #### C BC #### [facility] [address] [place] [address] Dr. Mir Araiza Monocytes/100 WBC (Bld) 6.3 % Normal 1.7-12.0 [facility] Comment on above: Performed By: #### C BC #### [facility] [address] [place] [address] Dr. Mir Araiza NEUT # 4.0 103/ul Normal 1.4-6.5 [facility] Comment on above: Performed By: #### C BC #### [facility] [address] [place] [address] Dr. Mir Araiza Neutrophils/100 WBC (Bld) 65.6 % Normal 43.0-75.0 [facility] Comment on above: Performed By: #### C BC #### [facility] [address] [place] [address] Dr. Mir Araiza Platelet mean volume (Bld) [Entitic vol] 12.3 fL Normal 9.5-13.5 [facility] Comment on above: Performed By: #### C BC #### [facility] [address] [place] [address] Dr. Mir Araiza PLT 173 103/ul Normal 150-450 [facility] Comment on above: Performed By: #### C BC #### [facility] [address] [address] [address] Mir Araiza RBC 4.95 106/ul Normal 4.20-5.40 [facility] Comment on above: Performed By: #### C BC #### [facility] [address] [place] [address] Dr. Mir Araiza WBC 6.0 103/ul Normal 4.0-11.0 [facility] Comment on above: Performed By: #### C BC #### [facility] [address] [place] [address] Dr. Mir Araiza CRPon 10-23-2022 CRP 0.8 mg/dL Normal <=1.0 [facility] Comment on above: Performed By: #### B MP, CRP #### [facility] [address] [place] [address] Dr. Mir Araiza URon 10-23-2022 , QUAL Negative Normal NEGATIVE [facility] Comment on above: Performed By: #### P REGU #### [facility] [address] [place] [address] Dr. Mir Araiza PROF CHEM 8 (BAS METB)on Anion gap [Moles/Vol] 12.1 mmol/L Normal [facility] Comment on above: Performed By: #### B MP, CRP #### [facility] [address] [place] [address] Dr. Mir Araiza Calcium [Mass/Vol] 8.8 mg/dL Normal 8.5-10.1 [facility] Comment on above: Performed By: #### B MP, CRP #### [facility] [address] [place] [address] Dr. Mir Araiza Chloride [Moles/Vol] 104 mmol/L Normal 98-107 [facility] Comment on above: Performed By: #### B MP, CRP #### [facility] [address] [place] [address] Dr. Mir Araiza CO2 [Moles/Vol] 27.2 mmol/L Normal 21.0-32.0 [facility] Comment on above: Performed By: #### B MP, CRP #### [facility] [address] [address] [address] Mir Araiza Creatinine [Mass/Vol] 0.83 mg/dL Normal 0.55-1.02 [facility] Comment on above: Performed By: #### B MP, CRP #### [facility] [address] [address] [address] Mir Araiza EGFR-AF SLOVAK >60 Normal >=60 [facility] Comment on above: Performed By: #### B MP, CRP #### [facility] [address] [address] [address] Mir Araiza EGFR-NON AF SLOVAK >60 Normal >=60 [facility] Comment on above: Performed By: #### B MP, CRP #### [facility] [address] [address] [address] Mir Araiza Glucose [Mass/Vol] 96 mg/dL Normal 74-106 [facility] Comment on above: Performed By: #### B MP, CRP #### [facility] [address] [address] [address] Mir Araiza Potassium [Moles/Vol] 3.3 mmol/L Critically low 3.5-5.1 [facility] Comment on above: Performed By: #### B MP, CRP #### [facility] [address] [address] [address] Mir Araiza Sodium [Moles/Vol] 140 mmol/L Normal 136-145 [facility] Comment on above: Performed By: #### B MP, CRP #### [facility] [address] [address] [address] Mir Araiza Urea nitrogen [Mass/Vol] 10.0 mg/dL Normal 7.0-18.0 [facility] Comment on above: Performed By: #### B MP, CRP #### [facility] [address] [address] [address] Mir Araiza Urea nitrogen/Creatinine [Mass ratio] 12.0 mg/mg Normal [facility] Comment on above: Performed By: #### B MP, CRP #### [facility] [address] [place], [place] [address] Dr. Mir Araiza SED RATE WESTERGRENon 2022 SED RATE 9 mm/hr Normal <=20 [facility] Comment on above: Performed By: #### S EDR #### [facility] [address] [place], [place] [address] Dr. Mir Araiza Covid-19 PCR (CVDTBH)on SARS-CoV-2 (COVID-19) RNA IFRAH+probe Ql (Unsp spec) Detected Critically abnormal NOT DETECTED [facility] Comment on above: Result Comment: This test is not yet approved or cleared by the [place] FDA. When there are no FDA-approved or cleared tests available, and other criteria are met, FDA can make tests available under an emergency access mechanism called an Emergency Use Authorization (EUA). The EUA for this test is supported by the Manufacturers Service Representative of Health and Human Service's (HHS's) declaration [...] used). Performed By: #### C VDTBH #### [facility] [address] [address] [address] Mir Araiza Comprehensive Metabolic Empo n 08-14-2021 Albumin [Mass/Vol] 3.9 g/dL Normal 3.2-5.5 [facility] Comment on above: Performed By: #### E BS CMP, EBS LIPID #### [facility] [address] [place] [address] [place] Albumin/Globulin [Mass ratio] 1.2 {ratio} Normal [facility] Comment on above: Performed By: #### E BS CMP, EBS LIPID #### [facility] [address] [place] [address] [place] ALP [Catalytic activity/Vol] 81 U/L Normal 32-92 [facility] Comment on above: Performed By: #### E BS CMP, EBS LIPID #### [facility] [address] [place] [address] [place] ALT [Catalytic activity/Vol] 17 U/L Normal 10-60 [facility] Comment on above: Performed By: #### E BS CMP, EBS LIPID #### [facility] [address] [place] [address] [place] AST [Catalytic activity/Vol] 18 U/L Normal 10-42 [facility] Comment on above: Performed By: #### E BS CMP, EBS LIPID #### [facility] [address] [place] [address] [place] Bilirubin [Mass/Vol] 0.3 mg/dL Normal 0.3-1.2 [facility] Comment on above: Performed By: #### E BS CMP, EBS LIPID #### [facility] [address] [place] [address] [place] Calcium [Mass/Vol] 9.5 mg/dL Normal 8.2-10.2 [facility] Comment on above: Performed By: #### E BS CMP, EBS LIPID #### [facility] [address] [place] [id number] [place] Chloride [Moles/Vol] 99 mmol/L Normal 95-114 [facility] Comment on above: Performed By: #### E BS CMP, EBS LIPID #### [facility] [address] [place] [id number] [place] CO2 [Moles/Vol] 30.3 mmol/L High 22.0-30.0 [facility] Comment on above: Performed By: #### E BS CMP, EBS LIPID #### [facility] [address] [place] [id number] [place] Creatinine [Mass/Vol] 0.61 mg/dL Normal 0.44-1.03 [facility] Comment on above: Performed By: #### E BS CMP, EBS LIPID #### [facility] [address] [place] [address] [place] Estimated GFR ( Lili > 60 Normal [facility] Comment on above: Result Comment: GFR estimated reference range: According to KDOQI guidelines, <60 ml/min/1.73m2 is sufficient to diagnose a patient with chronic kidney disease. Performed By: #### E BS CMP, EBS LIPID #### [facility] [address] Estimated GFR (Non- Am > 60 Normal [facility] Comment on above: Performed By: #### E BS CMP, EBS LIPID #### [facility] [address] [place] [address] [place] Globulin (S) [Mass/Vol] 3.2 g/dL Normal [facility] Comment on above: Performed By: #### E BS CMP, EBS LIPID #### [facility] [address] Glucose [Mass/Vol] 83 mg/dL Normal 70-100 [facility] Comment on above: Performed By: #### E BS CMP, EBS LIPID #### [facility] [address] Potassium [Moles/Vol] 4.3 mmol/L Normal 3.5-5.1 [facility] Comment on above: Performed By: #### E BS CMP, EBS LIPID #### [facility] [address] [place] [address] [place] Protein [Mass/Vol] 7.1 g/dL Normal 6.1-7.9 [facility] Comment on above: Performed By: #### E BS CMP, EBS LIPID #### [facility] [address] [place] [id number] [place] Sodium [Moles/Vol] 138 mmol/L Normal 136-146 [facility] Comment on above: Performed By: #### E BS CMP, EBS LIPID #### [facility] [address] [place] [id number] [place] Urea nitrogen [Mass/Vol] 11 mg/dL Normal 9-23 [facility] Comment on above: Performed By: #### E BS CMP, EBS LIPID #### [facility] [address] [place] [id number] [facility] Lipid Profileon 08-14-2021 Cholesterol [Mass/Vol] 248 mg/dL High 140-200 [facility] Comment on above: Result Comment: Chol less than 200 mg/dl low risk Chol 201-239 mg/dl borderline risk Chol 240 mg/dl and greater high risk Performed By: #### E BS CMP, EBS LIPID #### [facility] [address] Cholesterol in HDL [Mass/Vol] 54 mg/dL Normal 35-85 [facility] Comment on above: Result Comment: HDL CHOL ATP-III CLASSIFICATION Cardiovascular Risk HDL > or equal to 60 mg/dL LOW HDL < 40 mg/dL HIGH Performed By: #### E BS CMP, EBS LIPID #### [facility] [address] Cholesterol.total/C holesterol in HDL [Mass ratio] 4.6 {ratio} Normal <5.0 [facility] Comment on above: Result Comment: PERF ORMED BY: [place] [address] PATHOLOGIST DEPUTY EDITOR IN CHIEF CAMILA KINNEY M.D. Performed By: #### E BS CMP, EBS LIPID #### [facility] [address] LDL Cholesterol,Calcula satya 170 mg/dL High 0-100 [facility] Comment on above: Result Comment: LDL ATP III CLASSIFICATION LDL less than 100 mg/dL Optimal LDL 100-129 mg/dL Near or above optimal LDL 130-159 mg/dL Borderline high LDL 160-189 mg/dL High LDL greater than 189 mg/dL Very high Performed By: #### E BS CMP, EBS LIPID #### [facility] [address] Triglyceride w/Reflex 121 mg/dL Normal 35-149 [facility] Comment on above: Result Comment: TRIG ATP III CLASSIFICATION TRIG less than 150 mg/dL Normal TRIG 150-199 mg/dL Borderline high TRIG 200-500 mg/dL High TRIG greater than 500 mg/dL Very high Standard traceable to the Center for Disease Conrtrol and Prevention (CDC) test method. Performed By: #### E BS CMP, EBS LIPID #### [facility] [address] VLDL CHOLESTEROL 24 mg/dL Normal [facility] Comment on above: Performed By: #### E BS CMP, EBS LIPID #### [facility] [address] Vital Signs Date Time Vital Sign Value Performing Clinician Jose ralph 11-07-2024 07:32-0500 Body height 154.9 cm Shailesh Cevallos MD Work Phone: [facility] 11-07-2024 07:32-0500 Body mass index (BMI) [Ratio] 41.57 kg/m2 Shailesh Cevallos MD Work Phone: [facility] 11-07-2024 07:32-0500 Body temperature 98.01 [degF] Shailesh Cevallos MD Work Phone: [facility] 11-07-2024 07:32-0500 Body weight 99.79 kg Shailesh Cevallos MD Work Phone: [facility] 11-07-2024 07:32-0500 Diastolic blood pressure 66 mm[Hg] Shailesh Cevallos MD Work Phone: [facility] 11-07-2024 07:32-0500 Heart rate 90 /min Shailesh Cevallos MD Work Phone: [facility] 11-07-2024 07:32-0500 Respiratory rate 20 /min Shailesh Cevlalos MD Work Phone: [facility] 11-07-2024 07:32-0500 SaO2% (BldA) [Mass fraction] 98 % Shailesh Cevallos MD Work Phone: [facility] 11-07-2024 07:32-0500 Systolic blood pressure 118 mm[Hg] Shailesh Cevallos MD Work Phone: [facility] 07-25-2024 13:29-0400 Diastolic blood pressure 70 mm[Hg] Lakia Ramos DO Work Phone: [facility] 07-25-2024 13:29-0400 Systolic blood pressure 122 mm[Hg] Lakia Richard DO Work Phone: [facility] 07-18-2024 09:22-0400 Body mass index (BMI) [Ratio] 44.02 kg/m2 Josy Rivas PA Work Phone: [facility] 07-18-2024 09:22-0400 Body weight 105.69 kg Josy Bernice PA Work Phone: [facility] 07-18-2024 09:22-0400 Diastolic blood pressure 78 mm[Hg] Josy Rob PA Work Phone: [facility] 07-18-2024 09:22-0400 Systolic blood pressure 124 mm[Hg] Josy Rob PA Work Phone: [facility] 07-11-2024 15:27-0400 Body mass index (BMI) [Ratio] 43.84 kg/m2 Lakia Richard DO Work Phone: [facility] 07-11-2024 15:27-0400 Body weight 105.23 kg Lakia Richard DO Work Phone: [facility] 07-11-2024 15:27-0400 Diastolic blood pressure 80 mm[Hg] Lakia Richard DO Work Phone: [facility] 07-11-2024 15:27-0400 Systolic blood pressure 124 mm[Hg] Lakia Richard DO Work Phone: [facility] 06-28-2024 09:04-0400 Body mass index (BMI) [Ratio] 43.27 kg/m2 Josy Rivas PA Work Phone: [facility] 06-28-2024 09:04-0400 Body weight 103.87 kg Josy Rob PA Work Phone: [facility] 06-28-2024 09:04-0400 Diastolic blood pressure 82 mm[Hg] Josy Rob PA Work Phone: [facility] 06-28-2024 09:04-0400 Systolic blood pressure 120 mm[Hg] Josy Rob PA Work Phone: [facility] Healthcare Encounters Encounter Date Encounter Type Care Provider Facility Start: 11-07-2024 End: 11-07-2024 Emily Cash Naderer MD Work Phone: [facility] Start: 11-07-2024 End: 11-07-2024 Bamboo flowsheet Shailesh Cevallos MD Work Phone: [facility] Start: 11-07-2024 End: 11-07-2024 Office outpatient visit 15 minutes Shailesh Cevallos MD Work Phone: [facility] Comment on above: Strain of right calf muscle (Primary Dx); Annual physical exam; Class 3 severe obesity due to excess calories without serious comorbidity with body mass index (BMI) of 40.0 to 44.9 in adult ([facility]) Start: 11-07-2024 End: 11-07-2024 Patient encounter procedure Shailesh Cevallos MD Work Phone: [facility] Start: 10-11-2024 End: 10-11-2024 Orders Only Shailesh Cevallos MD Work Phone: [facility] Comment on above: Upper respiratory tr act infection, unspecified type Start: 07-31-2024 End: 07-31-2024 Clinisync Result Encounter Lakia Richard DO Work Phone: [facility] Start: 07-31-2024 End: 07-31-2024 Clinisync Result Encounter Lakia Richard DO Work Phone: [facility] Start: 07-30-2024 End: 07-30-2024 Clinisync Result Encounter Lakia Richard DO Work Phone: [facility] Start: 07-30-2024 End: 07-30-2024 Clinisync Result Encounter Lakia Richard DO Work Phone: [facility] Start: 07-27-2024 End: 07-27-2024 Orders Only Shailesh [...] RICHARD Not Available Start: 06-28-2024 End: 06-28-2024 Bamboo flowsheet Josy ROB Work Phone: [facility] Start: 06-28-2024 End: 06-28-2024 Bamboo flowsheet Josy ROB Work Phone: [facility] Start: 06-28-2024 End: 06-28-2024 flow sheet Josy ROB Work Phone: [facility] Comment on above: 34 weeks gestation o f ; Excessive growth affecting management of in third trimester, single or unspecified fetus; Gestational diabetes mellitus (GDM) in third trimester, gestational diabetes method of control unspecified Start: 06-28-2024 End: 06-28-2024 ambulatory JOSY RIVAS Not Available Start: 05-17-2024 End: 05-17-2024 ambulatory LAKIA RICHARD Not Available Start: 05-03-2024 End: 05-03-2024 ambulatory JOSY RIVAS Not Available Start: 04-05-2024 End: 04-05-2024 ambulatory LAKIA RICHARD Not Available Start: 02-09-2024 End: 02-09-2024 ambulatory LAKIA RICHARD Not Available Start: 01-20-2024 End: 01-20-2024 ambulatory SHAILESH CEVALLOS Not Available Start: 10-21-2023 End: 10-21-2023 ambulatory SHAILESH CEVALLOS Not Available Start: 10-23-2022 End: 10-23-[address] SHAILESH CEVALLOS Facility:[facility] Start: 12-16-2021 End: 12-16-2021 ambulatory WHITNEY QUIROZ Facility:[facility] Start: 04-03-2018 End: 04-04-2018 Ambulatory DEFAULT PHYSICIAN Facility:[facility] Procedures Date Procedure Procedure Detail Performing Clinician Start: 07-31-2024 ALL CBC WITH AUTO DIFF Lakia Richard DO Work Phone: Start: 07-30-2024 HMHP CBC WITH PLATEL ET NO DIFFERENTIAL Lakia Richard DO Work Phone: Start: 07-25-2024 Urnls dip stick/tabl et rgnt non-auto w/o micrscp Lakia Richard DO Work Phone: Start: 07-21-2024 AMNISURE Lakia Fazi o DO Work Phone: Start: 07-18-2024 Urnls dip stick/tabl et rgnt non-auto w/o micrscp Josy Rivas PA Work Phone: Start: 07-11-2024 Urnls dip stick/tabl et rgnt non-auto w/o micrscp Lakia Richard DO Work Phone: Start: 06-28-2024 Urnls dip stick/tabl et rgnt non-auto w/o micrscp Lakia Richard Work Phone: Start: 04-05-2024 Microscopic observat ion [Identifier] in Cervix by Cyto stain Josy ROB Work Phone: Plan of Treatment Date Care Activity Detail Author Start: 04-05-2029 Screening for malign ant neoplasm of cervix [facility] Start: 12-05-2024 End: 12-05-2024 Patient encounter procedure 12/05/2024 7:30 AM EST Office Visit [facility] [address] [place] [phone] Shailesh Cevallos MD [address] [place] [phone] [facility] Start: 11-07-2024 End: 11-07-2025 Basic metabolic 1998 panel - Serum or Plasma Basic metabolic panel Lab Routine Annual physical exam Expected: 11/07/2024 (Approximate), Expires: 11/07/2025 [facility] Comment on above: Expected: 11/07/2024 (Approximate), Expires: 11/07/2025 Start: 11-07-2024 End: 11-07-2025 CBC W Auto Differential panel - Blood CBC and differential Lab Routine Annual physical exam Expected: 11/07/2024 (Approximate), Expires: 11/07/2025 [facility] Comment on above: Expected: 11/07/2024 (Approximate), Expires: 11/07/2025 Start: 11-07-2024 End: 11-07-2025 Hemoglobin A1c/Hemoglobin.total in Blood Hemoglobin A1c Lab Routine Annual physical exam Expected: 11/07/2024 (Approximate), Expires: 11/07/2025 [facility] Work Phone: Comment on above: Expected: 11/07/2024 (Approximate), Expires: 11/07/2025 Start: 11-07-2024 End: 11-07-2025 Hepatic function 2000 panel - Serum or Plasma Hepatic function panel Lab Routine Annual physical exam Expected: 11/07/2024 (Approximate), Expires: 11/07/2025 [facility] Comment on above: Expected: 11/07/2024 (Approximate), Expires: 11/07/2025 Start: 11-07-2024 End: 11-07-2025 Lipid 1996 panel - Serum or Plasma Lipid panel Lab Routine Annual physical exam Expected: 11/07/2024 (Approximate), Expires: 11/07/2025 [facility] Comment on above: Expected: 11/07/2024 (Approximate), Expires: 11/07/2025 Start: 11-07-2024 End: 11-07-2025 TSH W/REFLEX TO FT4 TSH W/REFLEX TO FT4 Lab Routine Annual physical exam Expected: 11/07/2024 (Approximate), Expires: 11/07/2025 [facility] Comment on above: Expected: 11/07/2024 (Approximate), Expires: 11/07/2025 Start: 11-07-2024 End: 11-07-2024 Patient encounter procedure 11/07/2024 7:30 AM EST Office Visit [facility] [address] [place] [address] Shailesh Cevallos MD [address] [place] [address] Arrived [facility] Comment on above: Arrived Start: 07-25-2024 End: 07-25-2024 Patient encounter procedure 07/25/2024 1:30 PM EDT Routine [facility] [address] [place] [id number] Lakia Ramos DO [address] [place] [address] [facility] Start: 07-18-2024 End: 07-18-2024 Patient encounter procedure [facility] Comment on above: Arrived Start: 07-11-2024 End: 07-11-2024 Patient encounter procedure 07/11/2024 3:00 PM EDT Routine [facility] [address] [place] [phone] Lakia Ramos DO [address] [place], [place] [id number] [facility] Start: 07-11-2024 End: 07-11-2025 Strep B DNA probe, amplification Strep B DNA probe, amplification Lab Routine Third trimester Expected: 07/11/2024 (Approximate), Expires: 07/11/2025 [facility] Work Phone: Comment on above: Expected: 07/11/2024 (Approximate), Expires: 07/11/2025 Start: 06-28-2024 End: 06-28-2025 US biophysical profile w non stress test US biophysical profile w non stress test Imaging Routine Excessive growth affecting management of in third trimester, single or unspecified fetus Gestational diabetes mellitus (GDM) in third trimester, gestational diabetes method of control unspecified Expected: 06/28/2024 (Approximate), Expires: 06/28/2025 [facility] Work Phone: Comment on above: Expected: 06/28/2024 (Approximate), Expires: 06/28/2025 Start: 06-28-2024 End: 06-28-2024 Patient encounter procedure 06/28/2024 8:50 AM EDT Routine [facility] [address] [place] [phone] Josy Rivas PA [address] [place], [place] [id number] Arrived [facility] Comment on above: Arrived Start: 06-10-2024 Influenza vaccination Influenza Vacc ine (#1) [facility] Healthcare Payers Date Payer Category Payer Private Health Insurance [employer] [id number] 2023 Unknown 2023 Unknown [id number] 1990 Unknown [id number]. 593 1990 Unknown [id number]. 593 1990 Unknown [id number]. 1258 1990 Unknown [id number] [id number]. 9 1990 Unknown [id number] [id number]. 1258 1990 Unknown [id number] 2.16.840.1.838798.3.579.2. 9 1990 Unknown [id number] 2.16.840.1.934218.3.579.2. 9 1990 Unknown [id number] 2.16.840.1.719234.3.579.2. 9 1990 Unknown [id number] 2.16.840.1.430855.3.579.2. 1258 1990 Unknown [id number] [id number]. 9 1990 Unknown [id number] [id number]. 1258 1990 Unknown [id number]. 1259 1959 Unknown [id number] Social History Date Type Detail Facility Start: 10-21-2023 Tobacco smoking status SCIS Never sm oked tobacco [facility] Start: 10-21-2023 Tobacco use and exposure Smoke less tobacco non-user [facility] Start: 10-21-2023 End: 04-23-2024 History of Social function [facility] Start: 10-21-2023 End: 04-23-2024 Social connection and isolation panel [facility] Do you belong to any clubs or organizations such as adventist groups, unions, fraternal or athletic groups, or [...] 4 times daily to check blood glucose. [id number] Start: 04-05-2024 End: 04-05-2025 Clinical Notes 06-28-2024 to 11-07-2024 Shailesh Cevallos MD - 11/07/2024 8:07 AM Latonya Cevallos MD - 11/07/2024 8:02 AM Latonya Cevallos MD - 11/07/2024 7:30 AM Jorge Reeves LPN - 07/25/2024 1:30 PM EDT Note Date & Type Note Facility 11-07-2024 History of Presen t illness Narrative Associated Problem(s): Strain of right calf muscle Pain with walking and likely strain. Treat with prednisone. Use flexeril and heat PRN. Handout with ROM exercises to patient. Associated Problem(s): Class 3 severe obesity due to excess calories without serious comorbidity with body mass index (BMI) of 40.0 to 44.9 in adult ([facility]) Patient overweight and difficult time losing weight. Discussed proper diet and regular aerobic exercise. Recommend Weight Watchers and need to limit calories and smaller portions. Need to increase activity and regular aerobic exercise several days a week for 30 minutes at a time. Interested in adipex and warned of potential cardiac side effects. Script written for first month and will need to recheck weight in 1 month. OARRS reviewed. Continue medications as prescribed. Images from the original note were not included. Subjective Patient ID: Alexus Dominguez is a 34 y.o. female who presents for Follow-up (Right calf pain). C/o right calf pain for about 2 weeks. Initially walking down stairs and felt a pop in calf along with severe pain. Pain with walking and standing. Pain to go up or down stairs. Pain improved over few days. 10/28 walking down stairs and again felt pop along with severe pain. Pain worse since. Pain to put pressure on toes and hard to go up or down stairs. Tried heat but not help. Mild swelling in right calf compared to left. Never had in past. Concerned of weight. Recent and delivered about 3 months ago. Trying to increase activity and change diet. Wants to try adipex again. Review of Systems Respiratory: Negative for cough, shortness of breath and wheezing. Cardiovascular: Negative for chest pain and palpitations. Gastrointestinal: Negative for abdominal pain, diarrhea, nausea and vomiting. Genitourinary: Negative for dysuria. Objective Physical Exam Constitutional: General: She is not in acute distress. Appearance: Normal appearance. HENT: Head: Normocephalic. Right Ear: Tympanic membrane normal. Left Ear: Tympanic membrane normal. Eyes: Extraocular Movements: Extraocular movements intact. Pupils: Pupils are equal, round, and reactive to light. Cardiovascular: Rate and Rhythm: Normal rate and regular rhythm. Heart sounds: No murmur heard. No friction rub. No gallop. Pulmonary: Effort: Pulmonary effort is normal. Breath sounds: Normal breath sounds. No wheezing, rhonchi or rales. Abdominal: General: Bowel sounds are normal. There is no distension. Palpations: Abdomen is soft. Tenderness: There is no abdominal tenderness. There is no guarding or rebound. Musculoskeletal: Cervical back: Neck supple. Right lower leg: No edema. Left lower leg: No edema. Comments: Mild tenderness right calf. Pain with dorsiflexion of foot. Neurological: Mental Status: She is alert. Assessment/Plan Problem List Items Addressed This Visit Class 3 severe obesity due to excess calories without serious comorbidity with body mass index (BMI) of 40.0 to 44.9 in adult (CMS/HCC) Patient overweight and difficult time losing weight. Discussed proper diet and regular aerobic exercise. Recommend Weight Watchers and need to limit calories and smaller portions. Need to increase activity and regular aerobic exercise several days a week for 30 minutes at a time. Interested in adipex and warned of potential cardiac side effects. Script written for first month and will need to recheck weight in 1 month. OARRS reviewed. Continue medications as prescribed. Relevant Medications phentermine (Adipex-P) 37.5 MG tablet cyclobenzaprine (Flexeril) 10 MG tablet Strain of right calf muscle - Primary Pain with walking and likely strain. Treat with prednisone. Use flexeril and heat PRN. Handout with ROM exercises to patient. Relevant Medications predniSONE (Deltasone) 50 MG tablet cyclobenzaprine (Flexeril) 10 MG tablet Other Visit Diagnoses Annual physical exam Relevant Medications cyclobenzaprine (Flexeril) 10 MG tablet Other Relevant Orders Hemoglobin A1c Basic metabolic panel CBC and differential Hepatic function panel Lipid panel TSH W/REFLEX TO FT4 documented in this encounter [facility] 07-25-2024 History of Presen t illness Narrative [...] aura and without status migrainosus, not intractable ([facility]) 09/22/2023 CYNDY (generalized anxiety disorder) ([facility]) 09/22/2023 MDD (major depressive disorder), recurrent episode, mild (HCC) ([facility]) 09/22/2023 History of herpes genitalis 09/22/2023 Irritable bowel syndrome with diarrhea 10/21/2023 Persistent disorder of initiating or maintaining sleep 10/21/2023 Chronic neck pain 10/21/2023 Obesity (BMI 30-39.9) 10/26/2023 Bleeding in early 12/30/2023 Missed menses 12/30/2023 Resolved Ambulatory Problems Diagnosis Date Noted No Resolved Ambulatory Problems Past Medical History: Diagnosis Date Chronic migraine without aura without status migrainosus, not intractable ([facility]) H/O herpes genitalis Hx of hernia repair Insomnia, persistent Metabolic syndrome Seborrheic dermatitis Ventral hernia without obstruction or gangrene HISTORY PAST MEDICAL HISTORY SOCIAL HISTORY Past Medical History: Diagnosis Date Chronic migraine without aura without status migrainosus, not intractable ([facility]) CYNDY (generalized anxiety disorder) ([facility]) H/O herpes genitalis Hx of hernia repair Insomnia, persistent Irritable bowel syndrome with diarrhea MDD (major depressive disorder), recurrent episode, mild (HCC) ([facility]) Metabolic syndrome Seborrheic dermatitis Ventral hernia without [...] nursing note reviewed. Exam conducted with a customer service security officer present. Vitals: Estimated body mass index is [...] Lakia Ramos DO documented in this encounter [facility] 07-18-2024 History of Presen t illness Narrative [...] intractable (CMS/HCC) 09/22/2023 CYNDY (generalized anxiety disorder) ([facility]) 09/22/2023 MDD (major depressive disorder), recurrent episode, mild (HCC) ([facility]) 09/22/2023 History of herpes genitalis 09/22/2023 [...] not intractable (CMS/HCC) CYNDY (generalized anxiety disorder) ([facility]) H/O herpes genitalis Hx of hernia repair Insomnia, persistent Irritable bowel syndrome with diarrhea MDD (major depressive disorder), recurrent episode, mild (HCC) ([facility] Metabolic syndrome Seborrheic dermatitis Ventral hernia without [...] of: LIANE Navarro documented in this encounter [facility] 07-11-2024 History of Presen t illness Narrative [...] of Systems: Review of Systems Constitutional: Negative. ROSY: Negative. Eyes: Negative. Respiratory: Negative. Cardiovascular: Negative. [...] nursing note reviewed. Exam conducted with a customer service security officer present. Vitals: Estimated body mass index is [...] Lakia Ramos DO documented in this encounter [facility] 06-28-2024 History of Presen t illness Narrative Reason [...] reviewed. Vitals: Estimated body mass index is 43.27 kg/m as calculated from the following: Height as of 10/21/23: 5' 1 . Weight as of this encounter: 229 lb. BP: 120/82 Patient's last menstrual period was 10/22/2023. ASSESSMENT & PLAN ICD-10-CM 1. 34 weeks gestation of Z3A.34 POCT urinalysis dipstick manually resulted 2. Excessive growth affecting management of in third trimester, single or unspecified fetus O36.63X0 US biophysical profile w non stress test 3. Gestational diabetes mellitus (GDM) in third trimester, gestational diabetes method of control unspecified O24.419 US biophysical profile w non stress test Return OB: Patient presents today for a routine obstetrics appointment. Patient is currently 34w3d . Patient states she is doing well but has complaints of being tired due to current . Patient has verbalizes frequent movement. labor precautions was discussed/given and patient was instructed to perform kick counts three times a day. Pt reminded to bring in glucose logs, states her numbers have been good. Nst/bpp orders given and US Orders Placed This Encounter Procedures US biophysical profile w non stress test POCT urinalysis dipstick manually resulted Follow Up: Patient is to return to office in 2 week for routine OB appointment. Documented by LIANE Navarro on behalf of: LIANE Navarro documented in this encounter [facility] Evaluation note Diagnosis Third trimester state, incidental 36 weeks gestation of documented in this encounter [facility]* Diagnosis Third trimester state, incidental 37 weeks gestation of documented [facility] this encounter [facility]* Diagnosis Migraine without aura and without status migrainosus, not intractable (CMS/HCC)- Primary CYNDY (generalized anxiety disorder) (CMS/HCC) Generalized anxiety disorder Chronic neck pain Cervicalgia Third trimester state, incidental documented [facility] Diagnosis Migraine without aura and without status migrainosus, not intractable (CMS/HCC)- Primary CYNDY (generalized anxiety disorder) (CMS/HCC) Generalized anxiety disorder Chronic neck pain Cervicalgia Upper respiratory tract infection, unspecified type- Primary documented in this [facility]* Diagnosis 34 weeks gestation of Excessive growth affecting management of in third trimester, single or unspecified fetus Gestational diabetes mellitus (GDM) in third trimester, gestational diabetes method of control unspecified documented [facility] this [facility] Diagnosis Migraine without aura and without status migrainosus, not intractable (CMS/HCC)- Primary CYNDY (generalized anxiety disorder) (CMS/HCC) Generalized anxiety disorder Chronic neck pain Cervicalgia Upper respiratory tract infection, unspecified type documented [facility] Diagnosis Migraine without aura and without status migrainosus, not intractable (CMS/HCC)- Primary CYNDY (generalized anxiety disorder) (CMS/HCC) Generalized anxiety disorder Chronic neck pain Cervicalgia Strain of right calf muscle- Primary Annual physical exam Routine general medical examination at a health care facility Class 3 severe obesity due to excess calories without serious comorbidity with body mass index (BMI) of 40.0 to 44.9 in adult (CMS/HCC) documented in this encounter [facility] Summary Purpose Family History No Family History Records FoundNo Family History Records FoundNo Family History Records FoundNo Family History Records Found Advance Directives No Advanced Directives Records FoundNo Advanced Directives Records FoundNo Advanced Directives Records FoundNo Advanced Directives Records Found Additional Source Comments INFORMATION SOURCE (unrecogn ized section and content) DATE CREATED AUTHOR 04/04/2018 [facility] DATE CREATED AUTHOR AUTHOR'S ORGANIZ ATION 11/03/2021 [facility] DATE CREATED AUTHOR AUTHOR'S ORGANIZ ATION 10/26/2022 [facility] DATE CREATED AUTHOR AUTHOR'S ORGANIZ ATION 07/27/2024 [facility] EPIC Reason for Visit (unrecogniz ed section and content) Reason Comments Routine Visit Reason Comments Follow-up Right calf pain Care Teams (unrecognized sec tion and content) [employer] Relationship Specialty Start Date End Date Shailesh Cevallos MD [address] [place] [phone] PCP - General Family Medicine 01/20/24 Shailesh Cevallos MD [address] [place] [address] PCP - Medical [employer] 08/10/23 10/09/99 [employer] Specialty Start Date End Date Shailesh Cevallos MD [address] [place] [phone] PCP - General Family Medicine 01/20/24 Shailesh Cevallos MD [address] [place] [phone] PCP - Medical [employer] 08/10/23 10/09/99 [employer] Relationship Specialty Start Date End Date Shailesh Cevallos MD [address] [place] [phone] PCP - General Family Medicine 01/20/24 Shailesh Cevallos MD [address] [place] [address] PCP - Medical [employer] 08/10/23 10/09/99 [employer] Relationship Specialty Start Date End Date Shailesh Cevallos MD [address] [place] [address] PCP - General Family Medicine 01/20/24 Shailesh Cevallos MD [address] [place] [address] PCP - Medical [employer] 08/10/23 10/09/99 [employer] Relationship Specialty Start Date End Date Shailesh Cevallos MD [address] [place] [address] PCP - General Family Medicine 01/20/24 Shailesh Cevallos MD [address] [place] [address] PCP - [facility] [employer] 08/10/23 10/09/99 [employer] Relationship Specialty Start Date End Date Shailesh Cevallos MD [address] [place] [address] PCP - General Family Medicine 01/20/24 Shailesh Cevallos MD [address] [place] [address] PCP - Medical [employer] 08/10/23 10/09/99 [employer] Relationship Specialty Start Date End Date Shailesh Cevallos MD [address] [place] [address] PCP - [facility] 01/20/24 Shailesh Cevallos MD [address] [place] [address] [facility] 08/10/23 10/09/99 [employer] Relationship Specialty Start Date End Date Shailesh Cevlalos MD [address] [place] [address] [facility] 01/20/24 Shailesh Cevallos MD [address] [place] [address] [facility] 08/10/23 10/09/99 [employer] Relationship Specialty Start Date End Date Shailesh Cevallos MD [address] [place] [address] [facility] 01/20/24 Shailesh Cevallos MD [address] [place] [address] [facility] 08/10/23 10/09/99 FOR RECORDS PERTAINING TO PATIENTS [...] BE BASED ON THE PRIMARY CLINICAL RECORDS. [facility]. provides no warranty or guarantee of the accuracy or completeness of information in this document.
[2024-11-08 09:30] LABS: Basophils Percent Auto 0.5 % (0.2-2.0); Eosinophils Absolute Auto 0.2 10^3/uL (0.0-0.7); Eosinophils Percent Auto 2.9 % (0.9-7.0); Hematocrit 35.9 % (36.0-48.0); Hemoglobin 10.5 g/dL (12.0-16.0); Immature Granulocytes Abs Auto 0.03 10^3/uL (0.00-0.03); Immature Granulocytes Pct Auto 0.4 % (0.0-0.5); Lymphocytes Percent Auto 24.1 % (20.5-60.0); Mean Corpuscular HGB Conc 29.2 g/dL (29.9-35.2); Mean Corpuscular Volume 71.9 fL (81.0-99.0); Mean Platelet Volume 11.4 fL (9.5-13.5); Monocytes Absolute Auto 0.5 10^3/uL (0.3-0.8); Monocytes Percent Auto 5.5 % (1.7-12.0); Neutrophils Absolute Auto 5.5 10^3/uL (1.4-6.5); Neutrophils Percent Auto 66.6 % (43.0-75.0); Platelet Count 176 10^3/uL (150-450); Red Blood Count 4.99 10^6/uL (4.20-5.40); Red Cell Distribution Width 16.8 % (11.0-15.0); White Blood Count 8.3 10^3/uL (4.0-11.0)
[2024-11-08 10:59] LABS: Estimated Average Glucose 111 mg/dL; Glycohemoglobin A1C 5.5 % (4.5-6.2)
[2024-11-08 11:10] LABS: Alanine Aminotransferase 15 U/L (14-59); Albumin Globulin Ratio 0.8; Albumin Level 3.3 g/dL (3.4-5.0); Alkaline Phosphatase 107 U/L (46-116); Anion Gap 10.5; Aspartate Amino Transferase 16 U/L (15-37); BUN Creatinine Ratio 11.1; Bilirubin Direct 0.1 mg/dL (0.0-0.2); Bilirubin Total 0.7 mg/dL (0.2-1.0); Calcium 8.6 mg/dL (8.5-10.1); Carbon Dioxide 27.4 mmol/L (21.0-32.0); Chloride 105 mmol/L (98-107); Chol HDL Ratio 3.8; Cholesterol 165 mg/dL (<=200); Estimated GFR (African America >60 (>=60 mL/min/1.73m^2); Estimated GFR (Non-African Ame >60 (>=60 mL/min/1.73m^2); Globulin 3.9 g/dL; Glucose 79 mg/dL (74-106); HDL Cholesterol 44 mg/dL (40-60); Potassium 3.9 mmol/L (3.5-5.1); Sodium 139 mmol/L (136-145); TSH W/ REFLEX FT4 1.396 uIU/mL (0.358-3.740); Total Protein 7.2 g/dL (6.4-8.2); Triglycerides 105 mg/dL (<=150)
== END 2024-11-08 08:57 | disposition home or self-care (01) ==
LOC: LAB 08:57
PROVIDERS: PCP Family Medicine; Visit Provider Family Medicine
DX: Z00.00 Encounter for general adult medical examination without abnormal findings (principal); E66.813 Obesity, class 3; Z68.41 Body mass index [BMI] 40.0-44.9, adult
CPT/HCPCS: 36415; 80048; 80061; 80076; 83036; 84443; 85025

== ENCOUNTER 2025-08-24 10:13 | Outpatient (OUT) | payer OTHER, SELFPAY ==
--- OUTSIDE RECORDS SUMMARY | 2025-08-24 10:19 | XMS_ITS | CCD ---
Author Organization [facility] CliniSytx Care Team Providers Care Route Delivery Service Driver Name Role Phone PHYSICIAN, DEFAULT Unavailable Unavailable PHYSICIAN, DEFAULT Unavailable Unavailable BAN, DR SHAILESH Rodriguez Primary Care Unavailable YO LANDEROS Admitting Unavailable LETI, YO Attending Unavailable YO LANDEROS Consulting Unavailable GABRIELLA, WHITNEY Admitting Unavailable GABRIELLA, WHITNEY Attending Unavailable DR SHAILESH CEVALLOS Primary Care Unavailable GABRIELLA, WHITNEY Consulting Unavailable Shailesh Cevallos MD Primary Care Provider Shailesh Cevallos MD Unavailable SHAILESH CEVALLOS Attending Unavailable SHAILESH CEVALLOS Attending Unavailable RICHARD, LAKIA Attending Unavailable RICHARD, LAKIA Attending Unavailable ROB, JOSY Attending Unavailable RICHARD, LAKIA Attending Unavailable ROB, JOSY Attending Unavailable RICHARD, LAKIA Attending Unavailable ROB, JOSY Attending Unavailable RICHARD, LAKIA Attending Unavailable Shailesh Cevallos MD Primary Care Provider Shailesh Cevallos MD Unavailable Shailesh Cevallos MD Primary Care Provider Medications Current Medications MedicationDrug Class(es)DatesSig (Normalized)Sig (Original)cefdinir 300 mg oral capsule (6 sources)Cephalosporin AntibacterialStart: 04-15-2025 End: 60-48-4448ohwo 1 capsule by mouth in the morningcefdinir (Omnicef) 300 MG capsule Indications: Upper respiratory tract infection, unspecified type Take 1 capsule (300 mg) by mouth in the morning and 1 capsule (300 mg) before bedtime. Do all this for 10 days. 20 capsule 04/15/2025 04/25/2025 ActiveStart: 02-25-2025 End: 57-46-6738ixui 1 capsule by mouth in the morningcefdinir (Omnicef) 300 MG capsule Indications: Upper respiratory tract infection, unspecified type Take 1 capsule (300 mg) by mouth in the morning and 1 capsule (300 mg) before bedtime. Do all this for 10 days. 20 capsule 02/25/2025 03/07/2025 ActiveStart: 10-11-2024 End: 65-98-9911gsgm 1 capsule by mouth in the morningcefdinir (Omnicef) 300 MG capsule Indications: Upper respiratory tract infection, unspecified type Take 1 capsule (300 mg) by mouth in the morning and 1 capsule (300 mg) before bedtime. Do all this for 10 days. 20 capsule 10/11/2024 10/21/2024 ActiveStart: 07-27-2024 End: 30-21-7362musc 1 capsule by mouth in the morningcefdinir (Omnicef) 300 MG capsule Indications: Upper respiratory tract infection, unspecified type Take 1 capsule (300 mg) by mouth in the morning and 1 capsule (300 mg) before bedtime. Do all this for 10 days. 20 capsule 07/27/2024 08/06/2024 Activecyclobenzaprine hydrochloride 10 mg oral tablet (9 sources)Muscle RelaxantStart: 11-07-2024 End: 62-56-3261avoq 1 tablet by mouth in the morning, then take 1 tablet by mouth in the evening, then take 1 tablet by mouth at bedtimecyclobenzaprine (Flexeril) 10 MG tablet Indications: Annual physical exam , Class 3 severe obesity due to excess calories without serious comorbidity with body mass index (BMI) of 40.0 to 44.9 in adult ([facility] , Strain of right calf muscle Take 1 tablet (10 mg) by mouth in the morning and 1 tablet (10 mg) in the evening and 1 tablet (10 mg) before bedtime. Do all this for 10 days. 30 tablet 11/07/2024 Activeisopropyl alcohol 0.7 ml/ml medicated pad (20 sources)Start: 17-81-6512Tjxvqmm Swabs (Alcohol Prep Pad) 70 % pads Indications: Gestational diabetes mellitus (GDM), antepartum, gestational diabetes method of control unspecified ([facility]) , Elevated glucose tolerance testApply 1 Pad topically Daily Use four times daily to check FSBS. 150 each 3 04/05/2024 Activephentermine hydrochloride 37.5 mg oral tablet (10 sources)Sympathomimetic Amine AnorecticStart: 11-07-2024 End: 59-16-8167fqgm 40-44.9 tablets by mouth before mealtimephentermine (Adipex- P) 37.5 MG tablet Indications: Class 3 severe obesity due to excess calories wit hout serious comorbidity with body mass index (BMI) of 40.0 to 44.9 in adult ([facility]) Take 1 tablet (37.5 mg) by mouth in the morning. Take before meals. 30 tablet 12/11/2024 ActivepredniSONE 50 mg oral tablet (5 sources)Start: 04-15-2025 End: 33-47-4568wmso 1 tablet by mouth once dailypredniSONE (Deltasone) 50 MG tablet Indications: Strain of right calf muscle Take 1 tablet (50 mg) by mouth Daily for 6 days 6 tablet 04/15/2025 04/21/2025 ActiveStart: 02-25-2025 End: 15-19-5730qvaq 1 tablet by mouth once dailypredniSONE (Deltasone) 50 MG tablet Indications: Strain of right calf muscle Take 1 tablet (50 mg) by mouth Daily for 6 days 6 tablet 02/25/2025 03/03/2025 ActiveStart: 11-07-2024 End: 30-32-3636cbkj 1 tablet by mouth once dailypredniSONE (Deltasone) 50 MG tablet Indications: Strain of right calf muscle Take 1 tablet (50 mg) by mouth Daily for 6 days 6 tablet 11/07/2024 11/13/2024 Activesertraline 100 mg oral tablet (20 sources)Serotonin Reuptake InhibitorStart: 91-96-6558nnnk 1 tablet by mouth once dailysertraline (Zoloft) 100 MG tablet Indications: MDD (major depressive disorder), recurrent episode, mild Take 1 tablet (100 mg) by mouth Daily 90 tablet 3 05/21/2024 Active Completed/Discontinued Medications MedicationDrug Class(es)DatesSig (Normalized)Sig (Original)polysaccharide iron complex 391 mg oral capsule (18 sources)Start: 04-06-2024 End: 88-11-7635apgh 1 capsule by mouth once dailyiron polysaccharides (ProFe) 391.3 (180 Fe) MG capsule Indications: Low hemoglobin Take 1 capsule (391.3 mg) by mouth Daily 30 capsule 6 04/06/2024 11/07/2024 Discontinued Problems Active Problems Problem ClassificationProblemDateDocumented DateEpisodic/ChronicAnxiety disorders (20 sources)Anxiety disorder, unspecified; Translations: [Generalized anxiety disorder]Onset: 009952-60-2454NjkpkplKnlilheq; including migraine (20 sources)Migraine without aura, not refractory ; Translations: [Migraine without aura, not intractable, without status migrainosus]Onset: 09-22-2023 99-70-9802JtxqjexOfwsjwfg; including migraine (4 sources)Headache; including migraine; Translations: [HEADACHE UNSPECIFIED] Onset: 32-92-5060Qpmr disorders (20 sources)Recurrent major depressive episodes, mild ; Translations: [Major depressive disorder, recurrent, mild]Onset: 896088-37-4669LxeduaoEnlp disorders (1 source)Mood disorders; Translations: [DEPRESSION UNSPECIFIED]Onset: 40-02-4784Qkhtu aftercare (1 source)Other shelter (current) drug therapy; Translations: [OTH ASSISTED CURRENT DRUG THERAPY]Onset: 25-20-5513TexmcpdrWidzs gastrointestinal disorders (20 sources)Irritable bowel syndrome with diarrhea; Translations: [Irritable bowel syndrome with diarrhea]Onset: 580646-36-2462JeoxflmRkgjh nutritional; endocrine; and metabolic disorders (16 sources)Body mass index 30+ - obesity; Translations: [Obesity, unspecified] Onset: 861646-17-3699WatcheuRvahr nutritional; endocrine; and metabolic disorders (20 sources)Severe obesity; Translations: [Class 3 severe obesity due to excess calories without serious comorbidity with body mass index (BMI) of 40.0 to 44.9 in adult ([facility])]Onset: 310702-40-0867PwttczjXrykf and delivery including normal (6 sources)Third trimester ; Translations: [Encounter for supervision of normal , unspecified, third trimester]82-48-5990TzsrxwbiKwwjk upper respiratory infections (4 sources)Upper respiratory infection; Translations: [Acute upper respiratory infection, unspecified]09-32-2665UperidmwJyoilacq codes; unclassified (2 sources)Gestation period, 36 weeks; Translations: [36 weeks gestation of ]25-48-5777BsrlujacTppdvslq codes; unclassified (2 sources)Gestation period, 37 weeks; Translations: [37 weeks gestation of ]26-11-6335QzhcxnexXygaavxlkybz (2 sources)CONTACT W/AND (SUSP) EXPOS COVID-19; Translations: [CONTACT W/AND (SUSP) EXPOS COVID-19]Onset: 76-37-6535Rscic infection (1 source)COVID-19; Translations: [COVID-19]Onset: 12-17-2021 Past or Other Problems Problem ClassificationProblemDateDocumented DateEpisodic/ChronicDiabetes or abnormal glucose tolerance complicating ; childbirth; or the puerperium (2 sources)Gestational diabetes mellitus; Translations: [Gestational diabetes mellitus in , unspecified control]67-34-6071AgnlvzajUwxyrrnayi during ; abruptio placenta; placenta previa (20 sources)Antepartum hemorrhage; Translations: [Hemorrhage in early , unspecified]Onset: 12-30-2023 Resolved: 185192-09-3811QapygzpnTvoykxhbf disorders (20 sources)Missed period; Translations: [Irregular menstruation, unspecified] Onset: 12-30-2023 Resolved: 008890-80-9563OanrvbwIclmw complications of (2 sources)Excessive growth affecting management of mother; Translations: [Maternal care for excessive growth, third trimester, not applicable or unspecified]66-21-7560DxgclsgeZbmqu infections; including parasitic (20 sources)History of sexually transmitted disease; Translations: [Personal history of other infectious and parasitic diseases]Onset: EpisodicResidual codes; unclassified (20 sources)Persistent insomnia; Translations: [Insomnia, unspecified]Onset: 036070-75-4407UsmtekjnKxrytgaj codes; unclassified (2 sources)Gestation period, 34 weeks; Translations: [34 weeks gestation of ]87-68-3767NpidtiftQqfhbffjkcw; intervertebral disc disorders; other back problems (20 sources)Chronic neck pain; Translations: [Cervicalgia]Onset: 10-21-2023 28-98-8389QwqmfvuxTnlpfby and strains (20 sources)Strain of calf muscle; Translations: [Strain of other muscle(s) and tendon(s) at lower leg level, right leg, initial encounter]Onset: 11-07-2024 92-99-4381JtohrstcJlbldrwplhwl (1 source)CONTACT W/AND (SUSP) EXPOS COVID-19; Translations: [CONTACT W/AND (SUSP) EXPOS COVID-19]Onset: 12-16-2021 Results Test NameValueInterpretationReference RangeFacilityALL CBC WITH AUTO DIFFon 11-10-1195HCWMIJVRC ABSOLUTE CYEW1RIQB HealthcareBasophils/100 WBC (Bld)0.5 %0.2 - 2.0 %NOMS HealthcareEosinophils/100 WBC (Bld)2.9 %0.9 - 7.0 %[facility]OML[facility] Erythrocyte distribution width (RBC) [Ratio]16.8 %High11.0 - 15.0 %NOMS HealthcareHematocrit (Bld) [Volume fraction]35.9 %Low36.0 - 48.0 %NOM HealthcareHemoglobin (Bld) [Mass/Vol]10.5 g/dLLow12.0 - 16.0 g/dLNOSaint Mary's Hospital [facility] IMMATURE GRANULOCYTES ABS AUTO0.03NOMS HealthcareImmature granulocytes/100 WBC (Bld)0.4 %0.0 - 0.5 %NOM HealthcareInterpretation and review of laboratory resultsAbnormalNOPR HealthcareLYMPHOCYTES ABSOLUTE UTPJ2VWRV Healthcare Lymphocytes/100 WBC (Bld)24.1 %20.5 - 60.0 %NOMLake Regional Health SystemMCH (RBC) [Entitic mass]21 pgLow26.7 - 34.0 pgNOSaint John's Regional Health CenterHC (RBC) [Mass/Vol]29.2 g/dLLow29.9 - 35.2 g/dLNOSaint Mary's Hospital of Blue SpringsMCV (RBC) [Entitic vol]71.9 fLLow81.0 - 99.0 fLNOSaint Mary's Hospital of Blue SpringsMONOCYTES ABSOLUTE AUTO0.5NOPR HealthcareMonocytes/100 WBC (Bld)5.5 % 1.7 - 12.0 %[facility] CenterNEUTROPHILS ABSOLUTE AUTO5.5NOSaint [facility]'s [facility] Neutrophils/100 WBC (Bld)66.6 %43.0 - 75.0 %[facility] Medical CenterPlatelet mean volume (Bld) [Entitic vol]11.4 fL9.5 - 13.5 fLSaint Luke's Health System EO #0.2NOMS Healthcare TBH [id number] [facility] RBC4.99NOMS [facility] WBC8.3NOSaint [facility] CLINISYNCWashington University Medical CenterALL CBC WITH AUTO DIFFon 84-44-0803PEIXNULAG ABSOLUTE AUTO0.1NOMS [facility] HospitalBasophils/100 WBC (Bld)0.5 %0.2 - 2.0 %[facility] Eosinophils/100 WBC (Bld)1.2 %0.9 - 7.0 %[facility] CenterErythrocyte distribution width (RBC) [Ratio]15.9 %High11.0 - 15.0 %[facility] CenterHematocrit (Bld) [Volume fraction]28.9 %Low36.0 - 48.0 %[facility] CenterHemoglobin (Bld) [Mass/Vol]8.6 g/dLLow12.0 - 16.0 g/dLWashington University Medical CenterIMMATURE GRANULOCYTES ABS AUTO0.09HighWashington University Medical CenterImmature granulocytes/100 WBC (Bld)0.7 %High0.0 - 0.5 %[facility] CenterInterpretation and review of laboratory resultsAbnormalWashington University Medical CenterLYMPHOCYTES ABSOLUTE AUTO2.3NOSaint Mary's Hospital of Blue SpringsLymphocytes/100 WBC (Bld) 18.2 %Low20.5 - 60.0 %[facility]H (RBC) [Entitic mass]21.3 pgLow26.7 - 34.0 pgCox NorthHC (RBC) [Mass/Vol]29.8 g/dLLow29.9 - 35.2 g/dLCox NorthV (RBC) [Entitic vol]71.7 fLLow81.0 - 99.0 fLWashington University Medical Center MONOCYTES ABSOLUTE AUTO0.6NOMS [facility] HospitalMonocytes/100 WBC (Bld)4.6 %1.7 - 12.0 %[facility] CenterNEUTROPHILS ABSOLUTE AUTO9.3HighNOMS HealthcareNeutrophils/100 WBC (Bld)74.8 %43.0 - 75.0 %[facility] HealthcarePlatelet mean volume (Bld) [Entitic vol]13 fL9.5 - 13.5 fLNOSaint Mary's Hospital of Blue SpringsTB EO #0.2NOMS HealthcareTB [id number] [facility] RBC4.03LowNOMS [facility] WBC12.5HighNOPR HealthcareCLINISYNC [facility] HealthcareHP CBC WITH PLATELET NO DIFFERENTIALon 62-38-8503Ugdyqufrzwy distribution width (RBC) [Ratio]15.9 %High11.0 - 15.0 %[facility] HealthcareHematocrit (Bld) [Volume fraction]32.6 %Low36.0 - 48.0 %[facility] HealthcareHemoglobin (Bld) [Mass/Vol]9.7 g/dLLow12.0 - 16.0 g/dLACADIA HEALTHCARE HealthcareInterpretation and review of laboratory resultsAbnormalNOSaint John's Regional Health CenterH (RBC) [Entitic mass]21.2 pgLow26.7 - 34.0 pgNOSaint John's Regional Health CenterHC (RBC) [Mass/Vol]29.8 g/dLLow29.9 - 35.2 g/dLCox NorthV (RBC) [Entitic vol]71.2 fLLow81.0 - 99.0 fLNOSaint Mary's Hospital of Blue SpringsTB PLT 221NOMS [facility] RBC4.58NOMissouri [facility] WAJ31OIFN HealthcareCLINISYNC [facility] HealthcareUS OB BPP W NON-STRESSon 74-49-9741XkhKimberly[place] [address] Ultrasound Report Signed Patient: PATRICIA GIBSON MR#: [id number] : 1990 Acct:[id number] Age/Sex: 34 / F ADM Date: 07/25/24 Loc: US Attending Dr: Josy Rivas Ordering Physician: Josy Rivas Date of Service: 07/25/24 Procedure(s): US OB BPP w non-stress Accession Number(s): [id number] cc: Josy Rivas; Shailesh Cevallos M.D. The [address] [address] Patient Name: PATRICIA GIBSON MRN: [id number] date: 1990 Sex: F Assigned Patient Location: US Current Patient Location: US Accession/Order Number: [id number] Exam Date: 07/25/2024 11:40 Report Date: 07/25/2024 12:24 At the request of: JOSY RIVAS Procedure: US OB BPP w non-stress EXAMINATION: US OB BPP w non-stress HISTORY: Excessive growth O36.63x0 COMPARISON: No relevant comparison available. TECHNIQUE: Ultrasound biophysical profile was performed in the radiology department. non-reactive stress testing was performed by nursing staff in the birthing center. FINDINGS: BREATHING MOVEMENTS: 2 GROSS BODY MOVEMENTS: 2 TONE: 2 QUALITATIVE AMNIOTIC FLUID VOLUME: 2 PRESENTATION: CEPHALIC HEART RATE: 144.39 bpm AMNIOTIC FLUID VOLUME: 25.9 cm GESTATIONAL AGE: 38 weeks 2 days US/US OB BPP w non-stress IMPRESSION: Total biophysical profile score: 8 Electronically authenticated by: BETH RINALDI Date: 07/25/2024 12:24 Dictated By: Beth Rinaldi M.D. Signed By: 07/25/24 1227 DD/ 1224 TD/TT: Poultry Helper:DAHLIAHRadiology, Radiologist, - 07/25/2024 [place] [address] Ultrasound Report Signed Patient: PATRICIA GIBSON MR#: [id number] : 1990 Acct:[id number] Age/Sex: 34 / F ADM Date: 07/25/24 Loc: US Attending Dr: Josy Rivas Ordering Physician: Josy Rivas Date of Service: 07/25/24 Procedure(s): US OB BPP w non-stress Accession Number(s): [id number] cc: Josy Rivas; Shailesh Cevallos M.D. The [address] [address] Patient Name: PATRICIA GIBSON MRN: [id number] date: 1990 Sex: F Assigned Patient Location: US Current Patient Location: US Accession/Order Number: [id number] Exam Date: 07/25/2024 11:40 Report Date: 07/25/2024 12:24 At the request of: JOSY RIVAS Procedure: US OB BPP w non-stress EXAMINATION: US OB BPP w non-stress HISTORY: Excessive growth O36.63x0 COMPARISON: No relevant comparison available. TECHNIQUE: Ultrasound biophysical profile was performed in the radiology department. non-reactive stress testing was performed by nursing staff in the birthing center. FINDINGS: BREATHING MOVEMENTS: 2 GROSS BODY MOVEMENTS: 2 TONE: 2 QUALITATIVE AMNIOTIC FLUID VOLUME: 2 PRESENTATION: CEPHALIC HEART RATE: 144.39 bpm AMNIOTIC FLUID VOLUME: 25.9 cm GESTATIONAL AGE: 38 weeks 2 days US/US OB BPP w non-stress IMPRESSION: Total biophysical profile score: 8 Electronically authenticated by: BETH RINALDI Date: 07/25/2024 12:24 Dictated By: Beth Rinaldi M.D. Signed By: 07/25/24 1227 DD/ 122 TD/TT: Poultry Helper: PINA HealthcareRadiology Study observation (narrative)PINA BaeUS OB BPP W NON-STRESSOrdered By: Radiologist Radiology on 81-03-9362KBBC Healthcare Work Phone: Urinalysis macro (dipstick) panel (U)on 07-25-2024 Bilirubin, UANegativeNegative - 4(70) +++ mg/dLNOMS HealthcareBlood, UANegative Negative - 50 Zcahery/mcLNOMS HealthcareClarity, UAClearNOMS HealthcareColor, UA YellowNOMS HealthcareGlucose, UANegativeNegative - 2000(110) ++++ mg/dLNOMS HealthcareInterpretation and review of laboratory resultsAbnormalNOMS Healthcare Ketones, UANegativeNegative - 160(16) ++++ mg/dLNOMS HealthcareLeukocytes, UA PositiveNegative - 500+++ Giovana/mcLNOMS HealthcareNitrite, UANegativeNegative - PositiveNOMS HealthcarepH, UA65 - 9NOMS HealthcareProtein, UAPositiveNegative - 2000(20) ++++ mg/dLNOMS HealthcareSpec Grav, UA1.021 - 1.03NOMS Healthcare Urobilinogen, UA1.00.2 - 12 mg/dLNOMS HealthcareNOMS HealthcareAMNISUREon 03-08-9137JSU AMNISURENegativeNEGATIVENOMS HealthcareCLINISYNCNOMS HealthcareUS OB BPP W NON-STRESSon 65-96-[address] [address] Ultrasound Report Signed Patient: PATRICIA GIBSON MR#: [id number] : 1990 Acct:[id number] Age/Sex: 34 / F ADM Date: 07/18/24 Loc: [facility] 250-[address]: Josy Rivas Ordering Physician: Josy Rivas Date of Service: 07/18/24 Procedure(s): US OB BPP w non-stress Accession Number(s): [id number] cc: Josy Rivas; Shailesh Cevallos M.D. [place] [id number] Patient Name: PATRICIA GIBSON MRN: [id number] date: 1990 Sex: F Assigned Patient Location: [facility] Current Patient Location: [facility] Accession/Order Number: [id number] Exam Date: 07/18/2024 10:10 Report Date: 07/18/2024 10:43 At the request of: JOSY RIVAS Procedure: US OB BPP w non-stress EXAMINATION: US OB BPP w non-stress HISTORY:Excessive growth O36.63X0 COMPARISON: Ultrasound OB biophysical 08-02 TECHNIQUE: Ultrasound biophysical profile was performed in the radiology department. BREATHING MOVEMENTS: 2 GROSS BODY MOVEMENTS: 2 TONE: 2 QUALITATIVE AMNIOTIC FLUID VOLUME: 2 PRESENTATION: CEPHALIC HEART RATE: 132.35 bpm AMNIOTIC FLUID VOLUME: 27.48 cm GESTATIONAL AGE: 37 weeks 2 days US/US OB BPP w non-stress IMPRESSION: 1. Total biophysical profile score: 8 2. Continued polyhydramnios; increased since prior study. Electronically authenticated by: SHAY HOWARD Date: 07/18/2024 10:43 Dictated By: Shay Howard M.D. Signed By: 07/18/24 1045 DD/ 1043 TD/TT: Poultry Helper:Robina Calhoun MD - 07/18/2024 [place] [address] Ultrasound Report Signed Patient: PATRICIA GIBSON MR#: [id number] : 1990 Acct:[id number] Age/Sex: 34 / F ADM Date: 07/18/24 Loc: [facility] 250- Attending Dr: Josy Rivas Ordering Physician: Josy Rivas Date of Service: 07/18/24 Procedure(s): US OB BPP w non-stress Accession Number(s): [id number] cc: Josy Rivas; Shailesh Cevallos M.D. The [place] [id number] Patient Name: PATRICIA GIBSON MRN: [id number] date: 1990 Sex: F Assigned Patient Location: [facility] Current Patient Location: [facility] Accession/Order Number: [id number] Exam Date: 07/18/2024 10:10 Report Date: 07/18/2024 10:43 At the request of: JOSY RIVAS Procedure: US OB BPP w non-stress EXAMINATION: US OB BPP w non-stress HISTORY:Excessive growth O36.63X0 COMPARISON: Ultrasound OB biophysical 08-02 TECHNIQUE: Ultrasound biophysical profile was performed in the radiology department. BREATHING MOVEMENTS: 2 GROSS BODY MOVEMENTS: 2 TONE: 2 QUALITATIVE AMNIOTIC FLUID VOLUME: 2 PRESENTATION: CEPHALIC HEART RATE: 132.35 bpm AMNIOTIC FLUID VOLUME: 27.48 cm GESTATIONAL AGE: 37 weeks 2 days US/US OB BPP w non-stress IMPRESSION: 1. Total biophysical profile score: 8 2. Continued polyhydramnios; increased since prior study. Electronically authenticated by: SHAY HOWARD Date: 07/18/2024 10:43 Dictated By: Shay Howard M.D. Signed By: 07/18/24 1045 DD/ 104 TD/TT: Poultry Helper: PINA HealthcareRadiology Study observation (narrative)NOMAnnette BaeUS OB BPP W NON-STRESSOrdered By: Radiologist Radiology on 66-28-5616RQBT Healthcare Work Phone: Urinalysis macro (dipstick) panel (U)on 07-18-2024 Bilirubin, UAPositiveNegative - 4(70) +++ mg/dLACADIA HEALTHCARE HealthcareComment on above: smallBlood, UANegativeNegative - 50 Zachery/mcLNOPR HealthcareClarity, UAClearNOMS HealthcareColor, UAYellowNOMS HealthcareGlucose, UANegativeNegative - 2000(110) ++++ mg/dLACADIA [facility]ALTHCARE HealthcareInterpretation and review of laboratory resultsAbnormal NOMS HealthcareKetones, UANegativeNegative - 160(16) ++++ mg/dLACADIA HEALTH[facility]ARE Healthcare Leukocytes, UATraceNegative - 500+++ Giovana/mcLNOPR HealthcareNitrite, UANegative Negative - PositiveNOPR HealthcarepH, UA6.05 - 9NOPR HealthcareProtein, UA NegativeNegative - 2000(20) ++++ mg/dLACADIA HEALTHCARE HealthcareSpec Grav, UA1.0301 - 1.03 NOMS HealthcareUrobilinogen, UA1.00.2 - 12 mg/dLSamaritan Hospital Healthcare STREP GP B NAAon 98-27-1911BIKDL GP B IFRAH Strep Gp B IFRAH [facility] HealthcareSTREP GP B NAANegativeNOPR HealthcareSTREP GP B NAACenters for Disease Control and Prevention (CDC) and[facility] HealthcareSTREP GP B NAAAmerican Congress of Obstetricians and GynecologistsACADIA HEALTHCARE HealthcareSTREP GP B IFRAH(ACOG) guidelines for prevention of group [facility] HealthcareSTREP GP B IFRAH streptococcal (GBS) disease specify co-collection ofAC[facility]IA [facility]ALTH[facility] HealthcareSTREP GP B NAAa vaginal and rectal swab specimen to maximizeACADIA HEALTHCARE HealthcareSTREP GP B IFRAH sensitivity of GBS detection. Per the CDC and ACOG,NOMS HealthcareSTREP GP B IFRAH swabbing both the lower vagina and rectumNOPR HealthcareSTREP GP B IFRAH substantially increases the yield of detectionNOMS HealthcareSTREP GP B IFRAH compared with sampling the vagina alone.NOMS HealthcareSTREP GP B NAAPenicillin G, ampicillin, or cefazolin are indicatedNOPR HealthcareSTREP GP B NAAfor intrapartum prophylaxis of GBSNOPR HealthcareSTREP GP B IFRAH colonization. Reflex susceptibility testing should beNOMS HealthcareSTREP GP B NAAperformed prior to use of clindamycin only on GBSNOMS HealthcareSTREP GP B NAAisolates from penicillin-allergic women who areNOMS HealthcareSTREP GP B IFRAH considered a high risk for anaphylaxis. Treatment withNOMS HealthcareSTREP GP B NAAvancomycin without additional testing is warranted ifNOMS HealthcareSTREP GP B NAAresistance to clindamycin is noted.NOMS HealthcareSTREP GP B NAAPerformed at: - [facility] HealthcareSTREP GP B [id number] [place], [place] [id number] HealthcareSTREP GP B NAALab Director: Hugh Peterson PhD, Phone: [phone] HealthcareCLINISYNOMS HealthcareUS OB BPP W NON-STRESSon 27-37-0760UfwKimberly, [place] [address] Ultrasound Report Signed Patient: PATRICIA GIBSON MR#: [id number] : 1990 Acct:[id number] Age/Sex: 34 / F ADM Date: 07/11/24 Loc: [place] [address]: Josy Rivas Ordering Physician: Josy Rivas Date of Service: 07/11/24 Procedure(s): US OB BPP w non-stress Accession Number(s): [id number] cc: Josy Rivas; Shailesh Cevallos M.D. [place] [address] Patient Name: PATRICIA GIBSON MRN: [id number] date: 1990 Sex: F Assigned Patient Location: [facility] Current Patient Location: [facility] Accession/Order Number: [id number] Exam Date: 07/11/2024 11:10 Report Date: 07/11/2024 11:48 At the request of: JOSY RIVAS Procedure: US OB BPP w non-stress EXAMINATION: US OB BPP w non-stress HISTORY: Excessive Growth, Gestational Diabetes COMPARISON: No relevant comparison available. TECHNIQUE: Ultrasound biophysical profile was performed in the radiology department. non-reactive stress testing was performed by nursing staff in the birthing center. FINDINGS: BREATHING MOVEMENTS: 2 GROSS BODY MOVEMENTS: 2 TONE: 2 QUALITATIVE AMNIOTIC FLUID VOLUME: 2 PRESENTATION: CEPHALIC HEART RATE: 149.17 bpm AMNIOTIC FLUID VOLUME: 25.2 cm GESTATIONAL AGE: 36 weeks 2 days US/US OB BPP w non-stress IMPRESSION: Total biophysical profile score: 8 Electronically authenticated by: BETH RINALDI Date: 07/11/2024 11:48 Dictated By: Beth Rinaldi M.D. Signed By: 07/11/24 1150 DD/ 1148 TD/TT: Poultry Helper:TBHRadiology, Radiologist, MD - 07/11/2024 [place] [address] Ultrasound Report Signed Patient: PATRICIA GIBSON MR#: [id number] : 1990 Acct:[id number] Age/Sex: 34 / F ADM Date: 07/11/24 Loc: [place] [address]: Josy Rivas Ordering Physician: Josy Rivas Date of Service: 07/11/24 Procedure(s): US OB BPP w non-stress Accession Number(s): [id number] cc: Josy Rivas; Shailesh Cevallos M.D. The [place] [id number] Patient Name: PATRICIA GIBSON MRN: [id number]:[id number] date: 1990 Sex: F Assigned Patient Location: [facility] Current Patient Location: [facility] Accession/Order Number: [id number] Exam Date: 07/11/2024 11:10 Report Date: 07/11/2024 11:48 At the request of: JOSY RIVAS Procedure: US OB BPP w non-stress EXAMINATION: US OB BPP w non-stress HISTORY: Excessive Growth, Gestational Diabetes COMPARISON: No relevant comparison available. TECHNIQUE: Ultrasound biophysical profile was performed in the radiology department. non-reactive stress testing was performed by nursing staff in the birthing center. FINDINGS: BREATHING MOVEMENTS: 2 GROSS BODY MOVEMENTS: 2 TONE: 2 QUALITATIVE AMNIOTIC FLUID VOLUME: 2 PRESENTATION: CEPHALIC HEART RATE: 149.17 bpm AMNIOTIC FLUID VOLUME: 25.2 cm GESTATIONAL AGE: 36 weeks 2 days US/US OB BPP w non-stress IMPRESSION: Total biophysical profile score: 8 Electronically authenticated by: BETH RINALDI Date: 07/11/2024 11:48 Dictated By: Beth Rinaldi M.D. Signed By: 07/11/24 1150 DD/ 1148 TD/TT: Poultry Helper: PINA HealthcareRadiology Study observation (narrative)NOM HealthcareUS OB BPP W NON-STRESSOrdered By: Radiologist Radiology on [id number] Work Phone: Urinalysis macro (dipstick) panel (U)on 07-11-2024 Bilirubin, UANegativeNegative - 4(70) +++ mg/dLNOMS HealthcareBlood, UANegative Negative - 50 Zachery/mcLNOMS HealthcareClarity, UAClearNOMS HealthcareColor, UA YellowNOMS HealthcareGlucose, UANegativeNegative - 2000(110) ++++ mg/dLNOMS HealthcareInterpretation and review of laboratory resultsAbnormalNOMS Healthcare Ketones, UANegativeNegative - 160(16) ++++ mg/dLNOMS HealthcareLeukocytes, UA PositiveNegative - 500+++ Giovana/mcLNOMS HealthcareComment on above:smallNitrite, UANegativeNegative - PositiveNOMS HealthcarepH, UA6.05 - 9N[facility]S Healthcare Protein, UATraceNegative - 2000(20) ++++ mg/dLNOMS HealthcareSpec Grav, UA1.0201 - 1.03NOMS HealthcareUrobilinogen, UA1.00.2 - 12 mg/dLNOMS HealthcareNOMS HealthcareUS OB BPP W NON-STRESSon [id number][place] [address] Ultrasound Report Signed Patient: PATRICIA GIBSON MR#: [id number] : 1990 Acct:[id number] Age/Sex: 34 / F ADM Date: 07/07/24 Loc: [facility] Attending Dr: Josy Rivas Ordering Physician: Lakia Ramos D.O. Date of Service: 07/07/24 Procedure(s): US OB BPP w non-stress Accession Number(s): [id number] cc: Lakia Ramos D.O.; Shailesh Cevallos M.D. The [place] [address] Patient Name: PATRICIA GIBSON MRN: [id number] date: 1990 Sex: F Assigned Patient Location: [facility] Current Patient Location: Accession/Order Number: [id number] Exam Date: 07/07/2024 14:00 Report Date: 07/08/2024 06:53 At the request of: LAKIA RAMOS Procedure: US OB BPP w non-stress EXAMINATION: US OB BPP w non-stress HISTORY:bpp /8 07/05/24, GDM COMPARISON: Ultrasound OB biophysical 07/05/2024 TECHNIQUE: Ultrasound biophysical profile was performed in the radiology department. BREATHING MOVEMENTS: 2 GROSS BODY MOVEMENTS: 2 TONE: 2 QUALITATIVE AMNIOTIC FLUID VOLUME: 2 PRESENTATION: CEPHALIC HEART RATE: 145.16 bpm AMNIOTIC FLUID VOLUME: 24.76 cm GESTATIONAL AGE: 35 weeks 5 days US/US OB BPP w non-stress IMPRESSION: 1. Total biophysical profile score: 8 2. Amniotic fluid volume is at 95th percentile. Electronically authenticated by: SHAY HOWARD Date: 07/08/2024 06:53 Dictated By: Shay Howard M.D. Signed By: 07/08/24 0656 DD/ TD/TT: Poultry Helper:DAHLIAHRadiology, Radiologist, MD - 07/08/2024 [place] [address] Ultrasound Report Signed Patient: PATRICIA GIBSON MR#: [id number] : 1990 Acct:[id number] Age/Sex: 34 / F ADM Date: 07/07/24 Loc: [facility] Attending Dr: Josy Rivas Ordering Physician: Lakia Ramos D.O. Date of Service: 07/07/24 Procedure(s): US OB BPP w non-stress Accession Number(s): [id number] cc: Lakia Ramos D.O.; Shailesh Cevallos M.D. [place] [address] Patient Name: PATRICIA GIBSON MRN: [facility]:[id number] date: 1990 Sex: F Assigned Patient Location: [facility] Current Patient Location: Accession/Order Number: [id number] Exam Date: 07/07/2024 14:00 Report Date: 07/08/2024 06:53 At the request of: LAKIA RAMOS Procedure: US OB BPP w non-stress EXAMINATION: US OB BPP w non-stress HISTORY:bpp 6/8 07/05/24, GDM COMPARISON: Ultrasound OB biophysical 07/05/2024 TECHNIQUE: Ultrasound biophysical profile was performed in the radiology department. BREATHING MOVEMENTS: 2 GROSS BODY MOVEMENTS: 2 TONE: 2 QUALITATIVE AMNIOTIC FLUID VOLUME: 2 PRESENTATION: CEPHALIC HEART RATE: 145.16 bpm AMNIOTIC FLUID VOLUME: 24.76 cm GESTATIONAL AGE: 35 weeks 5 days US/US OB BPP w non-stress IMPRESSION: 1. Total biophysical profile score: 8 2. Amniotic fluid volume is at 95th percentile. Electronically authenticated by: SHAY HOWARD Date: 07/08/2024 06:53 Dictated By: Shay Howard M.D. Signed By: 07/08/2456 DD/ TD/TT: Poultry Helper: PINA HealthcareRadiology Study observation (narrative)NOMS HealthcareUS OB BPP W NON-STRESSOrdered By: Radiologist Radiology on 20-11-7589ZPR[facility] Work Phone: US OB BPP W NON-STRESSon [phone], [place] [address] Ultrasound Report Signed Patient: PATRICIA GIBSON MR#: [id number] : 1990 Acct:[id number] Age/Sex: 34 / F ADM Date: 07/05/24 Loc: [place] [address]: Josy Rivas Ordering Physician: Josy Rivas Date of Service: 07/05/24 Procedure(s): US OB BPP w non-stress Accession Number(s): [id number] cc: Shailesh London M.D. The [place] [id number] Patient Name: PATRICIA GIBSON MRN: [id number]:[id number] date: 1990 Sex: F Assigned Patient Location: [facility] Current Patient Location: [facility] Accession/Order Number: [id number] Exam Date: 07/05/2024 09:35 Report Date: 07/05/2024 11:14 At the request of: JOSY RIVAS Procedure: US OB BPP w non-stress EXAMINATION: US OB BPP w non-stress HISTORY:repeat for 03/17 yesterday COMPARISON: Ultrasound OB biophysical 07/04/2024 TECHNIQUE: Ultrasound biophysical profile was performed in the radiology department. BREATHING MOVEMENTS: 0 GROSS BODY MOVEMENTS: 2 TONE: 2 QUALITATIVE AMNIOTIC FLUID VOLUME: 2 PRESENTATION: CEPHALIC HEART RATE: 149.17 bpm AMNIOTIC FLUID VOLUME: 26.26 cm GESTATIONAL AGE: 35 weeks 3 days US/US OB BPP w non-stress IMPRESSION: Total biophysical profile score: 6 Electronically authenticated by: SHAY HOWARD Date: 07/05/2024 11:14 Dictated By: Shay Howard M.D. Signed By: 07/05/241115 DD/ 13 TD/TT: Poultry Helper:MICKIadiolognithin, Radiologist, - 07/05/2024 [place] [address] Ultrasound Report Signed Patient: PATRICIA GIBSON MR#: [id number] : 1990 Acct:[id number] Age/Sex: 34 / F ADM Date: 07/05/24 Loc: [facility] 250-[address]: Josy Rivas Ordering Physician: Josy Rivas Date of Service: 07/05/24 Procedure(s): US OB BPP w non-stress Accession Number(s): [id number] cc: Shailesh London M.D. The [address] [address] Patient Name: PATRICIA GIBSON MRN: [id number] date: 1990 Sex: F Assigned Patient Location: [facility] Current Patient Location: [facility] Accession/Order Number: [id number] Exam Date: 07/05/2024 09:35 Report Date: 07/05/2024 11:14 At the request of: JOSY RIVAS Procedure: US OB BPP w non-stress EXAMINATION: US OB BPP w non-stress HISTORY:repeat for 03/17 yesterday COMPARISON: Ultrasound OB biophysical 07/04/2024 TECHNIQUE: Ultrasound biophysical profile was performed in the radiology department. BREATHING MOVEMENTS: 0 GROSS BODY MOVEMENTS: 2 TONE: 2 QUALITATIVE AMNIOTIC FLUID VOLUME: 2 PRESENTATION: CEPHALIC HEART RATE: 149.17 bpm AMNIOTIC FLUID VOLUME: 26.26 cm GESTATIONAL AGE: 35 weeks 3 days US/US OB BPP w non-stress IMPRESSION: Total biophysical profile score: 6 Electronically authenticated by: SHAY HOWARD Date: 07/05/2024 11:14 Dictated By: Shay Howard M.D. Signed By: 07/05/24 1116 DD/ 1114 TD/TT: Poultry Helper: PINA HealthcareRadiology Study observation (narrative)NOMS HealthcareUS OB BPP W NON-STRESSOrdered By: Radiologist Radiology on 12-24-9972SS[facility] Work Phone: US OB UMBILICAL ARTERY DOPPLERon [phone], [place] [address] Ultrasound Report Signed Patient: PATRICIA GIBSON MR#: [id number] : 1990 Acct:[id number] Age/Sex: 34 / F ADM Date: 07/05/24 Loc: [facility] 250-[address]: Josy Rivas Ordering Physician: Lakia Ramos D.O. Date of Service: 07/05/24 Procedure(s): US OB umbilical artery Accession Number(s): [id number] cc: Lakia Ramos D.O.; Shailesh Cevallos M.D. [address] [address] Patient Name: PATRICIA GIBSON MRN: [id number] date: 1990 Sex: F Assigned Patient Location: [facility] Current Patient Location: [facility] Accession/Order Number: [id number] Exam Date: 07/05/2024 10:36 Report Date: 07/05/2024 11:13 At the request of: LAKIA RAMOS Procedure: US OB umbilical artery EXAMINATION: US OB umbilical artery HISTORY: 8 bpp ; failed biophysical profile COMPARISON: No relevant comparison available. TECHNIQUE: Duplex Doppler evaluation of the umbilical arteries. FINDINGS: HEART RATE: 136 UMBILICAL ARTERIES: 2 GESTATIONAL AGE: 35 weeks 3 days WAVEFORM: Normal upstroke. No notching. Forward flow in diastole. PEAK SYSTOLIC VELOCITY: 92 END DIASTOLIC VELOCITY: 35 SYST/DIAST RATIO (S:D): 2.6 RESISTIVE INDEX: 0.62 US/US OB umbilical artery IMPRESSION: 1. Class 0 = Normal umbilical artery blood velocity. 2. 30 seconds of breathing was observed during this umbilical artery scan. Electronically authenticated by: SHAY HOWARD Date: 07/05/2024 11:13 Dictated By: Shay Howard M.D. Signed By: 07/05/24 1115 DD/ 1113 TD/TT: Poultry Helper:DAHLIAHRadiology, Radiologist, MD - 07/05/2024 [place] [address] Ultrasound Report Signed Patient: PATRICIA GIBSON MR#: [id number] : 1990 Acct:[id number] Age/Sex: 34 / F ADM Date: 07/05/24 Loc: [facility] 250-[address]: Josy Rivas Ordering Physician: Lakia Ramos D.O. Date of Service: 07/05/24 Procedure(s): US OB umbilical artery Accession Number(s): [id number] cc: Lakia Ramos D.O.; Shailesh Cevallos M.D. The [address] [address] Patient Name: PATRICIA GIBSON MRN: [id number] date: 1990 Sex: F Assigned Patient Location: [facility] Current Patient Location: [facility] Accession/Order Number: [id number] Exam Date: 07/05/2024 10:36 Report Date: 07/05/2024 11:13 At the request of: LAKIA RAMOS Procedure: US OB umbilical artery EXAMINATION: US OB umbilical artery HISTORY: 6/8 bpp ; failed biophysical profile COMPARISON: No relevant comparison available. TECHNIQUE: Duplex Doppler evaluation of the umbilical arteries. FINDINGS: HEART RATE: 136 UMBILICAL ARTERIES: 2 GESTATIONAL AGE: 35 weeks 3 days WAVEFORM: Normal upstroke. No notching. Forward flow in diastole. PEAK SYSTOLIC VELOCITY: 92 END DIASTOLIC VELOCITY: 35 SYST/DIAST RATIO (S:D): 2.6 RESISTIVE INDEX: 0.62 US/US OB umbilical artery IMPRESSION: 1. Class 0 = Normal umbilical artery blood velocity. 2. 30 seconds of breathing was observed during this umbilical artery scan. Electronically authenticated by: SHAY HOWARD Date: 07/05/2024 11:13 Dictated By: Shay Howard M.D. Signed By: 07/05/24 1115 DD/ 1113 TD/TT: Poultry Helper: PINA HealthcareRadiology Study observation (narrative)PINA BaeUS OB UMBILICAL ARTERY DOPPLEROrdered By: Radiologist Radiology on [id number] Work Phone: US OB BPP W NON-STRESSon [phone], [place] [address] Ultrasound Report Signed Patient: PATRICIA GIBSON MR#: [id number] : 1990 Acct:[id number] Age/Sex: 34 / F ADM Date: 07/04/24 Loc: [facility] 250-[address]: Josy Rivas Ordering Physician: Josy Rivas Date of Service: 07/04/24 Procedure(s): US OB BPP w non-stress Accession Number(s): [id number] cc: Josy Rivas; Shailesh Cevallos M.D. The [address] [address] Patient Name: PATRICIA GIBSON MRN: [id number] date: 1990 Sex: F Assigned Patient Location: [facility] Current Patient Location: [facility] Accession/Order Number: [id number] Exam Date: 07/04/2024 11:15 Report Date: 07/04/2024 12:24 At the request of: JOSY RIVAS Procedure: US OB BPP w non-stress EXAMINATION: US OB BPP w non-stress HISTORY:Excessive growth O36.63x0 COMPARISON: No relevant comparison available. TECHNIQUE: Ultrasound biophysical profile was performed in the radiology department. BREATHING MOVEMENTS: 0 GROSS BODY MOVEMENTS: 2 TONE: 2 QUALITATIVE AMNIOTIC FLUID VOLUME: 2 PRESENTATION: CEPHALIC HEART RATE: 150.84 bpm AMNIOTIC FLUID VOLUME: 25.74 cm GESTATIONAL AGE: 35 weeks 2 days US/US OB BPP w non-stress IMPRESSION: 1. Total biophysical profile score: 6 2. Polyhydramnios. Electronically authenticated by: SAHY HOWARD Date: 07/04/2024 12:24 Dictated By: Shay Howard M.D. Signed By: 07/04/24 1227 DD/ 1224 TD/TT: Poultry Helper:DAHLIAHRadiology, Radiologist, MD - 07/04/2024 [place] [address] Ultrasound Report Signed Patient: PATRICIA GIBSON MR#: [id number] : 1990 Acct:[id number] Age/Sex: 34 / F ADM Date: 07/04/24 Loc: [facility] 250-[address]: Josy Rivas Ordering Physician: Josy Rivas Date of Service: 07/04/24 Procedure(s): US OB BPP w non-stress Accession Number(s): [id number] cc: Josy Rivas; Shailesh Cevallos M.D. The [address] [address] Patient Name: PATRICIA GIBSON MRN: [id number] date: 1990 Sex: F Assigned Patient Location: [facility] Current Patient Location: [facility] Accession/Order Number: [id number] Exam Date: 07/04/2024 11:15 Report Date: 07/04/2024 12:24 At the request of: JOSY RIVAS Procedure: US OB BPP w non-stress EXAMINATION: US OB BPP w non-stress HISTORY:Excessive growth O36.63x0 COMPARISON: No relevant comparison available. TECHNIQUE: Ultrasound biophysical profile was performed in the radiology department. BREATHING MOVEMENTS: 0 GROSS BODY MOVEMENTS: 2 TONE: 2 QUALITATIVE AMNIOTIC FLUID VOLUME: 2 PRESENTATION: CEPHALIC HEART RATE: 150.84 bpm AMNIOTIC FLUID VOLUME: 25.74 cm GESTATIONAL AGE: 35 weeks 2 days US/US OB BPP w non-stress IMPRESSION: 1. Total biophysical profile score: 6 2. Polyhydramnios. Electronically authenticated by: SHAY HOWARD Date: 07/04/2024 12:24 Dictated By: Shay Howard M.D. Signed By: 07/04/24 122 DD/ 1224 TD/TT: Poultry Helper: PINA HealthcareRadiology Study observation (narrative)NOMS HealthcareUS OB BPP W NON-STRESSOrdered By: Radiologist Radiology on 43-67-0860[facility] Work Phone: US OB GROWTHon [phone], [place] [address] Ultrasound Report Signed Patient: PATRICIA GIBSON MR#: [id number] : 1990 Acct:[id number] Age/Sex: 34 / F ADM Date: 06/28/24 Loc: [facility] Attending Dr: Lakia Ramos D.O. Ordering Physician: Lakia Ramos D.O. Date of Service: 06/28/24 Procedure(s): US OB growth Accession Number(s): [id number] cc: Lakia Ramos D.O.; Shailesh Cevallos M.D. [address] [address] Patient Name: PATRICIA GIBSON MRN: [id number] date: 1990 Sex: F Assigned Patient Location: [facility] Current Patient Location: [facility] Accession/Order Number: [id number] Exam Date: 06/28/2024 09:49 Report Date: 06/28/2024 10:36 At the request of: LAKIA RAMOS Procedure: US OB growth EXAMINATION: US OB growth HISTORY: GESTATIONAL DIABETES COMPARISON: No relevant comparison available. FINDINGS: Heart Rate: 150 bpm Amniotic Fluid Volume: 19.3 cm, largest fluid pocket 6.7 cm Number: 1 Position: Cephalic presentation, longitudinal lie BIOMETRY: BPD: 8.67 cm; 35 weeks 0 days; 66 % HC: 32.73 cm; 37 weeks 1 day; 81.60 % AC: 33.06 cm; 37 weeks 0 days; >97 % FL: 6.65 cm; 34 weeks 2 days; 35.60 % EFW: 2833.72 g; 88.40 %, 6 lbs. 4 oz. FL/AC: 20.11 FL/BPD: 76.70 HC/AC: 0.99 GESTATIONAL AGE: Age by EDC: 34 weeks 3 days DEAN by EDC: 2024-08-06 Age by US: 35 weeks 6 days DEAN by US: 2024-07-27 US/US OB growth IMPRESSION: Abdominal circumference greater than the 97th percentile, otherwise normal interval growth Electronically authenticated by: BETH RINALDI Date: 06/28/2024 10:36 Dictated By: Beth Rinaldi M.D. Signed By: 06/28/24 1038 DD/ 1036 TD/TT: Poultry Helper:TBHRadiology, Radiologist, - 06/28/2024 [place] [address] Ultrasound Report Signed Patient: PATRICIA GIBSON MR#: [id number] : 1990 Acct:[id number] Age/Sex: 34 / F ADM Date: 06/28/24 Loc: [facility] Attending Dr: Lakia Ramos D.O. Ordering Physician: Lakia Ramos D.O. Date of Service: 06/28/24 Procedure(s): US OB growth Accession Number(s): [id number] cc: Lakia Ramos D.O.; Shailseh Cevallos M.D. [place] [id number] Patient Name: PATRICIA GIBSON MRN: [id number] date: 1990 Sex: F Assigned Patient Location: [facility] Current Patient Location: [facility] Accession/Order Number: [id number] Exam Date: 06/28/2024 09:49 Report Date: 06/28/2024 10:36 At the request of: LAKIA RAMOS Procedure: US OB growth EXAMINATION: US OB growth HISTORY: GESTATIONAL DIABETES COMPARISON: No relevant comparison available. FINDINGS: Heart Rate: 150 bpm Amniotic Fluid Volume: 19.3 cm, largest fluid pocket 6.7 cm Number: 1 Position: Cephalic presentation, longitudinal lie BIOMETRY: BPD: 8.67 cm; 35 weeks 0 days; 66 % HC: 32.73 cm; 37 weeks 1 day; 81.60 % AC: 33.06 cm; 37 weeks 0 days; >97 % FL: 6.65 cm; 34 weeks 2 days; 35.60 % EFW: 2833.72 g; 88.40 %, 6 lbs. 4 oz. FL/AC: 20.11 FL/BPD: 76.70 HC/AC: 0.99 GESTATIONAL AGE: Age by EDC: 34 weeks 3 days DEAN by EDC: 2024-08-06 Age by US: 35 weeks 6 days DEAN by US: 2024-07-27 US/US OB growth IMPRESSION: Abdominal circumference greater than the 97th percentile, otherwise normal interval growth Electronically authenticated by: BETH RINALDI Date: 06/28/2024 10:36 Dictated By: Beth Rinaldi M.D. Signed By: 06/28/24 1038 DD/ 1036 TD/TT: Poultry Helper: [facility]PITALAnnette HealthcareRadiology Study observation (narrative)[facility] CenterUS OB GROWTHOrdered By: Radiologist Radiology on [id number] [employer] Work Phone: Urinalysis macro (dipstick) panel (U)on 06-28-2024 Bilirubin, UANegativeNegative - 4(70) +++ mg/dLNOMS HealthcareBlood, UANegative Negative - 50 Zachery/mcLNOMS HealthcareClarity, UAClearNOMS HealthcareColor, UA YellowNOMS HealthcareGlucose, UANegativeNegative - 2000(110) ++++ mg/dLNOMS HealthcareInterpretation and review of laboratory resultsAbnormalNOMS Healthcare Ketones, UAPositiveNegative - 160(16) ++++ mg/dLNOMS HealthcareComment on above: traceLeukocytes, UAPositiveNegative - 500+++ Giovana/mcLNOMS HealthcareComment on above:smallNitrite, UANegativeNegative - PositiveNOMS HealthcarepH, UA6.05 - 9 NOMS HealthcareProtein, UATraceNegative - 2000(20) ++++ mg/dLNOMS HealthcareSpec Grav, UA1.0301 - 1.03NOMS HealthcareUrobilinogen, UA1.00.2 - 12 mg/dLNOMS HealthcareNOMS HealthcareNo Panel Informationon 07-28-7838Xfngeuaiv Study observation (narrative)PINA HealthcareUS OB ANATOMYon 97-51-8206EzhKim[place]ly, [place] [address] Ultrasound Report Signed Patient: PATRICIA GIBSON MR#: [id number] : 1990 Acct:[id number] Age/Sex: 34 / F ADM Date: 04/09/24 Loc: [facility] Attending Dr: Lakia Ramos D.O. Ordering Physician: Lakia Ramos D.O. Date of Service: 04/09/24 Procedure(s): US OB anatomy Accession Number(s): [id number] cc: Lakia Ramos D.O.; Shailesh Cevallos M.D. [place] [id number] Patient Name: PATRICIA GIBSON MRN: [id number] date: 1990 Sex: F Assigned Patient Location: [facility] Current Patient Location: [facility] Accession/Order Number: [id number] Exam Date: 04/09/2024 13:08 Report Date: 04/09/2024 14:40 At the request of: LAKIA RAMOS Procedure: US OB anatomy EXAMINATION: US OB anatomy, US OB transvaginal HISTORY: ANATOMY COMPARISON: No relevant comparison available. TECHNIQUE: Transabdominal sonographic examination was performed for obstetrical and evaluation. FINDINGS: Number: 1 Heart Rate: 152 H.B. /min Amniotic Fluid Volume: Subjectively normal Placental Location: Anterior with lower margin 4.7 cm from os. Cervix Length: 5.8 cm; closed. ANATOMY: Normal Structures -cerebellum, choroid plexus, cisterna magna, lateral cerebral ventricles, orbits, midline falx, hard palate, four-chamber heart, RVOT, LVOT, stomach, kidneys, bladder, umbilical cord insertion into abdomen, three-vessel cord, cervical spine, thoracic spine, lumbar spine, sacral spine, right upper extremity, left upper extremity, right lower extremity, left lower extremity. SUBOPTIMALLY SEEN: None ABNORMALITIES: None BIOMETRY: BPD: 5.3 cm; 22 weeks 0 days; 12% HC: 21.2 cm; 23 weeks 2 days; 46% AC: 18.4 cm; 23 weeks 2 days; 49% FL: 4.03 cm; 23 weeks 0 days; 39% EFW:563 g; 47%; FL/AC: 21.87 FL/BPD: 76.62 HC/AC: 1.15 GESTATIONAL AGE: Age by EDC: 23 weeks 0 days DEAN by EDC: 08/06/2024 Age by current US: 22 weeks 6 days DEAN by current US: 08/07/2024 US/US OB anatomy IMPRESSION: 1. Single live intrauterine with growth detailed above. Electronically authenticated by: SHAY HOWARD Date: 04/09/2024 14:40 Dictated By: Shay Howard M.D. Signed By: 04/09/24 1443 DD/ 1440 TD/TT: Poultry Helper:TBHRadiology, Radiologist, MD - 04/09/2024 [place] [address] Ultrasound Report Signed Patient: PATRICIA GIBSON MR#: [id number] : 1990 Acct:[id number] Age/Sex: 34 / F ADM Date: 04/09/24 Loc: [facility] Attending Dr: Lakia Ramos D.O. Ordering Physician: Richard,Lakia D.O. Date of Service: 04/09/24 Procedure(s): US OB anatomy Accession Number(s): [id number] cc: Lakia Ramos D.O.; Shailesh Cevallos M.D. [address] [address] Patient Name: PATRICIA GIBSON MRN: [id number] date: 1990 Sex: F Assigned Patient Location: [facility] Current Patient Location: [facility] Accession/Order Number: [id number] Exam Date: 04/09/2024 13:08 Report Date: 04/09/2024 14:40 At the request of: LAKIA RAMOS Procedure: US OB anatomy EXAMINATION: US OB anatomy, US OB transvaginal HISTORY: ANATOMY COMPARISON: No relevant comparison available. TECHNIQUE: Transabdominal sonographic examination was performed for obstetrical and evaluation. FINDINGS: Number: 1 Heart Rate: 152 H.B. /min Amniotic Fluid Volume: Subjectively normal Placental Location: Anterior with lower margin 4.7 cm from os. Cervix Length: 5.8 cm; closed. ANATOMY: Normal Structures -cerebellum, choroid plexus, cisterna magna, lateral cerebral ventricles, orbits, midline falx, hard palate, four-chamber heart, RVOT, LVOT, stomach, kidneys, bladder, umbilical cord insertion into abdomen, three-vessel cord, cervical spine, thoracic spine, lumbar spine, sacral spine, right upper extremity, left upper extremity, right lower extremity, left lower extremity. SUBOPTIMALLY SEEN: None ABNORMALITIES: None BIOMETRY: BPD: 5.3 cm; 22 weeks 0 days; 12% HC: 21.2 cm; 23 weeks 2 days; 46% AC: 18.4 cm; 23 weeks 2 days; 49% FL: 4.03 cm; 23 weeks 0 days; 39% EFW:563 g; 47%; FL/AC: 21.87 FL/BPD: 76.62 HC/AC: 1.15 GESTATIONAL AGE: Age by EDC: 23 weeks 0 days DEAN by EDC: 08/06/2024 Age by current US: 22 weeks 6 days DEAN by current US: 08/07/2024 US/US OB anatomy IMPRESSION: 1. Single live intrauterine with growth detailed above. Electronically authenticated by: SHAY HOWARD Date: 04/09/2024 14:40 Dictated By: Shay Howard M.D. Signed By: 04/09/24 1443 DD/ 144 TD/TT: Poultry Helper: [facility] OB ANATOMYOrdered By: Radiologist Radiology on [id number] Cause.it Work Phone: US OB TRANSVAGINALon [phone], [place] [address] Ultrasound Report Signed Patient: PATRICIA GIBSON MR#: [id number] : 1990 Acct:[id number] Age/Sex: 34 / F ADM Date: 04/09/24 Loc: [facility] Attending Dr: Lakia Ramos D.O. Ordering Physician: Lakia Ramos D.O. Date of Service: 04/09/24 Procedure(s): US OB transvaginal Accession Number(s): [id number] cc: Lakia Ramos D.O.; Shailesh Cevallos M.D. [place] [address] Patient Name: PATRICIA GIBSON MRN: TBH:[id number] date: 1990 Sex: F Assigned Patient Location: [facility] Current Patient Location: [facility] Accession/Order Number: [id number] Exam Date: 04/09/2024 13:08 Report Date: 04/09/2024 14:40 At the request of: LAKIA RAMOS Procedure: US OB transvaginal EXAMINATION: US OB anatomy, US OB transvaginal HISTORY: ANATOMY COMPARISON: No relevant comparison available. TECHNIQUE: Transabdominal sonographic examination was performed for obstetrical and evaluation. FINDINGS: Number: 1 Heart Rate: 152 H.B. /min Amniotic Fluid Volume: Subjectively normal Placental Location: Anterior with lower margin 4.7 cm from os. Cervix Length: 5.8 cm; closed. ANATOMY: Normal Structures -cerebellum, choroid plexus, cisterna magna, lateral cerebral ventricles, orbits, midline falx, hard palate, four-chamber heart, RVOT, LVOT, stomach, kidneys, bladder, umbilical cord insertion into abdomen, three-vessel cord, cervical spine, thoracic spine, lumbar spine, sacral spine, right upper extremity, left upper extremity, right lower extremity, left lower extremity. SUBOPTIMALLY SEEN: None ABNORMALITIES: None BIOMETRY: BPD: 5.3 cm; 22 weeks 0 days; 12% HC: 21.2 cm; 23 weeks 2 days; 46% AC: 18.4 cm; 23 weeks 2 days; 49% FL: 4.03 cm; 23 weeks 0 days; 39% EFW:563 g; 47%; FL/AC: 21.87 FL/BPD: 76.62 HC/AC: 1.15 GESTATIONAL AGE: Age by EDC: 23 weeks 0 days DEAN by EDC: 08/06/2024 Age by current US: 22 weeks 6 days DEAN by current US: 08/07/2024 US/US OB transvaginal IMPRESSION: 1. Single live intrauterine with growth detailed above. Electronically authenticated by: SHAY HOWARD Date: 04/09/2024 14:40 Dictated By: Shay Howard M.D. Signed By: 04/09/24 1442 DD/ 1440 TD/TT: Poultry Helper:DAHLIAHRadiology, Radiologist, - 04/09/2024 [place] [address] Ultrasound Report Signed Patient: PATRICIA GIBSON MR#: [id number] : 1990 Acct:[id number] Age/Sex: 34 / F ADM Date: 04/09/24 Loc: [facility] Attending Dr: Lakia Ramos D.O. Ordering Physician: Lakia Ramos D.O. Date of Service: 04/09/24 Procedure(s): US OB transvaginal Accession Number(s): [id number] cc: Lakia Ramos D.O.; Shailesh Cevallos M.D. [address] [place] [address] Patient Name: PATRICIA GIBSON MRN: [facility]:[id number] date: 1990 Sex: F Assigned Patient Location: [facility] Current Patient Location: [facility] Accession/Order Number: [id number] Exam Date: 04/09/2024 13:08 Report Date: 04/09/2024 14:40 At the request of: LAKIA RAMOS Procedure: US OB transvaginal EXAMINATION: US OB anatomy, US OB transvaginal HISTORY: ANATOMY COMPARISON: No relevant comparison available. TECHNIQUE: Transabdominal sonographic examination was performed for obstetrical and evaluation. FINDINGS: Number: 1 Heart Rate: 152 H.B. /min Amniotic Fluid Volume: Subjectively normal Placental Location: Anterior with lower margin 4.7 cm from os. Cervix Length: 5.8 cm; closed. ANATOMY: Normal Structures -cerebellum, choroid plexus, cisterna magna, lateral cerebral ventricles, orbits, midline falx, hard palate, four-chamber heart, RVOT, LVOT, stomach, kidneys, bladder, umbilical cord insertion into abdomen, three-vessel cord, cervical spine, thoracic spine, lumbar spine, sacral spine, right upper extremity, left upper extremity, right lower extremity, left lower extremity. SUBOPTIMALLY SEEN: None ABNORMALITIES: None BIOMETRY: BPD: 5.3 cm; 22 weeks 0 days; 12% HC: 21.2 cm; 23 weeks 2 days; 46% AC: 18.4 cm; 23 weeks 2 days; 49% FL: 4.03 cm; 23 weeks 0 days; 39% EFW:563 g; 47%; FL/AC: 21.87 FL/BPD: 76.62 HC/AC: 1.15 GESTATIONAL AGE: Age by EDC: 23 weeks 0 days DEAN by EDC: 08/06/2024 Age by current US: 22 weeks 6 days DEAN by current US: 08/07/2024 US/US OB transvaginal IMPRESSION: 1. Single live intrauterine with growth detailed above. Electronically authenticated by: SHAY HOWARD Date: 04/09/2024 14:40 Dictated By: Shay Howard M.D. Signed By: 04/09/24 1442 DD/ 144 TD/TT: Poultry Helper: [facility]ITALAnnette Cause.it OB TRANSVAGINALOrdered By: Radiologist Radiology on 04-09-2024 [facility] Cause[employer]it Work Phone: aLL RUBELLA IGG ABon 15-66-3862IGSUSKR ANTIBODIES, IGG 2.29Immune >0.99 indexNOMS HealthcareComment on above:Non-immune <0.90 Equivocal 0.90 - 0.99 Immune >0.99 Performed at: [address] [id number] Card Game Operator: Hugh Peterson PhD, Phone: [phone] HBSAG SCREENon 19-95-6490LMUFV SCREENNegativeNegativeNOMS HealthcareComment on above:Performed at: [address] [id number] Card Game Operator: Hugh Peterson PhD, Phone: [phone] HCV ANTIBODY RFX TO QUANT PCRon 03-82-5045MXZ ABNon-ReactiveNon ReactiveNOMS HealthcareINTERPRETATION:Comment.NOMS HealthcareComment on above:Not infected with HCV unless early or acute infection is suspected (which may be delayed in an immunocompromised individual), or other evidence exists to indicate HCV infection. HIV AB/P24 AG WITH REFLEXon 63-57-7613LVE AB/P24 AG SCREENNon-ReactiveNon ReactiveNOMS HealthcareComment on above:HIV Negative HIV-1/HIV-2 antibodies and HIV-1 p24 antigen were NOT detected. There is no laboratory evidence of HIV infection. Performed at: [address] [id number] Card Game Operator: Hugh Peterson PhD, Phone: [phone] No Panel Informationon 06-50-8250GYARXRVOGZIHG HealthcareRAPID PLASMA REAGIN, QUANTon 59-92-7481LMEHA PLASMA REAGIN, QUANTNon-ReactiveNonRea<1:1 titerNOMS HealthcareComment on above:Please Note: This test does not meet current guidelines for screening and diagnosis of syphilis. This test is intended for following treatment response in patients being treated for syphilis infection. To screen for syphilis infection, a reflex cascade that includes both RPR and a treponema-specific assay should be utilized, such as Treponema pallidum (Syphilis) Screening Whiteside (245886) or Rapid Plasma Reagin (RPR) Test With Reflex to Quantitative RPR and Confirmatory Treponema pallidum Antibodies (522912). Performed at: - [facility] [id number] Card Game Operator: Hugh Peterson PhD, Phone: [phone] ALL CBC WITH AUTO DIFFon 97-45-1546GNQSMCYPZ ABSOLUTE AUTO0.0[facility] Basophils/100 WBC (Bld)0.1 %Low0.2 - 2.0 %NOMS HealthcareEosinophils/100 WBC (Bld)0.1 %Low0.9 - 7.0 %NOMS HealthcareErythrocyte distribution width (RBC) [Ratio]14.9 %11.0 - 15.0 %NOMS HealthcareHematocrit (Bld) [Volume fraction]39.4 %36.0 - 48.0 %NOMS HealthcareHemoglobin (Bld) [Mass/Vol]12.2 g/dL12.0 - 16.0 g/dLNOPR HealthcareIMMATURE GRANULOCYTES ABS AUTO0.10HighNOPR HealthcareImmature granulocytes/100 WBC (Bld)1.0 %High0.0 - 0.5 %NOM HealthcareInterpretation and review of laboratory resultsAbnormalNOPR HealthcareLYMPHOCYTES ABSOLUTE AUTO1.0 LowNOPR HealthcareLymphocytes/100 WBC (Bld)9.9 %Low20.5 - 60.0 %[facility] MCH (RBC) [Entitic mass]24.0 pgLow26.7 - 34.0 pgNOPR HealthcareMCHC (RBC) [Mass/Vol]31.0 g/dL29.9 - 35.2 g/dLNOSaint Mary's Hospital of Blue SpringsMCV (RBC) [Entitic vol]77.6 fL Low81.0 - 99.0 fLNOPR HealthcareMONOCYTES ABSOLUTE AUTO0.2LowNOMS Healthcare Monocytes/100 WBC (Bld)2.2 %1.7 - 12.0 %NOMS HealthcareNEUTROPHILS ABSOLUTE AUTO 9.1HighNOPR HealthcareNeutrophils/100 WBC (Bld)86.7 %High43.0 - 75.0 %NOMS HealthcarePlatelet mean volume (Bld) [Entitic vol]12.3 fL9.5 - 13.5 fLNOMS HealthcareTBH EO #0.0NOMS HealthcareTBH EBC538ZKZI HealthcareTBH RBC5.08NOMS HealthcareTBH WBC10.5NOMilwaukee [facility]– [place][note 2]ALL TYPE AND SCREEN on 75-05-5101KRV and Rh group Nom (Bld)Blood group O Rh(D) positiveNOKnox Community Hospital ,CLINPerry County Memorial HospitalMLR HEMOGLOBIN A1Con 87-18-0083Gfenqvy [Mass/Vol]111 mg/dLWashington University Medical CenterHbA1c (Bld) [Mass fraction]5.5 %4.5 - 6.2 %[facility] Comment on above:ADA RECOMMENDED LIMIT 4.0 - 6.0 ADA THERAPEUTIC TARGET < 7.0 ACTION SUGGESTED > 7.0 CLINCarondelet Health BOX TEST SENT OUTon 77-25-1964NIV TEST SENT OUTDONE [facility] OB TRANSVAGINALon 11-70-7129QguKim[place] [address] Ultrasound Report Signed Patient: PATRICIA GIBSON MR#: [id number] : 1990 Acct:[id number] Age/Sex: 33 / F ADM Date: 01/20/24 Loc: [facility] Attending Dr: Lakia Ramos D.O. Ordering Physician: Lakia Ramos D.O. Date of Service: 01/20/24 Procedure(s): US OB transvaginal Accession Number(s): [id number] cc: Lakia Ramos D.O.; Shailesh Cevallos M.D. [place] [id number] Patient Name: PATRICIA GIBSON MRN: [id number] date: 1990 Sex: F Assigned Patient Location: [facility] Current Patient Location: [facility] Accession/Order Number: [id number] Exam Date: 01/20/2024 08:58 Report Date: 01/20/2024 09:33 At the request of: LAKIA RAMOS Procedure: US OB transvaginal EXAMINATION: US OB transvaginal HISTORY: MISSED MENSES COMPARISON: Ultrasound OB transvaginal 01/02/2024 FINDINGS: GESTATIONAL SAC: Present and normal appearing. YOLK SAC: Present and normal appearing. POLE: Present and normal appearing. CARDIAC: Present. UTERUS: Normal size and appearance. OVARIES: Right: Not seen. Left: Normal. CERVIX: 4.3 cm in length and closed. CUL-DE-SAC: Normal. OTHER: None. AGE BY LMP: 12 weeks 6 days DEAN BY LMP: 07/28/2024 AGE BY US CRL: 11 weeks 4 days DEAN BY US CRL: 08/06/2024 US/US OB transvaginal IMPRESSION: 1. Single live intrauterine . 2. Resolution of previously seen small subchorionic hematomas. Electronically authenticated by: SHAY HOWARD Date: 01/20/2024 09:33 Dictated By: Shay Howard M.D. Signed By: 01/20/24935 DD/ 2 TD/TT: Poultry Helper:DAHLIAHRadiolognithin, Radiologist, - 01/20/2024 [place] [address] Ultrasound Report Signed Patient: PATRICIA GIBSON MR#: [id number] : 1990 Acct:[id number] Age/Sex: 33 / F ADM Date: 01/20/24 Loc: [facility] Attending Dr: Lakia Ramos D.O. Ordering Physician: Lakia Ramos D.O. Date of Service: 01/20/24 Procedure(s): US OB transvaginal Accession Number(s): [id number] cc: Lakia Ramos D.O.; Shailesh Cevallos M.D. [address] [place] [address] Patient Name: PATRICIA GIBSON MRN: [id number] date: 1990 Sex: F Assigned Patient Location: [facility] Current Patient Location: [facility] Accession/Order Number: [id number] Exam Date: 01/20/2024 08:58 Report Date: 01/20/2024 09:33 At the request of: LAKIA RAMOS Procedure: US OB transvaginal EXAMINATION: US OB transvaginal HISTORY: MISSED MENSES COMPARISON: Ultrasound OB transvaginal 01/02/2024 FINDINGS: GESTATIONAL SAC: Present and normal appearing. YOLK SAC: Present and normal appearing. POLE: Present and normal appearing. CARDIAC: Present. UTERUS: Normal size and appearance. OVARIES: Right: Not seen. Left: Normal. CERVIX: 4.3 cm in length and closed. CUL-DE-SAC: Normal. OTHER: None. AGE BY LMP: 12 weeks 6 days DEAN BY LMP: 07/28/2024 AGE BY US CRL: 11 weeks 4 days DEAN BY US CRL: 08/06/2024 US/US OB transvaginal IMPRESSION: 1. Single live intrauterine . 2. Resolution of previously seen small subchorionic hematomas. Electronically authenticated by: SHAY HOWARD Date: 01/20/2024 09:33 Dictated By: Shay Howard M.D. Signed By: 01/20/24935 DD/ 2 TD/TT: Poultry Helper: [facility]ITALAnnette HealthcareRadiology Study observation (narrative)[facility] University Medical CenterUS OB TRANSVAGINALOrdered By: Radiologist Radiology on 79-30-7366KTOR Cause[employer]it Work Phone: US OB TRANSVAGINALon [phone][place] [address] Ultrasound Report Signed Patient: PATRICIA GIBSON MR#: [id number] : 1990 Acct:[id number] Age/Sex: 33 / F ADM Date: 01/02/24 Loc: US Attending Dr: Lakia Ramos D.O. Ordering Physician: Lakia Ramos D.O. Date of Service: 01/02/24 Procedure(s): US OB transvaginal Accession Number(s): [id number] cc: Lakai Ramos D.O.; Shailesh Cevallos M.D. [address] [address] Patient Name: PATRICIA GIBSON MRN: [id number] date: 1990 Sex: F Assigned Patient Location: US Current Patient Location: Accession/Order Number: [id number] Exam Date: 01/02/2024 19:07 Report Date: 01/03/2024 07:09 At the request of: LAKIA RAMOS Procedure: US OB transvaginal EXAMINATION: US OB transvaginal HISTORY: MISSED MENSES N92.6 COMPARISON: No relevant comparison available. FINDINGS: Transvaginal images Shah intrauterine gestation Gestational sac: 2.9 cm, 7 weeks 5 days CRL: 2.2 cm, 9 weeks 0 days Yolk sac: 0.19 cm Heart rate: 1 64 bpm Identified adjacent to the gestational sac is a crescentic area of hypoechogenicity measuring 1.7 x 1.0 cm Cervix: Closed, 3.4 cm The uterus is normal, anteverted The right ovary is normal measuring 2.9 x 2.4 x 1.9 cm Left ovary is not visualized Clinical age: 10 weeks 2 days Clinical DEAN: 07/28/2024 Ultrasound age: 9 weeks 0 days Ultrasound DEAN: 08/06/2024 US/US OB transvaginal IMPRESSION: Viable shah intrauterine gestation measuring 9 weeks 0 days Small subchorionic hematoma Electronically authenticated by: BETH RINALDI Date: 01/03/2024 07:09 Dictated By: Beth Rinaldi M.D. Signed By: 01/03/24711 DD/ 8 TD/TT: Poultry Helper:TBHRadiology, Radiologist, - 01/03/2024 [place] [address] Ultrasound Report Signed Patient: PATRICIA GIBSON MR#: [id number] : 1990 Acct:[id number] Age/Sex: 33 / F ADM Date: 01/02/24 Loc: US Attending Dr: Lakia Ramos D.O. Ordering Physician: Lakia Ramos D.O. Date of Service: 01/02/24 Procedure(s): US OB transvaginal Accession Number(s): [id number] cc: Lakia Ramos D.O.; Shailesh Cevallos M.D. The [place] [id number] Patient Name: PATRICIA GIBSON MRN: [id number] date: 1990 Sex: F Assigned Patient Location: US Current Patient Location: Accession/Order Number: [id number] Exam Date: 01/02/2024 19:07 Report Date: 01/03/2024 07:09 At the request of: LAKIA RAMOS Procedure: US OB transvaginal EXAMINATION: US OB transvaginal HISTORY: MISSED MENSES N92.6 COMPARISON: No relevant comparison available. FINDINGS: Transvaginal images Shah intrauterine gestation Gestational sac: 2.9 cm, 7 weeks 5 days CRL: 2.2 cm, 9 weeks 0 days Yolk sac: 0.19 cm Heart rate: 1 64 bpm Identified adjacent to the gestational sac is a crescentic area of hypoechogenicity measuring 1.7 x 1.0 cm Cervix: Closed, 3.4 cm The uterus is normal, anteverted The right ovary is normal measuring 2.9 x 2.4 x 1.9 cm Left ovary is not visualized Clinical age: 10 weeks 2 days Clinical DEAN: 07/28/2024 Ultrasound age: 9 weeks 0 days Ultrasound DEAN: 08/06/2024 US/US OB transvaginal IMPRESSION: Viable shah intrauterine gestation measuring 9 weeks 0 days Small subchorionic hematoma Electronically authenticated by: BETH RINALDI Date: 01/03/2024 07:09 Dictated By: Beth Rinaldi M.D. Signed By: 01/03/24711 DD/ 8 TD/TT: Poultry Helper: [facility]ITALAnnette HealthcareRadiology Study observation (narrative)[facility] OB TRANSVAGINALOrdered By: Radiologist Radiology on 88-04-5012LMTX Healthcare Work Phone: cbc AUTO DIFFon 63-08-4790BLWA #0.0 103/ulNormal 0.0-0.1The [facility] [place] [facility] CenterComment on above:Performed By: #### CBC #### [facility] [place] [facility] [address] [place] [address] [address] Mir Linnsophils/100 WBC (Bld)0.7 %Normal0.2-2.0The [facility] [place] [facility] Comment on above:Performed By: #### CBC #### [facility] [place] [facility] [address] [place] [address] Dr. Mir Ramon #0.2 103/ulNormal0.0-0.7The [facility] [place] [facility] CenterComment on above: Performed By: #### CBC #### [facility] [place] [facility] [address] [place] [address] Dr. Mir Paizosinophils/100 WBC (Bld)3.0 %Normal0.9-7.0The [facility] [place] [facility] Comment on above:Performed By: #### CBC #### [facility] [place] [facility] [address] [place] [address] Dr. Mir Paizrythrocyte distribution width (RBC) [Ratio]15.6 %Critically high 11.0-15.0The [facility] [place] [facility] CenterComment on above:Performed By: #### CBC #### [facility] [place] [facility] [address] [place] [address] Dr. Mir AraizaHematocrit (Bld) [Volume fraction]38.5 %Tlndov63.0-48.0The [facility] [place] [facility] CenterComment on above:Performed By: #### CBC #### [facility] [place] [facility] [address] [place] [address] Dr. Mir AraizaHemoglobin (Bld) [Mass/Vol]12.3 g/pMLloizz74.0-16.0The [facility] [place] [facility] CenterComment on above:Performed By: #### CBC #### [facility] [place] [facility] [address] [place] [address] Dr. Mir De Leon #0.02 10e3/ulNormal0.00-0.03The [facility] [place] [facility] CenterComment on above:Performed By: #### CBC #### [facility] [place] [facility] [address] [place] [address] Dr. Mir De Leon %0.3 %Normal0.0-0.5The [facility] [place] [facility] CenterComment on above: Performed By: #### CBC #### [facility] [place] [facility] [address] [place] [address] Dr. Mir ShermanMPH #1.5 103/ulNormal1.2-3.8The [facility] [place] [facility] CenterComment on above:Performed By: #### CBC #### [facility] [place] [facility] [address] [place] [address] Dr. Mir Shermanmphocytes/100 WBC (Bld)24.1 %Fdxnfw37.5-60.0The [facility] [place] [facility] CenterComment on above:Performed By: #### CBC #### [facility] [place] [facility] [address] [place] [address] Dr. Mir Jones DIFF REQNONormalThe [facility] [place] [facility] CenterComment on above: Performed By: #### CBC #### [facility] [place] [facility] [address] [place] [address] Dr. Mir Spencer (RBC) [Entitic mass]24.8 pgCritically low26.7-34.0The [facility] [place] [facility] CenterComment on above:Performed By: #### CBC #### [facility] [place] [facility] [address] [place] [address] Dr. Mir SpencerHC (RBC) [Mass/Vol]31.9 g/fGGkmxlz06.9-35.2The [facility] [place] [facility] CenterComment on above:Performed By: #### CBC #### [facility] [place] [facility] [address] [place] [address] Dr. Mir SpencerV (RBC) [Entitic vol]77.8 fLCritically low81.0-99.0The [facility] [place] [facility] CenterComment on above:Performed By: #### CBC #### [facility] [place] [facility] [address] [place] [address] Dr. Mir Read #0.4 103/ulNormal0.3-0.8The [facility] [place] [facility] CenterComment on above:Performed By: #### CBC #### [facility] [place] [facility] [address] [place] [address] Dr. Mir Smithocytes/100 WBC (Bld)6.3 %Normal1.7-12.0The [facility] [place] [facility] Comment on above:Performed By: #### CBC #### [facility] [place] [facility] [address] [place] [address] Dr. Mir Richey #4.0 103/ulNormal1.4-6.5The [facility]retchen HospitalComment on above:Performed By: #### CBC #### [facility] [place] [facility] [address] [place] [address] [address] Mir AraizaNeutrophils/100 WBC (Bld)65.6 %Rvgzgz36.0-75.0The [facility] [place] [facility] CenterComment on above:Performed By: #### CBC #### [facility] [place] [facility] [address] [place] [address] [address] Mir AraizaPlatelet mean volume (Bld) [Entitic vol]12.3 fLNormal9.5-13.5The [facility] [place] [facility] CenterComment on above:Performed By: #### CBC #### [facility] [place] [facility] [address] [place] [address] [address] Mir AraizaPLT173 103/fvTtdhwr901-367Uaq [facility] [place] [facility] CenterComment on above: Performed By: #### CBC #### [facility] [place] [facility] [address] [place] [address] Dr. Mir AraizaRBC4.95 106/ulNormal4.20-5.40The [facility] [place] [facility] CenterComment on above:Performed By: #### CBC #### [facility] [place] [facility] [address] [place] [address] [address] Mir AraizaWBC6.0 103/ulNormal4.0-11.0The [facility] [place] [facility] CenterComment on above: Performed By: #### CBC #### [facility] [place] [facility] [address] [place] [address] [address] Mir AraizaCRAnthony 57-28-0819BRR7.8 mg/dLNormal<=1.0The [facility] [place] [facility] Comment on above:Performed By: #### BMP, CRP #### [facility] [place] [facility] [address] [place] [address] [address] Mir AraizaPREGNANCY URon 86-96-7687ZIUYTCAJW, QUALNegativeNormalNEGATIVEThe [facility] [place] [facility] CenterComment on above:Performed By: #### PREGU #### [facility] [place] [facility] [address] [place] [address] Dr. Mir AraizaPROF CHEM 8 (BAS METB)on 22-56-2701Fyqmu gap [Moles/Vol]12.1 mmol/LNormalThe [facility] [place] [facility] CenterComment on above:Performed By: #### BMP, CRP #### [facility] [place] [facility] [address] [place] [address] Dr. Mir AraizaCalcium [Mass/Vol]8.8 mg/dLNormal8.5-10.1The [facility] [place] [facility] Comment on above:Performed By: #### BMP, CRP #### [facility] [place] [facility] [address] [place] [address] Dr. Mir AraizaChloride [Moles/Vol]104 mmol/ESvriye70-984Rha [facility] [place] [facility] Comment on above:Performed By: #### BMP, CRP #### [facility] [place] [facility] [address] [place] [address] Dr. Mir AraizaCO2 [Moles/Vol]27.2 mmol/IOlnolk53.0-32.0[facility] Comment on above:Performed By: #### BMP, CRP #### [facility] [place] [facility] [address] [place] [address] Dr. Mir AraizaCreatinine [Mass/Vol]0.83 mg/dLNormal0.55-1.02The [facility] [place] [facility] CenterComment on above:Performed By: #### BMP, CRP #### [facility] [place] [facility] [address] [place] [address] Dr. Mir PaizGFR-AF MOLDOVAN>60Normal>=60The [facility] [place] [facility] CenterComment on above:Performed By: #### BMP, CRP #### [facility] [place] [facility] [address] [place] [address] Dr. Mir PaizGFR-NON AF MOLDOVAN>60Normal>=60The [facility] [place] [facility] CenterComment on above:Performed By: #### BMP, CRP #### [facility] [place] [facility] [address] [place] [address] Dr. Mir AraizaGlucose [Mass/Vol]96 mg/uECkyinm50-196Naa [facility] [place] [facility] Comment on above:Performed By: #### BMP, CRP #### [facility] [place] [facility] [address] [place] [address] Dr. Mir AraizaPotassium [Moles/Vol]3.3 mmol/LCritically low3.5-5.1The [facility] [place] [facility] CenterComment on above:Performed By: #### BMP, CRP #### [facility] [place] [facility] [address] [place] [address] Dr. Mir Simpsondium [Moles/Vol]140 mmol/VTfvopq846-201Yna [facility] [place] [facility] Comment on above:Performed By: #### BMP, CRP #### [facility] [place] [facility] [address] [place] [address] Dr. Mir AraizaUrea nitrogen [Mass/Vol]10.0 mg/dLNormal7.0-18.0The [facility] [place] [facility] CenterComment on above:Performed By: #### BMP, CRP #### [facility] [place] [facility] [address] [place] [address] Dr. Mir Garrett nitrogen/Creatinine [Mass ratio]12.0 mg/mgNormalThe [facility] [place] [facility] CenterComment on above:Performed By: #### BMP, CRP #### [facility] [place] [facility] [address] [place] [address] Dr. Mir AraizaSESilvia RATE WESTERGRENon 30-26-5360GQK RATE9 mm/hrNormal<=20The [facility] [place] [facility] CenterComment on above:Performed By: #### SEDR #### [facility] [place] [facility] [address] [place] [address] Dr. Mir AraizaCovid-19 PCR ([facility] [facility]ITAL)on 81-22-0009FIXF-CoV-2 (COVID-19) RNA IFRAH+probe Ql (Unsp spec)DetectedCritically abnormalNOT DETECTEDThe University Hospitals Portage Medical CenterComment on above:Result Comment: This test is not yet approved or cleared by the [place] FDA. When there are no FDA-approved or cleared tests available, and other criteria are met, FDA can make tests available under an emergency access mechanism called an Emergency Use Authorization (EUA). The EUA for this test is supported by the [place] of Health and Human Service's (HHS's) declaration [...] no longer be used). Performed By: #### CVDTBH #### [facility] [address] [address] [address] Mir AraizaComprehensive Metabolic Empon 04-61-0339Tlkqzie [Mass/Vol]3.9 g/dLNormal3.2-5.5FChildren's Hospital for RehabilitationComment on above:Performed By: #### EBS CMP, EBS LIPID #### [facility] [address] [place] [address] USAAlbumin/Globulin [Mass ratio]1.2 {ratio}NormalMercy Health Clermont HospitalComment on above:Performed By: #### EBS CMP, EBS LIPID #### [facility] [address] [place] [address] USAALP [Catalytic activity/Vol]81 U/LGaucnd97-04TnbqezmgjMercy Health Clermont HospitalComment on above:Performed By: #### EBS CMP, EBS LIPID #### [facility] [address] [place] [address] USAALT [Catalytic activity/Vol]17 U/VKdetat68-16OogafoaqtMercy Health Clermont HospitalComment on above:Performed By: #### EBS CMP, EBS LIPID #### [facility] [address] [place] [address] USAAST [Catalytic activity/Vol]18 U/UWimtmb94-10PoanpvzgjMercy Health Clermont HospitalComment on above:Performed By: #### EBS CMP, EBS LIPID #### [facility] [address] [place] [address] USABilirubin [Mass/Vol]0.3 mg/dLNormal0.3-1.2FChildren's Hospital for RehabilitationComment on above:Performed By: #### EBS CMP, EBS LIPID #### [facility] [address] [place] [address] USACalcium [Mass/Vol]9.5 mg/dLNormal8.2-10.2FChildren's Hospital for RehabilitationComment on above:Performed By: #### EBS CMP, EBS LIPID #### [facility] [address] [id number] USAChloride [Moles/Vol]99 mmol/QDzuvzt08-217WqaazkafnMercy Health Clermont HospitalComment on above:Performed By: #### EBS CMP, EBS LIPID #### [facility] [address] [phone] USACO2 [Moles/Vol]30.3 mmol/LHigh22.0-30.0Mercy Health Clermont HospitalComment on above:Performed By: #### EBS CMP, EBS LIPID #### [facility] [address] [place] [address] USACreatinine [Mass/Vol]0.61 mg/dLNormal0.44-1.03Mercy Health Clermont HospitalComment on above:Performed By: #### EBS CMP, EBS LIPID #### [facility] [address] [place] [address] USAEstimated GFR ( Lili> 60NormTwin City HospitalComment on above:Result Comment: GFR estimated reference range: According to KDOQI guidelines, <60 ml/min/1.73m2 is sufficient to diagnose a patient with chronic kidney disease.Performed By: #### EBS CMP, EBS LIPID #### [facility] [address] [place] [address] USAEstimated GFR (Non- Am> 60NormTwin City HospitalComment on above:Performed By: #### EBS CMP, EBS LIPID #### [facility] [address] [phone] USAGlobulin (S) [Mass/Vol]3.2 g/dLNormTwin City HospitalComment on above:Performed By: #### EBS CMP, EBS LIPID #### [facility] [address] [id number] USAGlucose [Mass/Vol]83 mg/zEEfvxyg34-184NtwmqrtzpMercy Health Clermont HospitalComment on above:Performed By: #### EBS CMP, EBS LIPID #### [facility] [address] [place] [address] USAPotassium [Moles/Vol]4.3 mmol/LNormal3.5-5.1FChildren's Hospital for RehabilitationComment on above:Performed By: #### EBS CMP, EBS LIPID #### [facility] [address] [place] [address] USAProtein [Mass/Vol]7.1 g/dLNormal6.1-7.9Mer[facility] Health Clermont HospitalComment on above:Performed By: #### EBS CMP, EBS LIPID #### [facility] [address] [place] [address] USASodium [Moles/Vol]138 mmol/FLjtitv231-450VvxwbqvriMercy Health Clermont HospitalComment on above:Performed By: #### EBS CMP, EBS LIPID #### [facility] [address] [place] [address] USAUrea nitrogen [Mass/Vol]11 mg/dLNormal9-23Mercy Health Clermont HospitalComment on above:Performed By: #### EBS CMP, EBS LIPID #### [facility] [address] [place] [address] USALipid Profileon 42-67-3233Bjgnfpzzceg [Mass/Vol]248 mg/dL Zgqi682-966IgnhnkcqaMercy Health Clermont HospitalComment on above:Result Comment: Chol less than 200 mg/dl low risk Chol 201-239 mg/dl borderline risk Chol 240 mg/dl and greater high riskPerformed By: #### EBS CMP, EBS LIPID #### [facility] [address] [place] [address] USACholesterol in HDL [Mass/Vol]54 mg/xQQlqudq25-04NicptzfiaMercy Health Clermont HospitalComment on above:Result Comment: HDL CHOL ATP-III CLASSIFICATION Cardiovascular Risk HDL > or equal to 60 mg/dL LOW HDL < 40 mg/dL HIGHPerformed By: #### EBS CMP, EBS LIPID #### [facility] [address] [place] [address] USACholesterol.total/Cholesterol in HDL [Mass ratio]4.6 {ratio}Normal<5.0Mercy Health Clermont HospitalComment on above:Result Comment: PERFORMED BY: [facility] [address] [id number] PATHOLOGIST ORCHARD PRUNER CAMILA KINNEY M.D.Performed By: #### EBS CMP, EBS LIPID #### [facility] [address] [place] [address] USALDL Cholesterol,Ffgejcncao259 mg/dLHigh0-100Mercy Health Clermont HospitalComment on above:Result Comment: LDL ATP III CLASSIFICATION LDL less than 100 mg/dL Optimal LDL 100-129 mg/dL Near or above optimal LDL 130-159 mg/dL Borderline high LDL 160-189 mg/dL High LDL greater than 189 mg/dL Very highPerformed By: #### EBS CMP, EBS LIPID #### [facility] [address] [place] [address] USATriglyceride w/Hwmbwy406 mg/jNPazrrw37-836VpvpozcegMercy Health Clermont HospitalComment on above:Result Comment: TRIG ATP III CLASSIFICATION TRIG less than 150 mg/dL Normal TRIG 150-199 mg/dL Borderline high TRIG 200-500 mg/dL High TRIG greater than 500 mg/dL Very high Standard traceable to the Center for Disease Conrtrol and Prevention (CDC) test method.Performed By: #### EBS CMP, EBS LIPID #### [facility] [address] [place] [address] USAVLDL MBHJJYMCWAU18 mg/dLNoOhioHealth Berger HospitalComment on above:Performed By: #### EBS CMP, EBS LIPID #### [facility] [address] [place] [address] [facility] Vital Signs Date TimeVital SignValuePerforming LouqtfkccQglajfrk84-70-8390 07:38-0500Body ecuudy566.9 cmShailesh Cevallos MD Work Phone: NOSaint [facility] SpringsKxkjllgxbn96-40-5872 07:38-0500Body mass index (BMI) [Ratio]39.87 kg/m2Shailesh Cevallos MD Work Phone: noSaint [facility] Hospital of Blue SpringsZhulctbebr97-48-8257 07:38-0500Body temperature 97.5 [degF]Shailesh Cevallos MD Work Phone: noSaint [facility] Hospital of Blue SpringsNbwyoefihq54-59-0966 07:38-0500Body ytjdsd81.71 kgShailesh Cevallos MD Work Phone: [facility] CenterPxpugglblb74-07-6446 07:38-0500Diastolic blood mm[Hg]Shailesh Cevallos MD Work Phone: [facility] CenterGmfeuwlbhi19-88-2475 07:38-0500Heart rate91 /min Shailesh Cevallos MD Work Phone: [facility] CenterKiejshheme26-41-8993 07:38-0500Respiratory rate22 /minShailesh Cevallos MD Work Phone: [facility] CenterRkozzxwxlz12-59-3041 07:38-4883DmZ2% (BldA) [Mass fraction]97 %Shailesh Cevallos MD Work Phone: [facility] CenterUkcqtbyrgi57-29-0295 07:38-0500Systolic blood weupzixn325 mm[Hg]Shailesh Cevallos MD Work Phone: [facility] CenterBhgglysibf73-66-3295 07:32-0500Body .9 cmShailesh Cevallos MD Work Phone: [facility] CenterXniudfgyex51-60-7836 07:32-0500Body mass index (BMI) [Ratio]41.57 kg/m2Shailesh Cevallos MD Work Phone: [facility] CenterByjkefsdfi41-06-0528 07:32-0500Body temperature 98.01 [degF]Shailesh Cevallos MD Work Phone: [facility] CenterGbuqsulmag13-17-9066 07:32-0500Body edcuww63.79 kgShailesh Cevallos MD Work Phone: [facility] CenterHmgedliddg49-57-0824 07:32-0500Diastolic blood hddoajwy50 mm[Hg]Shailesh Cevallos MD Work Phone: [facility] CenterFqdrfvecsx66-47-1286 07:32-0500Heart rate90 /min Shailesh Cevallos MD Work Phone: [facility] CenterQsfahzgkep57-46-7500 07:32-0500Respiratory rate20 /minShailesh Cevallos MD Work Phone: [facility] CenterTjjakuvoba53-87-7541 07:32-6986TbK6% (BldA) [Mass fraction]98 %Shailesh Cevallos MD Work Phone: [facility] CenterSxtcfnyxit28-39-6254 07:32-0500Systolic blood xcgiyghp025 mm[Hg]Shailesh Cevallos MD Work Phone: [facility] CenterJsnsmnlzkv99-26-5216 13:29-0400Diastolic blood klwogyab08 mm[Hg]Lakia Richard DO Work Phone: [address] [address]Bavmqlgqwg11-98-5659 13:29-0400Systolic blood doioczae357 mm[Hg]Lakia Richard DO Work Phone: [phone] [place] [address]-09-2024 09:22-0400Body mass index (BMI) [Ratio]44.02 kg/m2Amy Rob ROB Work Phone: [phone] [place], [place] [address]Ssqodiinbd07-45-7844 09:22-0400Body wdwtzo998.69 kgJosy ROB Work Phone: [phone]-[facility] CenterGxkfasapia89-78-1228 09:22-0400Diastolic blood qsfxibkx90 mm[Hg]Josy ROB Work Phone: [phone]-[facility] [address]Gqmkshzeqh47-31-8094 09:22-0400Systolic blood khuzvapz195 mm[Hg]Josy ROB Work Phone: [phone]-[facility] CenterKljnyvyphl93-21-4795 15:27-0400Body mass index (BMI) [Ratio]43.84 kg/t5Qvbau Richard DO Work Phone: [facility] CenterRztiwlkzvm95-52-2245 15:27-0400Body kqeqkm181.23 kgCorey Richard DO Work Phone: [phone]-[facility] [address]Jndgejmxyg98-72-0232 15:27-0400Diastolic blood secpghoo20 mm[Hg]Lakia Richard DO Work Phone: [address] [address]Udmzcjkrzb68-17-7826 15:27-0400Systolic blood defbxjtv651 mm[Hg]Lakia Richard DO Work Phone: NOSaint [facility] of [facility] SpringsEkbqrmxudq35-67-6085 09:04-0400Body mass index (BMI) [Ratio]43.27 kg/m2Josy Rob ROB Work Phone: NOSaint [facility] of [facility] SpringsZbtgicekwz13-97-7807 09:04-0400Body bsylfi407.87 kgJosy Rob ROB Work Phone: NOSaint [facility] SpringsKrzsemyshb12-80-9107 09:04-0400Diastolic blood ksudqecm44 mm[Hg]Josy ROB Work Phone: NOSaint [facility] of [facility] SpringsBsddjoyojv07-01-0546 09:04-0400Systolic blood qafmkxmd957 mm[Hg]Josy ROB Work Phone: [facility] Encounters Encounter DateEncounter TypeCare ProviderFacilityStart: 04-15-2025 End: 02-84-4563Icjpxj Jono Cevallos MD Work Phone: NOUL CWM FMComment on above:Upper respiratory tract infection, unspecified type; Strain of right calf muscleStart: 02-25-2025 End: 15-61-0892Umajmh Jono Cevallos MD Work Phone: NOLY CWM FMComment on above:Upper respiratory tract infection, unspecified type; Strain of right calf muscleStart: 12-11-2024 End: 24-11-0420InwpdlRuni Naderer MD Work Phone: noms CWM FMComment on above:Class 3 severe obesity due to excess calories without serious comorbidity with body mass index (BMI) of 40.0 to 44.9 in adult ([facility])Start: 12-05-2024 End: 52-47-4472Qtbjfz flowsVijaya Cevallos MD Work Phone: [facility] FMStart: 12-05-2024 End: 40-90-4000Yngmdi Satya Cevallos MD Work Phone: [facility] FMStart: 12-05-2024 End: 8127Nuahtk outpatient visit 25 minutesShailesh Cevallos MD Work Phone: noms CWM FMComment on above:MDD (major depressive disorder), recurrent episode, mild (HCC) ([facility]/HCC) (Primary Dx); CYNDY (generalized anxiety disorder) (CMS/HCC); Class 3 severe obesity due to excess calories without serious comorbidity with body mass index (BMI) of 40.0 to 44.9 in adult ([facility]/HCC)Start: 12-05-2024 End: 17-62-9893mfjbipfxdeSMMD NADERERNot AvailableStart: 11-08-2024 End: 54-43-4405Tciqezadd Result EncounterShailesh Cevallos MD Work Phone: noms External Department UnsolicitedStart: 11-08-2024 End: 03-74-6332Zexzqopmu Result EncounterShailesh Cevallos MD Work Phone: noms External Department UnsolicitedStart: 11-07-2024 End: 24-33-3391Livftr Satya Cevallos MD Work Phone: noms CWM FMStart: 11-07-2024 End: 57-96-2803Guyjiz Satya Cevallos MD Work Phone: noms CWM FMStart: 11-07-2024 End: 96-38-5454Oqxnbz outpatient visit 15 minutesShailesh Cevallos MD Work Phone: noms CWM FMComment on above:Strain of right calf muscle (Primary Dx); Annual physical exam; Class 3 severe obesity due to excess calories without serious comorbidity with body mass index (BMI) of 40.0 to 44.9 in adult ([facility])Start: 11-07-2024 End: 92-35-5241Nqixggm encounter procedureShailesh Cevallos MD Work Phone: noms HealthcareStart: 11-07-2024 End: 51-23-5363nsqnuruhktVLIG NADERERNot AvailableStart: 10-11-2024 End: 93-57-9775Qwzbbl OnlyShailesh Cevallos MD Work Phone: [facility] CWM FMComment on above:Upper respiratory tract infection, unspecified typeStart: 07-31-2024 End: 69-37-0511Tpwlshzaf Result EncounterCorey Richard DO Work Phone: noms External Department UnsolicitedStart: 07-31-2024 End: 80-22-9748Okfzwftfn Result EncounterCorey Richard DO Work Phone: noms External Department UnsolicitedStart: 07-30-2024 End: 80-92-8023Secmgogxe Result EncounterCorey Richard DO Work Phone: noms External Department UnsolicitedStart: 07-30-2024 End: 09-62-6656Plspbyrcy Result EncounterCorey Richard DO Work Phone: noms External Department UnsolicitedStart: 07-27-2024 End: 39-16-1581YfncbhRamiro Cevallos MD Work Phone: NOPZ CWM FMComment on above:Upper respiratory tract infection, unspecified type (Primary Dx)Start: 07-25-2024 End: 22-21-1898Dlgxqvkmn Result EncounterGeneric External Data ProviderNOMS External Department UnsolicitedStart: 07-25-2024 End: 39-33-6708Htvsonqmn Result EncounterGeneric External Data ProviderNOMS External Department UnsolicitedStart: 07-25-2024 End: 08-35-0817Relcwugj flow sheetCorey Richard DO Work Phone: noms BCP OBComment on above:Third trimester Start: 07-25-2024 End: 28-49-7670dckeookqhcGGKHK FAZIONot AvailableStart: 07-21-2024 End: 32-35-7660Lplugyohn Result EncounterGeneric External Data ProviderNOMS External Department UnsolicitedStart: 07-21-2024 End: 85-47-2520Bjfzzzlyk Result EncounterGeneric External Data ProviderNOMS External Department UnsolicitedStart: 07-18-2024 End: 59-05-9529Xuydii Shanae ROB Work Phone: noms BCP OBStart: 07-18-2024 End: 60-37-0716Qphbik flowsheetJosy Rivas LIANE Work Phone: noMS BCP OBStart: 07-18-2024 End: 27-01-2399Sczlighwg Result EncounterJosy Rivas LIANE Work Phone: noms External Department UnsolicitedStart: 07-18-2024 End: 43-93-0956Xmwmrvim flow sheetAmy Rob PA Work Phone: noMS BCP OBComment on above:Third trimester ; 37 weeks gestation of pregnancyStart: 07-18-2024 End: 07-36-4272holhduazoqTJB ROBNot AvailableStart: 07-11-2024 End: 96-07-9932Imsnfvjv flow sheetCorey Richard DO Work Phone: noms BCP OBComment on above:Third trimester ; 36 weeks gestation of pregnancyStart: 07-11-2024 End: 46-98-0310dpoetpitjyGANSG FAZIONot AvailableStart: 07-11-2024 End: 23-05-7422Ifiycltgz Result EncounterJosy Rivas LIANE Work Phone: noMS External Department UnsolicitedStart: 07-11-2024 End: 37-07-0975Mhwcaehtp Result EncounterJosy Rivas LIANE Work Phone: noms External Department UnsolicitedStart: 07-08-2024 End: 69-26-3900Cmyffetuf Result EncounterGeneric External Data ProviderNOMS External Department UnsolicitedStart: 07-08-2024 End: 67-94-0477Vmajpkcmq Result EncounterGeneric External Data ProviderNOMS External Department UnsolicitedStart: 07-05-2024 End: 48-15-8113Wrjavsooi Result EncounterGeneric External Data ProviderNOMS External Department UnsolicitedStart: 07-05-2024 End: 41-96-9863Eylbvzgnx Result EncounterGeneric External Data ProviderNOMS External Department UnsolicitedStart: 07-04-2024 End: 34-64-6215Uxtopxrbr Result EncounterGeneric External Data ProviderNOMS External Department UnsolicitedStart: 07-04-2024 End: 40-84-5684Udwsvxspi Result EncounterGeneric External Data ProviderNOMS External Department UnsolicitedStart: 06-28-2024 End: 11-97-4720Xzrxhb Shanae ROB Work Phone: [facility] BCP OBStart: 06-28-2024 End: 42-67-9808Eokpwi shantelEva ROB Work Phone: [facility] BCP OBStart: 06-28-2024 End: 22-77-4370Cajsrnqkb Result EncounterCorey Richard DO Work Phone: [facility] External Department UnsolicitedStart: 06-28-2024 End: 40-37-5393Vqeyuktu flow Doe ROB Work Phone: [facility] BCP OBComment on above:34 weeks gestation of ; Excessive growth affecting management of in third trimester, single or unspecified fetus; Gestational diabetes mellitus (GDM) in third trimester, gestational diabetes method of control unspecifiedStart: 06-28-2024 End: 17-06-2068jawhhcsgyuOWX RAMEYNot AvailableStart: 05-17-2024 End: 57-54-5882athzppzkdyPHYMX FAZIONot AvailableStart: 05-03-2024 End: 92-50-4208fcmcwbxrvlXLZ RAMEYNot AvailableStart: 04-09-2024 End: 24-22-3748Rwuoiwfqj Result EncounterGeneric External Data ProviderNOMS External Department UnsolicitedStart: 04-09-2024 End: 03-75-5665Lprqdofog Result EncounterGeneric External Data ProviderNOMS External Department UnsolicitedStart: 04-05-2024 End: 11-87-4609lqyizppplaVQMOW FAZIONot AvailableStart: 02-09-2024 End: 81-69-0922ncjbkepwlhYABOB FAZIONot AvailableStart: 01-20-2024 End: 22-13-1228Xawynduml Result EncounterCorey Richard DO Work Phone: noMS External Department UnsolicitedStart: 01-20-2024 End: 09-22-7430Uhtlswnbu Result EncounterCorey Richard DO Work Phone: [facility] External Department UnsolicitedStart: 01-20-2024 End: 63-31-6885glspuukehqRSBU NADERERNot AvailableStart: 01-03-2024 End: 90-37-5580Dkvktnvcj Result EncounterGeneric External Data ProviderNOMS External Department UnsolicitedStart: 01-03-2024 End: 35-77-5033Slizxhekz Result EncounterGeneric External Data ProviderNOMS External Department UnsolicitedStart: 10-23-2022 End: 67-74-3324dtfdejqawgTL SHAILESH Rodriguez NADERERFacility:E1Ehfuk: 12-16-2021 End: 10-84-3616wnntjggubzNBKSXDXH EBERLYFacility:D3Amaxn: 04-03-2018 End: 64-29-8362ZypvzdkvcmRPPEGKV PHYSICIANFacility:[facility] Procedures DateProcedureProcedure DetailPerforming ClinicianStart: 45-43-8168QBF CBC WITH AUTO DIFFMarc Ban ZACARIAS Work Phone: Start: 37-19-4612XVF CBC WITH AUTO DIFFCorey Richard DO Work Phone: Start: 49-31-6474HPLG CBC WITH PLATELET NO DIFFERENTIALCorey Richard DO Work Phone: Start: 66-11-4383Lcnby dip stick/tablet rgnt non-auto w/o micrscpCorey Richard DO Work Phone: Start: 43-49-6074RZ OB BPP W NON-STRESSGeneric External Data ProviderStart: 21-28-2540UWLEPXODIbngc Richard DO Work Phone: Start: 74-35-7456JL OB BPP W NON-STRESSAmy Rob ROB Work Phone: Start: 56-20-8653Frekx dip stick/tablet rgnt non-auto w/o micrscpAmy Rob ROB Work Phone: Start: 28-82-4624Jbdlj dip stick/tablet rgnt non-auto w/o micrscpCorey Richard DO Work Phone: Start: 62-18-6506YWJDT GP B NAAGeneric External Data ProviderStart: 54-01-4087CY OB BPP W NON-STRESSAmy Rob ROB Work Phone: Start: 72-65-8736WZ OB BPP W NON-STRESSGeneric External Data ProviderStart: 74-35-5215BD OB BPP W NON-STRESSAmy Rob ROB Work Phone: Start: 29-01-4734QU OB UMBILICAL ARTERY DOPPLERGeneric External Data ProviderStart: 61-24-0454VV OB BPP W NON-STRESSGeneric External Data ProviderStart: 07-71-9331HE OB GROWTHCorey Richard DO Work Phone: Start: 86-05-7040Meobs dip stick/tablet rgnt non-auto w/o micrscpCorey Richard DO Work Phone: Start: 91-94-9191HB OB ANATOMYGeneric External Data ProviderStart: 00-77-0512FE OB TRANSVAGINALGeneric External Data ProviderStart: 37-21-5583Hcznigqzdid observation [Identifier] in Cervix by Cyto stainJosy ROB Work Phone: Start: 18-52-1569Uikeqsvm screenCorey Richard DO Work Phone: Start: 48-27-5787TAI CBC WITH AUTO DIFFGeneric External Data ProviderStart: 94-39-6907VEE RUBELLA IGG ABCorey Richard DO Work Phone: Start: 78-01-2834ASJ TYPE AND SCREENCorey Richard DO Work Phone: Start: 47-27-1020XSGVZ SCREENCorey Richard DO Work Phone: Start: 68-92-4957CDR ANTIBODY RFX TO QUANT PCRCorey Richard DO Work Phone: Start: 05-97-9530FGS AB/P24 AG WITH REFLEXCorey Richard DO Work Phone: Start: 59-89-1325DYG HEMOGLOBIN L4ELaahsgb External Data ProviderStart: 98-74-4046PFIUJ PLASMA REAGIN, QUANTCorey Richard DO Work Phone: Start: 10-99-0445LOY BOX TEST SENT OUTCorey Richard DO Work Phone: Start: 05-03-2507LN OB TRANSVAGINALCorey Richard DO Work Phone: Start: 96-25-9815JX OB TRANSVAGINALGeneric External Data Provider Plan of Treatment DateCare ActivityDetailAuthorStart: 91-13-7056Zwdjkoykf for malignant neoplasm of cervixNOMS HealthcareStart: 31-06-2587Rmtavyrgx vaccinationNOMS Healthcare Start: 03-06-2025 End: 52-82-4145Jzndfix encounter gvodafdrr93/28/2025 7:15 AM EDT Office Visit [facility] [address] [place] [address] Shailesh Cevallos MD [address] [place] [address] [facility] FMStart: 12-05-2024 End: 19-59-1498Nqubiyf encounter procedureNOMS CWM FMComment on above:Arrived Start: 11-07-2024 End: 95-90-4526Ydfgc metabolic 1998 panel - Serum or PlasmaBasic metabolic panel Lab Routine Annual physical exam Expected: 11/07/2024 (Approximate), Expires: 11/07/2025[facility] HealthcareComment on above:Expected: 11/07/2024 (Approximate), Expires: 11/07/2025Start: 11-07-2024 End: 58-40-8218QNK W Auto Differential panel - BloodCBC and differential Lab Routine Annual physical exam Expected: 11/07/2024 (Approximate), Expires: 0 11/07/2025N[facility] HealthcareComment on above:Expected: 11/07/2024 (Approximate), Expires: 11/07/2025Start: 11-07-2024 End: 37-86-5862Fjrdxolpnk A1c/Hemoglobin.total in BloodHemoglobin A1c Lab Routine Annual physical exam Expected: 11/07/2024 (Approximate), Expires: 11/07/2025[facility] Work Phone: Comment on above:Expected: 11/07/2024 (Approximate), Expires: 11/07/2025Start: 11-07-2024 End: 70-52-9735Kvwxbfh function 2000 panel - Serum or PlasmaHepatic function panel Lab Routine Annual physical exam Expected: 11/07/2024 (Approximate), Expires: 11/07/2025[facility] HealthcareComment on above:Expected: 11/07/2024 (Approximate), Expires: 11/07/2025Start: 11-07-2024 End: 09-99-4408Edqqv 1996 panel - Serum or PlasmaLipid panel Lab Routine Annual physical exam Expected: 11/07/2024 (Approximate), Expires: 11/07/2025[facility] HealthcareComment on above:Expected: 11/07/2024 (Approximate), Expires: 11/07/2025Start: 11-07-2024 End: 83-70-5869ZOG W/REFLEX TO FT4TSH W/REFLEX TO FT4 Lab Routine Annual physical exam Expected: 11/07/2024 (Approximate), Expires: 11/07/2025[facility] HealthcareComment on above:Expected: 11/07/2024 (Approximate), Expires: 11/07/2025Start: 11-07-2024 End: 65-96-1872Kfopkoz encounter ybpofiosw22/29/2025 7:30 AM EST Office Visit [facility] [address] [place] [id number] Shailesh Cevallos MD [address] [place] [address] [facility] FMComment on above:ArrivedStart: 07-25-2024 End: 20-97-3298Gabemvh encounter irvbswhyb06/16/2024 1:30 PM EDT Routine [facility] [address] [place] [id number] Lakia Ramos, DO [address] [place] [address] [facility] BCP OBStart: 07-18-2024 End: 63-79-4412Kjeqiyu encounter procedureNOMS [facility] OBComment on above:Arrived Start: 07-11-2024 End: 63-02-8253Jtlgsmi encounter ozssqgqej18/02/2024 3:00 PM EDT Routine [facility] [address] [facility] [place] [id number] Lakia Ramos, DO [address] [place] [address] [facility] BCP OBStart: 07-11-2024 End: 93-92-4512Yxnrd B DNA probe, amplificationStrep B DNA probe, amplification Lab Routine Third trimester Expected: 07/11/2024 (Approximate), Expires: 07/11/2025NOPR [employer] Work Phone: comment on above:Expected: 07/11/2024 (Approximate), Expires: 07/11/2025Start: 06-28-2024 End: 60-58-5710ZL biophysical profile w non stress testUS biophysical profile w non stress test Imaging Routine Excessive growth affecting management of in third trimester, single or unspecified fetus Gestational diabetes mellitus (GDM) in third trimester, gestational diabetes method of control unspecified Expected: 06/28/2024 (Approximate), Expires: 06/28/2025[facility] [employer] Work Phone: comment on above:Expected: 06/28/2024 (Approximate), Expires: 06/28/2025Start: 06-28-2024 End: 54-46-4881Momeoxm encounter fdoryitgy70/19/2024 8:50 AM EDT Routine [facility] [address] [place] [phone] Josy Rivas PA [address] [place] [address] ArrivedNOMS BCP OBComment on above: ArrivedStart: 99-03-4295Ybqbluori vaccinationInfluenza Vaccine (#1)[facility] Payers DatePayer CategoryPayerPolicy [id number] Health InsuranceMEDICAL MUTUAL [id number] [id number] 2..1.545531.3.579.2.593 [id number] 2..1.475246.3.57[id number] 2..1.387847.3.57[id number] 2..1.651385.3.57[id number] 2..1.307559.3.57[id number] 2..1.394338.3.57[id number] 2.16.840.1.050629.3.57[id number] 2..0.1.015779.3.57[id number] 2..0.1.403708.3.57[id number] 2..0.1.095782.3.57[id number] 2..0.1.947504.3.57[id number] 2..0.1.397463.3.57[id number] 2.0.1.725672.3.579.2.36788[id number] Social History DateTypeDetailFacilityStart: 55-23-5886Ufhdlct smoking status NHISNever smoked tobaccoNOMS HealthcareStart: 56-29-3566Vwbubzu use and exposureSmokeless tobacco non-userNOMS HealthcareStart: 10-21-2023 End: 92-16-3923Fcjctox of Social functionNOMS HealthcareStart: 10-21-2023 End: 84-76-8387Ptlzfx connection and isolation panelNOMS HealthcareDo you belong to any clubs or organizations such as anabaptism groups, unions, fraternal or athletic groups, or school groups?NoNOMS HealthcareAre you now , , , , never or living with a partner?MarriedNOMS HealthcareHow often to you have a drink containing alcohol?NeverN[facility]S Healthcare Start: 03-25-3973Qlu many standard drinks containing alcohol do you have on a typical day?Patient does not drinkNOMS HealthcareHow hard is it for you to pay for the very basics like food, housing, medical care, and heatingNot very hard N[facility] HealthcareDo you feel stress - tense, restless, nervous, or anxious, or unable to sleep at night because yourmind is troubled all the time - these days [OSQ]Rather muchNOPR Healthcare(I/We) worried whether (my/our) food would run out before (I/we) got money to buy more.Never trueNOPR HealthcareStart: 87-12-3555IszbfjsliKMAY HealthcareStart: 10-58-9670Vpe assigned at birthNot on [facility] Medical Equipment Procedure CodeEquipment CodeEquipment Original TextEquipment IdentifierDatesUse as instructed 4 times daily to check blood glucose.[id number]: 04-05-2024 End: 04-05-2025 Functional Status McbcBhrldsacpcToguanXakiirju63-99-8042Umbiu score [AUDIT-C]0 04/23/2024 2:21 PM EDT [facility], [facility] CenterNdeppsnwst55-12-1629Tdt often do you have a drink containing alcohol?Never 04/23/2024 2:21 PM EDT [facility], Generic NeverWashington University Medical CenterFlwweapdcn40-61-0778Zisvvtgata statusPatient does not drink 04/23/2024 2:21 PM EDT [facility], Generic Patient does not drinkWashington University Medical CenterCxdnmgcizh19-61-6001Szl often do you have 6 or more drinks on 1 occasion?Never 04/23/2024 2:21 PM EDT [facility], Generic [facility] Clinical Notes 06-28-2024 to 12-05-2024 Note Date & YcerZagyLwzvquzk99-63-1446 History of Present illness Narrative* Shailseh Cevallos MD - 12/05/2024 8:12 AM ESTAssociated Problem(s): CYNDY (generalized anxiety disorder) (CMS/HCC) Symptoms tolerable with zoloft and continue. * Shailesh Cevallos MD - 12/05/2024 8:12 AM ESTAssociated Problem(s): MDD (major depressive disorder), recurrent episode, mild (HCC) (CMS/HCC) Symptoms tolerable with zoloft and continue. * Shailesh Cevallos MD - 12/05/2024 8:10 AM ESTAssociated Problem(s): Class 3 severe obesity due to excess calories without serious comorbidity with body mass index (BMI) of 40.0 to 44.9 in adult ([facility]) Patient doing well with adipex and lost 9 pounds in first month. Tolerating well with only mild drymouth. Continue with dietary changes and less calories. Need to limit snacking and smaller portions. Continue healthier choices. Need regular aerobic exercise 30 minutes at a time 5-6 days a week. Refill for another month. OARRS reviewed. Continue meds as prescribed. If develop new or worsening symptoms contact office. * Shailesh Cevallos MD - 12/05/2024 7:30 AM EST Images from the original note were not included. Subjective Patient ID: Patricia Gibson is a 34 y.o. female who presents for Follow-up (1m adipex). Follow up depression, anxiety, and weight. Patient stable today. Mood controlled with zoloft. Not as down or sad. Interacting well with others and doing things for fun. Anxiety stable. Not as stressed out or overwhelmed. Not as nervous or worry as much. Not as ac or irritable. Started adipex andweight down 9 pounds in first month. Tolerating medication without side effects except mild dry mout h. Not as hungry with medication. Smaller portions and not snacking. Increased fruits and vegetables. Tries to limit total daily calories. Trying to increase activity and walking more. Review of Systems Respiratory: Negative for cough, [...] No edema. Neurological: Mental Status: She is alert. Assessment/Plan Problem List Items Addressed This Visit CYNDY (generalized anxiety disorder) ([facility]) Symptoms tolerable with zoloft and continue. MDD (major depressive disorder), recurrent episode, mild (HCC) ([facility]) - Primary Symptoms tolerable with zoloft and continue. Class 3 severe obesity due to excess calories without serious comorbidity with body mass index (BMI) of 40.0 to 44.9 in adult ([facility]) Patient doing well with adipex and lost 9 pounds in first month. Tolerating well with only mild drymouth. Continue with dietary changes and less calories. Need to limit snacking and smaller portions. Continue healthier choices. Need regular aerobic exercise 30 minutes at a time 5-6 days a week. Refill for another month. OARRS reviewed. Continue meds as prescribed. If develop new or worsening symptoms contact office. documented in this encounterWashington University Medical CenterZkyttddwxv97-68-6298 History of Present illness Narrative* Shailesh Cevallos MD - 11/07/2024 8:07 AM ESTAssociated Problem(s): Strain of right calf muscle Pain with walking and likely strain. Treat with prednisone. Use flexeril and heat PRN. Handout withROM exercises to patient. * Shailesh Cevallos MD - 11/07/2024 8:02 AM ESTAssociated Problem(s): Class 3 severe obesity due to excess calories without serious comorbidity with body mass index (BMI) of 40.0 to 44.9 in adult ([facility]) Patient overweight [...] month. OARRS reviewed. Continue medications as prescribed. * Shailesh Cevallos MD - 11/07/2024 7:30 AM EST Images from the original note were not included. Subjective Patient ID: Patricia Gibson is a 34 y.o. female who presents for Follow-up (Right calf pain). C/o right calf pain for about 2 weeks. Initially walking down stairs and felt a pop in calf alongwith severe pain. Pain with walking and standing. [...] (BMI) of 40.0 to 44.9 in adult (CMS/[facility]) Patient overweight [...] prednisone. Use flexeril and heat PRN. Handout withROM exercises to patient. Relevant Medications predniSONE (Deltasone) 50 MG tablet cyclobenzaprine (Flexeril) 10 MG tablet Other Visit Diagnoses Annual physical exam Relevant Medications cyclobenzaprine (Flexeril) 10 MG tablet Other Relevant Orders Hemoglobin A1c Basic metabolic panel CBC and differential Hepatic function panel Lipid panel TSH W/REFLEX TO FT4 documented in this encounterWashington University Medical CenterNqnnjvtblw78-69-7081 History of Present illness Narrative* Julia Reeves, CHUCHO - 07/25/2024 1:30 PM EDT Reason for Appointment: Patient ID: Patricia Gibson is a 34 y.o. female who presents [...] (major depressive disorder), recurrent episode, mild (HCC) ([facility]/HCC) 09/22/2023 History of herpes genitalis 09/22/2023 Irritable [...] not intractable (CMS/HCC) CYNDY (generalized anxiety disorder) ([facility]) H/O herpes genitalis Hx of hernia repair Insomnia, persistent Irritable bowel syndrome with diarrhea MDD (major depressive disorder), recurrent episode, mild (HCC) (CMS/[facility]) Metabolic syndrome [...] nursing note reviewed. Exam conducted with a brush holder assembler present. Vitals: Estimated body mass index is [...] of: Lakia Ramos DO documented in this encounterWashington University Medical CenterDdqmfdmmjd15-67-7212 History of Present illness Narrative* LIANE Navarro - 07/18/2024 9:20 AM EDT Reason for Appointment: Patient ID: Patricia Gibson is a 34 y.o. female who presents [...] intractable (CMS/HCC) 09/22/2023 CYNDY (generalized anxiety disorder) ([facility]/HCC) 09/22/2023 MDD (major depressive disorder), recurrent episode, [...] not intractable (CMS/HCC) CYNDY (generalized anxiety disorder) ([facility]) H/O herpes genitalis Hx of hernia repair Insomnia, persistent Irritable bowel syndrome with diarrhea MDD (major depressive disorder), recurrent episode, mild (HCC) ([facility]) Metabolic syndrome [...] behalf of: LIANE Navarro documented in this encounterWashington University Medical CenterZycxufwpmn29-96-6732 History of Present illness Narrative* Julia Reeves, CHUCHO - 07/11/2024 3:00 PM EDT Reason for Appointment: Patient ID: Patricia Gibson is a 34 y.o. female who presents [...] not intractable (CMS/HCC) CYNDY (generalized anxiety disorder) ([facility]) H/O herpes [...] nursing note reviewed. Exam conducted with a brush holder assembler present. Vitals: Estimated body mass index is [...] of: Lakia Ramos DO documented in this encounterWashington University Medical CenterJdltckzkyq29-06-0521 History of Present illness Narrative* LIANE Navarro - 06/28/2024 8:50 AM EDT Reason for Appointment: Patient ID: Patricia Gibson is a 34 y.o. female who presents [...] behalf of: LIANE Navarro [facility]* Diagnosis Third trimester state, incidental 36 weeks [...] (BMI) of 40.0 to 44.9 in adult ([facility]) documented in this encounter [facility] HealthcareEvaluation note* Diagnosis Migraine without aura and without status migrainosus, not intractable ([facility])- Primary CYNDY (generalized anxiety disorder) ([facility]) Generalized anxiety disorder Chronic neck pain Cervicalgia Strain of right calf muscle- Primary Annual physical exam Routine general medical examination at a health care facility Class 3 severe obesity due to excess calories without serious comorbidity with body mass index (BMI) of 40.0 to 44.9 in adult ([facility]) MDD (major depressive disorder), recurrent episode, mild (HCC) ([facility])- Primary CYNDY (generalized anxiety disorder) ([facility]) Generalized anxiety disorder Class 3 severe obesity due to excess calories without serious comorbidity with body mass index (BMI) of 40.0 to 44.9 in adult ([facility]) documented in this encounter [facility] HealthcareEvaluation note* Diagnosis Migraine without aura and without status migrainosus, not intractable ([facility])- Primary CYNDY (generalized anxiety disorder) ([facility]) Generalized anxiety disorder Chronic neck pain Cervicalgia Strain of right calf muscle- Primary Annual physical exam Routine general medical examination at a health care facility Class 3 severe obesity due to excess calories without serious comorbidity with body mass index (BMI) of 40.0 to 44.9 in adult ([facility]) MDD (major depressive disorder), recurrent episode, mild (HCC) ([facility])- Primary CYNDY (generalized anxiety disorder) ([facility]) Generalized anxiety disorder Class 3 severe obesity due to excess calories without serious comorbidity with body mass index (BMI) of 40.0 to 44.9 in adult ([facility]) Class 3 severe obesity due to excess calories without serious comorbidity with body mass index (BMI) of 40.0 to 44.9 in adult ([facility]) documented in this encounter [facility] HealthcareEvaluation note* Diagnosis Migraine without aura and without status migrainosus, not intractable ([facility])- Primary CYNDY (generalized anxiety disorder) ([facility]) Generalized anxiety disorder Chronic neck pain Cervicalgia Strain of right calf muscle- Primary Annual physical exam Routine general medical examination at a health care facility Class 3 severe obesity due to excess calories without serious comorbidity with body mass index (BMI) of 40.0 to 44.9 in adult MDD (major depressive disorder), recurrent episode, mild (HCC) ([facility])- Primary CYNDY (generalized anxiety disorder) ([facility]) Generalized anxiety disorder Class 3 severe obesity due to excess calories without serious comorbidity with body mass index (BMI) of 40.0 to 44.9 in adult Upper respiratory tract infection, unspecified type Strain of right calf muscle documented in this encounter [facility] HealthcareEvaluation note* Diagnosis Migraine without aura and without status migrainosus, not intractable- Primary CYNDY (generalized anxiety disorder) Generalized anxiety disorder Chronic neck pain Cervicalgia Strain of right calf muscle- Primary Annual physical exam Routine general medical examination at a health care facility Class 3 severe obesity due to excess calories without serious comorbidity with body mass index (BMI) of 40.0 to 44.9 in adult ([facility]) MDD (major depressive disorder), recurrent episode, mild- Primary CYNDY (generalized anxiety disorder) Generalized anxiety disorder Class 3 severe obesity due to excess calories without serious comorbidity with body mass index (BMI) of 40.0 to 44.9 in adult ([facility]) Upper respiratory tract infection, unspecified type Strain of right calf muscle documented in this encounter [facility] Summary Purpose Family History No Family History Records FoundNo Family History Records FoundNo Family History Records FoundNo Family History Records Found Advance Directives No Advanced Directives Records FoundNo Advanced Directives Records FoundNo Advanced Directives Records FoundNo Advanced Directives Records Found Additional Source Comments INFORMATION SOURCE (unrecogn ized section and content) DATE CREATED AUTHOR 04/04/2018 [facility] DATE CREATED AUTHOR AUTHOR'S ORGANIZ ATION 11/03/2021 [facility] DATE CREATED AUTHOR AUTHOR'S ORGANIZ ATION 10/26/2022 [facility] DATE CREATED AUTHOR AUTHOR'S ORGANIZ ATION 12/06/2024 [facility] EPIC Reason for Visit (unrecogniz ed section and content) ReasonCommentsRoutine VisitReasonCommentsFollow-upRight calf painReason CommentsFollow-up1m adipexReasonOnset DateCommentsMed Nphcka5812/11/2024 Care Teams (unrecognized sec tion and content) Team MemberRelationshipSpecialtyStart DateEnd Date Shailesh Cevallos MD [address] [place] [address] PCP - [facility]01/20/24 Shailesh Cevallos MD [address] [place] [address] PCP - Medical [facility] Tvjyfxruny02/1/2312Team MemberRelationshipSpecialty Start DateEnd Date Shailesh Cevallos MD [address] [place] [address] PCP - [facility] Medicine01/20/24 Shailesh Cevallos MD [address] [place] [address] PCP - Medical [facility] Jusmtwzswf97/1/2312Team MemberRelationshipSpecialty Start DateEnd Date Shailesh Cevallos MD [address] [place] [address] PCP - [facility] Medicine01/20/24 Shailesh Cevallos MD [address] [place] [address] PCP - Medical [facility] Vjgjiuymkt48/1/2312Team MemberRelationshipSpecialty Start DateEnd Date Shailesh Cevallos MD [address] [place] [address] PCP - [facility] Medicine01/20/24 Shailesh Cevallos MD [address] [place] [address] PCP - Medical [facility] Poipgulyhm69/1/2312Team MemberRelationshipSpecialty Start DateEnd Date Shailesh Cevallos MD [address] [place] [address] PCP - General[facility] Medicine01/20/24 Shailesh Cevallos MD [address] [place] [address] PCP - Medical [facility] Myqqqswmce74/1/2312Team MemberRelationshipSpecialty Start DateEnd Date Shailesh Cevallos MD [address] [place] [address] [facility] Shailesh Cevallos MD [address] [place] [address] PCP - Medical [facility] Mgxddebqmm43/1/2312Team MemberRelationshipSpecialty Start DateEnd Date Shailesh Cevallos MD [address] [place] [address] [facility] Shailesh Cevallos MD [address] [place] [address] PCP - Medical [facility] Dxwdbcwdzx37/1/2312Team MemberRelationshipSpecialty Start DateEnd Date Shailesh Cevallos MD [address] [place] [address] PCP - [facility] Medicine01/20/24 Shailesh Cevallos MD [address] [place] [address] PCP - Medical [facility] Zhyubgbjuy05/1/2312Team MemberRelationshipSpecialty Start DateEnd Date Shailesh Cevallos MD [address] [place] [address] PCP - [facility]01/20/24 Shailesh Cevallos MD [address] [place] [address] [facility] - [facility]08/10/2312Team MemberRelationshipSpecialty Start DateEnd Date Shailesh Cevallos MD [address] [place] [address] PCP - [facility]01/20/24 Shailesh Cevallos MD [address] [place] [address] PCP - Medical [facility]08/10/2312Team MemberRelationshipSpecialty Start DateEnd Date Shailesh Cevallos MD [address] [place] [address] PCP - [facility]01/20/24 Shailesh Cevallos MD [address] [place] [address] PCP - Medical [facility]08/10/2312Team MemberRelationshipSpecialty Start DateEnd Date Shailesh Cevallos MD [address] [place] [address] [facility]24 Shailesh Cevallos MD [address] [place] [address] PCP - Medical [facility] Pxpkqygndl14/1/2312Team MemberRelationshipSpecialty Start DateEnd Date Shailesh Cevallos MD [address] [place] [address] PCP - [facility]01/20/24 Shailesh Cevallos MD [address] [place] [address] PCP - Medical [facility] Cdfmyxgbfk12/1/2312Team MemberRelationshipSpecialty Start DateEnd Date Shailesh Cevallos MD [address] [place] [address] PCP - [facility]01/20/24 Shailesh Cevallos MD [address] [place] [address] PCP - Medical [facility] Cniqaqelth54/1/2312Team MemberRelationshipSpecialty Start DateEnd Date Shailesh Cevallos MD [address] [place] [address] PCP - [facility]01/20/24 Shailesh Cevallos MD [address] [place] [address] PCP - Medical [facility] Ognondxfst20/1/2312Team MemberRelationshipSpecialty Start DateEnd Date Shailesh Cevallos MD [address] [place] [address] [facility]01/20/24 Shailesh Cevallos MD [address] [place] [address] PCP - Medical [facility] Dqtllbuvfy40/1/2312Team MemberRelationshipSpecialty Start DateEnd Date Shailesh Cevallos MD [facility] Shailesh Cevallos MD [address] [place] [address] [facility]/24 Shailesh Cevallos MD [address] [place] [address] PCP - Medical [facility] Ojwkdvhkjm65/1/2312Team MemberRelationshipSpecialty Start DateEnd Date Shailesh Cevallos MD [address] [place] [address] PCP - Generalmi Medicine01/20/24 Shailesh Cevallos MD [address] [place] [address] [facility] - [facility]08/10/2312Te MemberRelationshipSpecialty Start DateEnd Date Shailesh Cevallos MD [address] [place] [address] [facility]01/20/24 Shailesh Cevallos MD [address] [place] [address] [facility]08/10/2312Te MemberRelationshipSpecialty Start DateEnd Date Shailesh Cevallos MD [address] [place] [address] [facility]01/20/24 Shailesh Cevallos MD [address] [place] [address] [facility]08/10/2312 FOR RECORDS PERTAINING TO PATIENTS WHO ARE [...] BE BASED ON THE PRIMARY CLINICAL RECORDS. [facility]. provides no warranty or guarantee of the accuracy or completeness of information in this document.
--- OUTSIDE RECORDS SUMMARY | 2025-08-24 10:21 | XMS_ITS | Clinical Summary ---
Author Organization [facility] Healthcare Address [address] [place] [address] Care Team Providers Care Contaminated Land Consultant Name Role Phone Shailesh Flowers MD Primary Care Provider [phone] Shailesh Flowers MD Unavailable Allergies No known active allergies Medications MedicationSigDispense QuantityRefillsLast FilledStart DateEnd DateStatus Alcohol Swabs (Alcohol Prep Pad) 70 % pads Indications:Gestational diabetes mellitus (GDM), antepartum, gestational diabetes method of control unspecified([facility]),Elevated glucose tolerance test Apply 1 Pad topically Daily Use four times daily to check FSBS. 150 each 4Active sertraline (Zoloft) 100 MG tablet Indications:MDD (major depressive disorder), recurrent episode, mildTake 1 tablet (100 mg) by mouth Daily 90 tablet 4Active cyclobenzaprine (Flexeril) 10 MG tablet Indications:Annual physical exam,Class 3 severe obesity due to excess calories without serious comorbidity with body mass index (BMI) of 40.0 to 44.9 in adult [place]Strain of right calf muscleTake 1 tablet (10 mg) by mouth in the morning and 1 tablet (10 mg) in the evening and 1 tablet (10 mg) before bedtime. Do all this for 10 days. 30 tablet 5Active phentermine (Adipex-P) 37.5 MG tablet Indications:Class 3 severe obesity due to excess calories without serious comorbidity with body mass index (BMI) of 40.0 to 44.9 in adult ([facility]Take 1 tablet (37.5 mg) by mouth in the morning. Take before meals. 30 tablet 5Active Active Problems ProblemNoted DateDiagnosed DateStrain of right calf wgbhud2211/07/2024 Assessment & Plan (11/07/2024 8:07 AM EST): Pain with walking and likely strain. Treat with prednisone. Use flexeril and heat PRN. Handout withROM exercises to patient. Class 3 severe obesity due to excess calories without serious comorbidity with body mass index (BMI) of 40.0 to 44.9 in adult10/26/2023 Assessment & Plan (12/05/2024 8:10 AM EST): Patient doing well with adipex and lost 9 pounds in first month. Tolerating well with only mild drymouth. Continue with dietary changes and less calories. Need to limit snacking and smaller portions. Continue healthier choices. Need regular aerobic exercise 30 minutes at a time 5-6 days a week. Refill for another month. OARRS reviewed. Continue meds as prescribed. If develop new or worsening symp toms contact office. Assessment & Plan (11/07/2024 8:02 AM EST): Patient overweight and difficult time losing weight. [...] month. OARRS reviewed. Continue medications as prescribed. Irritable bowel syndrome with tshzmaxl03/12/2024Persistent disorder of initiating or maintaining sleep4Chronic neck pain10/21/2023 Assessment & Plan (10/21/2023 10:30 AM EST): Occasional tightness and use flexeril PRN. Migraine without aura and without status migrainosus, not ilninaiobba07/14/2023 Assessment & Plan (10/21/2023 10:30 AM EST): RIVERO worse with stress and use fioricet PRN. If worsen can try prophylactic medication. CYNDY (generalized anxiety disorder)09/22/2023 Assessment & Plan (12/05/2024 8:12 AM EST): Symptoms tolerable with zoloft and continue. Assessment & Plan (10/21/2023 10:30 AM EST): Mood stable and continue zoloft. MDD (major depressive disorder), recurrent episode, mild09/22/2023 Assessment & Plan (12/05/2024 8:12 AM EST): Symptoms tolerable with zoloft and continue. History of herpes khkstvchi82/14/2023 Resolved Problems ProblemNoted DateDiagnosed DateResolved DateBleeding in early ([facility])Missed Family History Medical HistoryRelationNameCommentsCoronary artery diseaseFatherHyperlipidemia FatherHypertensionFatherNo Known ProblemsMaternal GrandfatherNo Known Problems Maternal GrandmotherAsthmaMotherMental illnessMotherNo Known ProblemsPaternal GrandfatherNo Known ProblemsPaternal GrandmotherRelationNameStatusCommentsFather Maternal GrandfatherMaternal GrandmotherMotherPaternal GrandfatherPaternal Grandmother Social History Tobacco UseTypesPacks/DayYears UsedDateSmoking Tobacco: NeverSmokeless Tobacco: Never Tobacco Cessation:Counseling Given: Not Answered Social Connection and Isolation PanelAnswerDate RecordedIn a typical week, how many times do you talk on the phone with family, friends, or neighbors?More than three times a week04/23/2024How often do you get together with friends or relatives?More than three times a week04/23/2024How often do you attend orthodoxy or druze services?More than 4 times per year04/23/2024o you belong to any clubs or organizations such as orthodoxy groups, unions, fraternal or athletic allan ups, or school groups?No04/23/2024How often do you attend meetings of the clubs or organizations you belong to?Never04/23/2024re you , , , , never , or living with a partner?Rxcedfs7704/23/2024 AUDIT-CAnswerDate RecordedQ1: How often do you have a drink containing alcohol? Never04/23/2024Q2: How many drinks containing alcohol do you have on a typical day when you are drinking?Patient does not drink04/23/2024Q3: How often do you have six or more drinks on one occasion?Never04/23/2024Overall Financial Resource Strain (CARDIA)AnswerDate RecordedHow hard is it for you to pay for the very basics like food, housing, medical care, and heating?Not very hard 04/23/2024HQ-2AnswerDate RecordedPatient Health Questionnaire-2 Score0 10/21/2023FinGrant-Blackford Mental Health of Occupational Health - Occupational Stress QuestionnaireAnswerDate RecordedDo you feel stress - tense, restless, nervous, or anxious, or unable to sleep at night because yourmind is troubled all the time - these days?Rather much04/23/2024Exercise Vital SignAnswerDate RecordedOn average, how many days per week do you engage in moderate to strenuous exercise (like a brisk walk)?0 days04/23/2024On average, how many minutes do you engage in exercise at this level?0 min04/23/2024Hunger Vital SignAnswerDate Recorded Within the past 12 months, you worried that your food would run out before you got the money to buymore.Never true04/23/2024Within the past 12 months, the food you bought just didn't last and you didn't have money to get more.Never true 04/23/2024RAPARE - TransportationAnswerDate RecordedIn the past 12 months, has lack of transportation kept you from medical appointments or from getting medications?No04/23/2024In the past 12 months, has lack of transportation kept you from meetings, work, or from getting things needed for daily living?No 04/23/2024Housing Stability Vital SignAnswerDate RecordedIn the last 12 months, was there a time when you were not able to pay the mortgage or rent on time?No 04/23/2024Number of Times Moved in the Last YearNot on file04/23/2024t any time in the past 12 months, were you homeless or living in a correction (including now)? No4CommentsUnknownSex and Gender InformationValueDate Recorded Sex Assigned at BirthNot on fileLegal MljKbbdpv16/15/2023 8:02 PM EDTGender IdentityNot on fileSexual OrientationNot on file Last Filed Vital Signs Vital SignReadingTime TakenCommentsBlood Hpjhdsii946/6802 7:38 AM EST Jwpts206512/05/2024 7:38 AM TPLProqruemldv75.4 ??C (97.5 ??F)12/05/2024 7:38 AM ESTRespiratory Aasc222912/05/2024 7:38 AM ESTOxygen Chppubiuat23%12/05/2024 7:38 AM ESTInhaled Oxygen Concentration--Dnunqr74.7 kg (211 lb)12/05/2024 7:38 AM EST Nwxmwq124.9 cm (5' 1 )12/05/2024 7:38 AM ESTBody Mass Index39.8712/05/2024 7:38 AM EST Plan of Treatment Health MaintenanceDue DateLast DoneCommentsCOVID-19 Vaccine ( season) 2025Influenza Vaccine (#1)5Cervical Cancer Fjgggitik67/27/2029 HPV/Fsegjp4904/05/2029Pap Smear, 09/05/2013Pneumococcal Vaccine: Pediatrics (0 to 5 Years) and At-Risk Patients (6 to 64 Years)Aged Out No longer eligible based on patient's age to complete this topic Procedures Procedure NamePriorityDate/TimeAssociated DiagnosisCommentsPAP SMEARRoutine 04/05/2024 12:00 AM EDTfrom Last 3 Months or Most Recently Relevant to Health Maintenance Results * Pap Smear (04/05/2024 12:00 AM EDT)Specimen (Source)Anatomical Location / LateralityCollection Method / VolumeCollection TimeReceived TimeSwabCervical swab / Unknown Narrative Authorizing ProviderResult TypeResult StatusCorey Richard DOLAB CYTOLOGY ORDERABLESFinal ResultPerforming OrganizationAddressCity/State/ZIP CodePhone Number EXTERNAL LAB from Last 3 Months or Most Recently Relevant to Health Maintenance Insurance Care Teams Team MemberRelationshipSpecialtyStart DateEnd Date Shailesh Flowers MD [address] [place] [phone] PCP - GeneralFamily Medicine01/20/24 Shailesh Flowers MD [address] [place] [phone] PCP - Medical [place] Wruiguufty76/1/
--- OUTSIDE RECORDS SUMMARY | 2025-08-24 10:21 | XMS_ITS | Patient Health Record ---
Author Organization [facility] [place] Address [address] [place] [address] Support Name Relationship Address Phone Mark Dominguez Emergency Contact Unknown Mark Dominguez Guarantor Unknown [phone] Reason For Referral No Information Plan Of Treatment No Information Insurance Providers Payer Name Payer Address Payer Phone Subscriber Number Group Number Insured Name Patient Relationship to Insured Coverage Start Date Coverage End Date SELF PAY ON PATIENT DEMOGRAPHICS Germán Dominguezelf - patient is the qkjstat5902/06/2008
--- OUTSIDE RECORDS SUMMARY | 2025-08-24 10:21 | XMS_ITS | Clinical Summary ---
Author Organization [facility] Address [id number] [address] [place] [address] Care Team Providers Care Associate Professor Of Geology Name Role Phone Shailesh Flowers MD Primary Care Provider [phone] Allergies No known active allergies Medications MedicationSigDispense QuantityRefillsLast FilledStart DateEnd DateStatus rizatriptan LETTERER (MAXALT-LETTERER) 10 mg disintegrating tablet dissolve 1 tablet ON TONGUE AT ONSET OF HEADACHE may repeat in 2 ... (REFER TO PRESCRIPTION NOTES).09/09/2020Active sertraline (ZOLOFT) 100 mg tablet 1Active Active Problems No known active problems Family History RelationNameStatusCommentsBrotherAliveDaughterAliveFatherAliveMotherAliveSister AliveSonAlive Social History Tobacco UseTypesPacks/DayYears UsedDateSmoking Tobacco: NeverSmokeless Tobacco: NeverAlcohol UseStandard Drinks/WeekCommentsYes0 (1 standard drink = 0.6 oz pure alcohol)socialChildcareAnswerDate EihucuqwPfdazlmvnDvwfesd28/10/2021Employment AnswerDate XidauhyuXbbzaeiazhKqvamqi04/10/2021Purpose - LifeAnswerDate Recorded Purpose and direction in elcqOxehnvq18/10/2021CommentsUnknownSex and Gender InformationValueDate RecordedSex Assigned at BirthNot on fileLegal Sex Qfhbyu8805/15/2015 11:42 AM EDTGender IdentityNot on fileSexual OrientationNot on file Last Filed Vital Signs Vital SignReadingTime TakenCommentsBlood Uybwhtlb303/7603 10:09 AM EST Pulse--Zcovrhegjap90.9 ??C (98.4 ??F)12/17/2020 10:09 AM ESTRespiratory Rate-- Oxygen Saturation--Inhaled Oxygen Concentration--Hgtier31.4 kg (186 lb) 12/17/2020 10:09 AM QXFQwnfoy027.9 cm (5' 1 )12/17/2020 10:09 AM ESTBody Mass Index35.14012/17/2020 10:09 AM EST Plan of Treatment Health MaintenanceDue DateLast DoneCommentsDepression Vzbsqdmmb77/11/2002Tobacco Exrvsdpon19/11/2002Adult BMI Vuxbbapzz09/11/2008DTaP,Tdap and Td Vaccines (1 - Tdap)2009Influenza Fcfecal4906/10/2025Pap Smear7004/05/2024, 09/05/2013 Medical Devices Not on file Insurance Care Teams Team MemberRelationshipSpecialtyStart DateEnd Date Shailesh Flowers MD PCP - GeneralFamily Medicine12/17/20
--- OUTSIDE RECORDS SUMMARY | 2025-08-24 10:22 | XMS_ITS | Clinical Summary ---
Author Organization [facility] Address [address] [place] [address] Care Team Providers Care Co Pilot Name Role Phone Unavailable Primary Care Provider Unavailabl e Social History Tobacco UseTypesPacks/DayYears UsedDateSmoking Tobacco: Never Assessed CommentsUnknownSex and Gender InformationValueDate RecordedSex Assigned at Not on fileLegal KxpTufvrv67/29/2022 9:31 PM EDTGender IdentityNot on fileSexual OrientationNot on file Plan of Treatment Not on file
[2025-08-24 11:12] LABS: Hematocrit 37.6 % (36.0-48.0); Hemoglobin 11.6 g/dL (12.0-16.0); Immature Granulocytes Abs Auto 0.02 10^3/uL (0.00-0.03); Immature Granulocytes Pct Auto 0.3 % (0.0-0.5); Lymphocytes Absolute Auto 1.4 10^3/uL (1.2-3.8); Mean Corpuscular HGB Conc 30.9 g/dL (29.9-35.2); Mean Corpuscular Hemoglobin 22.8 pg (26.7-34.0); Mean Corpuscular Volume 73.9 fL (81.0-99.0); Platelet Count 182 10^3/uL (150-450); Red Blood Count 5.09 10^6/uL (4.20-5.40); White Blood Count 7.9 10^3/uL (4.0-11.0)
[2025-08-24 11:43] LABS: Alanine Aminotransferase 22 U/L (14-59); Albumin Globulin Ratio 0.9; Albumin Level 3.4 g/dL (3.4-5.0); Alkaline Phosphatase 109 U/L (46-116); Anion Gap 11.7; Aspartate Amino Transferase 12 U/L (15-37); Blood Urea Nitrogen 12.0 mg/dL (7.0-18.0); Calcium 8.6 mg/dL (8.5-10.1); Carbon Dioxide 28.1 mmol/L (21.0-32.0); Chloride 105 mmol/L (98-107); Cholesterol 187 mg/dL (<=200); Estimated GFR (African America >60 (>=60 mL/min/1.73m^2); Estimated GFR (Non-African Ame >60 (>=60 mL/min/1.73m^2); Globulin 4.0 g/dL; Glucose 109 mg/dL (74-106); HDL Cholesterol 41 mg/dL (40-60); Magnesium 2.0 mg/dL (1.8-2.4); Potassium 3.8 mmol/L (3.5-5.1); Sodium 141 mmol/L (136-145); Thyroid Stimulating Hormone 1.417 uIU/mL (0.358-3.740); Total Protein 7.4 g/dL (6.4-8.2); Triglycerides 101 mg/dL (<=150); VLDL CHOLESTEROL 20.2 mg/dL
== END 2025-08-24 10:14 | disposition home or self-care (01) ==
LOC: LAB 10:16
PROVIDERS: PCP Family Medicine; Visit Provider Family Medicine
DX: Z00.00 Encounter for general adult medical examination without abnormal findings (principal); E03.9 Hypothyroidism, unspecified
CPT/HCPCS: 36415; 80053; 80061; 83036; 83735; 84439; 84443; 85025